=== PATIENT | female | born 1960 | race Caucasian/White ===

== ENCOUNTER → 2017-01-02 | Outpatient (CLI) | payer SELFPAY ==
[2016-09-23 15:00] VITALS: BP 145/63
[~2017-01-02] MED LIST: ACET500T68 PO; ALBU25PO2 MC; ASPI-482 PO; ASPI325T8 PO; ATOR20TA58 PO; AZIT500T4 PO; BUDE10.2 IH; BUDE180A IH; BUSP15TA PO; CARV6.252 PO; CLON0.5T3 PO; CLON1TAB PO; CLON1TAB23 PO; CYAN10002 IJ; CYAN10002 IM; FLUT1DIS3 IH; GABA-586 PO; HYDR-2679 PO; HYDR-2680 PO; ISOS30TA4 PO; LOSA50TA2 PO; METO50TA6 PO; NAPR-683 PO; NICO1PAT21 TP; OXYC-323 PO; OXYC-328 PO; PRAZ1CAP2 PO; PRED-220 PO; PROAIR HFA8.5 GM IH; SIMV20TA3 PO; SIMV5TAB5 PO; TAMO20TA PO; TRAM50TA PO; VENL225T PO; VENL37.5 PO; VENTOLIN HFA18 GM INH
--- NOTE | 2017-01-02 15:06 | CARD ---
APPROVED REPORT EXAM: Two-dimensional and M-mode echocardiogram with Doppler and color Doppler. Other Information Quality : Good INDICATION Non-Ischemic Cardiomyopathy 2D DIMENSIONS RVDd2.7 (2.9-3.5cm)Left Atrium(2D)2.8 (1.6-4.0cm) IVSd0.8 (0.7-1.1cm)Aortic Root(2D)2.7 (2.0-3.7cm) LVDd4.7 (3.9-5.9cm)LVOT Diameter2.0 (1.8-2.4cm) PWd0.8 (0.7-1.1cm)LVDs3.5 (2.5-4.0cm) FS (%) 25.4 %SV50.7 ml LVEF(%)55.0 (>50%) Aortic Valve AoV Peak Denis.110.6cm/sAoV VTI24.2cm AO Peak GR.4.9mmHgLVOT Peak Denis.89.4cm/s LVOT VTI 21.93cmAO Mean GR.3mmHg ZEINAB (VMAX)2.38qf4KDY (VTI)2.78cm2 Mitral Valve MV E Aumamxdq40.4cm/sMV DECEL [id number] MV A Fchxvavb31.8cm/sMV CMT44fz E/A Ratio0.9MVA (PHT)3.87cm2 TDI E/Lateral E'7.7 Pulmonary Vein S1 Llxrgpve93.4cm/sD2 Robjexoi80.0cm/s LEFT VENTRICLE The left ventricle is normal size. There is normal left ventricular wall thickness. The left ventricu lar systolic function is low normal. The Ejection Fraction is 50-55%. There is normal LV segmental wa ll motion. The left ventricular diastolic function and filling is normal for age. RIGHT VENTRICLE The right ventricle is normal size. The right ventricular systolic function is normal. ATRIA The left atrium size is normal. The right atrium size is normal. The interatrial septum is intact wit h no evidence for an atrial septal defect or patent foramen ovale as noted on 2-D or Doppler imaging. AORTIC VALVE The aortic valve is normal in structure and function. Doppler and Color Flow revealed trace aortic re gurgitation. There is no significant aortic valvular stenosis. MITRAL VALVE The mitral valve is normal in structure and function. There is no evidence of mitral valve prolapse. There is no mitral valve stenosis. Doppler and Color-flow revealed trace to mild mitral regurgitation . TRICUSPID VALVE The tricuspid valve is normal in structure and function. Doppler and Color Flow revealed trace tricus pid regurgitation. There is no tricuspid valve stenosis. PULMONIC VALVE Doppler and Color Flow revealed no pulmonic valvular regurgitation. There is no pulmonic valvular mainor nosis. GREAT VESSELS The aortic root is normal in size. The ascending aorta is not well seen. The IVC is normal in size an d collapses >50% with inspiration. PERICARDIAL EFFUSION There is no evidence of significant pericardial effusion. Critical Notification Critical Value: No <Conclusion> The left ventricular systolic function is low normal. The Ejection Fraction is 50-55%. There is normal LV segmental wall motion.
== END | disposition home or self-care (01) ==
LOC: ECHO 13:47
PROVIDERS: ATTEND Internal Medicine Cardiovascular Disease
DX: I31.3 Pericardial effusion (noninflammatory) (principal)
CPT/HCPCS: 93306

== ENCOUNTER 2017-01-10 10:29 | Inpatient (IN) | payer SELFPAY ==
[~2017-01-10] VITALS: Ht 162.6 cm; Wt 58.5 kg
[~2017-01-10 10:29] MED LIST changes: -ACET500T68 PO; -AZIT500T4 PO; -BUDE180A IH; -CLON0.5T3 PO; -CYAN10002 IM; -NICO1PAT21 TP; -PRED-220 PO; -VENTOLIN HFA18 GM INH
--- NOTE | 2017-01-10 10:44 | PHYS DOC ---
Past Medical History Past Medical History: Asthma, Cancer, COPD, CVA, Hypertension, Other Additional Past Medical Histor: LT EYE BLINDNESS, BREAST CA Additional Past Surgical Histo: LT BREAST LUMPECTOMY, PORT W/REMOVAL, LT EYE Alcohol Use: Occasionally Drug Use: None Adult General Chief Complaint Chief Complaint: SHORTNESS OF BREATH HPI HPI Patient is a 56 year old female who presents with shortness of breath and productive cough. She states her symptoms started several days ago and she's noticed green colored sputum which is different than her baseline. She does have COPD and she has been smoking again. She was seen by her computer education professor this morning and was instructed she can take off her ICD life pack and was told that her heart function is return back to normal. She denies any fevers chills chest pain nausea vomiting. Review of Systems Review of Systems Constitutional: Denies fever or chills [] Eyes: Denies change in visual acuity, redness, or eye pain [] HENT: Denies nasal congestion or sore throat [] Respiratory: Positive for cough and shortness of breath Cardiovascular: No additional information not addressed in HPI [] GI: Denies abdominal pain, nausea, vomiting, bloody stools or diarrhea [] : Denies dysuria or hematuria [] Musculoskeletal: Denies back pain or joint pain [] Integument: Denies rash or skin lesions [] Neurologic: Denies headache, focal weakness or sensory changes [] Endocrine: Denies polyuria or polydipsia [] All other systems were reviewed and found to be within normal limits, except as documented in this note. Current Medications Current Medications Current Medications Medications (Trade) Dose Ordered Sig/Lanette Start Time Stop Time Status Last Admin Dose Admin Albuterol/ Ipratropium (Duoneb) 3 ml 1X ONCE 01/10/17 10:45 01/10/17 10:46 DC 01/10/17 10:50 3 ML Methylprednisolone Sodium Succinate (SOLU-Medrol 125MG VIAL) 125 mg 1X ONCE 01/10/17 11:00 01/10/17 11:01 DC 01/10/17 11:35 125 MG Allergies Allergies Allergies Coded Allergies Type Severity Reaction Last Updated Verified No Known Drug Allergies 03/16/14 No Physical Exam Physical Exam Constitutional: Well developed, well nourished, no acute distress, non-toxic appearance. [] HENT: Normocephalic, atraumatic, bilateral external ears normal, oropharynx moist, no oral exudates, nose normal. [] Eyes: PERRLA, EOMI, conjunctiva normal, no discharge. [] Neck: Normal range of motion, no tenderness, supple, no stridor. [] Cardiovascular:Heart rate regular rhythm, no murmur [] Lungs & Thorax: Tachypnea with moderate expiratory wheezing bilaterally Abdomen: Bowel sounds normal, soft, no tenderness, no masses, no pulsatile masses. [] Skin: Warm, dry, no erythema, no rash. [] Back: No tenderness, no CVA tenderness. [] Extremities: No tenderness, no cyanosis, no clubbing, ROM intact, no edema. [] Neurologic: Alert and oriented X 3, normal motor function, normal sensory function, no focal deficits noted. [] Psychologic: Affect normal, judgement normal, mood normal. [] Current Patient Data Vital Signs Vital Signs Date Time Temp Pulse Resp B/P (MAP) Pulse Ox O2 Delivery O2 Flow Rate FiO2 01/10/17 10:51 99 Room Air 01/10/17 10:40 98.8 90 30 160/89 (112) 98.8 Lab Values Laboratory Tests Test 01/10/17 10:50 White Blood Count 8.5 x10^3/uL (4.0-11.0) Red Blood Count 4.53 x10^6/uL (3.50-5.40) Hemoglobin 14.6 g/dL (12.0-15.5) Hematocrit 43.8 % (36.0-47.0) Mean Corpuscular Volume 97 fL (79-100) Mean Corpuscular Hemoglobin 32 pg (25-35) Mean Corpuscular Hemoglobin Concent 33 g/dL (31-37) Red Cell Distribution Width 14.1 % (11.5-14.5) Platelet Count 179 x10^3/uL (140-400) Neutrophils (%) (Auto) 59 % (31-73) Lymphocytes (%) (Auto) 27 % (24-48) Monocytes (%) (Auto) 7 % (0-9) Eosinophils (%) (Auto) 7 % (0-3) H Basophils (%) (Auto) 1 % (0-3) Neutrophils # (Auto) 5.0 x10^3uL (1.8-7.7) Lymphocytes # (Auto) 2.3 x10^3/uL (1.0-4.8) Monocytes # (Auto) 0.6 x10^3/uL (0.0-1.1) Eosinophils # (Auto) 0.6 x10^3/uL (0.0-0.7) Basophils # (Auto) 0.0 x10^3/uL (0.0-0.2) Prothrombin Time 12.7 SEC (11.7-14.0) Prothrombin Time INR 1.0 (0.8-1.1) Sodium Level 141 mmol/L (136-145) Potassium Level 3.9 mmol/L (3.5-5.1) Chloride Level 105 mmol/L (98-107) Carbon Dioxide Level 21 mmol/L (21-32) Anion Gap 15 (6-14) H Blood Urea Nitrogen 13 mg/dL (7-20) Creatinine 1.1 mg/dL (0.6-1.0) H Estimated GFR (Cockcroft-Gault) 51.8 Glucose Level 129 mg/dL (70-99) H Calcium Level 9.6 mg/dL (8.5-10.1) Magnesium Level 2.1 mg/dL (1.8-2.4) Total Bilirubin 0.4 mg/dL (0.2-1.0) Direct Bilirubin 0.1 mg/dL (0.0-0.2) Aspartate Amino Transferase (AST) 17 U/L (15-37) Alanine Aminotransferase (ALT) 17 U/L (14-59) Alkaline Phosphatase 87 U/L (46-116) Creatine Kinase 57 U/L (26-192) Creatine Kinase MB (Mass) 0.6 ng/mL (0.0-3.6) Creatine Kinase MB Relative Index % (0-4) Troponin I Quantitative < 0.017 ng/mL (0.000-0.055) DK-Xcr-X-Type Natriuretic Peptide 2235 pg/mL (0-124) H Total Protein 7.7 g/dL (6.4-8.2) Albumin 3.6 g/dL (3.4-5.0) Lipase 169 U/L (73-393) Laboratory Tests 01/10/17 10:50 Laboratory Tests 01/10/17 10:50 EKG EKG EKG shows normal sinus with a rate of [address] elevations or T- wave inversions, normal axis, QTC 472 ms, as interpreted by me. Radiology/Procedures Radiology/Procedures [] Impressions: COPD exacerbation Shortness of breath Cardiomyopathy Breast cancer Tobacco abuse Course & Med Decision Making Course & Med Decision Making Pertinent Labs and Imaging studies reviewed. (See chart for details) Patient presents with change in her sputum color from clear to brown and increasing shortness of breath. She received DuoNeb, Solu-Medrol, and azithromycin IV. Her EKG is nonacute. Her chest x-ray doesn't show any focal consolidations or signs of volume overload. We'll admit to the hospitalist and placed consultations with cardiology and pulmonary. Patient's in stable condition this time being admitted to telemetry. Dragon Disclaimer Dragon Disclaimer This electronic medical record was generated, in whole or in part, using a voice recognition dictation system. Departure Departure Impression: Primary Impression: Shortness of breath Disposition: ADMITTED INPATIENT Admitting Physician: Yu Feng Condition: IMPROVED Referrals: UNKNOWN PCP NAME (PCP) ANANYA DOS SANTOS MD Jan 10, 2017 10:44
[2017-01-10] MEDS ORDERED: IPRATRPIUM/ALBUTEROL 0.5/2.5MG 3 ML NEBU. NEB ONE (10:45)
[2017-01-10] MEDS ORDERED: methylPREDNISolone SOD SUCC PF 125 MG/2 ML VIAL. IV ONE (11:00)
--- NOTE | 2017-01-10 11:02 | EKG ---
[facility] [address] [place] [address] Test Date: 2017-01-10 Test Time: 10:44:56 Pat Name: NADIR ZAMARRIPA Department: Room: Gender: F Pre Wave Assembler: : 1960 Requested By: ANANYA DOS SANTOS Order Number: [id number] Reading MD: Gume Faustin Measurements Intervals [place] Rate: 59 P: 71 AL: 156 QRS: 74 QRSD: 76 T: 62 QT: 472 QTc: 472 Interpretive Statements SINUS RHYTHM Electronically Signed On 01-22-2017 14:01:57 ENGINE LATHE SET UP OPERATOR by Gume Faustin
[2017-01-10 11:09] LABS: BASO % 1 % (0-3); EOS % 7 % (0-3); HEMATOCRIT 43.8 % (36.0-47.0); HEMOGLOBIN 14.6 g/dL (12.0-15.5); LYMPH # 2.3 x10^3/uL (1.0-4.8); LYMPH % 27 % (24-48); MEAN CORPUSCULAR HEMOGLOBIN 32 pg (25-35); MEAN CORPUSCULAR HGB CONC 33 g/dL (31-37); MEAN CORPUSCULAR VOLUME 97 fL (79-100); MONO % 7 % (0-9); NEUT % 59 % (31-73); PLATELET COUNT 179 x10^3/uL (140-400); RED BLOOD COUNT 4.53 x10^6/uL (3.50-5.40); RED CELL DISTRIBUTION WIDTH 14.1 % (11.5-14.5); WHITE BLOOD COUNT 8.5 x10^3/uL (4.0-11.0)
[2017-01-10 11:19] LABS: CALCIUM 9.6 mg/dL (8.5-10.1); CREATININE 1.1 mg/dL (0.6-1.0); GFR 51.8; POTASSIUM 3.9 mmol/L (3.5-5.1)
[2017-01-10 11:26] LABS: ALBUMIN 3.6 g/dL (3.4-5.0); DIRECT BILIRUBIN 0.1 mg/dL (0.0-0.2); MAGNESIUM 2.1 mg/dL (1.8-2.4); TOTAL BILIRUBIN 0.4 mg/dL (0.2-1.0); TOTAL PROTEIN 7.7 g/dL (6.4-8.2)
[2017-01-10 11:29] LABS: PROTHROMBIN TIME PATIENT 12.7 SEC (11.7-14.0)
[2017-01-10] MEDS ORDERED: AZITHRMYCN 500MG IVPB FOR OMNI 250 ML IV ONE (11:30)
[2017-01-10 11:32] LABS: CKMB MASS 0.6 ng/mL (0.0-3.6); CREATINE KINASE 57 U/L (26-192)
[2017-01-10] MEDS ORDERED: ONDANSETRON PF 4 MG/2 ML VIAL. IV PRN (11:45)
--- NOTE | 2017-01-10 12:10 | RAD ---
Single view of the Chest 01/10/2017 12:42 PM Indication: Shortness of breath Comparison: None Findings: There is no focal consolidation or infiltrate identified. There is no effusion or pneumothorax. The cardiomediastinal silhouette and pulmonary vasculature are within normal limits. No osseous abnormality is identified. Impression: No evidence of acute cardiopulmonary process.
--- NOTE | 2017-01-10 12:58 | PDOC2 ---
ASIF AMOR FIELD CANE SCALER 01/10/17 1258: CARDIAC CONSULT DATE OF CONSULT Date of Consult DATE: 01/10/17 TIME: 12:47 REASON FOR CONSULT Reason for Consult: dyspnea HISTORY OF PRESENT ILLNESS HISTORY OF PRESENT ILLNESS Ms Wood is a 56 year old female with history of This is a 56 yo female with a history of cardiopulmonary arrest, NICM with most recent echo revealing recovered EF. She complains of dyspena and cough over the last several days with wheezing. She was seen this am in the cardiology office and doing well from CV perspective. She presented to the ED for evaluation of COPD and cough. She denies chest pain, PND or orthopnea, edema or palpitations. 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; catract) Renal/: No pertinent hx Endocrine: No pertinent hx Dermatology: No pertinent hx PAST SURGICAL HISTORY Past Surgical History Other (portacath placement and removal; left lumpectomy; bilateral eye surgery) FAMILY HISTORY Family History Heart Disease, hypertension, breast cancer SOCIAL HISTORY Social History Smoke: 1 pack per day ALCOHOL: none Drugs: None Lives: with Family CURRENT MEDICATIONS CURRENT MEDICATIONS Current Medications Medications (Trade) Dose Ordered Sig/Lanette Route PRN Reason Start Time Stop Time Status Last Admin Dose Admin Albuterol/ Ipratropium (Duoneb) 3 ml 1X ONCE NEB 01/10/17 10:45 01/10/17 10:46 DC 01/10/17 10:50 Methylprednisolone Sodium Succinate (SOLU-Medrol 125MG VIAL) 125 mg 1X ONCE IV 01/10/17 11:00 01/10/17 11:01 DC 01/10/17 11:35 Azithromycin 250 ml @ 250 mls/hr 1X ONCE IV 01/10/17 11:30 01/10/17 12:29 DC 01/10/17 11:39 ALLERGIES ALLERGIES: Coded Allergies: No Known Drug Allergies (Unverified , 03/16/14) ROS Review of System as per HPI PHYSICAL EXAM General: Alert, Oriented X3, Cooperative, No acute distress HEENT: Atraumatic, EOMI, Mucous membr. moist/pink Lungs: Other (expiratory wheezing, decreased bases) Heart: Regular rate, Normal S1, Normal S2, Other (no gallops, clicks or rubs) Abdomen: Normal bowel sounds, Soft, No tenderness Extremities: No cyanosis, No edema, Normal pulses Neuro: Normal speech, Strength at 5/5 X4 ext Psych/Mental Status: Mental status NL, Mood NL VITALS VITALS Vital Signs Date Time Temp Pulse Resp B/P (MAP) Pulse Ox O2 Delivery O2 Flow Rate FiO2 01/10/17 12:04 69 22 135/78 (97) 100 Room Air 01/10/17 10:40 98.8 98.8 LABS Lab: Laboratory Tests Test 01/10/17 10:50 White Blood Count 8.5 x10^3/uL (4.0-11.0) Red Blood Count 4.53 x10^6/uL (3.50-5.40) Hemoglobin 14.6 g/dL (12.0-15.5) Hematocrit 43.8 % (36.0-47.0) Mean Corpuscular Volume 97 fL (79-100) Mean Corpuscular Hemoglobin 32 pg (25-35) Mean Corpuscular Hemoglobin Concent 33 g/dL (31-37) Red Cell Distribution Width 14.1 % (11.5-14.5) Platelet Count 179 x10^3/uL (140-400) Neutrophils (%) (Auto) 59 % (31-73) Lymphocytes (%) (Auto) 27 % (24-48) Monocytes (%) (Auto) 7 % (0-9) Eosinophils (%) (Auto) 7 % (0-3) Basophils (%) (Auto) 1 % (0-3) Neutrophils # (Auto) 5.0 x10^3uL (1.8-7.7) Lymphocytes # (Auto) 2.3 x10^3/uL (1.0-4.8) Monocytes # (Auto) 0.6 x10^3/uL (0.0-1.1) Eosinophils # (Auto) 0.6 x10^3/uL (0.0-0.7) Basophils # (Auto) 0.0 x10^3/uL (0.0-0.2) Prothrombin Time 12.7 SEC (11.7-14.0) Prothromb Time International Ratio 1.0 (0.8-1.1) Sodium Level 141 mmol/L (136-145) Potassium Level 3.9 mmol/L (3.5-5.1) Chloride Level 105 mmol/L (98-107) Carbon Dioxide Level 21 mmol/L (21-32) Anion Gap 15 (6-14) Blood Urea Nitrogen 13 mg/dL (7-20) Creatinine 1.1 mg/dL (0.6-1.0) Estimated GFR (Cockcroft-Gault) 51.8 Glucose Level 129 mg/dL (70-99) Calcium Level 9.6 mg/dL (8.5-10.1) Magnesium Level 2.1 mg/dL (1.8-2.4) Total Bilirubin 0.4 mg/dL (0.2-1.0) Direct Bilirubin 0.1 mg/dL (0.0-0.2) Aspartate Amino Transf (AST/SGOT) 17 U/L (15-37) Alanine Aminotransferase (ALT/SGPT) 17 U/L (14-59) Alkaline Phosphatase 87 U/L (46-116) Creatine Kinase 57 U/L (26-192) Creatine Kinase MB (Mass) 0.6 ng/mL (0.0-3.6) Creatine Kinase MB Relative Index % (0-4) Troponin I Quantitative < 0.017 ng/mL (0.000-0.055) YF-Qmo-Y-Type Natriuretic Peptide 2235 pg/mL (0-124) Total Protein 7.7 g/dL (6.4-8.2) Albumin 3.6 g/dL (3.4-5.0) Lipase 169 U/L (73-393) IMAGES IMAGES Impression: No evidence of acute cardiopulmonary process. ECHOCARDIOGRAM ECHOCARDIOGRAM 01/02/17 The left ventricular systolic function is low normal. The Ejection Fraction is 50-55%. There is normal LV segmental wall motion. ASSESSMENT/PLAN ASSESSMENT/PLAN 1. Dyspnea c/w COPD exacerbation,no overt heart failure 2. NICM with EF recovered to 50% - life vest discontinued today. Entresto dosing increased to 49-51mg today. continue other home cardiac meds. 3. hypertension - controlled on current medications. 4. hyperlipidemia - continue statin therapy. Problems: ERNST VALDES MD 01/10/17 1532: CARDIAC CONSULT ALLERGIES ALLERGIES: Coded Allergies: No Known Drug Allergies (Unverified , 03/16/14) ASSESSMENT/PLAN ASSESSMENT/PLAN Patient seen and examined. Agree with DIETARY SERVICES MANAGER's assessment and plan. Symptoms consistent with acute COPD exacerbation. Patient has history of nonischemic cardio myopathy but recent 2-D echo showed normalized left ventricle systolic function. She is clinically well compensated from cardiac standpoint. Lifevest discontinued today. She does not meet the criteria for AICD implantation. Continue current medications including Entresto. Thank you for your consultation. Problems: ASIF AMOR APRN Jan 10, 2017 12:58 ERNST VALDES MD Jan 10, 2017 15:32
[2017-01-10 13:19] VITALS: BP 134/80
[2017-01-10] MEDS ORDERED: CLON0.5T3 PO (14:48)
[2017-01-10] MEDS ORDERED: ACET500T68 PO (14:48)
[2017-01-10] MEDS ORDERED: VENL225T PO (14:48)
[2017-01-10] MEDS ORDERED: CYAN10002 IM (14:48)
[2017-01-10] MEDS ORDERED: VENTOLIN HFA18 GM INH (14:48)
[2017-01-10] MEDS ORDERED: NICO1PAT21 TP (14:48)
[2017-01-10 15:00] VITALS: BP 126/66
--- NOTE | 2017-01-10 15:36 | HP ---
ADMIT DATE: 01/10/2017 CHIEF COMPLAINT: Shortness of breath and cough. HISTORY OF PRESENT ILLNESS: The patient is a pleasant 56-year-old female who went to her ____ for a followup. She has apparently been wearing an event monitor. While there, she was quite short of breath and coughing. She was sent to the ER. While in the ER, they noted her to have a COPD exacerbation. She now is being admitted to the medical floor where I will examine her in room 565. PAST MEDICAL HISTORY: COPD, tobacco abuse, cardiac arrhythmia. She actually had a code blue back in August, she was in the hospital, was on life support for a couple of weeks. ALLERGIES: None. FAMILY HISTORY: Diabetes. SOCIAL HISTORY: She is . No drinking, no drugs. She does smoke still. MEDICATIONS: Reviewed. REVIEW OF SYSTEMS: GENERAL: No history of weight change, weakness or fevers. SKIN: No bruising, hair changes or rashes. EYES: No blurred, double or loss of vision. NOSE AND THROAT: No history of nosebleeds, hoarseness or sore throat. HEART: No history of palpitations, chest pain or shortness of breath on exertion. LUNGS: She complaints of shortness of breath and cough. GASTROINTESTINAL: Denies changes in appetite, nausea, vomiting, diarrhea or constipation. GENITOURINARY: No history of frequency, urgency, hesitancy or nocturia. NEUROLOGIC: Denies history of numbness, tingling, tremor or weakness. PSYCHIATRIC: No history of panic, anxiety or depression. ENDOCRINE: No history of heat or cold intolerance, polyuria or polydipsia. EXTREMITIES: Denies muscle weakness, joint pain, pain on walking or stiffness. PHYSICAL EXAMINATION: VITAL SIGNS: Temperature afebrile, pulse 98, respirations 18, blood pressure 144/62. GENERAL: She is alert, cooperative. HEART: Normal S1, S2. LUNGS: Coarse with a cough. ABDOMEN: Soft. EXTREMITIES: No edema. SKIN: No rashes. ENDOCRINE: No thyromegaly. LYMPHATICS: No cervical nodes. HEMATOPOIETIC: No bruising. ASSESSMENT AND PLAN: Chronic obstructive pulmonary disease exacerbation. The patient will be admitted. We will start IV steroids, breathing treatments, oxygen. Consult Dr. Mcfarlane, consult Dr. Faustin. Continue home medicines. MELA FITZGERALD DO DR: Miguel JOB#: [id number] / [id number]
[2017-01-10] MEDS ORDERED: ACETAMINOPHEN 500 MG TABLET PO PRN (19:15)
[2017-01-10 19:26] VITALS: BP 134/64
[2017-01-10] MEDS ORDERED: NICOTINE 21MG PATCH. TD SCH (19:30)
[2017-01-10] MEDS: BUDESONIDE 0.5 MG/2 ML NEBU. NEB SCH (20:00)
[2017-01-10] MEDS: GABAPENTIN 300 MG CAPSULE. PO SCH (20:33)
[2017-01-10] MEDS: ATORVASTATIN CALCIUM 20 MG TABLET PO SCH (20:34)
[2017-01-10] MEDS: busPIRone 10 MG TABLET. PO SCH (20:34)
[2017-01-10] MEDS: METOPROLOL TART IMMED RELEASE 50 MG TABLET. PO SCH (20:34)
[2017-01-10] MEDS: NICOTINE 21MG PATCH. TD SCH (20:35)
[2017-01-10] MEDS: TAMOXIFEN 10 MG TABLET PO SCH (20:44)
[2017-01-10] MEDS ORDERED: NON FORMULARY ITEM (Albuterol Sulfate (Ventolin Hfa Inhaler) 2 PUFF) INH SCH (21:00)
[2017-01-10 23:20] VITALS: BP 121/68
[2017-01-11 03:55] VITALS: BP 119/71
[2017-01-11 04:39] LABS: BASO % 0 % (0-3); EOS % 0 % (0-3); HEMATOCRIT 39.2 % (36.0-47.0); LYMPH # 1.1 x10^3/uL (1.0-4.8); LYMPH % 10 % (24-48); MEAN CORPUSCULAR HEMOGLOBIN 32 pg (25-35); MEAN CORPUSCULAR HGB CONC 33 g/dL (31-37); MEAN CORPUSCULAR VOLUME 97 fL (79-100); MONO % 5 % (0-9); NEUT % 85 % (31-73); PLATELET COUNT 147 x10^3/uL (140-400); RED BLOOD COUNT 4.02 x10^6/uL (3.50-5.40); RED CELL DISTRIBUTION WIDTH 14.2 % (11.5-14.5); WHITE BLOOD COUNT 10.7 x10^3/uL (4.0-11.0)
[2017-01-11 05:08] LABS: CALCIUM 8.8 mg/dL (8.5-10.1); CREATININE 0.8 mg/dL (0.6-1.0); GFR 74.7; POTASSIUM 4.1 mmol/L (3.5-5.1)
[2017-01-11 05:22] LABS: PLT ESTIMATE ADEQUATE (ADEQUATE); TOXIC GRANULATION SLIGHT
[2017-01-11 07:00] VITALS: BP 135/67
[2017-01-11] MEDS: BUDESONIDE 0.5 MG/2 ML NEBU. NEB SCH (08:23)
[2017-01-11] MEDS: busPIRone 10 MG TABLET. PO SCH ×2 (08:37→21:00)
[2017-01-11] MEDS: VENLAFAXINE 75 MG TABLET. PO SCH ×3 (08:37→21:00)
[2017-01-11] MEDS: ASPIRIN 325 MG TABLET PO SCH (08:37)
[2017-01-11] MEDS: ISOSORBIDE MONONITRATE ER 30 MG TAB.ER.24H PO SCH (08:37)
[2017-01-11] MEDS: GABAPENTIN 300 MG CAPSULE. PO SCH ×2 (08:38→21:00)
[2017-01-11] MEDS: METOPROLOL TART IMMED RELEASE 50 MG TABLET. PO SCH ×2 (08:38→21:00)
[2017-01-11] MEDS: TAMOXIFEN 10 MG TABLET PO SCH (08:44)
--- NOTE | 2017-01-11 09:09 | PDOC ---
PROGRESS NOTES Chief Complaint Chief Complaint Acute hypoxic respir failure ASSESSMENT AND PLAN: 1. COPD exacerbation/ acute bronchitis: cont steroids, nebs, suppl O2, azithro, mucinex 2. Arrhythmia: wearing O/P Holter monitor. cardiology consulted 3. CAD: s/p cardiac arrest in August 2016. cont 2ary prevention meds 4. Tobacco abuse: on nicotine. 5. Depression: continue home meds History of Present Illness History of Present Illness much improved. cough, unable to raise sputum. no fevers Vitals Vitals Vital Signs Date Time Temp Pulse Resp B/P (MAP) Pulse Ox O2 Delivery O2 Flow Rate FiO2 01/11/17 08:38 69 135/67 01/11/17 08:24 98 Room Air 01/11/17 07:00 97.7 17 97.7 Physical Exam General: Alert, Oriented X3, Cooperative, No acute distress Heart: Regular rate Lungs: Clear Abdomen: Normal bowel sounds, Soft, No tenderness Extremities: No clubbing, No edema Labs LABS Laboratory Tests Test 01/10/17 10:50 01/10/17 17:40 01/10/17 23:25 01/11/17 03:50 White Blood Count 8.5 x10^3/uL (4.0-11.0) 10.7 x10^3/uL (4.0-11.0) Red Blood Count 4.53 x10^6/uL (3.50-5.40) 4.02 x10^6/uL (3.50-5.40) Hemoglobin 14.6 g/dL (12.0-15.5) 13.0 g/dL (12.0-15.5) Hematocrit 43.8 % (36.0-47.0) 39.2 % (36.0-47.0) Mean Corpuscular Volume 97 fL (79-100) 97 fL (79-100) Mean Corpuscular Hemoglobin 32 pg (25-35) 32 pg (25-35) Mean Corpuscular Hemoglobin Concent 33 g/dL (31-37) 33 g/dL (31-37) Red Cell Distribution Width 14.1 % (11.5-14.5) 14.2 % (11.5-14.5) Platelet Count 179 x10^3/uL (140-400) 147 x10^3/uL (140-400) Neutrophils (%) (Auto) 59 % (31-73) 85 % (31-73) Lymphocytes (%) (Auto) 27 % (24-48) 10 % (24-48) Monocytes (%) (Auto) 7 % (0-9) 5 % (0-9) Eosinophils (%) (Auto) 7 % (0-3) 0 % (0-3) Basophils (%) (Auto) 1 % (0-3) 0 % (0-3) Neutrophils # (Auto) 5.0 x10^3uL (1.8-7.7) 9.1 x10^3uL (1.8-7.7) Lymphocytes # (Auto) 2.3 x10^3/uL (1.0-4.8) 1.1 x10^3/uL (1.0-4.8) Monocytes # (Auto) 0.6 x10^3/uL (0.0-1.1) 0.5 x10^3/uL (0.0-1.1) Eosinophils # (Auto) 0.6 x10^3/uL (0.0-0.7) 0.0 x10^3/uL (0.0-0.7) Basophils # (Auto) 0.0 x10^3/uL (0.0-0.2) 0.0 x10^3/uL (0.0-0.2) Prothrombin Time 12.7 SEC (11.7-14.0) Prothromb Time International Ratio 1.0 (0.8-1.1) Sodium Level 141 mmol/L (136-145) 141 mmol/L (136-145) Potassium Level 3.9 mmol/L (3.5-5.1) 4.1 mmol/L (3.5-5.1) Chloride Level 105 mmol/L (98-107) 107 mmol/L (98-107) Carbon Dioxide Level 21 mmol/L (21-32) 24 mmol/L (21-32) Anion Gap 15 (6-14) 10 (6-14) Blood Urea Nitrogen 13 mg/dL (7-20) 15 mg/dL (7-20) Creatinine 1.1 mg/dL (0.6-1.0) 0.8 mg/dL (0.6-1.0) Estimated GFR (Cockcroft-Gault) 51.8 74.7 Glucose Level 129 mg/dL (70-99) 141 mg/dL (70-99) Calcium Level 9.6 mg/dL (8.5-10.1) 8.8 mg/dL (8.5-10.1) Magnesium Level 2.1 mg/dL (1.8-2.4) Total Bilirubin 0.4 mg/dL (0.2-1.0) Direct Bilirubin 0.1 mg/dL (0.0-0.2) Aspartate Amino Transf (AST/SGOT) 17 U/L (15-37) Alanine Aminotransferase (ALT/SGPT) 17 U/L (14-59) Alkaline Phosphatase 87 U/L (46-116) Creatine Kinase 57 U/L (26-192) Creatine Kinase MB (Mass) 0.6 ng/mL (0.0-3.6) Creatine Kinase MB Relative Index % (0-4) Troponin I Quantitative < 0.017 ng/mL (0.000-0.055) < 0.017 ng/mL (0.000-0.055) < 0.017 ng/mL (0.000-0.055) HH-Umv-G-Type Natriuretic Peptide 2235 pg/mL (0-124) Total Protein 7.7 g/dL (6.4-8.2) Albumin 3.6 g/dL (3.4-5.0) Lipase 169 U/L (73-393) Segmented Neutrophils % 86 % (35-66) Band Neutrophils % 1 % (0-9) Lymphocytes % 6 % (24-48) Monocytes % 7 % (0-10) Toxic Granulation Slight Platelet Estimate Adequate (ADEQUATE) SHAHEEN LEE MD Jan 11, 2017 09:09
[2017-01-11 10:35] VITALS: BP 133/77
[2017-01-11] MEDS: guaiFENesin DM 600/30MG 1 TAB TAB.ER.12H PO SCH ×2 (11:17→21:00)
[2017-01-11] MEDS: clonazePAM 0.5 MG TABLET PO PRN (11:17)
[2017-01-11] MEDS: methylPREDNISolone SOD SUCC PF 40 MG/ML VIAL. IV SCH ×3 (11:18→21:02)
[2017-01-11] MEDS ORDERED: AZITHROMYCIN 500 MG in IV NORMAL SALINE 250ML 250 ML IV SCH (12:00)
[2017-01-11 14:57] VITALS: BP 125/73
--- NOTE | 2017-01-11 16:38 | PDOC ---
PULMONARY PROGRESS NOTES Vitals Vital Signs Date Time Temp Pulse Resp B/P (MAP) Pulse Ox O2 Delivery O2 Flow Rate FiO2 01/11/17 14:57 97.7 81 18 125/73 (90) 95 Nasal Cannula 2.0 97.7 Lungs: Clear Cardiovascular: S1, S2 Abdomen: Soft, Non-tender Extremities: No Edema Labs Laboratory Tests Test 01/10/17 10:50 01/10/17 17:40 01/10/17 23:25 01/11/17 03:50 White Blood Count 8.5 x10^3/uL (4.0-11.0) 10.7 x10^3/uL (4.0-11.0) Red Blood Count 4.53 x10^6/uL (3.50-5.40) 4.02 x10^6/uL (3.50-5.40) Hemoglobin 14.6 g/dL (12.0-15.5) 13.0 g/dL (12.0-15.5) Hematocrit 43.8 % (36.0-47.0) 39.2 % (36.0-47.0) Mean Corpuscular Volume 97 fL (79-100) 97 fL (79-100) Mean Corpuscular Hemoglobin 32 pg (25-35) 32 pg (25-35) Mean Corpuscular Hemoglobin Concent 33 g/dL (31-37) 33 g/dL (31-37) Red Cell Distribution Width 14.1 % (11.5-14.5) 14.2 % (11.5-14.5) Platelet Count 179 x10^3/uL (140-400) 147 x10^3/uL (140-400) Neutrophils (%) (Auto) 59 % (31-73) 85 % (31-73) Lymphocytes (%) (Auto) 27 % (24-48) 10 % (24-48) Monocytes (%) (Auto) 7 % (0-9) 5 % (0-9) Eosinophils (%) (Auto) 7 % (0-3) 0 % (0-3) Basophils (%) (Auto) 1 % (0-3) 0 % (0-3) Neutrophils # (Auto) 5.0 x10^3uL (1.8-7.7) 9.1 x10^3uL (1.8-7.7) Lymphocytes # (Auto) 2.3 x10^3/uL (1.0-4.8) 1.1 x10^3/uL (1.0-4.8) Monocytes # (Auto) 0.6 x10^3/uL (0.0-1.1) 0.5 x10^3/uL (0.0-1.1) Eosinophils # (Auto) 0.6 x10^3/uL (0.0-0.7) 0.0 x10^3/uL (0.0-0.7) Basophils # (Auto) 0.0 x10^3/uL (0.0-0.2) 0.0 x10^3/uL (0.0-0.2) Prothrombin Time 12.7 SEC (11.7-14.0) Prothromb Time International Ratio 1.0 (0.8-1.1) Sodium Level 141 mmol/L (136-145) 141 mmol/L (136-145) Potassium Level 3.9 mmol/L (3.5-5.1) 4.1 mmol/L (3.5-5.1) Chloride Level 105 mmol/L (98-107) 107 mmol/L (98-107) Carbon Dioxide Level 21 mmol/L (21-32) 24 mmol/L (21-32) Anion Gap 15 (6-14) 10 (6-14) Blood Urea Nitrogen 13 mg/dL (7-20) 15 mg/dL (7-20) Creatinine 1.1 mg/dL (0.6-1.0) 0.8 mg/dL (0.6-1.0) Estimated GFR (Cockcroft-Gault) 51.8 74.7 Glucose Level 129 mg/dL (70-99) 141 mg/dL (70-99) Calcium Level 9.6 mg/dL (8.5-10.1) 8.8 mg/dL (8.5-10.1) Magnesium Level 2.1 mg/dL (1.8-2.4) Total Bilirubin 0.4 mg/dL (0.2-1.0) Direct Bilirubin 0.1 mg/dL (0.0-0.2) Aspartate Amino Transf (AST/SGOT) 17 U/L (15-37) Alanine Aminotransferase (ALT/SGPT) 17 U/L (14-59) Alkaline Phosphatase 87 U/L (46-116) Creatine Kinase 57 U/L (26-192) Creatine Kinase MB (Mass) 0.6 ng/mL (0.0-3.6) Creatine Kinase MB Relative Index % (0-4) Troponin I Quantitative < 0.017 ng/mL (0.000-0.055) < 0.017 ng/mL (0.000-0.055) < 0.017 ng/mL (0.000-0.055) OZ-Ssg-N-Type Natriuretic Peptide 2235 pg/mL (0-124) Total Protein 7.7 g/dL (6.4-8.2) Albumin 3.6 g/dL (3.4-5.0) Lipase 169 U/L (73-393) Segmented Neutrophils % 86 % (35-66) Band Neutrophils % 1 % (0-9) Lymphocytes % 6 % (24-48) Monocytes % 7 % (0-10) Toxic Granulation Slight Platelet Estimate Adequate (ADEQUATE) Laboratory Tests Test 01/10/17 17:40 01/10/17 23:25 01/11/17 03:50 Troponin I Quantitative < 0.017 ng/mL (0.000-0.055) < 0.017 ng/mL (0.000-0.055) White Blood Count 10.7 x10^3/uL (4.0-11.0) Red Blood Count 4.02 x10^6/uL (3.50-5.40) Hemoglobin 13.0 g/dL (12.0-15.5) Hematocrit 39.2 % (36.0-47.0) Mean Corpuscular Volume 97 fL (79-100) Mean Corpuscular Hemoglobin 32 pg (25-35) Mean Corpuscular Hemoglobin Concent 33 g/dL (31-37) Red Cell Distribution Width 14.2 % (11.5-14.5) Platelet Count 147 x10^3/uL (140-400) Neutrophils (%) (Auto) 85 % (31-73) Lymphocytes (%) (Auto) 10 % (24-48) Monocytes (%) (Auto) 5 % (0-9) Eosinophils (%) (Auto) 0 % (0-3) Basophils (%) (Auto) 0 % (0-3) Neutrophils # (Auto) 9.1 x10^3uL (1.8-7.7) Lymphocytes # (Auto) 1.1 x10^3/uL (1.0-4.8) Monocytes # (Auto) 0.5 x10^3/uL (0.0-1.1) Eosinophils # (Auto) 0.0 x10^3/uL (0.0-0.7) Basophils # (Auto) 0.0 x10^3/uL (0.0-0.2) Segmented Neutrophils % 86 % (35-66) Band Neutrophils % 1 % (0-9) Lymphocytes % 6 % (24-48) Monocytes % 7 % (0-10) Toxic Granulation Slight Platelet Estimate Adequate (ADEQUATE) Sodium Level 141 mmol/L (136-145) Potassium Level 4.1 mmol/L (3.5-5.1) Chloride Level 107 mmol/L (98-107) Carbon Dioxide Level 24 mmol/L (21-32) Anion Gap 10 (6-14) Blood Urea Nitrogen 15 mg/dL (7-20) Creatinine 0.8 mg/dL (0.6-1.0) Estimated GFR (Cockcroft-Gault) 74.7 Glucose Level 141 mg/dL (70-99) Calcium Level 8.8 mg/dL (8.5-10.1) Medications Active Scripts Medications Dose Route/Sig Max Daily Dose Days Date Category Venlafaxine Hcl Er (Venlafaxine Hcl) 225 Mg Tab.er.24 225 Mg PO DAILY 01/10/17 Reported NICODERM CQ 21mg (Nicotine) 1 Each Patch.td24 1 Patch TP DAILY 01/10/17 Reported Cyanocobalamin Injection (Cyanocobalamin (Vitamin B-12)) 1,000 Mcg/1 Ml Vial 1 Ml IM QMONTH 01/10/17 Reported Clonazepam 0.5 Mg Tablet 0.5 Tab PO DAILY PRN 01/10/17 Reported Ventolin Hfa Inhaler (Albuterol Sulfate) 18 Gm Hfa.aer.ad 2 Puff INH BID 01/10/17 Reported Acetaminophen 500 Mg Tablet 1 Tab PO PRN Q6HRS PRN 01/10/17 Reported Metoprolol Tartrate 50 Mg Tablet 50 Mg PO BID 30 09/23/16 Rx Isosorbide Mononitrate Er (Isosorbide Mononitrate) 30 Mg Tab.er.24h 60 Mg PO DAILY 09/23/16 Rx Atorvastatin Calcium 20 Mg Tablet 20 Mg PO QHS 09/23/16 Rx Advair 250-50 Diskus (Fluticasone/Salmeterol) 1 Each Disk.w.dev 1 Inh IH BID 09/23/16 Rx Gabapentin 300 Mg Capsule 300 Mg PO BID 09/12/16 Reported Buspirone Hcl 15 Mg Tablet 15 Mg PO BID 09/12/16 Reported Aspirin 325 Mg Tablet 1 Tab PO DAILY 03/16/14 Reported Tamoxifen Citrate 20 Mg Tablet 20 Mg PO DAILY 06/24/13 Reported Impression . dictated ok to d/c in am AECOPD MAURY LOMELI MD Jan 11, 2017 16:38
--- NOTE | 2017-01-11 16:48 | CONS ---
DATE OF CONSULTATION: 01/11/2017 ATTENDING PHYSICIAN: Dr. Yu Feng. CONSULTING PHYSICIAN: Maury Lomeli MD REASON FOR CONSULTATION: The patient seen in pulmonary consultation at the request of Dr. Feng for increasing shortness of breath and cough. HISTORY OF PRESENT ILLNESS: The patient is a 56-year-old who is well known to me from previous hospitalization. She continues to smoke. She has underlying chronic obstructive pulmonary disease. She has had increasing shortness of breath and cough productive of discolored sputum over the last 2-3 days. She also had a cardiomyopathy. She wore a LifeVest for some time. Apparently, her echocardiogram revealed improvement in her cardiac function. The life pack was discontinued just a couple of days ago. PAST MEDICAL HISTORY: Remarkable for previous respiratory failure related to cardiomyopathy, improved since then. She also has a prior history of breast cancer status post chemo. Tobacco dependence, hypertension, hyperlipidemia, cerebrovascular accident with no residual hemiparesis, protein C resistance and blindness in the left eye. PAST SURGICAL HISTORY: Previous Port-A-Cath placement, lumpectomy, eye surgery. FAMILY HISTORY: Remarkable for heart disease. SOCIAL HISTORY: She continues to smoke. CURRENT MEDICATIONS: List was reviewed. PHYSICAL EXAMINATION: GENERAL: The patient was in no respiratory distress. VITAL SIGNS: Off of oxygen supplementation, saturation greater than 92%. HEENT: Eyes, the sclerae were nonicteric. NECK: Jugular venous distention was not elevated. No lymphadenopathy. CHEST: Full expansion. LUNGS: Adequate airway flow, no wheezes. CARDIOVASCULAR: Regular rate and rhythm with S1, S2, no S3. ABDOMEN: Soft, nontender, nondistended. EXTREMITIES: No clubbing, cyanosis or edema. LABORATORY DATA: Reviewed. Chest x-ray was normal. IMPRESSION: 1. Progressive dyspnea secondary to acute exacerbation of chronic obstructive pulmonary disease. 2. Acute exacerbation of chronic obstructive pulmonary disease secondary to nonspecific bronchitis. 3. Cardiomyopathy, improved status post life pack. 4. Tobacco dependence. PLAN: 1. The patient is doing well, could be discharged home on prednisone taper and nebulized treatments. 2. Discontinue tobacco, the patient instructed on the importance of doing so. 3. Chest x-ray was reviewed, no acute infiltrates. I do appreciate the privilege in sharing in the patient's care. MAURY LOMELI MD DR: Eli JOB#: [id number] / [id number]
[2017-01-11 19:00] VITALS: BP 139/89
[2017-01-11] MEDS: LACTOBACILLUS RHAMNOSUS GG 1 CAPSULE. PO SCH (21:00)
[2017-01-11] MEDS: ATORVASTATIN CALCIUM 20 MG TABLET PO SCH (21:00)
[2017-01-11] MEDS: NICOTINE 21MG PATCH. TD SCH (21:01)
[2017-01-11] MEDS ORDERED: clonazePAM 0.5 MG TABLET PO ONE (22:00)
[2017-01-11 23:00] VITALS: BP 147/83
[2017-01-12 03:03] VITALS: BP 138/78
[2017-01-12] MEDS: ASPIRIN 325 MG TABLET PO SCH (05:46)
[2017-01-12] MEDS: methylPREDNISolone SOD SUCC PF 40 MG/ML VIAL. IV SCH (05:47)
[2017-01-12 07:00] VITALS: BP 175/92
[2017-01-12] MEDS: guaiFENesin DM 600/30MG 1 TAB TAB.ER.12H PO SCH ×2 (08:21→20:39)
[2017-01-12] MEDS: GABAPENTIN 300 MG CAPSULE. PO SCH ×2 (08:21→20:39)
[2017-01-12] MEDS: VENLAFAXINE 75 MG TABLET. PO SCH ×3 (08:21→20:39)
[2017-01-12] MEDS: LACTOBACILLUS RHAMNOSUS GG 1 CAPSULE. PO SCH ×2 (08:22→20:39)
[2017-01-12] MEDS: busPIRone 10 MG TABLET. PO SCH ×2 (08:22→20:39)
[2017-01-12] MEDS: METOPROLOL TART IMMED RELEASE 50 MG TABLET. PO SCH ×2 (08:22→20:39)
[2017-01-12] MEDS: ISOSORBIDE MONONITRATE ER 30 MG TAB.ER.24H PO SCH (08:24)
[2017-01-12] MEDS: NICOTINE 21MG PATCH. TD SCH (08:24)
[2017-01-12] MEDS: BUDESONIDE 0.5 MG/2 ML NEBU. NEB SCH ×2 (08:25→19:24)
[2017-01-12] MEDS: TAMOXIFEN 10 MG TABLET PO SCH (08:36)
[2017-01-12] MEDS: AZITHROMYCIN 250 MG TABLET. PO SCH (08:44)
[2017-01-12 10:42] VITALS: BP 161/89
[2017-01-12] MEDS: clonazePAM 0.5 MG TABLET PO PRN (10:44)
--- NOTE | 2017-01-12 12:07 | PDOC ---
PROGRESS NOTES Chief Complaint Chief Complaint Acute hypoxic respir failure ASSESSMENT AND PLAN: 1. COPD exacerbation/ acute bronchitis: some improvement. cont steroids, nebs, suppl O2, azithro, mucinex 2. Arrhythmia: wearing O/P Holter monitor. cardiology d/c.ed life vest, F/U on O/P basis 3. CAD: s/p cardiac arrest in August 2016. cont 2ary prevention meds 4. Tobacco abuse: on nicotine patch 5. Depression: continue home meds History of Present Illness History of Present Illness non-productive cough, wheezing Vitals Vitals Vital Signs Date Time Temp Pulse Resp B/P (MAP) Pulse Ox O2 Delivery O2 Flow Rate FiO2 01/12/17 10:42 97.8 72 18 161/89 (113) 96 Room Air 97.8 01/11/17 14:57 2.0 Physical Exam General: Alert, Oriented X3, Cooperative, No acute distress Heart: Regular rate Lungs: Wheezing, Other Abdomen: Normal bowel sounds, Soft, No tenderness Extremities: No clubbing, No edema SHAHEEN LEE MD Jan 12, 2017 12:07
[2017-01-12 14:43] VITALS: BP 143/71
--- NOTE | 2017-01-12 16:08 | PDOC ---
PULMONARY PROGRESS NOTES Vitals Vital Signs Date Time Temp Pulse Resp B/P (MAP) Pulse Ox O2 Delivery O2 Flow Rate FiO2 01/12/17 14:43 97.8 69 18 143/71 (95) 93 Room Air 97.8 01/11/17 14:57 2.0 Lungs: Wheezing, Other Cardiovascular: S1, S2 Abdomen: Soft, Non-tender Extremities: No Edema Labs Laboratory Tests Test 01/10/17 17:40 01/10/17 23:25 01/11/17 03:50 Troponin I Quantitative < 0.017 ng/mL (0.000-0.055) < 0.017 ng/mL (0.000-0.055) White Blood Count 10.7 x10^3/uL (4.0-11.0) Red Blood Count 4.02 x10^6/uL (3.50-5.40) Hemoglobin 13.0 g/dL (12.0-15.5) Hematocrit 39.2 % (36.0-47.0) Mean Corpuscular Volume 97 fL (79-100) Mean Corpuscular Hemoglobin 32 pg (25-35) Mean Corpuscular Hemoglobin Concent 33 g/dL (31-37) Red Cell Distribution Width 14.2 % (11.5-14.5) Platelet Count 147 x10^3/uL (140-400) Neutrophils (%) (Auto) 85 % (31-73) Lymphocytes (%) (Auto) 10 % (24-48) Monocytes (%) (Auto) 5 % (0-9) Eosinophils (%) (Auto) 0 % (0-3) Basophils (%) (Auto) 0 % (0-3) Neutrophils # (Auto) 9.1 x10^3uL (1.8-7.7) Lymphocytes # (Auto) 1.1 x10^3/uL (1.0-4.8) Monocytes # (Auto) 0.5 x10^3/uL (0.0-1.1) Eosinophils # (Auto) 0.0 x10^3/uL (0.0-0.7) Basophils # (Auto) 0.0 x10^3/uL (0.0-0.2) Segmented Neutrophils % 86 % (35-66) Band Neutrophils % 1 % (0-9) Lymphocytes % 6 % (24-48) Monocytes % 7 % (0-10) Toxic Granulation Slight Platelet Estimate Adequate (ADEQUATE) Sodium Level 141 mmol/L (136-145) Potassium Level 4.1 mmol/L (3.5-5.1) Chloride Level 107 mmol/L (98-107) Carbon Dioxide Level 24 mmol/L (21-32) Anion Gap 10 (6-14) Blood Urea Nitrogen 15 mg/dL (7-20) Creatinine 0.8 mg/dL (0.6-1.0) Estimated GFR (Cockcroft-Gault) 74.7 Glucose Level 141 mg/dL (70-99) Calcium Level 8.8 mg/dL (8.5-10.1) Medications Active Scripts Medications Dose Route/Sig Max Daily Dose Days Date Category Venlafaxine Hcl Er (Venlafaxine Hcl) 225 Mg Tab.er.24 225 Mg PO DAILY 01/10/17 Reported NICODERM CQ 21mg (Nicotine) 1 Each Patch.td24 1 Patch TP DAILY 01/10/17 Reported Cyanocobalamin Injection (Cyanocobalamin (Vitamin B-12)) 1,000 Mcg/1 Ml Vial 1 Ml IM QMONTH 01/10/17 Reported Clonazepam 0.5 Mg Tablet 0.5 Tab PO DAILY PRN 01/10/17 Reported Ventolin Hfa Inhaler (Albuterol Sulfate) 18 Gm Hfa.aer.ad 2 Puff INH BID 01/10/17 Reported Acetaminophen 500 Mg Tablet 1 Tab PO PRN Q6HRS PRN 01/10/17 Reported Metoprolol Tartrate 50 Mg Tablet 50 Mg PO BID 30 09/23/16 Rx Isosorbide Mononitrate Er (Isosorbide Mononitrate) 30 Mg Tab.er.24h 60 Mg PO DAILY 30 09/23/16 Rx Atorvastatin Calcium 20 Mg Tablet 20 Mg PO QHS 30 09/23/16 Rx Advair 250-50 Diskus (Fluticasone/Salmeterol) 1 Each Disk.w.dev 1 Inh IH BID 30 09/23/16 Rx Gabapentin 300 Mg Capsule 300 Mg PO BID 09/12/16 Reported Buspirone Hcl 15 Mg Tablet 15 Mg PO BID 09/12/16 Reported Aspirin 325 Mg Tablet 1 Tab PO DAILY 03/16/14 Reported Tamoxifen Citrate 20 Mg Tablet 20 Mg PO DAILY 5/6/14 Reported Impression . IMPRESSION: 1. Progressive dyspnea secondary to acute exacerbation of chronic obstructive pulmonary disease. 2. Acute exacerbation of chronic obstructive pulmonary disease secondary to nonspecific bronchitis. 3. Cardiomyopathy, improved status post life pack. 4. Tobacco dependence. Plan . 1. The patient is doing well, could be discharged home on prednisone taper and nebulized treatments. 2. Discontinue tobacco, the patient instructed on the importance of doing so. 3. Chest x-ray was reviewed, no acute infiltrates. MAURY LOMELI MD Jan 12, 2017 16:08
[2017-01-12] MEDS: IPRATRPIUM/ALBUTEROL 0.5/2.5MG 3 ML NEBU. NEB PRN (19:24)
[2017-01-12 19:30] VITALS: BP 140/67
[2017-01-12] MEDS: ATORVASTATIN CALCIUM 20 MG TABLET PO SCH (20:39)
[2017-01-12 23:11] VITALS: BP 121/67
[2017-01-13 03:21] VITALS: BP 136/72
[2017-01-13 05:02] LABS: BASO % 0 % (0-3); EOS % 0 % (0-3); HEMATOCRIT 37.1 % (36.0-47.0); HEMOGLOBIN 12.7 g/dL (12.0-15.5); LYMPH # 2.8 x10^3/uL (1.0-4.8); LYMPH % 31 % (24-48); MEAN CORPUSCULAR HEMOGLOBIN 33 pg (25-35); MEAN CORPUSCULAR HGB CONC 34 g/dL (31-37); MEAN CORPUSCULAR VOLUME 97 fL (79-100); MONO % 7 % (0-9); NEUT % 62 % (31-73); PLATELET COUNT 135 x10^3/uL (140-400); RED BLOOD COUNT 3.84 x10^6/uL (3.50-5.40); RED CELL DISTRIBUTION WIDTH 14.2 % (11.5-14.5); WHITE BLOOD COUNT 9.1 x10^3/uL (4.0-11.0)
[2017-01-13 05:35] LABS: CALCIUM 8.6 mg/dL (8.5-10.1); CREATININE 0.9 mg/dL (0.6-1.0); GFR 65.2; POTASSIUM 3.9 mmol/L (3.5-5.1)
[2017-01-13 07:00] VITALS: BP 159/84
[2017-01-13] MEDS: BUDESONIDE 0.5 MG/2 ML NEBU. NEB SCH (07:40)
[2017-01-13] MEDS: NICOTINE 21MG PATCH. TD SCH (08:45)
[2017-01-13] MEDS: guaiFENesin DM 600/30MG 1 TAB TAB.ER.12H PO SCH (08:45)
[2017-01-13] MEDS: VENLAFAXINE 75 MG TABLET. PO SCH ×2 (08:45→15:34)
[2017-01-13] MEDS: LACTOBACILLUS RHAMNOSUS GG 1 CAPSULE. PO SCH (08:45)
[2017-01-13] MEDS: ASPIRIN 325 MG TABLET PO SCH (08:45)
[2017-01-13] MEDS: METOPROLOL TART IMMED RELEASE 50 MG TABLET. PO SCH (08:46)
[2017-01-13] MEDS: ISOSORBIDE MONONITRATE ER 30 MG TAB.ER.24H PO SCH (08:46)
[2017-01-13] MEDS: busPIRone 10 MG TABLET. PO SCH (08:46)
[2017-01-13] MEDS: TAMOXIFEN 10 MG TABLET PO SCH (08:52)
[2017-01-13] MEDS ORDERED: BUDE180A IH (08:57)
[2017-01-13] MEDS ORDERED: AZIT500T4 PO (08:58)
[2017-01-13] MEDS: GABAPENTIN 300 MG CAPSULE. PO SCH (08:59)
[2017-01-13] MEDS ORDERED: predniSONE 20 MG TABLET PO SCH (09:00)
[2017-01-13] MEDS: AZITHROMYCIN 250 MG TABLET. PO SCH (09:45)
[2017-01-13] MEDS: clonazePAM 0.5 MG TABLET PO PRN (09:45)
[2017-01-13 11:03] VITALS: BP 141/86
[2017-01-13] MEDS: IPRATRPIUM/ALBUTEROL 0.5/2.5MG 3 ML NEBU. NEB PRN (11:17)
--- NOTE | 2017-01-13 11:47 | PDOC3 ---
Discharge Summary Visit Information Date of Admission: Jan 10, 2017 Date of Discharge: Jan 13, 2017 Admitting Diagnosis Comment: 1. Progressive dyspnea secondary to acute exacerbation of chronic obstructive pulmonary disease. 2. Acute exacerbation of chronic obstructive pulmonary disease secondary to nonspecific bronchitis. 3. Cardiomyopathy, improved status post life pack. 4. Tobacco dependence. Brief Hospital Course Allergies Allergies Coded Allergies Type Severity Reaction Last Updated Verified No Known Drug Allergies 03/16/14 No Vital Signs Vital Signs Date Time Temp Pulse Resp B/P (MAP) Pulse Ox O2 Delivery O2 Flow Rate FiO2 01/13/17 11:17 95 Room Air 01/13/17 11:03 97.9 57 18 141/86 (104) 97.9 Lab Results Laboratory Tests Test 01/13/17 04:05 White Blood Count 9.1 x10^3/uL (4.0-11.0) Red Blood Count 3.84 x10^6/uL (3.50-5.40) Hemoglobin 12.7 g/dL (12.0-15.5) Hematocrit 37.1 % (36.0-47.0) Mean Corpuscular Volume 97 fL (79-100) Mean Corpuscular Hemoglobin 33 pg (25-35) Mean Corpuscular Hemoglobin Concent 34 g/dL (31-37) Red Cell Distribution Width 14.2 % (11.5-14.5) Platelet Count 135 x10^3/uL (140-400) Neutrophils (%) (Auto) 62 % (31-73) Lymphocytes (%) (Auto) 31 % (24-48) Monocytes (%) (Auto) 7 % (0-9) Eosinophils (%) (Auto) 0 % (0-3) Basophils (%) (Auto) 0 % (0-3) Neutrophils # (Auto) 5.6 x10^3uL (1.8-7.7) Lymphocytes # (Auto) 2.8 x10^3/uL (1.0-4.8) Monocytes # (Auto) 0.6 x10^3/uL (0.0-1.1) Eosinophils # (Auto) 0.0 x10^3/uL (0.0-0.7) Basophils # (Auto) 0.0 x10^3/uL (0.0-0.2) Sodium Level 143 mmol/L (136-145) Potassium Level 3.9 mmol/L (3.5-5.1) Chloride Level 107 mmol/L (98-107) Carbon Dioxide Level 30 mmol/L (21-32) Anion Gap 6 (6-14) Blood Urea Nitrogen 15 mg/dL (7-20) Creatinine 0.9 mg/dL (0.6-1.0) Estimated GFR (Cockcroft-Gault) 65.2 Glucose Level 92 mg/dL (70-99) Calcium Level 8.6 mg/dL (8.5-10.1) Laboratory Tests Test 01/13/17 04:05 White Blood Count 9.1 x10^3/uL (4.0-11.0) Red Blood Count 3.84 x10^6/uL (3.50-5.40) Hemoglobin 12.7 g/dL (12.0-15.5) Hematocrit 37.1 % (36.0-47.0) Mean Corpuscular Volume 97 fL (79-100) Mean Corpuscular Hemoglobin 33 pg (25-35) Mean Corpuscular Hemoglobin Concent 34 g/dL (31-37) Red Cell Distribution Width 14.2 % (11.5-14.5) Platelet Count 135 x10^3/uL (140-400) Neutrophils (%) (Auto) 62 % (31-73) Lymphocytes (%) (Auto) 31 % (24-48) Monocytes (%) (Auto) 7 % (0-9) Eosinophils (%) (Auto) 0 % (0-3) Basophils (%) (Auto) 0 % (0-3) Neutrophils # (Auto) 5.6 x10^3uL (1.8-7.7) Lymphocytes # (Auto) 2.8 x10^3/uL (1.0-4.8) Monocytes # (Auto) 0.6 x10^3/uL (0.0-1.1) Eosinophils # (Auto) 0.0 x10^3/uL (0.0-0.7) Basophils # (Auto) 0.0 x10^3/uL (0.0-0.2) Sodium Level 143 mmol/L (136-145) Potassium Level 3.9 mmol/L (3.5-5.1) Chloride Level 107 mmol/L (98-107) Carbon Dioxide Level 30 mmol/L (21-32) Anion Gap 6 (6-14) Blood Urea Nitrogen 15 mg/dL (7-20) Creatinine 0.9 mg/dL (0.6-1.0) Estimated GFR (Cockcroft-Gault) 65.2 Glucose Level 92 mg/dL (70-99) Calcium Level 8.6 mg/dL (8.5-10.1) Brief Hospital Course Ms. Wood is a 56 old female, heavy smoker admitted for wheezing, COPD excarb, Wants to quit, has nicotine patches at home, CXR neg here for acutev infiltrate, spent 3 mN with us, CElared form pulmo to dc, no O2 or pT needs, I did fax scripts for pulmocort, nebules, pred taper, z pack and tessalone perles and OTC robitussin Dw Seen and exmained COnsults: pulmo Proc; none Discharge Information Condition at Discharge: Improved, Stable Disposition/Orders: D/C to Home Scheduled Albuterol Sulfate (Ventolin Hfa Inhaler), 2 PUFF INH BID, (Reported) Aspirin (Aspirin), 1 TAB PO DAILY, (Reported) Atorvastatin Calcium (Atorvastatin Calcium), 20 MG PO QHS Buspirone Hcl (Buspirone Hcl), 15 MG PO BID, (Reported) Cyanocobalamin (Vitamin B-12) (Cyanocobalamin Injection), 1 ML IM QMONTH, ( Reported) Fluticasone/Salmeterol (Advair 250-50 Diskus), 1 INH IH BID Gabapentin (Gabapentin), 300 MG PO BID, (Reported) Isosorbide Mononitrate (Isosorbide Mononitrate Er), 60 MG PO DAILY Metoprolol Tartrate (Metoprolol Tartrate), 50 MG PO BID Nicotine (NICODERM CQ 21mg), 1 PATCH TP DAILY, (Reported) Tamoxifen Citrate (Tamoxifen Citrate), 20 MG PO DAILY, (Reported) Venlafaxine Hcl (Venlafaxine Hcl Er), 225 MG PO DAILY, (Reported) Scheduled PRN Acetaminophen (Acetaminophen), 1 TAB PO PRN Q6HRS PRN for PAIN, (Reported) Clonazepam (Clonazepam), 0.5 TAB PO DAILY PRN for ANXIETY / AGITATION, (Reported ) THU FRANCO MD Jan 13, 2017 11:47
[2017-01-13 14:48] VITALS: BP 145/84
[2017-01-13] MEDS ORDERED: PRED-220 PO (15:02)
[2017-01-19] MEDS ORDERED: CYANOCOBALAMIN (VITAMIN B-12) 1,000 MCG/ML VIAL IM SCH (09:00)
== END 2017-01-13 13:40 | disposition home or self-care (01) | DRG 191 ==
LOC: ER 10:29 → 5 SOUTH 11:15
PROVIDERS: ADMIT Internal Medicine; ATTEND Internal Medicine
DX: J44.0 Chronic obstructive pulmonary disease with (acute) lower respiratory infection (principal); I50.22 Chronic systolic (congestive) heart failure; I42.9 Cardiomyopathy, unspecified; I11.0 Hypertensive heart disease with heart failure; J44.1 Chronic obstructive pulmonary disease with (acute) exacerbation; J20.9 Acute bronchitis, unspecified; E78.5 Hyperlipidemia, unspecified; F17.210 Nicotine dependence, cigarettes, uncomplicated; F32.9 Major depressive disorder, single episode, unspecified; M19.90 Unspecified osteoarthritis, unspecified site; F41.9 Anxiety disorder, unspecified; H54.8 Legal blindness, as defined in USA; Z80.3 Family history of malignant neoplasm of breast; Z82.49 Family history of ischemic heart disease and other diseases of the circulatory system; Z85.3 Personal history of malignant neoplasm of breast; Z83.3 Family history of diabetes mellitus; Z86.73 Personal history of transient ischemic attack (TIA), and cerebral infarction without residual deficits; Z92.21 Personal history of antineoplastic chemotherapy; Z86.74 Personal history of sudden cardiac arrest
CPT/HCPCS: 36415; 71010; 80048; 80076; 82553; 83690; 83735; 83880; 84484; 85007; 85025; 85610; 93005; 94250; 94640; 96365; 96375; J0456; J2920; J2930; J7050; J7512; J7620; J7626; Q0144; 99285-25; J7030

== ENCOUNTER → 2018-01-28 | Outpatient (CLI) | payer SELFPAY ==
[~2018-01-28] MED LIST changes: +ACET500T68 PO; +AZIT500T4 PO; +BUDE180A IH; +CARV6.2511 PO; -CARV6.252 PO; +CLON0.5T11 PO; +CYAN10002 IM; -GABA-586 PO; +GABA300C18 PO; +LOSA-73 PO; -LOSA50TA2 PO; +NICO1PAT21 TP; -OXYC-323 PO; -OXYC-328 PO; +OXYC1TAB15 PO; +OXYC1TAB22 PO; +PRED-220 PO; +VENTOLIN HFA18 GM INH
--- NOTE | 2018-01-28 11:25 | CARD ---
MR#: [id number] Date of Study: 01/28/2018 Ordering Physician: ERNST FAUSTIN, Referring Physician: ERNST FAUSTIN Tech: Marguerite Antunez NEAL APPROVED REPORT EXAM: Two-dimensional and M-mode echocardiogram with Doppler and color Doppler. Other Information Quality : GoodHR: 65bpm Rhythm : NSR INDICATION Cardiomyopathy 2D DIMENSIONS RVDd2.5 (2.9-3.5cm)Left Atrium(2D)3.0 (1.6-4.0cm) IVSd0.8 (0.7-1.1cm)Aortic Root(2D)2.9 (2.0-3.7cm) LVDd4.9 (3.9-5.9cm)LVOT Diameter1.8 (1.8-2.4cm) PWd0.7 (0.7-1.1cm)LVDs3.7 (2.5-4.0cm) FS (%) 24.9 %SV54.4 ml LVEF(%)49.1 (>50%) M-Mode DIMENSIONS Left Atrium(MM)3.09 (2.5-4.0cm)Aortic Root2.83 (2.2-3.7cm) Aortic Valve AoV Peak Denis.106.0cm/sAoV VTI21.5cm AO Peak GR.4.5mmHgLVOT Peak Denis.98.1cm/s AO Mean GR.2mmHgAVA (VMAX)2.29cm2 ZEINAB (VTI)2.40cm2 Mitral Valve MV E Wweowxts82.8cm/sMV E Peak Gr.3mmHg MV DECEL [id number] A Flcjmfxn29.1cm/s MV E Mean Gr.2mmHgE/A Ratio1.2 MV A [id number] Pulmonary Valve PV Peak Wfjdmkkk83.6cm/s LEFT VENTRICLE The left ventricle is normal size. There is normal left ventricular wall thickness. Left ventricle sy stolic function is normal. The Ejection Fraction is 50-55%. There is normal LV segmental wall motion. Transmitral Doppler flow pattern is Grade II-pseudonormal filling dynamics. RIGHT VENTRICLE The right ventricle is normal size. There is normal right ventricular wall thickness. The right ventr icular systolic function is normal. ATRIA The left atrium size is normal. The right atrium size is normal. The interatrial septum is intact wit h no evidence for an atrial septal defect or patent foramen ovale as noted on 2-D or Doppler imaging. AORTIC VALVE The aortic valve is trileaflet. The aortic valve is normal in structure and function. Doppler and Col or Flow revealed no significant aortic regurgitation. There is no significant aortic valvular stenosi s. MITRAL VALVE The mitral valve is thickened but opens well. There is no evidence of mitral valve prolapse. There is no mitral valve stenosis. Doppler and Color-flow revealed trace to mild mitral regurgitation. TRICUSPID VALVE The tricuspid valve is normal in structure and function. Doppler and Color Flow revealed no tricuspid valve regurgitation noted. There is no tricuspid valve prolapse or vegetation. There is no tricuspid valve stenosis. PULMONIC VALVE The pulmonary valve is normal in structure and function. Doppler and Color Flow revealed trace pulmon ic valvular regurgitation. There is no pulmonic valvular stenosis. GREAT VESSELS The aortic root is normal in size. The ascending aorta is normal in size. The IVC is normal in size a nd collapses >50% with inspiration. PERICARDIAL EFFUSION There is no evidence of significant pericardial effusion. Critical Notification Critical Value: No <Conclusion> Left ventricle systolic function is normal. The Ejection Fraction is 50-55%. There is normal LV segmental wall motion. Doppler and Color-flow revealed trace to mild mitral regurgitation. There is no evidence of significant pericardial effusion. Signed by : Ernst Faustin, Electronically Approved : 01/28/2018 11:23:34
== END | disposition home or self-care (01) ==
LOC: ECHO 09:34
PROVIDERS: ATTEND Internal Medicine Cardiovascular Disease
DX: I42.8 Other cardiomyopathies (principal)
CPT/HCPCS: 93306

== ENCOUNTER 2018-04-23 17:06 | Inpatient (IN) | payer SELFPAY ==
[~2018-04-23] VITALS: Ht 162.6 cm; Wt 69.6 kg
[~2018-04-23 17:06] MED LIST changes: +ALBU2.5V8 IH; -PROAIR HFA8.5 GM IH; +SIMV5TAB14 PO; -SIMV5TAB5 PO
[2018-04-23] MEDS ORDERED: methylPREDNISolone SOD SUCC PF 125 MG/2 ML VIAL. IV ONE (17:15)
[2018-04-23] MEDS ORDERED: IPRATRPIUM/ALBUTEROL 0.5/2.5MG 3 ML NEBU. NEB ONE (17:15)
[2018-04-23] MEDS ORDERED: IV NORMAL SALINE 1000ML BAG 1,000 ML IV ONE (17:30)
[2018-04-23 17:36] LABS: BASO # 0.1 x10^3/uL (0.0-0.2); BASO % 1 % (0-3); EOS # 0.2 x10^3/uL (0.0-0.7); EOS % 2 % (0-3); HEMATOCRIT 36.6 % (36.0-47.0); HEMOGLOBIN 12.2 g/dL (12.0-15.5); LYMPH # 1.5 x10^3/uL (1.0-4.8); LYMPH % 11 % (24-48); MEAN CORPUSCULAR HEMOGLOBIN 33 pg (25-35); MEAN CORPUSCULAR HGB CONC 34 g/dL (31-37); MEAN CORPUSCULAR VOLUME 98 fL (79-100); MONO # 0.7 x10^3/uL (0.0-1.1); MONO % 5 % (0-9); NEUT # 10.8 x10^3uL (1.8-7.7); NEUT % 81 % (31-73); PLATELET COUNT 183 x10^3/uL (140-400); RED BLOOD COUNT 3.73 x10^6/uL (3.50-5.40); RED CELL DISTRIBUTION WIDTH 14.8 % (11.5-14.5); WHITE BLOOD COUNT 13.3 x10^3/uL (4.0-11.0)
[2018-04-23 17:46] LABS: CALCIUM 8.7 mg/dL (8.5-10.1); CREATININE 1.3 mg/dL (0.6-1.0); GFR 42.5
[2018-04-23 17:52] LABS: ALBUMIN 3.5 g/dL (3.4-5.0); ALBUMIN/GLOBULIN RATIO 0.9 (1.0-1.7); TOTAL BILIRUBIN 0.5 mg/dL (0.2-1.0); TOTAL PROTEIN 7.4 g/dL (6.4-8.2)
--- NOTE | 2018-04-23 17:52 | PHYS DOC ---
Past Medical History Past Medical History: Asthma, Cancer, COPD, CVA, Hypertension, Pneumonia, Other Additional Past Medical Histor: LT EYE BLINDNESS,BREAST CA,cardiac arrest (KAI MONTENEGRO MD) Additional Past Surgical Histo: LT BREAST LUMPECTOMY, PORT W/REMOVAL, LT EYE (KAI MONTENEGRO MD) Smoking: Cigarettes, Less than 1pk/day Additional Information: 0.5 PPD Alcohol Use: Occasionally Drug Use: Marijuana (KAI MONTENEGRO MD) Adult General Chief Complaint Chief Complaint: SHORTNESS OF BREATH HPI HPI Patient is a 57 year old female who presents with complaining of shortness of breath. Patient has history of COPD and currently smoking half pack a cigarettes a day and had history of previous respiratory failure and cardiac arrest related to respiratory failure. Patient states since yesterday she has had increasing shortness of breath as a constant shortness of breath with severe nonproductive cough. Patient complaining of pain behind of left breast, generalized weakness and dizziness. Patient denies diarrhea, vomiting, sick contact. Patient is not sure about fever. Patient drove herself to ER and had O2 sat of 84% at room air and was very anxious and constantly repeating that she was going to . (KAI MONTENEGRO MD) Review of Systems Review of Systems Constitutional: Denies fever or chills [] Eyes: Denies change in visual acuity, redness, or eye pain [] HENT: Reports nasal congestion and sore throat Respiratory: Reports cough and shortness of breath Cardiovascular: No additional information not addressed in HPI [] GI: Denies abdominal pain, nausea, vomiting, bloody stools or diarrhea [] : Denies dysuria or hematuria [] Musculoskeletal: Denies back pain or joint pain [] Integument: Denies rash or skin lesions [] Neurologic: Denies headache, focal weakness or sensory changes [] Endocrine: Denies polyuria or polydipsia [] All other systems were reviewed and found to be within normal limits, except as documented in this note. (KAI MONTENEGRO MD) Current Medications Current Medications Current Medications Medications (Trade) Dose Ordered Sig/Lanette Start Time Stop Time Status Last Admin Dose Admin Albuterol/ Ipratropium (Duoneb) 3 ml 1X ONCE 04/23/18 17:15 04/23/18 17:20 DC 04/23/18 17:33 3 ML Methylprednisolone Sodium Succinate (SOLU-Medrol 125MG VIAL) 125 mg 1X ONCE 04/23/18 17:15 04/23/18 17:20 DC 04/23/18 17:38 125 MG Sodium Chloride 1,000 ml @ 1,000 mls/hr 1X ONCE 04/23/18 17:30 04/23/18 18:29 DC 04/23/18 17:37 1,000 MLS/HR (SAE REYES DO) Allergies Allergies Allergies Coded Allergies Type Severity Reaction Last Updated Verified No Known Drug Allergies 03/16/14 No (SAE REYES DO) Physical Exam Physical Exam Constitutional: Well nourished, moderate distress, non-toxic appearance. [] HENT: Normocephalic, atraumatic, oropharynx dry, no oral exudates.[] Eyes: PERRLA, EOMI, conjunctiva normal, no discharge. [] Neck: Normal range of motion, no tenderness, supple, no stridor. [] Cardiovascular: Tachycardia, no murmur [] Lungs & Thorax: Moderate respiratory distress with diffuse wheezing and rhonchi , tachypnea and intercostal retraction Abdomen: Bowel sounds normal, soft, no tenderness, no masses, no pulsatile masses. [] Skin: Warm, dry, no erythema, no rash. [] Back: No tenderness, no CVA tenderness. [] Extremities: No tenderness, no cyanosis, no clubbing, ROM intact, bilateral lower extremity 1+ edema. [] Neurologic: Alert and oriented X 3, normal motor function, normal sensory function, no focal deficits noted. [] Psychologic: Affect anxious, judgement normal, mood normal. [] (KAI MONTENEGRO MD) Current Patient Data Vital Signs Vital Signs Date Time Temp Pulse Resp B/P (MAP) Pulse Ox O2 Delivery O2 Flow Rate FiO2 04/23/18 17:54 106 34 153/74 (100) 90 Venturi Mask 04/23/18 17:34 3.0 04/23/18 17:09 99.1 99.1 (SAE REYES DO) Lab Values Laboratory Tests Test 04/23/18 17:20 White Blood Count 13.3 x10^3/uL (4.0-11.0) H Red Blood Count 3.73 x10^6/uL (3.50-5.40) Hemoglobin 12.2 g/dL (12.0-15.5) Hematocrit 36.6 % (36.0-47.0) Mean Corpuscular Volume 98 fL (79-100) Mean Corpuscular Hemoglobin 33 pg (25-35) Mean Corpuscular Hemoglobin Concent 34 g/dL (31-37) Red Cell Distribution Width 14.8 % (11.5-14.5) H Platelet Count 183 x10^3/uL (140-400) Neutrophils (%) (Auto) 81 % (31-73) H Lymphocytes (%) (Auto) 11 % (24-48) L Monocytes (%) (Auto) 5 % (0-9) Eosinophils (%) (Auto) 2 % (0-3) Basophils (%) (Auto) 1 % (0-3) Neutrophils # (Auto) 10.8 x10^3uL (1.8-7.7) H Lymphocytes # (Auto) 1.5 x10^3/uL (1.0-4.8) Monocytes # (Auto) 0.7 x10^3/uL (0.0-1.1) Eosinophils # (Auto) 0.2 x10^3/uL (0.0-0.7) Basophils # (Auto) 0.1 x10^3/uL (0.0-0.2) Sodium Level 141 mmol/L (136-145) Potassium Level 4.0 mmol/L (3.5-5.1) Chloride Level 101 mmol/L (98-107) Carbon Dioxide Level 21 mmol/L (21-32) Anion Gap 19 (6-14) H Blood Urea Nitrogen 14 mg/dL (7-20) Creatinine 1.3 mg/dL (0.6-1.0) H Estimated GFR (Cockcroft-Gault) 42.5 BUN/Creatinine Ratio 11 (6-20) Glucose Level 175 mg/dL (70-99) H Lactic Acid Level 5.4 mmol/L (0.4-2.0) *H Calcium Level 8.7 mg/dL (8.5-10.1) Total Bilirubin 0.5 mg/dL (0.2-1.0) Aspartate Amino Transferase (AST) 33 U/L (15-37) Alanine Aminotransferase (ALT) 55 U/L (14-59) Alkaline Phosphatase 113 U/L (46-116) Creatine Kinase 73 U/L (26-192) Creatine Kinase MB (Mass) 0.8 ng/mL (0.0-3.6) Creatine Kinase MB Relative Index % (0-4) HB-Xil-F-Type Natriuretic Peptide 3350 pg/mL (0-124) H Total Protein 7.4 g/dL (6.4-8.2) Albumin 3.5 g/dL (3.4-5.0) Albumin/Globulin Ratio 0.9 (1.0-1.7) L Laboratory Tests 04/23/18 17:20 Laboratory Tests 04/23/18 17:20 (SAE REYES DO) Lab Values Laboratory Tests Test 04/23/18 17:20 White Blood Count 13.3 x10^3/uL (4.0-11.0) H Red Blood Count 3.73 x10^6/uL (3.50-5.40) Hemoglobin 12.2 g/dL (12.0-15.5) Hematocrit 36.6 % (36.0-47.0) Mean Corpuscular Volume 98 fL (79-100) Mean Corpuscular Hemoglobin 33 pg (25-35) Mean Corpuscular Hemoglobin Concent 34 g/dL (31-37) Red Cell Distribution Width 14.8 % (11.5-14.5) H Platelet Count 183 x10^3/uL (140-400) Neutrophils (%) (Auto) 81 % (31-73) H Lymphocytes (%) (Auto) 11 % (24-48) L Monocytes (%) (Auto) 5 % (0-9) Eosinophils (%) (Auto) 2 % (0-3) Basophils (%) (Auto) 1 % (0-3) Neutrophils # (Auto) 10.8 x10^3uL (1.8-7.7) H Lymphocytes # (Auto) 1.5 x10^3/uL (1.0-4.8) Monocytes # (Auto) 0.7 x10^3/uL (0.0-1.1) Eosinophils # (Auto) 0.2 x10^3/uL (0.0-0.7) Basophils # (Auto) 0.1 x10^3/uL (0.0-0.2) Sodium Level 141 mmol/L (136-145) Potassium Level 4.0 mmol/L (3.5-5.1) Chloride Level 101 mmol/L (98-107) Carbon Dioxide Level 21 mmol/L (21-32) Anion Gap 19 (6-14) H Blood Urea Nitrogen 14 mg/dL (7-20) Creatinine 1.3 mg/dL (0.6-1.0) H Estimated GFR (Cockcroft-Gault) 42.5 BUN/Creatinine Ratio 11 (6-20) Glucose Level 175 mg/dL (70-99) H Calcium Level 8.7 mg/dL (8.5-10.1) Total Bilirubin 0.5 mg/dL (0.2-1.0) Aspartate Amino Transferase (AST) 33 U/L (15-37) Alanine Aminotransferase (ALT) 55 U/L (14-59) Alkaline Phosphatase 113 U/L (46-116) Creatine Kinase 73 U/L (26-192) Creatine Kinase MB (Mass) 0.8 ng/mL (0.0-3.6) Creatine Kinase MB Relative Index % (0-4) RG-Tqw-W-Type Natriuretic Peptide 3350 pg/mL (0-124) H Total Protein 7.4 g/dL (6.4-8.2) Albumin 3.5 g/dL (3.4-5.0) Albumin/Globulin Ratio 0.9 (1.0-1.7) L Laboratory Tests 04/23/18 17:20 Laboratory Tests 04/23/18 17:20 (KAI MONTENEGRO MD) EKG EKG EKG interpreted by me. EKG at 1713 showed sinus tachycardia at rate of 117, PVCs , poor R-wave progress in anteroseptal leads, no acute ST and T-wave abnormalities. (KAI MONTENEGRO MD) Radiology/Procedures Radiology/Procedures [] (KAI MONTENEGRO MD) Radiology/Procedures PROCEDURE: PORTABLE CHEST 1V PORTABLE CHEST 1V History: SHORT OF BREATH Comparison: January 10, 2017 Findings: AP view of the chest is submitted. There is increased interstitial and somewhat reticular opacity bilaterally greatest of the mid to inferior hemithoraces, to lesser degree in the upper lobes. There is no lobar consolidation, pleural fluid, pneumothorax. Pericardial cardiac silhouette is considered within normal limits given technique. There is some atherosclerotic calcification near the aortic arch. Impression: 1. There is increased interstitial opacity bilaterally greater near the lung bases may be due to interstitial edema or infiltrate. Electronically signed by: Chu Dawkins MD (04/23/2018 8:39 PM) [facility] (SAE REYES DO) Course & Med Decision Making Course & Med Decision Making Pertinent Labs and Imaging studies reviewed. (See chart for details) Evaluation of patient in ER showed 57-year-old female patient with history of COPD and currently smoking presented by private car because of shortness of breath and cough since yesterday. Patient had acute respiratory distress with hypoxia and treated with nasal cannula oxygen with improvement of her condition. ABG showed by Po2 of 42% and patient started on Ventimask with 50% oxygen with improvement of her condition. Plan to admit patient with diagnosis of exacerbation and respiratory distress. patient's care transferred to Dr. Reyes at 1800. (KAI MONTENEGRO MD) Course & Med Decision Making 1800-Sign out received from Dr. Montenegro for patient with respiratory distress and hypoxia. Hx of COPD. Partial labs pending. CXR with concern for infiltrations/pneumonia. Patient seen and evaluated by myself. Labs obtained and posted to chart. Lactic acid elevated. SIRS criteria noted. Emipric antibiotics and IVF hydration given. Patient requiring admission for further evaluation and treatment. Discussed with Dr. Okeefe (hospitalist) who is in agreement with admission. Discussed findings and plan with patient, who acknowledges understanding and agreement. (SAE REYSE DO) Dragon Disclaimer Dragon Disclaimer This electronic medical record was generated, in whole or in part, using a voice recognition dictation system. (KAI MONTENEGRO MD) Departure Departure Impression: Primary Impression: Severe sepsis Additional Impressions: Acute respiratory distress COPD exacerbation Anxiety History of left breast cancer Hypoxia Tachycardia Tobacco abuse Tobacco abuse counseling Disposition: ADMITTED INPATIENT Admitting Physician: Other (Sary) (SAE REYES DO) Condition: GUARDED Referrals: LARRY [place] DO (PCP) Critical Care Time Critical care time was 30 minutes which includes time at bedside, spent in discussion of patient's care with specialists and/or family members, with interpretation of laboratory and/or radiological studies and is exclusive of procedures. (SAE REYES DO) Problem Qualifiers KAI MONTENEGRO MD Apr 23, 2018 17:52 SAE REYES DO Apr 23, 2018 18:21
[2018-04-23 18:02] LABS: CREATINE KINASE 73 U/L (26-192)
[2018-04-23] MEDS ORDERED: cefTRIAXone IV Push 1 GM VIAL. IVP ONE (18:15)
[2018-04-23] MEDS ORDERED: PIPERACILLIN/TAZOBACTAM 4.5 GM in IV NORMAL SALINE 100ML 100 ML IV ONE (18:30)
[2018-04-23] MEDS ORDERED: 0.9 % SODIUM CHLORIDE 10 ML DISP.SYRIN. IV PRN (19:00)
[2018-04-23] MEDS ORDERED: ONDANSETRON PF 4 MG/2 ML VIAL. IV PRN (19:00)
[2018-04-23] MEDS ORDERED: BISACODYL 10 MG SUPP.RECT. PR PRN (19:00)
[2018-04-23] MEDS ORDERED: LACTULOSE 20 GM/30 ML SOLUTION. PO PRN (19:00)
[2018-04-23] MEDS ORDERED: VANCOMYCIN 1.5 GM in IV NORMAL SALINE 500ML BAG 500 ML IV ONE (19:00)
[2018-04-23] MEDS ORDERED: clonazePAM 0.5 MG TABLET PO PRN (19:00)
[2018-04-23] MEDS ORDERED: ELECTROLYTE (NON-ICU) PROTOCOL MC PRN (19:15)
[2018-04-23 19:25] LABS: BILIRUBIN,URINE NEGATIVE (NEG); CLARITY,URINE CLEAR; COLOR,URINE YELLOW; NITRITE,URINE NEGATIVE (NEG); PROTEIN,URINE NEGATIVE (NEG-TRACE); UROBILINOGEN,URINE 0.2 mg/dL (0.2 mg/dL)
[2018-04-23 19:29] LABS: BARBITURATES NEG (NEG); BENZODIAZEPINES NEG (NEG); CANNABINOIDS POS (NEG); COCAINE NEG (NEG); METHADONE NEG (NEG); OPIATES NEG (NEG); PHENCYCLIDINE NEG (NEG)
[2018-04-23 19:30] LABS: AMPHETAMINE/METHAMPHETAMINE NEG (NEG)
[2018-04-23 19:34] LABS: BACTERIA,URINE 0 /HPF (0-FEW); SQUAMOUS EPITHELIAL CELL,UR FEW /LPF
[2018-04-23] MEDS ORDERED: ALBUTEROL SULFATE 2.5 MG/3 ML NEBU. NEB SCH (20:00)
[2018-04-23] MEDS: IPRATRPIUM/ALBUTEROL 0.5/2.5MG 3 ML NEBU. NEB SCH ×2 (20:00)
[2018-04-23 20:10] VITALS: BP 144/80
--- NOTE | 2018-04-23 20:42 | RAD ---
PORTABLE CHEST 1V History: SHORT OF BREATH Comparison: January 10, 2017 Findings: AP view of the chest is submitted. There is increased interstitial and somewhat reticular opacity bilaterally greatest of the mid to inferior hemithoraces, to lesser degree in the upper lobes. There is no lobar consolidation, pleural fluid, pneumothorax. Pericardial cardiac silhouette is considered within normal limits given technique. There is some atherosclerotic calcification near the aortic arch. Impression: 1. There is increased interstitial opacity bilaterally greater near the lung bases may be due to interstitial edema or infiltrate. Electronically signed by: Chu Dawkins MD (04/23/2018 8:39 PM) [facility]
[2018-04-23] MEDS ORDERED: NON FORMULARY ITEM (Albuterol Sulfate (Ventolin Hfa Inhaler) 2 PUFF) INH SCH (21:00)
[2018-04-23] MEDS ORDERED: NON FORMULARY ITEM (Budesonide (Pulmicort Flexhaler) 2 PUFF) IH SCH (21:00)
[2018-04-23] MEDS ORDERED: NON FORMULARY ITEM (Fluticasone/Salmeterol (Advair 250-50 Diskus) 1 INH) IH SCH (21:00)
[2018-04-23] MEDS: BUDESONIDE 0.5 MG/2 ML NEBU. NEB SCH (21:04)
[2018-04-23] MEDS: methylPREDNISolone SOD SUCC PF 125 MG/2 ML VIAL. IV SCH (22:07)
[2018-04-23] MEDS: busPIRone 5 MG TABLET. PO SCH (22:07)
[2018-04-23] MEDS: ATORVASTATIN CALCIUM 20 MG TABLET PO SCH (22:08)
[2018-04-23] MEDS: METOPROLOL TART IMMED RELEASE 50 MG TABLET. PO SCH (22:08)
[2018-04-23] MEDS: ENOXAPARIN 40 MG/0.4 ML SYRINGE. SQ SCH (22:08)
[2018-04-23] MEDS: GABAPENTIN 300 MG CAPSULE. PO SCH (22:08)
--- NOTE | 2018-04-23 22:26 | PDOC1 ---
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 She has a history of respiratory failure in the past for which she needed to be intubated adn this afternoon she felt as she was going to have another event similar as the one that lead her to be on mechanical ventilation. She complains of cough, congestion but no sputum production. Patient denies fever, no pleurisy reported she does report tachypnea , no chest pain or palpitations. She has not self medicated at home. She also has some generalized malaise, headache. No abdominal pain, no nausea vomiting or diarrhea. She is having difficulty finishing her sentences due to the dyspnea during my encounter. We have been asked to admit the patient for further treatment. Report from xray describes what could represent a bilateral basilar infiltrates. plan of care discussed in detail with the patient. Laboratory data reviewed and noted. Lactic acid elevation but patient does not present with toxicity at the presente time. Reassurance provided. ER history: Patient is a 57 year old female who presents with complaining of shortness of breath. Patient has history of COPD and currently smoking half pack a cigarettes a day and had history of previous respiratory failure and cardiac arrest related to respiratory failure. Patient states since yesterday she has had increasing shortness of breath as a constant shortness of breath with severe nonproductive cough. Patient complaining of pain behind of left breast, generalized weakness and dizziness. Patient denies diarrhea, vomiting, sick contact. Patient is not sure about fever. Patient drove herself to ER and had O2 sat of 84% at room air and was very anxious and constantly repeating that she was going to . Past Medical History Cardiovascular: HTN, Hyperlipidemia Pulmonary: COPD CENTRAL NERVOUS SYSTEM: CVA Heme/Onc: Cancer, Other Hepatobiliary: No pertinent hx Psych: Anxiety Infectious disease: No pertinent hx Renal/: No pertinent hx Endocrine: No pertinent hx Past Surgical History Past Surgical History: Other Family History Family History: Heart Disease Social History ALCOHOL: none Drugs: None Current Problem List Problem List Problems Medical Problems: (1) Acute respiratory distress Status: Acute (2) Anxiety Status: Acute (3) History of left breast cancer Status: Acute (4) Hypoxia Status: Acute (5) Severe sepsis Status: Acute (6) Tachycardia Status: Acute (7) Tobacco abuse Status: Acute (8) Tobacco abuse counseling Status: Acute Current Medications Current Medications Current Medications Medications (Trade) Dose Ordered Sig/Lanette Start Time Stop Time Status Last Admin Dose Admin Acetaminophen (Tylenol) 650 mg PRN Q6HRS PRN 04/23/18 19:00 Albuterol Sulfate (Ventolin Neb Soln) 2.5 mg RTQID 04/23/18 20:00 04/23/18 21:04 2.5 MG Albuterol/ Ipratropium (Duoneb) 3 ml Q4HRS 04/23/18 20:00 Atorvastatin Calcium (Lipitor) 20 mg QHS 04/23/18 21:00 Bisacodyl (Dulcolax Supp) 10 mg PRN DAILY PRN 04/23/18 19:00 Budesonide (Pulmicort) 0.5 mg RTBID 04/23/18 20:00 04/23/18 21:04 0.5 MG Buspirone HCl (Buspar) 15 mg BID 04/23/18 21:00 Ceftriaxone Sodium (Rocephin) 1 gm 1X ONCE 04/23/18 18:15 04/23/18 18:16 DC 04/23/18 18:26 1 GM Clonazepam (KlonoPIN) 0.25 mg PRN DAILY PRN 04/23/18 19:00 Enoxaparin Sodium (Lovenox 40mg Syringe) 40 mg Q24H 04/23/18 21:00 Gabapentin (Neurontin) 300 mg BID 04/23/18 21:00 Info (Non-Icu Electrolyte Protocol) 1 ea CONT PRN PRN 04/23/18 19:15 Isosorbide Mononitrate (Imdur) 60 mg DAILY 04/24/18 09:00 Lactulose (Lactulose) 20 gm PRN Q12HR PRN 04/23/18 19:00 Levofloxacin/ Dextrose 100 ml @ 100 mls/hr 1X ONCE 04/23/18 18:15 04/23/18 19:14 DC 04/23/18 18:26 100 MLS/HR Lorazepam (Ativan) 0.5 mg 1X ONCE 04/23/18 19:15 04/23/18 19:16 DC 04/23/18 19:15 0.5 MG Methylprednisolone Sodium Succinate (SOLU-Medrol 125MG VIAL) 125 mg Q8HRS 04/23/18 22:00 Metoprolol Tartrate (Lopressor) 50 mg BID 04/23/18 21:00 Morphine Sulfate (Morphine Sulfate) 1 mg PRN Q1HR PRN 04/23/18 19:00 Non-Formulary Medication (Albuterol Sulfate (Ventolin Hfa Inhaler)) 2 puff BID 04/23/18 21:00 UNV Non-Formulary Medication (Budesonide (Pulmicort Flexhaler)) 2 puff BID 04/23/18 21:00 UNV Non-Formulary Medication (Fluticasone/ Salmeterol (Advair 250-50 Diskus)) 1 inh BID 04/23/18 21:00 UNV Ondansetron HCl (Zofran) 4 mg PRN Q6HRS PRN 04/23/18 19:00 Piperacillin Sod/ Tazobactam Sod 4.5 gm/Sodium Chloride 100 ml @ 200 mls/hr Q6HRS 04/24/18 00:00 Sodium Chloride (Normal Saline Flush) 3 ml QSHIFT PRN 04/23/18 19:00 Tamoxifen Citrate (Nolvadex) 20 mg DAILY 04/24/18 09:00 Vancomycin HCl 1.5 gm/Sodium Chloride 500 ml @ 250 mls/hr 1X ONCE 04/23/18 19:00 04/23/18 20:59 DC 04/23/18 19:35 250 MLS/HR Venlafaxine HCl (Effexor) 75 mg TID 04/24/18 09:00 Allergies Allergies Allergies Coded Allergies Type Severity Reaction Last Updated Verified No Known Drug Allergies 03/16/14 No ROS Review of System CONSTITUTIONAL: No fever or chills EYES: No recent changes SKIN: No rash or itching CARDIOVASCULAR: No chest pain, syncope, palpitations, or edema RESPIRATORY: + SOB and cough GASTROINTESTINAL: No nausea, vomiting or abdominal pain NEUROLOGICAL: No headaches or weakness ENDOCRINE: No cold or heat intolerance GENITOURINARY: No urgency or frequency of urination MUSCULOSKELETAL: No back pain or joint pain LYMPHATICS: No enlarged lymph nodes PSYCHIATRIC: No anxiety or depression Physical Exam Physical Exam GEN.: moderate respiratory distress. Alert and oriented. HEENT: Head is normocephalic, atraumatic NECK: Supple. LUNGS: Rales bilateral lung bases, accessory muscle use noted. HEART: RRR, S1, S2 present. Peripheral pulses intact ABDOMEN: Soft, nontender. Positive bowel sounds. EXTREMITIES: Without any cyanosis. NEUROLOGIC: Normal speech, normal tone PSYCHIATRIC: Normal affect, normal mood. SKIN: No ulcerations Vitals Vitals Vital Signs Date Time Temp Pulse Resp B/P (MAP) Pulse Ox O2 Delivery O2 Flow Rate FiO2 04/23/18 21:07 92 Venturi Mask 15.0 04/23/18 20:10 98.4 104 22 144/80 (101) 98.4 Labs Labs Laboratory Tests Test 04/23/18 17:20 04/23/18 19:05 04/23/18 21:10 White Blood Count 13.3 x10^3/uL (4.0-11.0) Red Blood Count 3.73 x10^6/uL (3.50-5.40) Hemoglobin 12.2 g/dL (12.0-15.5) Hematocrit 36.6 % (36.0-47.0) Mean Corpuscular Volume 98 fL (79-100) Mean Corpuscular Hemoglobin 33 pg (25-35) Mean Corpuscular Hemoglobin Concent 34 g/dL (31-37) Red Cell Distribution Width 14.8 % (11.5-14.5) Platelet Count 183 x10^3/uL (140-400) Neutrophils (%) (Auto) 81 % (31-73) Lymphocytes (%) (Auto) 11 % (24-48) Monocytes (%) (Auto) 5 % (0-9) Eosinophils (%) (Auto) 2 % (0-3) Basophils (%) (Auto) 1 % (0-3) Neutrophils # (Auto) 10.8 x10^3uL (1.8-7.7) Lymphocytes # (Auto) 1.5 x10^3/uL (1.0-4.8) Monocytes # (Auto) 0.7 x10^3/uL (0.0-1.1) Eosinophils # (Auto) 0.2 x10^3/uL (0.0-0.7) Basophils # (Auto) 0.1 x10^3/uL (0.0-0.2) Sodium Level 141 mmol/L (136-145) Potassium Level 4.0 mmol/L (3.5-5.1) Chloride Level 101 mmol/L (98-107) Carbon Dioxide Level 21 mmol/L (21-32) Anion Gap 19 (6-14) Blood Urea Nitrogen 14 mg/dL (7-20) Creatinine 1.3 mg/dL (0.6-1.0) Estimated GFR (Cockcroft-Gault) 42.5 BUN/Creatinine Ratio 11 (6-20) Glucose Level 175 mg/dL (70-99) Lactic Acid Level 5.4 mmol/L (0.4-2.0) Calcium Level 8.7 mg/dL (8.5-10.1) Total Bilirubin 0.5 mg/dL (0.2-1.0) Aspartate Amino Transf (AST/SGOT) 33 U/L (15-37) Alanine Aminotransferase (ALT/SGPT) 55 U/L (14-59) Alkaline Phosphatase 113 U/L (46-116) Creatine Kinase 73 U/L (26-192) Creatine Kinase MB (Mass) 0.8 ng/mL (0.0-3.6) Creatine Kinase MB Relative Index % (0-4) QW-Hkp-H-Type Natriuretic Peptide 3350 pg/mL (0-124) Total Protein 7.4 g/dL (6.4-8.2) Albumin 3.5 g/dL (3.4-5.0) Albumin/Globulin Ratio 0.9 (1.0-1.7) Urine Collection Type Void Urine Color Yellow Urine Clarity Clear Urine pH 7.0 Urine Specific [place] 1.010 Urine Protein Negative mg/dL (NEG-TRACE) Urine Glucose (UA) Negative mg/dL (NEG) Urine Ketones (Stick) Negative mg/dL (NEG) Urine Blood Negative (NEG) Urine Nitrite Negative (NEG) Urine Bilirubin Negative (NEG) Urine Urobilinogen Dipstick 0.2 mg/dL (0.2 mg/dL) Urine Leukocyte Esterase Negative (NEG) Urine RBC 1-2 /HPF (0-2) Urine WBC 1-4 /HPF (0-4) Urine Squamous Epithelial Cells Few /LPF Urine Bacteria 0 /HPF (0-FEW) Urine Opiates Screen Neg (NEG) Urine Methadone Screen Neg (NEG) Urine Barbiturates Neg (NEG) Urine Phencyclidine Screen Neg (NEG) Urine Amphetamine/Methamphetamine Neg (NEG) Urine Benzodiazepines Screen Neg (NEG) Urine Cocaine Screen Neg (NEG) Urine Cannabinoids Screen Pos (NEG) Urine Ethyl Alcohol Neg (NEG) Troponin I Quantitative 0.027 ng/mL (0.000-0.055) Laboratory Tests Test 04/23/18 17:20 04/23/18 19:05 04/23/18 21:10 White Blood Count 13.3 x10^3/uL (4.0-11.0) Red Blood Count 3.73 x10^6/uL (3.50-5.40) Hemoglobin 12.2 g/dL (12.0-15.5) Hematocrit 36.6 % (36.0-47.0) Mean Corpuscular Volume 98 fL (79-100) Mean Corpuscular Hemoglobin 33 pg (25-35) Mean Corpuscular Hemoglobin Concent 34 g/dL (31-37) Red Cell Distribution Width 14.8 % (11.5-14.5) Platelet Count 183 x10^3/uL (140-400) Neutrophils (%) (Auto) 81 % (31-73) Lymphocytes (%) (Auto) 11 % (24-48) Monocytes (%) (Auto) 5 % (0-9) Eosinophils (%) (Auto) 2 % (0-3) Basophils (%) (Auto) 1 % (0-3) Neutrophils # (Auto) 10.8 x10^3uL (1.8-7.7) Lymphocytes # (Auto) 1.5 x10^3/uL (1.0-4.8) Monocytes # (Auto) 0.7 x10^3/uL (0.0-1.1) Eosinophils # (Auto) 0.2 x10^3/uL (0.0-0.7) Basophils # (Auto) 0.1 x10^3/uL (0.0-0.2) Sodium Level 141 mmol/L (136-145) Potassium Level 4.0 mmol/L (3.5-5.1) Chloride Level 101 mmol/L (98-107) Carbon Dioxide Level 21 mmol/L (21-32) Anion Gap 19 (6-14) Blood Urea Nitrogen 14 mg/dL (7-20) Creatinine 1.3 mg/dL (0.6-1.0) Estimated GFR (Cockcroft-Gault) 42.5 BUN/Creatinine Ratio 11 (6-20) Glucose Level 175 mg/dL (70-99) Lactic Acid Level 5.4 mmol/L (0.4-2.0) Calcium Level 8.7 mg/dL (8.5-10.1) Total Bilirubin 0.5 mg/dL (0.2-1.0) Aspartate Amino Transf (AST/SGOT) 33 U/L (15-37) Alanine Aminotransferase (ALT/SGPT) 55 U/L (14-59) Alkaline Phosphatase 113 U/L (46-116) Creatine Kinase 73 U/L (26-192) Creatine Kinase MB (Mass) 0.8 ng/mL (0.0-3.6) Creatine Kinase MB Relative Index % (0-4) UG-Jia-B-Type Natriuretic Peptide 3350 pg/mL (0-124) Total Protein 7.4 g/dL (6.4-8.2) Albumin 3.5 g/dL (3.4-5.0) Albumin/Globulin Ratio 0.9 (1.0-1.7) Urine Collection Type Void Urine Color Yellow Urine Clarity Clear Urine pH 7.0 Urine Specific [place] 1.010 Urine Protein Negative mg/dL (NEG-TRACE) Urine Glucose (UA) Negative mg/dL (NEG) Urine Ketones (Stick) Negative mg/dL (NEG) Urine Blood Negative (NEG) Urine Nitrite Negative (NEG) Urine Bilirubin Negative (NEG) Urine Urobilinogen Dipstick 0.2 mg/dL (0.2 mg/dL) Urine Leukocyte Esterase Negative (NEG) Urine RBC 1-2 /HPF (0-2) Urine WBC 1-4 /HPF (0-4) Urine Squamous Epithelial Cells Few /LPF Urine Bacteria 0 /HPF (0-FEW) Urine Opiates Screen Neg (NEG) Urine Methadone Screen Neg (NEG) Urine Barbiturates Neg (NEG) Urine Phencyclidine Screen Neg (NEG) Urine Amphetamine/Methamphetamine Neg (NEG) Urine Benzodiazepines Screen Neg (NEG) Urine Cocaine Screen Neg (NEG) Urine Cannabinoids Screen Pos (NEG) Urine Ethyl Alcohol Neg (NEG) Troponin I Quantitative 0.027 ng/mL (0.000-0.055) VTE Prophylaxis Ordered VTE Prophylaxis Devices: Yes VTE Pharmacological Prophylaxi: Yes Assessment/Plan Assessment/Plan Bilateral basilar bacterial community acquired pneumonia vs HCAP (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 reassess in the am continue with oxygen therapy may need bipap will admit to step down unit for closer monitoring Furhter recommendations based on the clinical course. DVT prophylaxis: DARIEN Rosas MD Apr 23, 2018 22:26
[2018-04-23 22:45] VITALS: BP 125/62
[2018-04-23] MEDS ORDERED: KETOROLAC 15 MG/ML VIAL. IV PRN (22:45)
[2018-04-23] MEDS ORDERED: KETOROLAC 30 MG/ML VIAL. IV ONE (23:00)
[2018-04-24] MEDS: PIPERACILLIN/TAZOBACTAM 4.5 GM in IV NORMAL SALINE 100ML 100 ML IV SCH ×5 (00:18→23:47)
[2018-04-24 01:43] LABS: BASO % 0 % (0-3); EOS % 0 % (0-3); HEMOGLOBIN 11.4 g/dL (12.0-15.5); LYMPH # 0.4 x10^3/uL (1.0-4.8); LYMPH % 3 % (24-48); MEAN CORPUSCULAR HEMOGLOBIN 33 pg (25-35); MEAN CORPUSCULAR HGB CONC 33 g/dL (31-37); MEAN CORPUSCULAR VOLUME 98 fL (79-100); MONO # 0.1 x10^3/uL (0.0-1.1); MONO % 1 % (0-9); NEUT # 10.8 x10^3uL (1.8-7.7); NEUT % 95 % (31-73); PLATELET COUNT 145 x10^3/uL (140-400); RED BLOOD COUNT 3.46 x10^6/uL (3.50-5.40); RED CELL DISTRIBUTION WIDTH 14.6 % (11.5-14.5); WHITE BLOOD COUNT 11.3 x10^3/uL (4.0-11.0)
[2018-04-24 03:50] VITALS: BP_SYST 116; BP_SYST 155; BP_DIAS 66; BP_DIAS 67
[2018-04-24] MEDS: methylPREDNISolone SOD SUCC PF 125 MG/2 ML VIAL. IV SCH ×3 (05:52→20:28)
[2018-04-24] MEDS ORDERED: ALBUTEROL SULFATE 2.5 MG/3 ML NEBU. NEB PRN (06:00)
[2018-04-24] MEDS: IPRATRPIUM/ALBUTEROL 0.5/2.5MG 3 ML NEBU. NEB SCH ×6 (06:11→19:14)
[2018-04-24] MEDS: BUDESONIDE 0.5 MG/2 ML NEBU. NEB SCH ×2 (06:16→19:14)
--- NOTE | 2018-04-24 06:49 | EKG ---
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
[2018-04-24 07:00] VITALS: BP 124/62
[2018-04-24 08:10] LABS: % BANDS 6 % (0-9); % LYMPHS 4 % (24-48); % SEGS 90 % (35-66)
[2018-04-24 08:11] LABS: PLT ESTIMATE ADEQUATE (ADEQUATE)
[2018-04-24 08:37] LABS: CALCIUM 8.1 mg/dL (8.5-10.1); CREATININE 1.1 mg/dL (0.6-1.0); GFR 51.6; POTASSIUM 3.8 mmol/L (3.5-5.1)
[2018-04-24] MEDS: ACETAMINOPHEN 325 MG TABLET. PO PRN (10:02)
[2018-04-24] MEDS: ISOSORBIDE MONONITRATE ER 30 MG TAB.ER.24H PO SCH (10:03)
[2018-04-24] MEDS: METOPROLOL TART IMMED RELEASE 50 MG TABLET. PO SCH ×2 (10:04→20:27)
[2018-04-24] MEDS: VENLAFAXINE 75 MG TABLET. PO SCH ×3 (10:05→20:26)
[2018-04-24] MEDS: busPIRone 5 MG TABLET. PO SCH ×2 (10:05→20:26)
[2018-04-24] MEDS: GABAPENTIN 300 MG CAPSULE. PO SCH ×2 (10:07→20:26)
[2018-04-24] MEDS: TAMOXIFEN 10 MG TABLET PO SCH (10:16)
[2018-04-24 10:35] VITALS: BP 160/88
--- NOTE | 2018-04-24 12:08 | NUR ---
SS following for discharge planning. SS reviewed pt chart. Pt is from home and currently requiring high flow oxygen. Pt is self pay pt. SS will continue to follow for pending discharge needs.
--- NOTE | 2018-04-24 12:37 | PDOC ---
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 Wood presented to the ED with worsening shortness of breath and nonproductive cough. She has a history of COPD. CXR showed increasing bilateral opacity. Patient continues to complain of shortness of breath and cough. She has venturi mask in place. Receiving steroids and duoNebs. Discussed case with RN. Pulmonology following. Vitals Vitals Vital Signs Date Time Temp Pulse Resp B/P (MAP) Pulse Ox O2 Delivery O2 Flow Rate FiO2 04/24/18 11:23 96 Venturi Mask 15.0 04/24/18 10:35 97.7 99 20 160/88 (112) 97.7 Physical Exam General: Alert, Oriented X3, mild distress Heart: Regular rate, No murmurs Lungs: Wheezing, Other (short of breath + nonproductive cough) Abdomen: Normal bowel sounds, No tenderness, No masses Extremities: No clubbing, No cyanosis, No edema Skin: No rashes, No significant lesion Labs LABS Laboratory Tests Test 04/23/18 17:20 04/23/18 19:05 04/23/18 21:10 04/24/18 01:20 White Blood Count 13.3 x10^3/uL (4.0-11.0) Red Blood Count 3.73 x10^6/uL (3.50-5.40) Hemoglobin 12.2 g/dL (12.0-15.5) Hematocrit 36.6 % (36.0-47.0) Mean Corpuscular Volume 98 fL (79-100) Mean Corpuscular Hemoglobin 33 pg (25-35) Mean Corpuscular Hemoglobin Concent 34 g/dL (31-37) Red Cell Distribution Width 14.8 % (11.5-14.5) Platelet Count 183 x10^3/uL (140-400) Neutrophils (%) (Auto) 81 % (31-73) Lymphocytes (%) (Auto) 11 % (24-48) Monocytes (%) (Auto) 5 % (0-9) Eosinophils (%) (Auto) 2 % (0-3) Basophils (%) (Auto) 1 % (0-3) Neutrophils # (Auto) 10.8 x10^3uL (1.8-7.7) Lymphocytes # (Auto) 1.5 x10^3/uL (1.0-4.8) Monocytes # (Auto) 0.7 x10^3/uL (0.0-1.1) Eosinophils # (Auto) 0.2 x10^3/uL (0.0-0.7) Basophils # (Auto) 0.1 x10^3/uL (0.0-0.2) Sodium Level 141 mmol/L (136-145) Potassium Level 4.0 mmol/L (3.5-5.1) Chloride Level 101 mmol/L (98-107) Carbon Dioxide Level 21 mmol/L (21-32) Anion Gap 19 (6-14) Blood Urea Nitrogen 14 mg/dL (7-20) Creatinine 1.3 mg/dL (0.6-1.0) Estimated GFR (Cockcroft-Gault) 42.5 BUN/Creatinine Ratio 11 (6-20) Glucose Level 175 mg/dL (70-99) Lactic Acid Level 5.4 mmol/L (0.4-2.0) 3.1 mmol/L (0.4-2.0) Calcium Level 8.7 mg/dL (8.5-10.1) Total Bilirubin 0.5 mg/dL (0.2-1.0) Aspartate Amino Transf (AST/SGOT) 33 U/L (15-37) Alanine Aminotransferase (ALT/SGPT) 55 U/L (14-59) Alkaline Phosphatase 113 U/L (46-116) Creatine Kinase 73 U/L (26-192) Creatine Kinase MB (Mass) 0.8 ng/mL (0.0-3.6) Creatine Kinase MB Relative Index % (0-4) LD-Vbz-J-Type Natriuretic Peptide 3350 pg/mL (0-124) Total Protein 7.4 g/dL (6.4-8.2) Albumin 3.5 g/dL (3.4-5.0) Albumin/Globulin Ratio 0.9 (1.0-1.7) Urine Collection Type Void Urine Color Yellow Urine Clarity Clear Urine pH 7.0 Urine Specific [place] 1.010 Urine Protein Negative mg/dL (NEG-TRACE) Urine Glucose (UA) Negative mg/dL (NEG) Urine Ketones (Stick) Negative mg/dL (NEG) Urine Blood Negative (NEG) Urine Nitrite Negative (NEG) Urine Bilirubin Negative (NEG) Urine Urobilinogen Dipstick 0.2 mg/dL (0.2 mg/dL) Urine Leukocyte Esterase Negative (NEG) Urine RBC 1-2 /HPF (0-2) Urine WBC 1-4 /HPF (0-4) Urine Squamous Epithelial Cells Few /LPF Urine Bacteria 0 /HPF (0-FEW) Urine Opiates Screen Neg (NEG) Urine Methadone Screen Neg (NEG) Urine Barbiturates Neg (NEG) Urine Phencyclidine Screen Neg (NEG) Urine Amphetamine/Methamphetamine Neg (NEG) Urine Benzodiazepines Screen Neg (NEG) Urine Cocaine Screen Neg (NEG) Urine Cannabinoids Screen Pos (NEG) Urine Ethyl Alcohol Neg (NEG) Troponin I Quantitative 0.027 ng/mL (0.000-0.055) 0.027 ng/mL (0.000-0.055) Test 04/24/18 03:00 White Blood Count 11.3 x10^3/uL (4.0-11.0) Red Blood Count 3.46 x10^6/uL (3.50-5.40) Hemoglobin 11.4 g/dL (12.0-15.5) Hematocrit 34.0 % (36.0-47.0) Mean Corpuscular Volume 98 fL (79-100) Mean Corpuscular Hemoglobin 33 pg (25-35) Mean Corpuscular Hemoglobin Concent 33 g/dL (31-37) Red Cell Distribution Width 14.6 % (11.5-14.5) Platelet Count 145 x10^3/uL (140-400) Neutrophils (%) (Auto) 95 % (31-73) Lymphocytes (%) (Auto) 3 % (24-48) Monocytes (%) (Auto) 1 % (0-9) Eosinophils (%) (Auto) 0 % (0-3) Basophils (%) (Auto) 0 % (0-3) Neutrophils # (Auto) 10.8 x10^3uL (1.8-7.7) Lymphocytes # (Auto) 0.4 x10^3/uL (1.0-4.8) Monocytes # (Auto) 0.1 x10^3/uL (0.0-1.1) Eosinophils # (Auto) 0.0 x10^3/uL (0.0-0.7) Basophils # (Auto) 0.0 x10^3/uL (0.0-0.2) Segmented Neutrophils % 90 % (35-66) Band Neutrophils % 6 % (0-9) Lymphocytes % 4 % (24-48) Platelet Estimate Adequate (ADEQUATE) Sodium Level 141 mmol/L (136-145) Potassium Level 3.8 mmol/L (3.5-5.1) Chloride Level 105 mmol/L (98-107) Carbon Dioxide Level 21 mmol/L (21-32) Anion Gap 15 (6-14) Blood Urea Nitrogen 13 mg/dL (7-20) Creatinine 1.1 mg/dL (0.6-1.0) Estimated GFR (Cockcroft-Gault) 51.6 Glucose Level 251 mg/dL (70-99) Calcium Level 8.1 mg/dL (8.5-10.1) Review of Systems Review of Systems Reports shortness of breath Reports nonproductive cough Denies chest pain Assessment and Plan Assessmemt and Plan Problems Medical Problems: (1) Acute respiratory distress Status: Acute (2) Anxiety Status: Acute (3) History of left breast cancer Status: Acute (4) Hypoxia Status: Acute (5) Severe sepsis Status: Acute (6) Tachycardia Status: Acute (7) Tobacco abuse Status: Acute (8) Tobacco abuse counseling Status: Acute Assessment: Bilateral basilar opacity likely secondary to pneumonia (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 Labs Laboratory Tests Test 04/23/18 17:20 04/23/18 19:05 04/23/18 21:10 04/24/18 01:20 White Blood Count 13.3 x10^3/uL (4.0-11.0) Red Blood Count 3.73 x10^6/uL (3.50-5.40) Hemoglobin 12.2 g/dL (12.0-15.5) Hematocrit 36.6 % (36.0-47.0) Mean Corpuscular Volume 98 fL (79-100) Mean Corpuscular Hemoglobin 33 pg (25-35) Mean Corpuscular Hemoglobin Concent 34 g/dL (31-37) Red Cell Distribution Width 14.8 % (11.5-14.5) Platelet Count 183 x10^3/uL (140-400) Neutrophils (%) (Auto) 81 % (31-73) Lymphocytes (%) (Auto) 11 % (24-48) Monocytes (%) (Auto) 5 % (0-9) Eosinophils (%) (Auto) 2 % (0-3) Basophils (%) (Auto) 1 % (0-3) Neutrophils # (Auto) 10.8 x10^3uL (1.8-7.7) Lymphocytes # (Auto) 1.5 x10^3/uL (1.0-4.8) Monocytes # (Auto) 0.7 x10^3/uL (0.0-1.1) Eosinophils # (Auto) 0.2 x10^3/uL (0.0-0.7) Basophils # (Auto) 0.1 x10^3/uL (0.0-0.2) Sodium Level 141 mmol/L (136-145) Potassium Level 4.0 mmol/L (3.5-5.1) Chloride Level 101 mmol/L (98-107) Carbon Dioxide Level 21 mmol/L (21-32) Anion Gap 19 (6-14) Blood Urea Nitrogen 14 mg/dL (7-20) Creatinine 1.3 mg/dL (0.6-1.0) Estimated GFR (Cockcroft-Gault) 42.5 BUN/Creatinine Ratio 11 (6-20) Glucose Level 175 mg/dL (70-99) Lactic Acid Level 5.4 mmol/L (0.4-2.0) 3.1 mmol/L (0.4-2.0) Calcium Level 8.7 mg/dL (8.5-10.1) Total Bilirubin 0.5 mg/dL (0.2-1.0) Aspartate Amino Transf (AST/SGOT) 33 U/L (15-37) Alanine Aminotransferase (ALT/SGPT) 55 U/L (14-59) Alkaline Phosphatase 113 U/L (46-116) Creatine Kinase 73 U/L (26-192) Creatine Kinase MB (Mass) 0.8 ng/mL (0.0-3.6) Creatine Kinase MB Relative Index % (0-4) TC-Vxp-I-Type Natriuretic Peptide 3350 pg/mL (0-124) Total Protein 7.4 g/dL (6.4-8.2) Albumin 3.5 g/dL (3.4-5.0) Albumin/Globulin Ratio 0.9 (1.0-1.7) Urine Collection Type Void Urine Color Yellow Urine Clarity Clear Urine pH 7.0 Urine Specific [place] 1.010 Urine Protein Negative mg/dL (NEG-TRACE) Urine Glucose (UA) Negative mg/dL (NEG) Urine Ketones (Stick) Negative mg/dL (NEG) Urine Blood Negative (NEG) Urine Nitrite Negative (NEG) Urine Bilirubin Negative (NEG) Urine Urobilinogen Dipstick 0.2 mg/dL (0.2 mg/dL) Urine Leukocyte Esterase Negative (NEG) Urine RBC 1-2 /HPF (0-2) Urine WBC 1-4 /HPF (0-4) Urine Squamous Epithelial Cells Few /LPF Urine Bacteria 0 /HPF (0-FEW) Urine Opiates Screen Neg (NEG) Urine Methadone Screen Neg (NEG) Urine Barbiturates Neg (NEG) Urine Phencyclidine Screen Neg (NEG) Urine Amphetamine/Methamphetamine Neg (NEG) Urine Benzodiazepines Screen Neg (NEG) Urine Cocaine Screen Neg (NEG) Urine Cannabinoids Screen Pos (NEG) Urine Ethyl Alcohol Neg (NEG) Troponin I Quantitative 0.027 ng/mL (0.000-0.055) 0.027 ng/mL (0.000-0.055) Test 04/24/18 03:00 White Blood Count 11.3 x10^3/uL (4.0-11.0) Red Blood Count 3.46 x10^6/uL (3.50-5.40) Hemoglobin 11.4 g/dL (12.0-15.5) Hematocrit 34.0 % (36.0-47.0) Mean Corpuscular Volume 98 fL (79-100) Mean Corpuscular Hemoglobin 33 pg (25-35) Mean Corpuscular Hemoglobin Concent 33 g/dL (31-37) Red Cell Distribution Width 14.6 % (11.5-14.5) Platelet Count 145 x10^3/uL (140-400) Neutrophils (%) (Auto) 95 % (31-73) Lymphocytes (%) (Auto) 3 % (24-48) Monocytes (%) (Auto) 1 % (0-9) Eosinophils (%) (Auto) 0 % (0-3) Basophils (%) (Auto) 0 % (0-3) Neutrophils # (Auto) 10.8 x10^3uL (1.8-7.7) Lymphocytes # (Auto) 0.4 x10^3/uL (1.0-4.8) Monocytes # (Auto) 0.1 x10^3/uL (0.0-1.1) Eosinophils # (Auto) 0.0 x10^3/uL (0.0-0.7) Basophils # (Auto) 0.0 x10^3/uL (0.0-0.2) Segmented Neutrophils % 90 % (35-66) Band Neutrophils % 6 % (0-9) Lymphocytes % 4 % (24-48) Platelet Estimate Adequate (ADEQUATE) Sodium Level 141 mmol/L (136-145) Potassium Level 3.8 mmol/L (3.5-5.1) Chloride Level 105 mmol/L (98-107) Carbon Dioxide Level 21 mmol/L (21-32) Anion Gap 15 (6-14) Blood Urea Nitrogen 13 mg/dL (7-20) Creatinine 1.1 mg/dL (0.6-1.0) Estimated GFR (Cockcroft-Gault) 51.6 Glucose Level 251 mg/dL (70-99) Calcium Level 8.1 mg/dL (8.5-10.1) Laboratory Tests Test 04/23/18 17:20 04/23/18 19:05 04/23/18 21:10 04/24/18 01:20 White Blood Count 13.3 x10^3/uL (4.0-11.0) Red Blood Count 3.73 x10^6/uL (3.50-5.40) Hemoglobin 12.2 g/dL (12.0-15.5) Hematocrit 36.6 % (36.0-47.0) Mean Corpuscular Volume 98 fL (79-100) Mean Corpuscular Hemoglobin 33 pg (25-35) Mean Corpuscular Hemoglobin Concent 34 g/dL (31-37) Red Cell Distribution Width 14.8 % (11.5-14.5) Platelet Count 183 x10^3/uL (140-400) Neutrophils (%) (Auto) 81 % (31-73) Lymphocytes (%) (Auto) 11 % (24-48) Monocytes (%) (Auto) 5 % (0-9) Eosinophils (%) (Auto) 2 % (0-3) Basophils (%) (Auto) 1 % (0-3) Neutrophils # (Auto) 10.8 x10^3uL (1.8-7.7) Lymphocytes # (Auto) 1.5 x10^3/uL (1.0-4.8) Monocytes # (Auto) 0.7 x10^3/uL (0.0-1.1) Eosinophils # (Auto) 0.2 x10^3/uL (0.0-0.7) Basophils # (Auto) 0.1 x10^3/uL (0.0-0.2) Sodium Level 141 mmol/L (136-145) Potassium Level 4.0 mmol/L (3.5-5.1) Chloride Level 101 mmol/L (98-107) Carbon Dioxide Level 21 mmol/L (21-32) Anion Gap 19 (6-14) Blood Urea Nitrogen 14 mg/dL (7-20) Creatinine 1.3 mg/dL (0.6-1.0) Estimated GFR (Cockcroft-Gault) 42.5 BUN/Creatinine Ratio 11 (6-20) Glucose Level 175 mg/dL (70-99) Lactic Acid Level 5.4 mmol/L (0.4-2.0) 3.1 mmol/L (0.4-2.0) Calcium Level 8.7 mg/dL (8.5-10.1) Total Bilirubin 0.5 mg/dL (0.2-1.0) Aspartate Amino Transf (AST/SGOT) 33 U/L (15-37) Alanine Aminotransferase (ALT/SGPT) 55 U/L (14-59) Alkaline Phosphatase 113 U/L (46-116) Creatine Kinase 73 U/L (26-192) Creatine Kinase MB (Mass) 0.8 ng/mL (0.0-3.6) Creatine Kinase MB Relative Index % (0-4) GR-Keq-U-Type Natriuretic Peptide 3350 pg/mL (0-124) Total Protein 7.4 g/dL (6.4-8.2) Albumin 3.5 g/dL (3.4-5.0) Albumin/Globulin Ratio 0.9 (1.0-1.7) Urine Collection Type Void Urine Color Yellow Urine Clarity Clear Urine pH 7.0 Urine Specific [place] 1.010 Urine Protein Negative mg/dL (NEG-TRACE) Urine Glucose (UA) Negative mg/dL (NEG) Urine Ketones (Stick) Negative mg/dL (NEG) Urine Blood Negative (NEG) Urine Nitrite Negative (NEG) Urine Bilirubin Negative (NEG) Urine Urobilinogen Dipstick 0.2 mg/dL (0.2 mg/dL) Urine Leukocyte Esterase Negative (NEG) Urine RBC 1-2 /HPF (0-2) Urine WBC 1-4 /HPF (0-4) Urine Squamous Epithelial Cells Few /LPF Urine Bacteria 0 /HPF (0-FEW) Urine Opiates Screen Neg (NEG) Urine Methadone Screen Neg (NEG) Urine Barbiturates Neg (NEG) Urine Phencyclidine Screen Neg (NEG) Urine Amphetamine/Methamphetamine Neg (NEG) Urine Benzodiazepines Screen Neg (NEG) Urine Cocaine Screen Neg (NEG) Urine Cannabinoids Screen Pos (NEG) Urine Ethyl Alcohol Neg (NEG) Troponin I Quantitative 0.027 ng/mL (0.000-0.055) 0.027 ng/mL (0.000-0.055) Test 04/24/18 03:00 White Blood Count 11.3 x10^3/uL (4.0-11.0) Red Blood Count 3.46 x10^6/uL (3.50-5.40) Hemoglobin 11.4 g/dL (12.0-15.5) Hematocrit 34.0 % (36.0-47.0) Mean Corpuscular Volume 98 fL (79-100) Mean Corpuscular Hemoglobin 33 pg (25-35) Mean Corpuscular Hemoglobin Concent 33 g/dL (31-37) Red Cell Distribution Width 14.6 % (11.5-14.5) Platelet Count 145 x10^3/uL (140-400) Neutrophils (%) (Auto) 95 % (31-73) Lymphocytes (%) (Auto) 3 % (24-48) Monocytes (%) (Auto) 1 % (0-9) Eosinophils (%) (Auto) 0 % (0-3) Basophils (%) (Auto) 0 % (0-3) Neutrophils # (Auto) 10.8 x10^3uL (1.8-7.7) Lymphocytes # (Auto) 0.4 x10^3/uL (1.0-4.8) Monocytes # (Auto) 0.1 x10^3/uL (0.0-1.1) Eosinophils # (Auto) 0.0 x10^3/uL (0.0-0.7) Basophils # (Auto) 0.0 x10^3/uL (0.0-0.2) Segmented Neutrophils % 90 % (35-66) Band Neutrophils % 6 % (0-9) Lymphocytes % 4 % (24-48) Platelet Estimate Adequate (ADEQUATE) Sodium Level 141 mmol/L (136-145) Potassium Level 3.8 mmol/L (3.5-5.1) Chloride Level 105 mmol/L (98-107) Carbon Dioxide Level 21 mmol/L (21-32) Anion Gap 15 (6-14) Blood Urea Nitrogen 13 mg/dL (7-20) Creatinine 1.1 mg/dL (0.6-1.0) Estimated GFR (Cockcroft-Gault) 51.6 Glucose Level 251 mg/dL (70-99) Calcium Level 8.1 mg/dL (8.5-10.1) Medications Current Medications Albuterol/ Ipratropium (Duoneb) 3 ml 1X ONCE NEB Last administered on 17:33; Start 04/23/18 at 17:15; Stop 04/23/18 at 17:20; Status DC Methylprednisolone Sodium Succinate (SOLU-Medrol 125MG VIAL) 125 mg 1X ONCE IV Last administered on 04/23/18at 17:38; Start 04/23/18 at 17:15; Stop 04/23/18 at 17:20; Status DC Sodium Chloride 1,000 ml @ 1,000 mls/hr 1X ONCE IV Last administered on at 17:37; Start 04/23/18 at 17:30; Stop 04/23/18 at 18:29; Status DC Ceftriaxone Sodium (Rocephin) 1 gm 1X ONCE IVP Last administered on 04/23/18at 18:26; Start 04/23/18 at 18:15; Stop 04/23/18 at 18:16; Status DC Albuterol/ Ipratropium (Duoneb) 3 ml RTQID NEB Last administered on 04/24/18at 06 :11; Start 04/23/18 at 20:00; Stop 04/24/18 at 09:27; Status DC Piperacillin Sod/ Tazobactam Sod 4.5 gm/Sodium Chloride 100 ml @ 200 mls/hr 1X ONCE IV Last administered on 04/23/18at 19:11; Start 04/23/18 at 18:30; Stop 04/23/18 at 18:59; Status DC Vancomycin HCl 1.5 gm/Sodium Chloride 500 ml @ 250 mls/hr 1X ONCE IV Last administered on 04/23/18 19:35; Start 04/23/18 at 19:00; Stop 04/23/18 at 20:59; Status DC Levofloxacin/ Dextrose 100 ml @ 100 mls/hr 1X ONCE IV Last administered on 04/23/18at 18:26; Start 04/23/18 at 18:15; Stop 04/23/18 at 19:14; Status DC Acetaminophen (Tylenol) 650 mg PRN Q6HRS PRN PO Headaches, Temp > 101.5' Last administered on 04/24/18at 10:02; Start 04/23/18 at 19:00 Lorazepam (Ativan) 0.5 mg PRN Q6HRS PRN IV ANXIETY / AGITATION Last administered on 04/24/18at 10:03; Start 04/23/18 at 19:00 Ondansetron HCl (Zofran) 4 mg PRN Q6HRS PRN IV NAUSEA/VOMITING; Start 04/23/18 at 19:00 Info (Non-Icu Electrolyte Protocol) 1 ea CONT PRN PRN MC SEE COMMENTS; Start at 19:15 Enoxaparin Sodium (Lovenox 40mg Syringe) 40 mg Q24H SQ Last administered on 04/23at 22:08; Start 04/23/18 at 21:00 Sodium Chloride (Normal Saline Flush) 3 ml QSHIFT PRN IV AFTER MEDS AND BLOOD DRAWS; Start 04/23/18 at 19:00 Morphine Sulfate (Morphine Sulfate) 1 mg PRN Q1HR PRN IV PAIN; Start 04/23/18 at 19:00 Lactulose (Lactulose) 20 gm PRN Q12HR PRN PO CONSTIPATION; Start 04/23/18 at 19: 00 Bisacodyl (Dulcolax Supp) 10 mg PRN DAILY PRN RI CONSTIPATION; Start 04/23/18 at 19:00 Atorvastatin Calcium (Lipitor) 20 mg QHS PO Last administered on 04/23/18at 22:08 ; Start 04/23/18 at 21:00 Clonazepam (KlonoPIN) 0.25 mg PRN DAILY PRN PO ANXIETY / AGITATION; Start at 19:00 Gabapentin (Neurontin) 300 mg BID PO Last administered on 04/24/18at 10:07; Start 04/23/18 at 21:00 Isosorbide Mononitrate (Imdur) 60 mg DAILY PO Last administered on 04/24/18at 10: 03; Start 04/24/18 at 09:00 Metoprolol Tartrate (Lopressor) 50 mg BID PO Last administered on 04/24/18 10: 04; Start 04/23/18 at 21:00 Non-Formulary Medication (Albuterol Sulfate (Ventolin Hfa Inhaler)) 2 puff BID INH ; Start 04/23/18 at 21:00; Status UNV Non-Formulary Medication (Budesonide (Pulmicort Flexhaler)) 2 puff BID IH ; Start 04/23/18 at 21:00; Status UNV Buspirone HCl (Buspar) 15 mg BID PO Last administered on 04/24/18at 10:05; Start 04/23/18 at 21:00 Non-Formulary Medication (Fluticasone/ Salmeterol (Advair 250-50 Diskus)) 1 inh BID IH ; Start 04/23/18 at 21:00; Status UNV Tamoxifen Citrate (Nolvadex) 20 mg DAILY PO Last administered on 04/24/18at 10:16 ; Start 04/24/18 at 09:00 Venlafaxine HCl (Effexor) 75 mg TID PO Last administered on 04/24/18at 10:05; Start 04/24/18 at 09:00 Piperacillin Sod/ Tazobactam Sod 4.5 gm/Sodium Chloride 100 ml @ 200 mls/hr Q6HRS IV Last administered on 04/24/18at 05:52; Start 04/24/18 at 00:00 Budesonide (Pulmicort) 0.5 mg RTBID NEB Last administered on 04/24/18at 06:16; Start 04/23/18 at 20:00 Albuterol Sulfate (Ventolin Neb Soln) 2.5 mg RTQID NEB Last administered on 04/23at 21:04; Start 04/23/18 at 20:00; Stop 04/24/18 at 05:58; Status DC Lorazepam (Ativan) 0.5 mg 1X ONCE IV Last administered on 04/23/18at 19:15; Start 04/23/18 at 19:15; Stop 04/23/18 at 19:16; Status DC Methylprednisolone Sodium Succinate (SOLU-Medrol 125MG VIAL) 125 mg Q8HRS IV Last administered on 04/24/18at 05:52; Start 04/23/18 at 22:00 Albuterol/ Ipratropium (Duoneb) 3 ml Q4HRS NEB ; Start 04/23/18 at 20:00; Stop at 05:58; Status DC Nicotine (Nicoderm Cq 14mg) 1 patch PRN DAILY PRN TD SMOKING CESSATION; Start 04/23/18 at 22:30 Tizanidine HCl (Zanaflex) 4 mg PRN Q8HRS PRN PO MUSCLE SPASMS; Start 04/23/18 at 22:30 Ketorolac Tromethamine (Toradol 30mg Vial) 30 mg 1X ONCE IV Last administered on 04/24/18at 00:20; Start 04/23/18 at 23:00; Stop 04/23/18 at 23:01; Status DC Ketorolac Tromethamine (Toradol 15mg Vial) 15 mg PRN Q8HRS PRN IV MODERATE PAIN ; Start 04/23/18 at 22:45; Stop 04/28/18 at 22:44 Albuterol Sulfate (Ventolin Neb Soln) 2.5 mg PRN Q4HRS PRN NEB WHEEZING; Start 04/24/18 at 06:00 Albuterol/ Ipratropium (Duoneb) 3 ml RTQID NEB Last administered on 04/24/18at 11 :21; Start 04/24/18 at 08:00 Guaifenesin/ Codeine Phosphate (Robitussin Ac) 5 ml PRN Q6HRS PRN PO COUGH; Start 04/24/18 at 12:15 Active Scripts Active Azithromycin Tablet (Azithromycin) 500 Mg Tablet 500 Mg PO DAILY 5 Days Pulmicort Flexhaler (Budesonide) 180 Mcg Aer.pow.ba 2 Puff IH BID Metoprolol Tartrate 50 Mg Tablet 50 Mg PO BID 30 Days Isosorbide Mononitrate Er (Isosorbide Mononitrate) 30 Mg Tab.er.24h 60 Mg PO DAILY 30 Days Atorvastatin Calcium 20 Mg Tablet 20 Mg PO QHS 30 Days Advair 250-50 Diskus (Fluticasone/Salmeterol) 1 Each Disk.w.dev 1 Inh IH BID 30 Days Reported Prednisone (Prednisone) 10 Mg Tablet 10 Mg PO UD Take 4 tablets (40 mg) by mouth for 2 days, then take 2 tablets (20 mg) by mouth for 2 days, then take 1 tablet (10 mg) by mouth for 2 days, then take 1/2 tablet( 5 mg) by mouth x 1 day, then stop. Venlafaxine Hcl Er (Venlafaxine Hcl) 225 Mg Tab.er.24 225 Mg PO DAILY NICODERM CQ 21mg (Nicotine) 1 Each Patch.td24 1 Patch TP DAILY Do not smoke while wearing the patch Cyanocobalamin Injection (Cyanocobalamin (Vitamin B-12)) 1,000 Mcg/1 Ml Vial 1 Ml IM QMONTH Clonazepam 0.5 Mg Tablet 0.5 Tab PO DAILY PRN Ventolin Hfa Inhaler (Albuterol Sulfate) 18 Gm Hfa.aer.ad 2 Puff INH BID Acetaminophen 500 Mg Tablet 1 Tab PO PRN Q6HRS PRN Gabapentin (Gabapentin) 300 Mg Capsule 300 Mg PO BID Buspirone Hcl 15 Mg Tablet 15 Mg PO BID Aspirin 325 Mg Tablet 1 Tab PO DAILY Tamoxifen Citrate 20 Mg Tablet 20 Mg PO DAILY Vitals/I & O Vital Sign - Last 24 Hours 04/23/18 04/23/18 04/23/18 04/23/18 17:09 17:26 17:34 17:54 Temp 99.1 99.1 Pulse 125 106 106 Resp 28 26 34 B/P (MAP) 193/83 (119) 145/87 (106) 153/74 (100) Pulse Ox 84 85 85 90 O2 Delivery Room Air Nasal Cannula Nasal Cannula Venturi Mask O2 Flow Rate 4.0 3.0 04/23/18 04/23/18 04/23/18 04/23/18 18:24 18:54 19:24 19:48 Pulse 106 102 122 102 Resp 27 21 46 24 B/P (MAP) 144/76 (98) 130/68 (88) 185/74 (111) 158/75 (102) Pulse Ox 90 90 89 O2 Delivery Venturi Mask Venturi Mask Venturi Mask Venturi Mask 04/23/18 04/23/18 04/23/18 04/23/18 19:54 20:00 20:10 21:04 Temp 98.4 98.4 Pulse 106 104 Resp 22 22 B/P (MAP) 168/77 (107) 144/80 (101) Pulse Ox 87 89 92 O2 Delivery Venturi Mask Venturi Mask Venturi Mask Venturi Mask O2 Flow Rate 50.0 15.0 15.0 04/23/18 04/23/18 04/23/18 04/24/18 21:07 22:08 22:45 03:50 Temp 97.9 98.1 97.9 98.1 Pulse 104 87 81 Resp B/P (MAP) 144/80 125/62 (83) 116/66 (83) Pulse Ox 92 94 95 O2 Delivery Venturi Mask Venturi Mask Venturi Mask O2 Flow Rate 15.0 15.0 15.0 04/24/18 04/24/18 04/24/18 04/24/18 06:12 07:00 08:00 10:03 Temp 98.1 98.1 Pulse 85 85 Resp 20 B/P (MAP) 124/62 (82) 124/62 Pulse Ox 93 95 O2 Delivery Venturi Mask Venturi Mask Venturi Mask O2 Flow Rate 15.0 15.0 50.0 04/24/18 04/24/18 04/24/18 10:04 10:35 11:23 Temp 97.7 97.7 Pulse 85 99 Resp 20 B/P (MAP) 124/62 160/88 (112) Pulse Ox 91 96 O2 Delivery Venturi Mask Venturi Mask O2 Flow Rate 15.0 15.0 Intake and Output 04/23/18 04/23/18 04/24/18 14:59 22:59 06:59 Intake Total 1480 ml 400 ml Output Total 1400 ml 1150 ml Balance 80 ml -750 ml MELA FITZGERALD III DO Apr 24, 2018 12:37
--- NOTE | 2018-04-24 14:15 | NUR ---
Pt very anxious and continues to state "I don't want to ". Pt verbalized being scared because she went into cardiac arrest a few years ago. Physician increased her dose of anxiety medications and medications given at this time. Pt re-directed and verbalized feelings to staff. Pt stated she now feels better and would try to take a nap. Will continue to monitor.
[2018-04-24 14:43] VITALS: BP 114/61
--- NOTE | 2018-04-24 16:09 | PDOC ---
PULMONARY PROGRESS NOTES Vitals Vital Signs Date Time Temp Pulse Resp B/P (MAP) Pulse Ox O2 Delivery O2 Flow Rate FiO2 04/24/18 15:08 94 Nasal Cannula 5.0 04/24/18 14:43 98.8 90 18 114/61 (78) 98.8 Lungs: Wheezing, Other (short of breath + nonproductive cough) Cardiovascular: S1, S2 Abdomen: Soft, Non-tender Extremities: No Edema Labs Laboratory Tests Test 04/23/18 17:20 04/23/18 19:05 04/23/18 21:10 04/24/18 01:20 White Blood Count 13.3 x10^3/uL (4.0-11.0) Red Blood Count 3.73 x10^6/uL (3.50-5.40) Hemoglobin 12.2 g/dL (12.0-15.5) Hematocrit 36.6 % (36.0-47.0) Mean Corpuscular Volume 98 fL (79-100) Mean Corpuscular Hemoglobin 33 pg (25-35) Mean Corpuscular Hemoglobin Concent 34 g/dL (31-37) Red Cell Distribution Width 14.8 % (11.5-14.5) Platelet Count 183 x10^3/uL (140-400) Neutrophils (%) (Auto) 81 % (31-73) Lymphocytes (%) (Auto) 11 % (24-48) Monocytes (%) (Auto) 5 % (0-9) Eosinophils (%) (Auto) 2 % (0-3) Basophils (%) (Auto) 1 % (0-3) Neutrophils # (Auto) 10.8 x10^3uL (1.8-7.7) Lymphocytes # (Auto) 1.5 x10^3/uL (1.0-4.8) Monocytes # (Auto) 0.7 x10^3/uL (0.0-1.1) Eosinophils # (Auto) 0.2 x10^3/uL (0.0-0.7) Basophils # (Auto) 0.1 x10^3/uL (0.0-0.2) Sodium Level 141 mmol/L (136-145) Potassium Level 4.0 mmol/L (3.5-5.1) Chloride Level 101 mmol/L (98-107) Carbon Dioxide Level 21 mmol/L (21-32) Anion Gap 19 (6-14) Blood Urea Nitrogen 14 mg/dL (7-20) Creatinine 1.3 mg/dL (0.6-1.0) Estimated GFR (Cockcroft-Gault) 42.5 BUN/Creatinine Ratio 11 (6-20) Glucose Level 175 mg/dL (70-99) Lactic Acid Level 5.4 mmol/L (0.4-2.0) 3.1 mmol/L (0.4-2.0) Calcium Level 8.7 mg/dL (8.5-10.1) Total Bilirubin 0.5 mg/dL (0.2-1.0) Aspartate Amino Transf (AST/SGOT) 33 U/L (15-37) Alanine Aminotransferase (ALT/SGPT) 55 U/L (14-59) Alkaline Phosphatase 113 U/L (46-116) Creatine Kinase 73 U/L (26-192) Creatine Kinase MB (Mass) 0.8 ng/mL (0.0-3.6) Creatine Kinase MB Relative Index % (0-4) UX-Kbu-[id number]-Type Natriuretic Peptide 3350 pg/mL (0-124) Total Protein 7.4 g/dL (6.4-8.2) Albumin 3.5 g/dL (3.4-5.0) Albumin/Globulin Ratio 0.9 (1.0-1.7) Urine Collection Type Void Urine Color Yellow Urine Clarity Clear Urine pH 7.0 Urine Specific [place] 1.010 Urine Protein Negative mg/dL (NEG-TRACE) Urine Glucose (UA) Negative mg/dL (NEG) Urine Ketones (Stick) Negative mg/dL (NEG) Urine Blood Negative (NEG) Urine Nitrite Negative (NEG) Urine Bilirubin Negative (NEG) Urine Urobilinogen Dipstick 0.2 mg/dL (0.2 mg/dL) Urine Leukocyte Esterase Negative (NEG) Urine RBC 1-2 /HPF (0-2) Urine WBC 1-4 /HPF (0-4) Urine Squamous Epithelial Cells Few /LPF Urine Bacteria 0 /HPF (0-FEW) Urine Opiates Screen Neg (NEG) Urine Methadone Screen Neg (NEG) Urine Barbiturates Neg (NEG) Urine Phencyclidine Screen Neg (NEG) Urine Amphetamine/Methamphetamine Neg (NEG) Urine Benzodiazepines Screen Neg (NEG) Urine Cocaine Screen Neg (NEG) Urine Cannabinoids Screen Pos (NEG) Urine Ethyl Alcohol Neg (NEG) Troponin I Quantitative 0.027 ng/mL (0.000-0.055) 0.027 ng/mL (0.000-0.055) Test 04/24/18 03:00 White Blood Count 11.3 x10^3/uL (4.0-11.0) Red Blood Count 3.46 x10^6/uL (3.50-5.40) Hemoglobin 11.4 g/dL (12.0-15.5) Hematocrit 34.0 % (36.0-47.0) Mean Corpuscular Volume 98 fL (79-100) Mean Corpuscular Hemoglobin 33 pg (25-35) Mean Corpuscular Hemoglobin Concent 33 g/dL (31-37) Red Cell Distribution Width 14.6 % (11.5-14.5) Platelet Count 145 x10^3/uL (140-400) Neutrophils (%) (Auto) 95 % (31-73) Lymphocytes (%) (Auto) 3 % (24-48) Monocytes (%) (Auto) 1 % (0-9) Eosinophils (%) (Auto) 0 % (0-3) Basophils (%) (Auto) 0 % (0-3) Neutrophils # (Auto) 10.8 x10^3uL (1.8-7.7) Lymphocytes # (Auto) 0.4 x10^3/uL (1.0-4.8) Monocytes # (Auto) 0.1 x10^3/uL (0.0-1.1) Eosinophils # (Auto) 0.0 x10^3/uL (0.0-0.7) Basophils # (Auto) 0.0 x10^3/uL (0.0-0.2) Segmented Neutrophils % 90 % (35-66) Band Neutrophils % 6 % (0-9) Lymphocytes % 4 % (24-48) Platelet Estimate Adequate (ADEQUATE) Sodium Level 141 mmol/L (136-145) Potassium Level 3.8 mmol/L (3.5-5.1) Chloride Level 105 mmol/L (98-107) Carbon Dioxide Level 21 mmol/L (21-32) Anion Gap 15 (6-14) Blood Urea Nitrogen 13 mg/dL (7-20) Creatinine 1.1 mg/dL (0.6-1.0) Estimated GFR (Cockcroft-Gault) 51.6 Glucose Level 251 mg/dL (70-99) Calcium Level 8.1 mg/dL (8.5-10.1) Laboratory Tests Test 04/23/18 17:20 04/23/18 19:05 04/23/18 21:10 04/24/18 01:20 White Blood Count 13.3 x10^3/uL (4.0-11.0) Red Blood Count 3.73 x10^6/uL (3.50-5.40) Hemoglobin 12.2 g/dL (12.0-15.5) Hematocrit 36.6 % (36.0-47.0) Mean Corpuscular Volume 98 fL (79-100) Mean Corpuscular Hemoglobin 33 pg (25-35) Mean Corpuscular Hemoglobin Concent 34 g/dL (31-37) Red Cell Distribution Width 14.8 % (11.5-14.5) Platelet Count 183 x10^3/uL (140-400) Neutrophils (%) (Auto) 81 % (31-73) Lymphocytes (%) (Auto) 11 % (24-48) Monocytes (%) (Auto) 5 % (0-9) Eosinophils (%) (Auto) 2 % (0-3) Basophils (%) (Auto) 1 % (0-3) Neutrophils # (Auto) 10.8 x10^3uL (1.8-7.7) Lymphocytes # (Auto) 1.5 x10^3/uL (1.0-4.8) Monocytes # (Auto) 0.7 x10^3/uL (0.0-1.1) Eosinophils # (Auto) 0.2 x10^3/uL (0.0-0.7) Basophils # (Auto) 0.1 x10^3/uL (0.0-0.2) Sodium Level 141 mmol/L (136-145) Potassium Level 4.0 mmol/L (3.5-5.1) Chloride Level 101 mmol/L (98-107) Carbon Dioxide Level 21 mmol/L (21-32) Anion Gap 19 (6-14) Blood Urea Nitrogen 14 mg/dL (7-20) Creatinine 1.3 mg/dL (0.6-1.0) Estimated GFR (Cockcroft-Gault) 42.5 BUN/Creatinine Ratio 11 (6-20) Glucose Level 175 mg/dL (70-99) Lactic Acid Level 5.4 mmol/L (0.4-2.0) 3.1 mmol/L (0.4-2.0) Calcium Level 8.7 mg/dL (8.5-10.1) Total Bilirubin 0.5 mg/dL (0.2-1.0) Aspartate Amino Transf (AST/SGOT) 33 U/L (15-37) Alanine Aminotransferase (ALT/SGPT) 55 U/L (14-59) Alkaline Phosphatase 113 U/L (46-116) Creatine Kinase 73 U/L (26-192) Creatine Kinase MB (Mass) 0.8 ng/mL (0.0-3.6) Creatine Kinase MB Relative Index % (0-4) WK-Gdn-L-Type Natriuretic Peptide 3350 pg/mL (0-124) Total Protein 7.4 g/dL (6.4-8.2) Albumin 3.5 g/dL (3.4-5.0) Albumin/Globulin Ratio 0.9 (1.0-1.7) Urine Collection Type Void Urine Color Yellow Urine Clarity Clear Urine pH 7.0 Urine Specific [place] 1.010 Urine Protein Negative mg/dL (NEG-TRACE) Urine Glucose (UA) Negative mg/dL (NEG) Urine Ketones (Stick) Negative mg/dL (NEG) Urine Blood Negative (NEG) Urine Nitrite Negative (NEG) Urine Bilirubin Negative (NEG) Urine Urobilinogen Dipstick 0.2 mg/dL (0.2 mg/dL) Urine Leukocyte Esterase Negative (NEG) Urine RBC 1-2 /HPF (0-2) Urine WBC 1-4 /HPF (0-4) Urine Squamous Epithelial Cells Few /LPF Urine Bacteria 0 /HPF (0-FEW) Urine Opiates Screen Neg (NEG) Urine Methadone Screen Neg (NEG) Urine Barbiturates Neg (NEG) Urine Phencyclidine Screen Neg (NEG) Urine Amphetamine/Methamphetamine Neg (NEG) Urine Benzodiazepines Screen Neg (NEG) Urine Cocaine Screen Neg (NEG) Urine Cannabinoids Screen Pos (NEG) Urine Ethyl Alcohol Neg (NEG) Troponin I Quantitative 0.027 ng/mL (0.000-0.055) 0.027 ng/mL (0.000-0.055) Test 04/24/18 03:00 White Blood Count 11.3 x10^3/uL (4.0-11.0) Red Blood Count 3.46 x10^6/uL (3.50-5.40) Hemoglobin 11.4 g/dL (12.0-15.5) Hematocrit 34.0 % (36.0-47.0) Mean Corpuscular Volume 98 fL (79-100) Mean Corpuscular Hemoglobin 33 pg (25-35) Mean Corpuscular Hemoglobin Concent 33 g/dL (31-37) Red Cell Distribution Width 14.6 % (11.5-14.5) Platelet Count 145 x10^3/uL (140-400) Neutrophils (%) (Auto) 95 % (31-73) Lymphocytes (%) (Auto) 3 % (24-48) Monocytes (%) (Auto) 1 % (0-9) Eosinophils (%) (Auto) 0 % (0-3) Basophils (%) (Auto) 0 % (0-3) Neutrophils # (Auto) 10.8 x10^3uL (1.8-7.7) Lymphocytes # (Auto) 0.4 x10^3/uL (1.0-4.8) Monocytes # (Auto) 0.1 x10^3/uL (0.0-1.1) Eosinophils # (Auto) 0.0 x10^3/uL (0.0-0.7) Basophils # (Auto) 0.0 x10^3/uL (0.0-0.2) Segmented Neutrophils % 90 % (35-66) Band Neutrophils % 6 % (0-9) Lymphocytes % 4 % (24-48) Platelet Estimate Adequate (ADEQUATE) Sodium Level 141 mmol/L (136-145) Potassium Level 3.8 mmol/L (3.5-5.1) Chloride Level 105 mmol/L (98-107) Carbon Dioxide Level 21 mmol/L (21-32) Anion Gap 15 (6-14) Blood Urea Nitrogen 13 mg/dL (7-20) Creatinine 1.1 mg/dL (0.6-1.0) Estimated GFR (Cockcroft-Gault) 51.6 Glucose Level 251 mg/dL (70-99) Calcium Level 8.1 mg/dL (8.5-10.1) Medications Active Scripts Medications Dose Route/Sig Max Daily Dose Days Date Category Dose Instructions Prednisone (Prednisone) 10 Mg Tablet 10 Mg PO UD 01/13/17 Reported Take 4 tablets (40 mg) by mouth for 2 days, then take 2 tablets (20 mg) by mouth for 2 days, then take 1 tablet (10 mg) by mouth for 2 days, then take 1/2 tablet( 5 mg) by mouth x 1 day, then stop. Azithromycin Tablet (Azithromycin) 500 Mg Tablet 500 Mg PO DAILY 5 01/13/17 Rx Pulmicort Flexhaler (Budesonide) 180 Mcg Aer.pow.ba 2 Puff IH BID 01/13/17 Rx Venlafaxine Hcl Er (Venlafaxine Hcl) 225 Mg Tab.er.24 225 Mg PO DAILY 01/10/17 Reported NICODERM CQ 21mg (Nicotine) 1 Each Patch.td24 1 Patch TP DAILY 01/10/17 Reported Do not smoke while wearing the patch Cyanocobalamin Injection (Cyanocobalamin (Vitamin B-12)) 1,000 Mcg/1 Ml Vial 1 Ml IM QMONTH 01/10/17 Reported Clonazepam 0.5 Mg Tablet 0.5 Tab PO DAILY PRN 01/10/17 Reported Ventolin Hfa Inhaler (Albuterol Sulfate) 18 Gm Hfa.aer.ad 2 Puff INH BID 01/10/17 Reported Acetaminophen 500 Mg Tablet 1 Tab PO PRN Q6HRS PRN 01/10/17 Reported Metoprolol Tartrate 50 Mg Tablet 50 Mg PO BID 30 09/23/16 Rx Isosorbide Mononitrate Er (Isosorbide Mononitrate) 30 Mg Tab.er.24h 60 Mg PO DAILY 30 09/23/16 Rx Atorvastatin Calcium 20 Mg Tablet 20 Mg PO QHS 30 09/23/16 Rx Advair 250-50 Diskus (Fluticasone/Salmeterol) 1 Each Disk.w.dev 1 Inh IH BID 30 09/23/16 Rx Gabapentin (Gabapentin) 300 Mg Capsule 300 Mg PO BID 09/12/16 Reported Buspirone Hcl 15 Mg Tablet 15 Mg PO BID 09/12/16 Reported Aspirin 325 Mg Tablet 1 Tab PO DAILY 03/16/14 Reported Tamoxifen Citrate 20 Mg Tablet 20 Mg PO DAILY 06/24/13 Reported Impression . FULL CONSULT DICTATED AECOPD VIRAL PNEUMONIA WILL CHECK ECHO MAURY LOMELI MD Apr 24, 2018 16:09
[2018-04-24 19:00] VITALS: BP 125/59
[2018-04-24] MEDS: guaiFENesin/CODEINE 100mg/10mg 5 ML LIQUID PO PRN (20:25)
[2018-04-24] MEDS: ATORVASTATIN CALCIUM 20 MG TABLET PO SCH (20:26)
[2018-04-24] MEDS: ENOXAPARIN 40 MG/0.4 ML SYRINGE. SQ SCH (20:26)
[2018-04-24] MEDS: NICOTINE 14MG PATCH. TD PRN (22:12)
[2018-04-24 22:46] VITALS: BP 126/61
[2018-04-25] MEDS: tiZANidine 4 MG TABLET. PO PRN (01:29)
[2018-04-25 03:00] VITALS: BP 119/72
[2018-04-25] MEDS: PIPERACILLIN/TAZOBACTAM 4.5 GM in IV NORMAL SALINE 100ML 100 ML IV SCH ×4 (05:45→23:32)
[2018-04-25] MEDS: methylPREDNISolone SOD SUCC PF 125 MG/2 ML VIAL. IV SCH ×3 (05:45→21:33)
[2018-04-25] MEDS: BUDESONIDE 0.5 MG/2 ML NEBU. NEB SCH ×2 (06:06→19:48)
[2018-04-25] MEDS: IPRATRPIUM/ALBUTEROL 0.5/2.5MG 3 ML NEBU. NEB SCH ×3 (06:06→19:48)
[2018-04-25 07:00] VITALS: BP 119/65
[2018-04-25] MEDS: GABAPENTIN 300 MG CAPSULE. PO SCH ×2 (08:59→20:54)
[2018-04-25] MEDS: busPIRone 5 MG TABLET. PO SCH ×2 (08:59→20:54)
[2018-04-25] MEDS: ISOSORBIDE MONONITRATE ER 30 MG TAB.ER.24H PO SCH (09:00)
[2018-04-25] MEDS: VENLAFAXINE 75 MG TABLET. PO SCH ×3 (09:00→20:54)
[2018-04-25] MEDS: METOPROLOL TART IMMED RELEASE 50 MG TABLET. PO SCH ×2 (09:00→20:54)
[2018-04-25] MEDS: guaiFENesin/CODEINE 100mg/10mg 5 ML LIQUID PO PRN (09:01)
[2018-04-25] MEDS: TAMOXIFEN 10 MG TABLET PO SCH (09:01)
--- NOTE | 2018-04-25 09:11 | PDOC ---
PULMONARY PROGRESS NOTES Vitals Vital Signs Date Time Temp Pulse Resp B/P (MAP) Pulse Ox O2 Delivery O2 Flow Rate FiO2 04/25/18 09:00 89 119/65 04/25/18 07:00 98.6 20 97 Nasal Cannula 98.6 04/25/18 06:07 5.0 Lungs: Wheezing, Other (short of breath + nonproductive cough) Cardiovascular: S1, S2 Abdomen: Soft, Non-tender Extremities: No Edema Labs Laboratory Tests Test 04/23/18 17:20 04/23/18 19:05 04/23/18 21:10 04/24/18 01:20 White Blood Count 13.3 x10^3/uL (4.0-11.0) Red Blood Count 3.73 x10^6/uL (3.50-5.40) Hemoglobin 12.2 g/dL (12.0-15.5) Hematocrit 36.6 % (36.0-47.0) Mean Corpuscular Volume 98 fL (79-100) Mean Corpuscular Hemoglobin 33 pg (25-35) Mean Corpuscular Hemoglobin Concent 34 g/dL (31-37) Red Cell Distribution Width 14.8 % (11.5-14.5) Platelet Count 183 x10^3/uL (140-400) Neutrophils (%) (Auto) 81 % (31-73) Lymphocytes (%) (Auto) 11 % (24-48) Monocytes (%) (Auto) 5 % (0-9) Eosinophils (%) (Auto) 2 % (0-3) Basophils (%) (Auto) 1 % (0-3) Neutrophils # (Auto) 10.8 x10^3uL (1.8-7.7) Lymphocytes # (Auto) 1.5 x10^3/uL (1.0-4.8) Monocytes # (Auto) 0.7 x10^3/uL (0.0-1.1) Eosinophils # (Auto) 0.2 x10^3/uL (0.0-0.7) Basophils # (Auto) 0.1 x10^3/uL (0.0-0.2) Sodium Level 141 mmol/L (136-145) Potassium Level 4.0 mmol/L (3.5-5.1) Chloride Level 101 mmol/L (98-107) Carbon Dioxide Level 21 mmol/L (21-32) Anion Gap 19 (6-14) Blood Urea Nitrogen 14 mg/dL (7-20) Creatinine 1.3 mg/dL (0.6-1.0) Estimated GFR (Cockcroft-Gault) 42.5 BUN/Creatinine Ratio 11 (6-20) Glucose Level 175 mg/dL (70-99) Lactic Acid Level 5.4 mmol/L (0.4-2.0) 3.1 mmol/L (0.4-2.0) Calcium Level 8.7 mg/dL (8.5-10.1) Total Bilirubin 0.5 mg/dL (0.2-1.0) Aspartate Amino Transf (AST/SGOT) 33 U/L (15-37) Alanine Aminotransferase (ALT/SGPT) 55 U/L (14-59) Alkaline Phosphatase 113 U/L (46-116) Creatine Kinase 73 U/L (26-192) Creatine Kinase MB (Mass) 0.8 ng/mL (0.0-3.6) Creatine Kinase MB Relative Index % (0-4) ZW-Alg-E-Type Natriuretic Peptide 3350 pg/mL (0-124) Total Protein 7.4 g/dL (6.4-8.2) Albumin 3.5 g/dL (3.4-5.0) Albumin/Globulin Ratio 0.9 (1.0-1.7) Urine Collection Type Void Urine Color Yellow Urine Clarity Clear Urine pH 7.0 Urine Specific [place] 1.010 Urine Protein Negative mg/dL (NEG-TRACE) Urine Glucose (UA) Negative mg/dL (NEG) Urine Ketones (Stick) Negative mg/dL (NEG) Urine Blood Negative (NEG) Urine Nitrite Negative (NEG) Urine Bilirubin Negative (NEG) Urine Urobilinogen Dipstick 0.2 mg/dL (0.2 mg/dL) Urine Leukocyte Esterase Negative (NEG) Urine RBC 1-2 /HPF (0-2) Urine WBC 1-4 /HPF (0-4) Urine Squamous Epithelial Cells Few /LPF Urine Bacteria 0 /HPF (0-FEW) Urine Opiates Screen Neg (NEG) Urine Methadone Screen Neg (NEG) Urine Barbiturates Neg (NEG) Urine Phencyclidine Screen Neg (NEG) Urine Amphetamine/Methamphetamine Neg (NEG) Urine Benzodiazepines Screen Neg (NEG) Urine Cocaine Screen Neg (NEG) Urine Cannabinoids Screen Pos (NEG) Urine Ethyl Alcohol Neg (NEG) Troponin I Quantitative 0.027 ng/mL (0.000-0.055) 0.027 ng/mL (0.000-0.055) Test 04/24/18 03:00 White Blood Count 11.3 x10^3/uL (4.0-11.0) Red Blood Count 3.46 x10^6/uL (3.50-5.40) Hemoglobin 11.4 g/dL (12.0-15.5) Hematocrit 34.0 % (36.0-47.0) Mean Corpuscular Volume 98 fL (79-100) Mean Corpuscular Hemoglobin 33 pg (25-35) Mean Corpuscular Hemoglobin Concent 33 g/dL (31-37) Red Cell Distribution Width 14.6 % (11.5-14.5) Platelet Count 145 x10^3/uL (140-400) Neutrophils (%) (Auto) 95 % (31-73) Lymphocytes (%) (Auto) 3 % (24-48) Monocytes (%) (Auto) 1 % (0-9) Eosinophils (%) (Auto) 0 % (0-3) Basophils (%) (Auto) 0 % (0-3) Neutrophils # (Auto) 10.8 x10^3uL (1.8-7.7) Lymphocytes # (Auto) 0.4 x10^3/uL (1.0-4.8) Monocytes # (Auto) 0.1 x10^3/uL (0.0-1.1) Eosinophils # (Auto) 0.0 x10^3/uL (0.0-0.7) Basophils # (Auto) 0.0 x10^3/uL (0.0-0.2) Segmented Neutrophils % 90 % (35-66) Band Neutrophils % 6 % (0-9) Lymphocytes % 4 % (24-48) Platelet Estimate Adequate (ADEQUATE) Sodium Level 141 mmol/L (136-145) Potassium Level 3.8 mmol/L (3.5-5.1) Chloride Level 105 mmol/L (98-107) Carbon Dioxide Level 21 mmol/L (21-32) Anion Gap 15 (6-14) Blood Urea Nitrogen 13 mg/dL (7-20) Creatinine 1.1 mg/dL (0.6-1.0) Estimated GFR (Cockcroft-Gault) 51.6 Glucose Level 251 mg/dL (70-99) Calcium Level 8.1 mg/dL (8.5-10.1) Medications Active Scripts Medications Dose Route/Sig Max Daily Dose Days Date Category Dose Instructions Prednisone (Prednisone) 10 Mg Tablet 10 Mg PO UD 01/13/17 Reported Take 4 tablets (40 mg) by mouth for 2 days, then take 2 tablets (20 mg) by mouth for 2 days, then take 1 tablet (10 mg) by mouth for 2 days, then take 1/2 tablet( 5 mg) by mouth x 1 day, then stop. Azithromycin Tablet (Azithromycin) 500 Mg Tablet 500 Mg PO DAILY 5 01/13/17 Rx Pulmicort Flexhaler (Budesonide) 180 Mcg Aer.pow.ba 2 Puff IH BID 01/13/17 Rx Venlafaxine Hcl Er (Venlafaxine Hcl) 225 Mg Tab.er.24 225 Mg PO DAILY 01/10/17 Reported NICODERM CQ 21mg (Nicotine) 1 Each Patch.td24 1 Patch TP DAILY 01/10/17 Reported Do not smoke while wearing the patch Cyanocobalamin Injection (Cyanocobalamin (Vitamin B-12)) 1,000 Mcg/1 Ml Vial 1 Ml IM QMONTH 01/10/17 Reported Clonazepam 0.5 Mg Tablet 0.5 Tab PO DAILY PRN 01/10/17 Reported Ventolin Hfa Inhaler (Albuterol Sulfate) 18 Gm Hfa.aer.ad 2 Puff INH BID 01/10/17 Reported Acetaminophen 500 Mg Tablet 1 Tab PO PRN Q6HRS PRN 01/10/17 Reported Metoprolol Tartrate 50 Mg Tablet 50 Mg PO BID 30 09/23/16 Rx Isosorbide Mononitrate Er (Isosorbide Mononitrate) 30 Mg Tab.er.24h 60 Mg PO DAILY 30 09/23/16 Rx Atorvastatin Calcium 20 Mg Tablet 20 Mg PO QHS 30 09/23/16 Rx Advair 250-50 Diskus (Fluticasone/Salmeterol) 1 Each Disk.w.dev 1 Inh IH BID 30 09/23/16 Rx Gabapentin (Gabapentin) 300 Mg Capsule 300 Mg PO BID 09/12/16 Reported Buspirone Hcl 15 Mg Tablet 15 Mg PO BID 09/12/16 Reported Aspirin 325 Mg Tablet 1 Tab PO DAILY 03/16/14 Reported Tamoxifen Citrate 20 Mg Tablet 20 Mg PO DAILY 06/24/13 Reported Impression . FULL CONSULT DICTATED AECOPD VIRAL PNEUMONIA WILL CHECK ECHO MAURY LOMELI MD Apr 25, 2018 09:11
--- NOTE | 2018-04-25 10:22 | PDOC ---
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 Wood presented to the ED with worsening shortness of breath and nonproductive cough. She has a history of COPD. CXR (04/23) showed increasing bilateral opacity, likely pneumonia. Patient seen and examined at bedside. Patient continues to complain of shortness of breath and cough. . Patient sounds coarse today on auscultation. Patient O2Sat at 97% on 5L per N/C, she is off of the venturi mask. Receiving steroids and duoNebs. Discussed case with RN. Pulmonology following. Vitals Vitals Vital Signs Date Time Temp Pulse Resp B/P (MAP) Pulse Ox O2 Delivery O2 Flow Rate FiO2 04/25/18 09:00 89 119/65 04/25/18 07:00 98.6 20 97 Nasal Cannula 98.6 04/25/18 06:07 5.0 Physical Exam General: Alert, Oriented X3, mild distress (mild shortness of breath) Heart: Regular rate, No murmurs Lungs: Wheezing, Other (short of breath + nonproductive cough, coarse on auscultation) Abdomen: Normal bowel sounds, No tenderness, No masses Extremities: No clubbing, No cyanosis, No edema Skin: No rashes, No significant lesion Review of Systems Review of Systems Reports shortness of breath Reports nonproductive cough Denies fever, chills Assessment and Plan Assessmemt and Plan Problems Medical Problems: (1) Acute respiratory distress Status: Acute (2) Anxiety Status: Acute (3) History of left breast cancer Status: Acute (4) Hypoxia Status: Acute (5) Severe sepsis Status: Acute (6) Tachycardia Status: Acute (7) Tobacco abuse Status: Acute (8) Tobacco abuse counseling Status: Acute Assessment: Bilateral basilar opacity likely secondary to pneumonia (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 Labs Laboratory Tests Test 04/23/18 17:20 04/23/18 19:05 04/23/18 21:10 04/24/18 01:20 White Blood Count 13.3 x10^3/uL (4.0-11.0) Red Blood Count 3.73 x10^6/uL (3.50-5.40) Hemoglobin 12.2 g/dL (12.0-15.5) Hematocrit 36.6 % (36.0-47.0) Mean Corpuscular Volume 98 fL (79-100) Mean Corpuscular Hemoglobin 33 pg (25-35) Mean Corpuscular Hemoglobin Concent 34 g/dL (31-37) Red Cell Distribution Width 14.8 % (11.5-14.5) Platelet Count 183 x10^3/uL (140-400) Neutrophils (%) (Auto) 81 % (31-73) Lymphocytes (%) (Auto) 11 % (24-48) Monocytes (%) (Auto) 5 % (0-9) Eosinophils (%) (Auto) 2 % (0-3) Basophils (%) (Auto) 1 % (0-3) Neutrophils # (Auto) 10.8 x10^3uL (1.8-7.7) Lymphocytes # (Auto) 1.5 x10^3/uL (1.0-4.8) Monocytes # (Auto) 0.7 x10^3/uL (0.0-1.1) Eosinophils # (Auto) 0.2 x10^3/uL (0.0-0.7) Basophils # (Auto) 0.1 x10^3/uL (0.0-0.2) Sodium Level 141 mmol/L (136-145) Potassium Level 4.0 mmol/L (3.5-5.1) Chloride Level 101 mmol/L (98-107) Carbon Dioxide Level 21 mmol/L (21-32) Anion Gap 19 (6-14) Blood Urea Nitrogen 14 mg/dL (7-20) Creatinine 1.3 mg/dL (0.6-1.0) Estimated GFR (Cockcroft-Gault) 42.5 BUN/Creatinine Ratio 11 (6-20) Glucose Level 175 mg/dL (70-99) Lactic Acid Level 5.4 mmol/L (0.4-2.0) 3.1 mmol/L (0.4-2.0) Calcium Level 8.7 mg/dL (8.5-10.1) Total Bilirubin 0.5 mg/dL (0.2-1.0) Aspartate Amino Transf (AST/SGOT) 33 U/L (15-37) Alanine Aminotransferase (ALT/SGPT) 55 U/L (14-59) Alkaline Phosphatase 113 U/L (46-116) Creatine Kinase 73 U/L (26-192) Creatine Kinase MB (Mass) 0.8 ng/mL (0.0-3.6) Creatine Kinase MB Relative Index % (0-4) WZ-[id number]-Type Natriuretic Peptide 3350 pg/mL (0-124) Total Protein 7.4 g/dL (6.4-8.2) Albumin 3.5 g/dL (3.4-5.0) Albumin/Globulin Ratio 0.9 (1.0-1.7) Urine Collection Type Void Urine Color Yellow Urine Clarity Clear Urine pH 7.0 Urine Specific [place] 1.010 Urine Protein Negative mg/dL (NEG-TRACE) Urine Glucose (UA) Negative mg/dL (NEG) Urine Ketones (Stick) Negative mg/dL (NEG) Urine Blood Negative (NEG) Urine Nitrite Negative (NEG) Urine Bilirubin Negative (NEG) Urine Urobilinogen Dipstick 0.2 mg/dL (0.2 mg/dL) Urine Leukocyte Esterase Negative (NEG) Urine RBC 1-2 /HPF (0-2) Urine WBC 1-4 /HPF (0-4) Urine Squamous Epithelial Cells Few /LPF Urine Bacteria 0 /HPF (0-FEW) Urine Opiates Screen Neg (NEG) Urine Methadone Screen Neg (NEG) Urine Barbiturates Neg (NEG) Urine Phencyclidine Screen Neg (NEG) Urine Amphetamine/Methamphetamine Neg (NEG) Urine Benzodiazepines Screen Neg (NEG) Urine Cocaine Screen Neg (NEG) Urine Cannabinoids Screen Pos (NEG) Urine Ethyl Alcohol Neg (NEG) Troponin I Quantitative 0.027 ng/mL (0.000-0.055) 0.027 ng/mL (0.000-0.055) Test 04/24/18 03:00 White Blood Count 11.3 x10^3/uL (4.0-11.0) Red Blood Count 3.46 x10^6/uL (3.50-5.40) Hemoglobin 11.4 g/dL (12.0-15.5) Hematocrit 34.0 % (36.0-47.0) Mean Corpuscular Volume 98 fL (79-100) Mean Corpuscular Hemoglobin 33 pg (25-35) Mean Corpuscular Hemoglobin Concent 33 g/dL (31-37) Red Cell Distribution Width 14.6 % (11.5-14.5) Platelet Count 145 x10^3/uL (140-400) Neutrophils (%) (Auto) 95 % (31-73) Lymphocytes (%) (Auto) 3 % (24-48) Monocytes (%) (Auto) 1 % (0-9) Eosinophils (%) (Auto) 0 % (0-3) Basophils (%) (Auto) 0 % (0-3) Neutrophils # (Auto) 10.8 x10^3uL (1.8-7.7) Lymphocytes # (Auto) 0.4 x10^3/uL (1.0-4.8) Monocytes # (Auto) 0.1 x10^3/uL (0.0-1.1) Eosinophils # (Auto) 0.0 x10^3/uL (0.0-0.7) Basophils # (Auto) 0.0 x10^3/uL (0.0-0.2) Segmented Neutrophils % 90 % (35-66) Band Neutrophils % 6 % (0-9) Lymphocytes % 4 % (24-48) Platelet Estimate Adequate (ADEQUATE) Sodium Level 141 mmol/L (136-145) Potassium Level 3.8 mmol/L (3.5-5.1) Chloride Level 105 mmol/L (98-107) Carbon Dioxide Level 21 mmol/L (21-32) Anion Gap 15 (6-14) Blood Urea Nitrogen 13 mg/dL (7-20) Creatinine 1.1 mg/dL (0.6-1.0) Estimated GFR (Cockcroft-Gault) 51.6 Glucose Level 251 mg/dL (70-99) Calcium Level 8.1 mg/dL (8.5-10.1) Microbiology 04/23/18 Blood Culture - Preliminary, Resulted NO GROWTH AFTER 1 DAY Medications Current Medications Albuterol/ Ipratropium (Duoneb) 3 ml 1X ONCE NEB Last administered on 17:33; Start 04/23/18 at 17:15; Stop 04/23/18 at 17:20; Status DC Methylprednisolone Sodium Succinate (SOLU-Medrol 125MG VIAL) 125 mg 1X ONCE IV Last administered on 04/23/18 17:38; Start 04/23/18 at 17:15; Stop 04/23/18 at 17:20; Status DC Sodium Chloride 1,000 ml @ 1,000 mls/hr 1X ONCE IV Last administered on 17:37; Start 04/23/18 at 17:30; Stop 04/23/18 at 18:29; Status DC Ceftriaxone Sodium (Rocephin) 1 gm 1X ONCE IVP Last administered on 04/23/18 18:26; Start 04/23/18 at 18:15; Stop 04/23/18 at 18:16; Status DC Albuterol/ Ipratropium (Duoneb) 3 ml RTQID NEB Last administered on 04/24/18 06 :11; Start 04/23/18 at 20:00; Stop 04/24/18 at 09:27; Status DC Piperacillin Sod/ Tazobactam Sod 4.5 gm/Sodium Chloride 100 ml @ 200 mls/hr 1X ONCE IV Last administered on 04/23/18 19:11; Start 04/23/18 at 18:30; Stop 04/23/18 at 18:59; Status DC Vancomycin HCl 1.5 gm/Sodium Chloride 500 ml @ 250 mls/hr 1X ONCE IV Last administered on 04/23/18 19:35; Start 04/23/18 at 19:00; Stop 04/23/18 at 20:59; Status DC Levofloxacin/ Dextrose 100 ml @ 100 mls/hr 1X ONCE IV Last administered on 18:26; Start 04/23/18 at 18:15; Stop 04/23/18 at 19:14; Status DC Acetaminophen (Tylenol) 650 mg PRN Q6HRS PRN PO Headaches, Temp > 101.5' Last administered on 04/24/18at 10:02; Start 04/23/18 at 19:00 Lorazepam (Ativan) 0.5 mg PRN Q6HRS PRN IV ANXIETY / AGITATION Last administered on 04/24/18 10:03; Start 04/23/18 at 19:00; Stop 04/24/18 at 13:16; Status DC Ondansetron HCl (Zofran) 4 mg PRN Q6HRS PRN IV NAUSEA/VOMITING Last administered on 04/25/18 01:29; Start 04/23/18 at 19:00 Info (Non-Icu Electrolyte Protocol) 1 ea CONT PRN PRN MC SEE COMMENTS; Start at 19:15 Enoxaparin Sodium (Lovenox 40mg Syringe) 40 mg Q24H SQ Last administered on 04/24 20:26; Start 04/23/18 at 21:00 Sodium Chloride (Normal Saline Flush) 3 ml QSHIFT PRN IV AFTER MEDS AND BLOOD DRAWS; Start 04/23/18 at 19:00 Morphine Sulfate (Morphine Sulfate) 1 mg PRN Q1HR PRN IV SEVERE PAIN; Start 04/23/18 at 19:00 Lactulose (Lactulose) 20 gm PRN Q12HR PRN PO CONSTIPATION; Start 04/23/18 at 19: 00 Bisacodyl (Dulcolax Supp) [address] CONSTIPATION; Start 04/23/18 at 19:00 Atorvastatin Calcium (Lipitor) 20 mg QHS PO Last administered on 04/24/18 20:26 ; Start 04/23/18 at 21:00 Clonazepam (KlonoPIN) 0.25 mg PRN DAILY PRN PO ANXIETY / AGITATION Last administered on 04/25/18 05:45; Start 04/23/18 at 19:00 Gabapentin (Neurontin) 300 mg BID PO Last administered on 04/25/18 08:59; Start 04/23/18 at 21:00 Isosorbide Mononitrate (Imdur) 60 mg DAILY PO Last administered on 04/25/18 09: 00; Start 04/24/18 at 09:00 Metoprolol Tartrate (Lopressor) 50 mg BID PO Last administered on 04/25/18 09: 00; Start 04/23/18 at 21:00 Non-Formulary Medication (Albuterol Sulfate (Ventolin Hfa Inhaler)) 2 puff BID INH ; Start 04/23/18 at 21:00; Status UNV Non-Formulary Medication (Budesonide (Pulmicort Flexhaler)) 2 puff BID IH ; Start 04/23/18 at 21:00; Status UNV Buspirone HCl (Buspar) 15 mg BID PO Last administered on 04/25/18at 08:59; Start 04/23/18 at 21:00 Non-Formulary Medication (Fluticasone/ Salmeterol (Advair 250-50 Diskus)) 1 inh BID IH ; Start 04/23/18 at 21:00; Status UNV Tamoxifen Citrate (Nolvadex) 20 mg DAILY PO Last administered on 04/25/18at 09:01 ; Start 04/24/18 at 09:00 Venlafaxine HCl (Effexor) 75 mg TID PO Last administered on 04/25/18at 09:00; Start 04/24/18 at 09:00 Piperacillin Sod/ Tazobactam Sod 4.5 gm/Sodium Chloride 100 ml @ 200 mls/hr Q6HRS IV Last administered on 04/25/18at 05:45; Start 04/24/18 at 00:00 Budesonide (Pulmicort) 0.5 mg RTBID NEB Last administered on 04/25/18at 06:06; Start 04/23/18 at 20:00 Albuterol Sulfate (Ventolin Neb Soln) 2.5 mg RTQID NEB Last administered on 04/23at 21:04; Start 04/23/18 at 20:00; Stop 04/24/18 at 05:58; Status DC Lorazepam (Ativan) 0.5 mg 1X ONCE IV Last administered on 04/23/18at 19:15; Start 04/23/18 at 19:15; Stop 04/23/18 at 19:16; Status DC Methylprednisolone Sodium Succinate (SOLU-Medrol 125MG VIAL) 125 mg Q8HRS IV Last administered on 04/25/18at 05:45; Start 04/23/18 at 22:00 Albuterol/ Ipratropium (Duoneb) 3 ml Q4HRS NEB ; Start 04/23/18 at 20:00; Stop at 05:58; Status DC Nicotine (Nicoderm Cq 14mg) 1 patch PRN DAILY PRN TD SMOKING CESSATION Last administered on 04/24/18at 22:12; Start 04/23/18 at 22:30 Tizanidine HCl (Zanaflex) 4 mg PRN Q8HRS PRN PO MUSCLE SPASMS; Start 04/23/18 at 22:30 Ketorolac Tromethamine (Toradol 30mg Vial) 30 mg 1X ONCE IV Last administered on 04/24/18at 00:20; Start 04/23/18 at 23:00; Stop 04/23/18 at 23:01; Status DC Ketorolac Tromethamine (Toradol 15mg Vial) 15 mg PRN Q8HRS PRN IV MODERATE PAIN ; Start 04/23/18 at 22:45; Stop 04/28/18 at 22:44 Albuterol Sulfate (Ventolin Neb Soln) 2.5 mg PRN Q4HRS PRN NEB WHEEZING; Start 04/24/18 at 06:00 Albuterol/ Ipratropium (Duoneb) 3 ml RTQID NEB Last administered on 04/25/18at 06 :06; Start 04/24/18 at 08:00 Guaifenesin/ Codeine Phosphate (Robitussin Ac) 5 ml PRN Q6HRS PRN PO COUGH Last administered on 04/25/18at 09:01; Start 04/24/18 at 12:15 Lorazepam (Ativan) 1 mg PRN Q6HRS PRN IV ANXIETY / AGITATION Last administered on 04/25/18at 08:58; Start 04/24/18 at 13:30 Active Scripts Active Azithromycin Tablet (Azithromycin) 500 Mg Tablet 500 Mg PO DAILY 5 Days Pulmicort Flexhaler (Budesonide) 180 Mcg Aer.pow.ba 2 Puff IH BID Metoprolol Tartrate 50 Mg Tablet 50 Mg PO BID 30 Days Isosorbide Mononitrate Er (Isosorbide Mononitrate) 30 Mg Tab.er.24h 60 Mg PO DAILY 30 Days Atorvastatin Calcium 20 Mg Tablet 20 Mg PO QHS 30 Days Advair 250-50 Diskus (Fluticasone/Salmeterol) 1 Each Disk.w.dev 1 Inh IH BID 30 Days Reported Prednisone (Prednisone) 10 Mg Tablet 10 Mg PO UD Take 4 tablets (40 mg) by mouth for 2 days, then take 2 tablets (20 mg) by mouth for 2 days, then take 1 tablet (10 mg) by mouth for 2 days, then take 1/2 tablet( 5 mg) by mouth x 1 day, then stop. Venlafaxine Hcl Er (Venlafaxine Hcl) 225 Mg Tab.er.24 225 Mg PO DAILY NICODERM CQ 21mg (Nicotine) 1 Each Patch.td24 1 Patch TP DAILY Do not smoke while wearing the patch Cyanocobalamin Injection (Cyanocobalamin (Vitamin B-12)) 1,000 Mcg/1 Ml Vial 1 Ml IM QMONTH Clonazepam 0.5 Mg Tablet 0.5 Tab PO DAILY PRN Ventolin Hfa Inhaler (Albuterol Sulfate) 18 Gm Hfa.aer.ad 2 Puff INH BID Acetaminophen 500 Mg Tablet 1 Tab PO PRN Q6HRS PRN Gabapentin (Gabapentin) 300 Mg Capsule 300 Mg PO BID Buspirone Hcl 15 Mg Tablet 15 Mg PO BID Aspirin 325 Mg Tablet 1 Tab PO DAILY Tamoxifen Citrate 20 Mg Tablet 20 Mg PO DAILY Vitals/I & O Vital Sign - Last 24 Hours 04/24/18 04/24/18 04/24/18 04/24/18 10:35 11:23 14:43 15:08 Temp 97.7 98.8 97.7 98.8 Pulse 99 90 Resp 20 18 B/P (MAP) 160/88 (112) 114/61 (78) Pulse Ox 91 96 94 94 O2 Delivery Venturi Mask Venturi Mask Venturi Mask Nasal Cannula O2 Flow Rate 15.0 15.0 15.0 5.0 04/24/18 04/24/18 04/24/18 04/24/18 19:00 19:15 19:18 20:00 Temp 98.5 98.5 Pulse 96 Resp 18 B/P (MAP) 125/59 (81) Pulse Ox 94 96 96 O2 Delivery Venturi Mask Nasal Cannula Nasal Cannula Nasal Cannula O2 Flow Rate 15.0 5.0 5.0 5.0 04/24/18 04/24/18 04/25/18 04/25/18 20:27 22:46 03:00 06:07 Temp 98.1 97.5 98.1 97.5 Pulse 100 92 85 Resp 18 18 B/P (MAP) 125/59 126/61 (82) 119/72 (88) Pulse Ox 95 95 96 O2 Delivery Nasal Cannula Nasal Cannula Nasal Cannula O2 Flow Rate 5.0 5.0 5.0 04/25/18 04/25/18 04/25/18 04/25/18 06:07 07:00 09:00 09:00 Temp 98.6 98.6 Pulse 89 89 89 Resp 20 B/P (MAP) 119/65 (83) 119/65 119/65 Pulse Ox 96 97 O2 Delivery Nasal Cannula Nasal Cannula O2 Flow Rate 5.0 Intake and Output 04/24/18 04/24/18 04/25/18 15:00 23:00 07:00 Intake Total 30 ml 100 ml 220 ml Output Total 950 ml 250 ml Balance 30 ml -850 ml -30 ml MELA FITZGERALD III DO Apr 25, 2018 10:22
[2018-04-25 11:00] VITALS: BP 131/68
--- NOTE | 2018-04-25 12:44 | CARD ---
MR#: [id number] Date of Study: 04/25/2018 Ordering Physician: MAURY LOMELI, Referring Physician: DARIEN HILLMAN Tech: Ileana Finley RDCS APPROVED REPORT EXAM: LIMITED Two-dimensional echocardiogram. Other Information Quality : Good INDICATION LV Function:Systolic Congestive Heart Failure LEFT VENTRICLE Left ventricle systolic function is mildly impaired. The Ejection Fraction is 45-50%. There is mild g lobal hypokinesis. RIGHT VENTRICLE The right ventricle is normal size. There is normal right ventricular wall thickness. The right ventr icular systolic function is normal. GREAT VESSELS The aortic root is normal in size. PERICARDIAL EFFUSION There is no evidence of significant pericardial effusion. Critical Notification Critical Value: No <Conclusion> Left ventricle systolic function is mildly impaired. The Ejection Fraction is 45-50%. There is mild global hypokinesis. Signed by : Brijesh Weeks, Electronically Approved : 04/25/2018 12:44:10
--- NOTE | 2018-04-25 13:40 | NUR ---
SS following up with discharge planning. Pt self pay pt and is currently on 5 liters nasal cannula. Pt is from home and discharge disposition is to return home when medically stable. SS will continue to follow for discharge planning.
[2018-04-25 15:00] VITALS: BP 151/71
[2018-04-25] MEDS ORDERED: TEMAZEPAM 15 MG CAPSULE PO PRN (20:00)
[2018-04-25] MEDS: ENOXAPARIN 40 MG/0.4 ML SYRINGE. SQ SCH (20:52)
[2018-04-25] MEDS: LACTOBACILLUS RHAMNOSUS GG 1 CAPSULE. PO SCH (20:54)
[2018-04-25] MEDS: ATORVASTATIN CALCIUM 20 MG TABLET PO SCH (20:54)
[2018-04-25 22:36] VITALS: BP 142/76
--- NOTE | 2018-04-26 02:00 | NUR ---
pt removed her iv access and is hallucinating that people are in her room. pt reoriented and bed alarm is on.
[2018-04-26 02:41] VITALS: BP 154/77
[2018-04-26 03:39] LABS: BASO % 0 % (0-3); EOS % 0 % (0-3); HEMATOCRIT 31.6 % (36.0-47.0); HEMOGLOBIN 10.4 g/dL (12.0-15.5); LYMPH # 0.7 x10^3/uL (1.0-4.8); LYMPH % 6 % (24-48); MEAN CORPUSCULAR HEMOGLOBIN 32 pg (25-35); MEAN CORPUSCULAR HGB CONC 33 g/dL (31-37); MEAN CORPUSCULAR VOLUME 99 fL (79-100); MONO # 0.4 x10^3/uL (0.0-1.1); MONO % 3 % (0-9); NEUT % 90 % (31-73); PLATELET COUNT 154 x10^3/uL (140-400); RED BLOOD COUNT 3.21 x10^6/uL (3.50-5.40); RED CELL DISTRIBUTION WIDTH 14.6 % (11.5-14.5); WHITE BLOOD COUNT 12.1 x10^3/uL (4.0-11.0)
[2018-04-26 04:13] LABS: ALBUMIN 2.9 g/dL (3.4-5.0); ALBUMIN/GLOBULIN RATIO 0.9 (1.0-1.7); CREATININE 1.1 mg/dL (0.6-1.0); GFR 51.6; TOTAL BILIRUBIN 0.3 mg/dL (0.2-1.0); TOTAL PROTEIN 6.3 g/dL (6.4-8.2)
[2018-04-26] MEDS: PIPERACILLIN/TAZOBACTAM 4.5 GM in IV NORMAL SALINE 100ML 100 ML IV SCH ×4 (05:29→23:28)
[2018-04-26] MEDS: NICOTINE 14MG PATCH. TD PRN (05:30)
[2018-04-26] MEDS: methylPREDNISolone SOD SUCC PF 125 MG/2 ML VIAL. IV SCH ×3 (05:30→21:03)
--- NOTE | 2018-04-26 06:08 | CONS ---
DATE OF CONSULTATION: 04/25/2018 ATTENDING PHYSICIAN: Dr. Okeefe. REASON FOR CONSULTATION: The patient is seen in pulmonary consultation at the request of Dr. Okeefe for increasing shortness of air. HISTORY OF PRESENT ILLNESS: The patient is a 57-year-old with a history of COPD, smokes, does not wear oxygen at home. Presented with increasing shortness of breath. She has underlying COPD, smokes half a pack of cigarettes a day. Does have previous history of respiratory failure and cardiac arrest secondary to respiratory failure. She presented with increasing shortness of air. She had O2 saturation on room air of 84%. PAST MEDICAL HISTORY: Remarkable for COPD, tobacco dependence, breast cancer, status post chemo. She was apparently in remission since 2013. 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 She had respiratory failure back in 09/2016. At that time, she was intubated and self-extubated. She has a history of severe systolic heart failure, cardiomyopathy, ejection fraction 25%. PAST SURGICAL HISTORY: She is status post previous Port-A-Cath placement and removal. She has had a lumpectomy, bilateral eye surgery. FAMILY HISTORY: Heart disease. SOCIAL HISTORY: She continues to smoke. REVIEW OF SYSTEMS: As indicated above. Otherwise, a 10-point system was reviewed and negative. PHYSICAL EXAMINATION: GENERAL: The patient was able to complete full sentences. She has been afebrile. O2 saturation currently on 5 liters was 91%. HEENT: Eyes: The sclerae were nonicteric. NECK: Jugular venous distention was not elevated. No lymphadenopathy. CHEST: Full expansion. LUNGS: Poor airway flow, no wheezes. CARDIOVASCULAR: Regular rate and rhythm with S1, S2, no S3. ABDOMEN: Soft, nontender, nondistended. EXTREMITIES: No clubbing, cyanosis or edema. LABORATORY DATA: Reviewed. White count was noted to be elevated. Hemoglobin and hematocrit were noted. Arterial blood gas was not performed. Electrolytes were noted. Creatinine was elevated. BNP was elevated. Chest x-ray showed some possible vascular congestion or interstitial lung markings related to a viral pneumonia. IMPRESSION: 1. Acute respiratory failure. 2. Abnormal x-ray compatible with viral pneumonia, possibly acute on chronic heart failure. 3. Cardiomyopathy, ejection fraction 15%. 4. Tobacco dependence. 5. History of breast cancer. 6. Prior admission for respiratory failure. 7. Abnormal x-ray compatible with viral pneumonia versus congestive heart failure. PLAN: 1. Recommend treatment with antibiotics and prednisone. 2. Repeat chest x-ray. 3. Lasix. 4. Consult Cardiology. 5. A 6-minute walk prior to discharge. I do appreciate the privilege in sharing in the patient's care. MAURY LOMELI MD DR: SALO/gnetry JOB#: [id number] / [id number]
[2018-04-26 07:00] VITALS: BP 153/78
[2018-04-26] MEDS: IPRATRPIUM/ALBUTEROL 0.5/2.5MG 3 ML NEBU. NEB SCH ×4 (07:14→20:16)
[2018-04-26] MEDS: BUDESONIDE 0.5 MG/2 ML NEBU. NEB SCH ×2 (07:14→20:16)
[2018-04-26] MEDS: VENLAFAXINE XR 37.5 MG CAP.ER.24H. PO SCH (09:26)
[2018-04-26] MEDS: ISOSORBIDE MONONITRATE ER 30 MG TAB.ER.24H PO SCH (09:27)
[2018-04-26] MEDS: METOPROLOL TART IMMED RELEASE 50 MG TABLET. PO SCH ×2 (09:27→21:02)
[2018-04-26] MEDS: GABAPENTIN 300 MG CAPSULE. PO SCH ×2 (09:27→21:02)
[2018-04-26] MEDS: LACTOBACILLUS RHAMNOSUS GG 1 CAPSULE. PO SCH ×2 (09:27→21:02)
[2018-04-26] MEDS: TAMOXIFEN 10 MG TABLET PO SCH (09:28)
[2018-04-26] MEDS: guaiFENesin/CODEINE 100mg/10mg 5 ML LIQUID PO PRN (09:46)
--- NOTE | 2018-04-26 10:04 | PDOC ---
PULMONARY PROGRESS NOTES Subjective Pt not more soa Vitals Vital Signs Date Time Temp Pulse Resp B/P (MAP) Pulse Ox O2 Delivery O2 Flow Rate FiO2 04/26/18 09:27 82 153/78 04/26/18 07:23 95 Nasal Cannula 5.0 04/26/18 07:00 98.3 18 98.3 ROS: No Nausea, No Chest Pain, No Abdominal Pain, No Increase Cough Lungs: Wheezing Cardiovascular: S1, S2 Abdomen: Soft, Non-tender Extremities: No Edema Labs Laboratory Tests Test 04/26/18 02:30 White Blood Count 12.1 x10^3/uL (4.0-11.0) Red Blood Count 3.21 x10^6/uL (3.50-5.40) Hemoglobin 10.4 g/dL (12.0-15.5) Hematocrit 31.6 % (36.0-47.0) Mean Corpuscular Volume 99 fL (79-100) Mean Corpuscular Hemoglobin 32 pg (25-35) Mean Corpuscular Hemoglobin Concent 33 g/dL (31-37) Red Cell Distribution Width 14.6 % (11.5-14.5) Platelet Count 154 x10^3/uL (140-400) Neutrophils (%) (Auto) 90 % (31-73) Lymphocytes (%) (Auto) 6 % (24-48) Monocytes (%) (Auto) 3 % (0-9) Eosinophils (%) (Auto) 0 % (0-3) Basophils (%) (Auto) 0 % (0-3) Neutrophils # (Auto) 11.0 x10^3uL (1.8-7.7) Lymphocytes # (Auto) 0.7 x10^3/uL (1.0-4.8) Monocytes # (Auto) 0.4 x10^3/uL (0.0-1.1) Eosinophils # (Auto) 0.0 x10^3/uL (0.0-0.7) Basophils # (Auto) 0.0 x10^3/uL (0.0-0.2) Sodium Level 144 mmol/L (136-145) Potassium Level 4.0 mmol/L (3.5-5.1) Chloride Level 108 mmol/L (98-107) Carbon Dioxide Level 25 mmol/L (21-32) Anion Gap 11 (6-14) Blood Urea Nitrogen 23 mg/dL (7-20) Creatinine 1.1 mg/dL (0.6-1.0) Estimated GFR (Cockcroft-Gault) 51.6 BUN/Creatinine Ratio 21 (6-20) Glucose Level 152 mg/dL (70-99) Calcium Level 8.0 mg/dL (8.5-10.1) Total Bilirubin 0.3 mg/dL (0.2-1.0) Aspartate Amino Transf (AST/SGOT) 55 U/L (15-37) Alanine Aminotransferase (ALT/SGPT) 65 U/L (14-59) Alkaline Phosphatase 74 U/L (46-116) Total Protein 6.3 g/dL (6.4-8.2) Albumin 2.9 g/dL (3.4-5.0) Albumin/Globulin Ratio 0.9 (1.0-1.7) Laboratory Tests Test 04/26/18 02:30 White Blood Count 12.1 x10^3/uL (4.0-11.0) Red Blood Count 3.21 x10^6/uL (3.50-5.40) Hemoglobin 10.4 g/dL (12.0-15.5) Hematocrit 31.6 % (36.0-47.0) Mean Corpuscular Volume 99 fL (79-100) Mean Corpuscular Hemoglobin 32 pg (25-35) Mean Corpuscular Hemoglobin Concent 33 g/dL (31-37) Red Cell Distribution Width 14.6 % (11.5-14.5) Platelet Count 154 x10^3/uL (140-400) Neutrophils (%) (Auto) 90 % (31-73) Lymphocytes (%) (Auto) 6 % (24-48) Monocytes (%) (Auto) 3 % (0-9) Eosinophils (%) (Auto) 0 % (0-3) Basophils (%) (Auto) 0 % (0-3) Neutrophils # (Auto) 11.0 x10^3uL (1.8-7.7) Lymphocytes # (Auto) 0.7 x10^3/uL (1.0-4.8) Monocytes # (Auto) 0.4 x10^3/uL (0.0-1.1) Eosinophils # (Auto) 0.0 x10^3/uL (0.0-0.7) Basophils # (Auto) 0.0 x10^3/uL (0.0-0.2) Sodium Level 144 mmol/L (136-145) Potassium Level 4.0 mmol/L (3.5-5.1) Chloride Level 108 mmol/L (98-107) Carbon Dioxide Level 25 mmol/L (21-32) Anion Gap 11 (6-14) Blood Urea Nitrogen 23 mg/dL (7-20) Creatinine 1.1 mg/dL (0.6-1.0) Estimated GFR (Cockcroft-Gault) 51.6 BUN/Creatinine Ratio 21 (6-20) Glucose Level 152 mg/dL (70-99) Calcium Level 8.0 mg/dL (8.5-10.1) Total Bilirubin 0.3 mg/dL (0.2-1.0) Aspartate Amino Transf (AST/SGOT) 55 U/L (15-37) Alanine Aminotransferase (ALT/SGPT) 65 U/L (14-59) Alkaline Phosphatase 74 U/L (46-116) Total Protein 6.3 g/dL (6.4-8.2) Albumin 2.9 g/dL (3.4-5.0) Albumin/Globulin Ratio 0.9 (1.0-1.7) Medications Active Scripts Medications Dose Route/Sig Max Daily Dose Days Date Category Dose Instructions Prednisone (Prednisone) 10 Mg Tablet 10 Mg PO UD 01/13/17 Reported Take 4 tablets (40 mg) by mouth for 2 days, then take 2 tablets (20 mg) by mouth for 2 days, then take 1 tablet (10 mg) by mouth for 2 days, then take 1/2 tablet( 5 mg) by mouth x 1 day, then stop. Azithromycin Tablet (Azithromycin) 500 Mg Tablet 500 Mg PO DAILY 5 01/13/17 Rx Pulmicort Flexhaler (Budesonide) 180 Mcg Aer.pow.ba 2 Puff IH BID 01/13/17 Rx Venlafaxine Hcl Er (Venlafaxine Hcl) 225 Mg Tab.er.24 225 Mg PO DAILY 01/10/17 Reported NICODERM CQ 21mg (Nicotine) 1 Each Patch.td24 1 Patch TP DAILY 01/10/17 Reported Do not smoke while wearing the patch Cyanocobalamin Injection (Cyanocobalamin (Vitamin B-12)) 1,000 Mcg/1 Ml Vial 1 Ml IM QMONTH 01/10/17 Reported Clonazepam 0.5 Mg Tablet 0.5 Tab PO DAILY PRN 01/10/17 Reported Ventolin Hfa Inhaler (Albuterol Sulfate) 18 Gm Hfa.aer.ad 2 Puff INH BID 01/10/17 Reported Acetaminophen 500 Mg Tablet 1 Tab PO PRN Q6HRS PRN 01/10/17 Reported Metoprolol Tartrate 50 Mg Tablet 50 Mg PO BID 30 09/23/16 Rx Isosorbide Mononitrate Er (Isosorbide Mononitrate) 30 Mg Tab.er.24h 60 Mg PO DAILY 30 09/23/16 Rx Atorvastatin Calcium 20 Mg Tablet 20 Mg PO QHS 30 09/23/16 Rx Advair 250-50 Diskus (Fluticasone/Salmeterol) 1 Each Disk.w.dev 1 Inh IH BID 30 09/23/16 Rx Gabapentin (Gabapentin) 300 Mg Capsule 300 Mg PO BID 09/12/16 Reported Buspirone Hcl 15 Mg Tablet 15 Mg PO BID 09/12/16 Reported Aspirin 325 Mg Tablet 1 Tab PO DAILY 03/16/14 Reported Tamoxifen Citrate 20 Mg Tablet 20 Mg PO DAILY 06/24/13 Reported Impression . IMPRESSION: 1. Acute respiratory failure. 2. Abnormal x-ray compatible with viral pneumonia, possibly acute on chronic heart failure. 3. Cardiomyopathy, ejection fraction 15%.OLD EF 4. Tobacco dependence. 5. History of breast cancer. 6. Prior admission for respiratory failure. 7. Abnormal x-ray compatible with viral pneumonia versus congestive heart failure. ECHO <Conclusion> Left ventricle systolic function is mildly impaired. The Ejection Fraction is 45 -50%. There is mild global hypokinesis. Plan . I think pt will qualify for disability continue the same CXR IN AM 1. Recommend treatment with antibiotics and prednisone. 2. Repeat chest x-ray. 3. Lasix. 4. Consult Cardiology. 5. A 6-minute walk prior to discharge. MAURY LOMELI MD Apr 26, 2018 10:04
[2018-04-26 11:00] VITALS: BP 157/87
--- NOTE | 2018-04-26 11:08 | PDOC ---
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 Wood presented to the ED with worsening shortness of breath and nonproductive cough. She has a history of COPD. CXR (04/23) showed increasing bilateral opacity, likely pneumonia. Patient seen and examined at bedside. Patient continues to complain of shortness of breath and nonproductive cough. Patient O2Sat at 95% on 5L per N/C. Dinero removed. Receiving steroids and duoNebs and antibiotics. Pulmonology following. Vitals Vitals Vital Signs Date Time Temp Pulse Resp B/P (MAP) Pulse Ox O2 Delivery O2 Flow Rate FiO2 04/26/18 09:27 82 153/78 04/26/18 08:00 Nasal Cannula 5.0 04/26/18 07:23 95 04/26/18 07:00 98.3 18 98.3 Physical Exam General: Alert, Oriented X3, mild distress (mild shortness of breath) Heart: Regular rate, No murmurs Lungs: Clear (decreased breath sounds), Wheezing, Other (short of breath + nonproductive cough) Abdomen: Normal bowel sounds, No tenderness, No masses Extremities: No clubbing, No cyanosis, No edema Skin: No rashes, No significant lesion Labs LABS Laboratory Tests Test 04/26/18 02:30 White Blood Count 12.1 x10^3/uL (4.0-11.0) Red Blood Count 3.21 x10^6/uL (3.50-5.40) Hemoglobin 10.4 g/dL (12.0-15.5) Hematocrit 31.6 % (36.0-47.0) Mean Corpuscular Volume 99 fL (79-100) Mean Corpuscular Hemoglobin 32 pg (25-35) Mean Corpuscular Hemoglobin Concent 33 g/dL (31-37) Red Cell Distribution Width 14.6 % (11.5-14.5) Platelet Count 154 x10^3/uL (140-400) Neutrophils (%) (Auto) 90 % (31-73) Lymphocytes (%) (Auto) 6 % (24-48) Monocytes (%) (Auto) 3 % (0-9) Eosinophils (%) (Auto) 0 % (0-3) Basophils (%) (Auto) 0 % (0-3) Neutrophils # (Auto) 11.0 x10^3uL (1.8-7.7) Lymphocytes # (Auto) 0.7 x10^3/uL (1.0-4.8) Monocytes # (Auto) 0.4 x10^3/uL (0.0-1.1) Eosinophils # (Auto) 0.0 x10^3/uL (0.0-0.7) Basophils # (Auto) 0.0 x10^3/uL (0.0-0.2) Sodium Level 144 mmol/L (136-145) Potassium Level 4.0 mmol/L (3.5-5.1) Chloride Level 108 mmol/L (98-107) Carbon Dioxide Level 25 mmol/L (21-32) Anion Gap 11 (6-14) Blood Urea Nitrogen 23 mg/dL (7-20) Creatinine 1.1 mg/dL (0.6-1.0) Estimated GFR (Cockcroft-Gault) 51.6 BUN/Creatinine Ratio 21 (6-20) Glucose Level 152 mg/dL (70-99) Calcium Level 8.0 mg/dL (8.5-10.1) Total Bilirubin 0.3 mg/dL (0.2-1.0) Aspartate Amino Transf (AST/SGOT) 55 U/L (15-37) Alanine Aminotransferase (ALT/SGPT) 65 U/L (14-59) Alkaline Phosphatase 74 U/L (46-116) Total Protein 6.3 g/dL (6.4-8.2) Albumin 2.9 g/dL (3.4-5.0) Albumin/Globulin Ratio 0.9 (1.0-1.7) Review of Systems Review of Systems Reports shortness of breath Reports nonproductive cough Denies chest pain Denies fever or chills Assessment and Plan Assessmemt and Plan Problems Medical Problems: (1) Acute respiratory distress Status: Acute (2) Anxiety Status: Acute (3) History of left breast cancer Status: Acute (4) Hypoxia Status: Acute (5) Severe sepsis Status: Acute (6) Tachycardia Status: Acute (7) Tobacco abuse Status: Acute (8) Tobacco abuse counseling Status: Acute Assessment: Bilateral basilar opacity likely secondary to pneumonia (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 Labs Laboratory Tests Test 04/26/18 02:30 White Blood Count 12.1 x10^3/uL (4.0-11.0) Red Blood Count 3.21 x10^6/uL (3.50-5.40) Hemoglobin 10.4 g/dL (12.0-15.5) Hematocrit 31.6 % (36.0-47.0) Mean Corpuscular Volume 99 fL (79-100) Mean Corpuscular Hemoglobin 32 pg (25-35) Mean Corpuscular Hemoglobin Concent 33 g/dL (31-37) Red Cell Distribution Width 14.6 % (11.5-14.5) Platelet Count 154 x10^3/uL (140-400) Neutrophils (%) (Auto) 90 % (31-73) Lymphocytes (%) (Auto) 6 % (24-48) Monocytes (%) (Auto) 3 % (0-9) Eosinophils (%) (Auto) 0 % (0-3) Basophils (%) (Auto) 0 % (0-3) Neutrophils # (Auto) 11.0 x10^3uL (1.8-7.7) Lymphocytes # (Auto) 0.7 x10^3/uL (1.0-4.8) Monocytes # (Auto) 0.4 x10^3/uL (0.0-1.1) Eosinophils # (Auto) 0.0 x10^3/uL (0.0-0.7) Basophils # (Auto) 0.0 x10^3/uL (0.0-0.2) Sodium Level 144 mmol/L (136-145) Potassium Level 4.0 mmol/L (3.5-5.1) Chloride Level 108 mmol/L (98-107) Carbon Dioxide Level 25 mmol/L (21-32) Anion Gap 11 (6-14) Blood Urea Nitrogen 23 mg/dL (7-20) Creatinine 1.1 mg/dL (0.6-1.0) Estimated GFR (Cockcroft-Gault) 51.6 BUN/Creatinine Ratio 21 (6-20) Glucose Level 152 mg/dL (70-99) Calcium Level 8.0 mg/dL (8.5-10.1) Total Bilirubin 0.3 mg/dL (0.2-1.0) Aspartate Amino Transf (AST/SGOT) 55 U/L (15-37) Alanine Aminotransferase (ALT/SGPT) 65 U/L (14-59) Alkaline Phosphatase 74 U/L (46-116) Total Protein 6.3 g/dL (6.4-8.2) Albumin 2.9 g/dL (3.4-5.0) Albumin/Globulin Ratio 0.9 (1.0-1.7) Laboratory Tests Test 04/26/18 02:30 White Blood Count 12.1 x10^3/uL (4.0-11.0) Red Blood Count 3.21 x10^6/uL (3.50-5.40) Hemoglobin 10.4 g/dL (12.0-15.5) Hematocrit 31.6 % (36.0-47.0) Mean Corpuscular Volume 99 fL (79-100) Mean Corpuscular Hemoglobin 32 pg (25-35) Mean Corpuscular Hemoglobin Concent 33 g/dL (31-37) Red Cell Distribution Width 14.6 % (11.5-14.5) Platelet Count 154 x10^3/uL (140-400) Neutrophils (%) (Auto) 90 % (31-73) Lymphocytes (%) (Auto) 6 % (24-48) Monocytes (%) (Auto) 3 % (0-9) Eosinophils (%) (Auto) 0 % (0-3) Basophils (%) (Auto) 0 % (0-3) Neutrophils # (Auto) 11.0 x10^3uL (1.8-7.7) Lymphocytes # (Auto) 0.7 x10^3/uL (1.0-4.8) Monocytes # (Auto) 0.4 x10^3/uL (0.0-1.1) Eosinophils # (Auto) 0.0 x10^3/uL (0.0-0.7) Basophils # (Auto) 0.0 x10^3/uL (0.0-0.2) Sodium Level 144 mmol/L (136-145) Potassium Level 4.0 mmol/L (3.5-5.1) Chloride Level 108 mmol/L (98-107) Carbon Dioxide Level 25 mmol/L (21-32) Anion Gap 11 (6-14) Blood Urea Nitrogen 23 mg/dL (7-20) Creatinine 1.1 mg/dL (0.6-1.0) Estimated GFR (Cockcroft-Gault) 51.6 BUN/Creatinine Ratio 21 (6-20) Glucose Level 152 mg/dL (70-99) Calcium Level 8.0 mg/dL (8.5-10.1) Total Bilirubin 0.3 mg/dL (0.2-1.0) Aspartate Amino Transf (AST/SGOT) 55 U/L (15-37) Alanine Aminotransferase (ALT/SGPT) 65 U/L (14-59) Alkaline Phosphatase 74 U/L (46-116) Total Protein 6.3 g/dL (6.4-8.2) Albumin 2.9 g/dL (3.4-5.0) Albumin/Globulin Ratio 0.9 (1.0-1.7) Microbiology 04/23/18 Blood Culture - Preliminary, Resulted NO GROWTH AFTER 2 DAYS 04/24/18 - Final, Resulted 04/24/18 - Final, Resulted 04/24/18 - Final, Resulted 04/24/18 Gram Stain Evaluation - Final, Resulted 04/24/18 Sputum Culture, Resulted Pending Medications Current Medications Albuterol/ Ipratropium (Duoneb) 3 ml 1X ONCE NEB Last administered on at 17:33; Start 04/23/18 at 17:15; Stop 04/23/18 at 17:20; Status DC Methylprednisolone Sodium Succinate (SOLU-Medrol 125MG VIAL) 125 mg 1X ONCE IV Last administered on 04/23/18at 17:38; Start 04/23/18 at 17:15; Stop 04/23/18 at 17:20; Status DC Sodium Chloride 1,000 ml @ 1,000 mls/hr 1X ONCE IV Last administered on 17:37; Start 04/23/18 at 17:30; Stop 04/23/18 at 18:29; Status DC Ceftriaxone Sodium (Rocephin) 1 gm 1X ONCE IVP Last administered on 04/23/18 18:26; Start 04/23/18 at 18:15; Stop 04/23/18 at 18:16; Status DC Albuterol/ Ipratropium (Duoneb) 3 ml RTQID NEB Last administered on 04/24/18 06 :11; Start 04/23/18 at 20:00; Stop 04/24/18 at 09:27; Status DC Piperacillin Sod/ Tazobactam Sod 4.5 gm/Sodium Chloride 100 ml @ 200 mls/hr 1X ONCE IV Last administered on 04/23/18 19:11; Start 04/23/18 at 18:30; Stop 04/23/18 at 18:59; Status DC Vancomycin HCl 1.5 gm/Sodium Chloride 500 ml @ 250 mls/hr 1X ONCE IV Last administered on 04/23/18 19:35; Start 04/23/18 at 19:00; Stop 04/23/18 at 20:59; Status DC Levofloxacin/ Dextrose 100 ml @ 100 mls/hr 1X ONCE IV Last administered on 18:26; Start 04/23/18 at 18:15; Stop 04/23/18 at 19:14; Status DC Acetaminophen (Tylenol) 650 mg PRN Q6HRS PRN PO Headaches, Temp > 101.5' Last administered on 04/24/18 10:02; Start 04/23/18 at 19:00 Lorazepam (Ativan) 0.5 mg PRN Q6HRS PRN IV ANXIETY / AGITATION Last administered on 04/24/18 10:03; Start 04/23/18 at 19:00; Stop 04/24/18 at 13:16; Status DC Ondansetron HCl (Zofran) 4 mg PRN Q6HRS PRN IV NAUSEA/VOMITING Last administered on 04/25/18 01:29; Start 04/23/18 at 19:00 Info (Non-Icu Electrolyte Protocol) 1 ea CONT PRN PRN MC SEE COMMENTS; Start at 19:15 Enoxaparin Sodium (Lovenox 40mg Syringe) 40 mg Q24H SQ Last administered on 04/25 20:52; Start 04/23/18 at 21:00 Sodium Chloride (Normal Saline Flush) 3 ml QSHIFT PRN IV AFTER MEDS AND BLOOD DRAWS; Start 04/23/18 at 19:00 Morphine Sulfate (Morphine Sulfate) 1 mg PRN Q1HR PRN IV SEVERE PAIN; Start 04/23/18 at 19:00 Lactulose (Lactulose) 20 gm PRN Q12HR PRN PO CONSTIPATION; Start 04/23/18 at 19: 00 Bisacodyl (Dulcolax Supp) 10 mg PRN DAILY PRN IN CONSTIPATION; Start 04/23/18 at 19:00 Atorvastatin Calcium (Lipitor) 20 mg QHS PO Last administered on 04/25/18 20:54 ; Start 04/23/18 at 21:00 Clonazepam (KlonoPIN) 0.25 mg PRN DAILY PRN PO ANXIETY / AGITATION Last administered on 04/25/18 05:45; Start 04/23/18 at 19:00 Gabapentin (Neurontin) 300 mg BID PO Last administered on 04/26/18 09:27; Start 04/23/18 at 21:00 Isosorbide Mononitrate (Imdur) 60 mg DAILY PO Last administered on 04/26/18 09: 27; Start 04/24/18 at 09:00 Metoprolol Tartrate (Lopressor) 50 mg BID PO Last administered on 04/26/18 09: 27; Start 04/23/18 at 21:00 Non-Formulary Medication (Albuterol Sulfate (Ventolin Hfa Inhaler)) 2 puff BID INH ; Start 04/23/18 at 21:00; Status UNV Non-Formulary Medication (Budesonide (Pulmicort Flexhaler)) 2 puff BID IH ; Start 04/23/18 at 21:00; Status UNV Buspirone HCl (Buspar) 15 mg BID PO Last administered on 04/25/18 08:59; Start 04/23/18 at 21:00; Stop 04/26/18 at 02:20; Status DC Non-Formulary Medication (Fluticasone/ Salmeterol (Advair 250-50 Diskus)) 1 inh BID IH ; Start 04/23/18 at 21:00; Status UNV Tamoxifen Citrate (Nolvadex) 20 mg DAILY PO Last administered on 04/26/18at 09:28 ; Start 04/24/18 at 09:00 Venlafaxine HCl (Effexor) 75 mg TID PO Last administered on 04/25/18at 20:54; Start 04/24/18 at 09:00; Stop 04/26/18 at 02:05; Status DC Piperacillin Sod/ Tazobactam Sod 4.5 gm/Sodium Chloride 100 ml @ 200 mls/hr Q6HRS IV Last administered on 04/26/18 05:29; Start 04/24/18 at 00:00 Budesonide (Pulmicort) 0.5 mg RTBID NEB Last administered on 04/26/18at 07:14; Start 04/23/18 at 20:00 Albuterol Sulfate (Ventolin Neb Soln) 2.5 mg RTQID NEB Last administered on 04/23at 21:04; Start 04/23/18 at 20:00; Stop 04/24/18 at 05:58; Status DC Lorazepam (Ativan) 0.5 mg 1X ONCE IV Last administered on 04/23/18 19:15; Start 04/23/18 at 19:15; Stop 04/23/18 at 19:16; Status DC Methylprednisolone Sodium Succinate (SOLU-Medrol 125MG VIAL) 125 mg Q8HRS IV Last administered on 04/26/18 05:30; Start 04/23/18 at 22:00 Albuterol/ Ipratropium (Duoneb) 3 ml Q4HRS NEB ; Start 04/23/18 at 20:00; Stop at 05:58; Status DC Nicotine (Nicoderm Cq 14mg) 1 patch PRN DAILY PRN TD SMOKING CESSATION Last administered on 04/26/18at 05:30; Start 04/23/18 at 22:30 Tizanidine HCl (Zanaflex) 4 mg PRN Q8HRS PRN PO MUSCLE SPASMS; Start 04/23/18 at 22:30 Ketorolac Tromethamine (Toradol 30mg Vial) 30 mg 1X ONCE IV Last administered on 04/24/18 00:20; Start 04/23/18 at 23:00; Stop 04/23/18 at 23:01; Status DC Ketorolac Tromethamine (Toradol 15mg Vial) 15 mg PRN Q8HRS PRN IV MODERATE PAIN ; Start 04/23/18 at 22:45; Stop 04/28/18 at 22:44 Albuterol Sulfate (Ventolin Neb Soln) 2.5 mg PRN Q4HRS PRN NEB WHEEZING; Start 04/24/18 at 06:00 Albuterol/ Ipratropium (Duoneb) 3 ml RTQID NEB Last administered on 04/26/18 07 :14; Start 04/24/18 at 08:00 Guaifenesin/ Codeine Phosphate (Robitussin Ac) 5 ml PRN Q6HRS PRN PO COUGH Last administered on 04/26/18 09:46; Start 04/24/18 at 12:15 Lorazepam (Ativan) 1 mg PRN Q6HRS PRN IV ANXIETY / AGITATION Last administered on 04/26/18 09:46; Start 04/24/18 at 13:30 Lactobacillus Rhamnosus (Culturelle) 1 cap BID PO Last administered on 09:27; Start 04/25/18 at 21:00 Temazepam (Restoril) 15 mg PRN QHS PRN PO INSOMNIA Last administered on 20:53; Start 04/25/18 at 20:00 Venlafaxine HCl (Effexor Xr) 225 mg DAILY PO Last administered on 04/26/18 09: 26; Start 04/26/18 at 09:00 Active Scripts Active Azithromycin Tablet (Azithromycin) 500 Mg Tablet 500 Mg PO DAILY 5 Days Pulmicort Flexhaler (Budesonide) 180 Mcg Aer.pow.ba 2 Puff IH BID Metoprolol Tartrate 50 Mg Tablet 50 Mg PO BID 30 Days Isosorbide Mononitrate Er (Isosorbide Mononitrate) 30 Mg Tab.er.24h 60 Mg PO DAILY 30 Days Atorvastatin Calcium 20 Mg Tablet 20 Mg PO QHS 30 Days Advair 250-50 Diskus (Fluticasone/Salmeterol) 1 Each Disk.w.dev 1 Inh IH BID 30 Days Reported Prednisone (Prednisone) 10 Mg Tablet 10 Mg PO UD Take 4 tablets (40 mg) by mouth for 2 days, then take 2 tablets (20 mg) by mouth for 2 days, then take 1 tablet (10 mg) by mouth for 2 days, then take 1/2 tablet( 5 mg) by mouth x 1 day, then stop. Venlafaxine Hcl Er (Venlafaxine Hcl) 225 Mg Tab.er.24 225 Mg PO DAILY NICODERM CQ 21mg (Nicotine) 1 Each Patch.td24 1 Patch TP DAILY Do not smoke while wearing the patch Cyanocobalamin Injection (Cyanocobalamin (Vitamin B-12)) 1,000 Mcg/1 Ml Vial 1 Ml IM QMONTH Clonazepam 0.5 Mg Tablet 0.5 Tab PO DAILY PRN Ventolin Hfa Inhaler (Albuterol Sulfate) 18 Gm Hfa.aer.ad 2 Puff INH BID Acetaminophen 500 Mg Tablet 1 Tab PO PRN Q6HRS PRN Gabapentin (Gabapentin) 300 Mg Capsule 300 Mg PO BID Buspirone Hcl 15 Mg Tablet 15 Mg PO BID Aspirin 325 Mg Tablet 1 Tab PO DAILY Tamoxifen Citrate 20 Mg Tablet 20 Mg PO DAILY Vitals/I & O Vital Sign - Last 24 Hours 04/25/18 04/25/18 04/25/18 04/25/18 11:00 11:02 15:00 15:19 Temp 97.7 98.5 97.7 98.5 Pulse 81 86 Resp 18 18 B/P (MAP) 131/68 (89) 151/71 (97) Pulse Ox 93 96 94 96 O2 Delivery Room Air Nasal Cannula Room Air Nasal Cannula O2 Flow Rate 5.0 5.0 04/25/18 04/25/18 04/25/18 04/25/18 19:10 19:50 20:00 20:54 Temp 98.9 98.9 Pulse 86 88 B/P (MAP) 151/71 Pulse Ox 98 96 O2 Delivery Nasal Cannula Nasal Cannula Nasal Cannula O2 Flow Rate 5.0 5.0 5.0 04/25/18 04/26/18 04/26/18 04/26/18 22:36 02:41 07:00 07:23 Temp 98.6 98.2 98.3 98.6 98.2 98.3 Pulse 83 80 82 Resp 18 20 18 B/P (MAP) 142/76 (98) 154/77 (102) 153/78 (103) Pulse Ox 96 94 96 95 O2 Delivery Nasal Cannula Nasal Cannula Nasal Cannula Nasal Cannula O2 Flow Rate 5.0 5.0 5.0 5.0 04/26/18 04/26/18 04/26/18 08:00 09:27 09:27 Pulse 82 82 B/P (MAP) 153/78 153/78 O2 Delivery Nasal Cannula O2 Flow Rate 5.0 Intake and Output 04/25/18 04/25/18 04/26/18 15:00 23:00 07:00 Intake Total 220 ml 950 ml 900 ml Output Total 450 ml 350 ml Balance 220 ml 500 ml 550 ml MELA FITZGERALD III DO Apr 26, 2018 11:08
--- NOTE | 2018-04-26 12:11 | PDOC2 ---
MARISELA PLASCENCIA REFRACTORY TECHNICIAN 04/26/18 1211: CARDIAC CONSULT DATE OF CONSULT Date of Consult DATE: 04/26/18 TIME: 12:08 REASON FOR CONSULT Reason for Consult: CHF REFERRING PHYSICIAN Referring Physician: Denys SOURCE Source: Chart review, Patient HISTORY OF PRESENT ILLNESS HISTORY OF PRESENT ILLNESS This is a 57 yo female who presented secondary to shortness of breath over the last couple of weeks. Has been progressively worsening. Associated with no- productive cough and congestion. Feels generally achy and c/o CHUNG. No CP, palpitations, dizziness, diaphoresis, nausea/vomiting, or fevers. 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; catract) Renal/: No pertinent hx Endocrine: No pertinent hx Dermatology: No pertinent hx PAST SURGICAL HISTORY Past Surgical History Other (portacath placement and removal; left lumpectomy; bilateral eye surgery) FAMILY HISTORY Family History: Cancer (breast), Coronary Artery Disease, Hypertension SOCIAL HISTORY Smoke: 1 pack per day ALCOHOL: occassional Drugs: None Lives: with Family CURRENT MEDICATIONS CURRENT MEDICATIONS Current Medications Medications (Trade) Dose Ordered Sig/Lanette Route PRN Reason Start Time Stop Time Status Last Admin Dose Admin Lactobacillus Rhamnosus (Culturelle) 1 cap BID PO 04/25/18 21:00 04/26/18 09:27 Temazepam (Restoril) 15 mg PRN QHS PRN PO INSOMNIA 04/25/18 20:00 04/25/18 20:53 Venlafaxine HCl (Effexor Xr) 225 mg DAILY PO 04/26/18 09:00 04/26/18 09:26 ALLERGIES ALLERGIES: Coded Allergies: No Known Drug Allergies (Unverified , 03/16/14) ROS Review of System 14 point ROS conducted with pertinent positives noted above in HPI. PHYSICAL EXAM General: Alert, Oriented X3, Cooperative, No acute distress HEENT: Atraumatic Lungs: Other (bibasilar crackles. fine expiratroy wheezes throughout) Heart: Regular rate, Normal S1, Normal S2 Abdomen: Soft, No tenderness Extremities: No edema, Normal pulses Skin: No breakdown, No significant lesion Neuro: Normal speech, Sensation intact Psych/Mental Status: Mental status NL MUSCULOSKELETAL: Osteoarthritic changes both hands VITALS VITALS Vital Signs Date Time Temp Pulse Resp B/P (MAP) Pulse Ox O2 Delivery O2 Flow Rate FiO2 04/26/18 11:00 98.1 83 18 157/87 (110) 96 Nasal Cannula 5.0 98.1 LABS Lab: Laboratory Tests Test 04/26/18 02:30 White Blood Count 12.1 x10^3/uL (4.0-11.0) Red Blood Count 3.21 x10^6/uL (3.50-5.40) Hemoglobin 10.4 g/dL (12.0-15.5) Hematocrit 31.6 % (36.0-47.0) Mean Corpuscular Volume 99 fL (79-100) Mean Corpuscular Hemoglobin 32 pg (25-35) Mean Corpuscular Hemoglobin Concent 33 g/dL (31-37) Red Cell Distribution Width 14.6 % (11.5-14.5) Platelet Count 154 x10^3/uL (140-400) Neutrophils (%) (Auto) 90 % (31-73) Lymphocytes (%) (Auto) 6 % (24-48) Monocytes (%) (Auto) 3 % (0-9) Eosinophils (%) (Auto) 0 % (0-3) Basophils (%) (Auto) 0 % (0-3) Neutrophils # (Auto) 11.0 x10^3uL (1.8-7.7) Lymphocytes # (Auto) 0.7 x10^3/uL (1.0-4.8) Monocytes # (Auto) 0.4 x10^3/uL (0.0-1.1) Eosinophils # (Auto) 0.0 x10^3/uL (0.0-0.7) Basophils # (Auto) 0.0 x10^3/uL (0.0-0.2) Sodium Level 144 mmol/L (136-145) Potassium Level 4.0 mmol/L (3.5-5.1) Chloride Level 108 mmol/L (98-107) Carbon Dioxide Level 25 mmol/L (21-32) Anion Gap 11 (6-14) Blood Urea Nitrogen 23 mg/dL (7-20) Creatinine 1.1 mg/dL (0.6-1.0) Estimated GFR (Cockcroft-Gault) 51.6 BUN/Creatinine Ratio 21 (6-20) Glucose Level 152 mg/dL (70-99) Calcium Level 8.0 mg/dL (8.5-10.1) Total Bilirubin 0.3 mg/dL (0.2-1.0) Aspartate Amino Transf (AST/SGOT) 55 U/L (15-37) Alanine Aminotransferase (ALT/SGPT) 65 U/L (14-59) Alkaline Phosphatase 74 U/L (46-116) Total Protein 6.3 g/dL (6.4-8.2) Albumin 2.9 g/dL (3.4-5.0) Albumin/Globulin Ratio 0.9 (1.0-1.7) ECHOCARDIOGRAM ECHOCARDIOGRAM <Conclusion> Left ventricle systolic function is normal. The Ejection Fraction is 50-55%. There is normal LV segmental wall motion. Doppler and Color-flow revealed trace to mild mitral regurgitation. There is no evidence of significant pericardial effusion. DATE: 01/28/18 1123 <Conclusion> Left ventricle systolic function is mildly impaired. The Ejection Fraction is 45 -50%. There is mild global hypokinesis. DATE: 04/25/18 1244 ASSESSMENT/PLAN ASSESSMENT/PLAN 1. Acute respiratory failure; multifactorial in the setting of AE COPD, PNA, and a/c HF 2. Acute on chronic systolic HF 3. H/o NICM; LVEF previously 25%. LV recovery to 50-55%. Repeat echo shows LVEF 45-50% 4. Leukocytosis, lactic acidosis, probable PNA 6. Hypertension; mildly elevated 7. Hyperlipidemia; statin 8. H/o CVA 9. Tobaccoism; discussed/encouraged cessation Recommendations Mild diuresis Ongoing treatment of PNA, lung optimization Consider outpatient stress test Supportive care BABAK CALLAHAN MD 04/26/18 0301: CARDIAC CONSULT ASSESSMENT/PLAN ASSESSMENT/PLAN Patient seen and examined. Agree with above nurse practitioner note. 57-year-old woman with multiple cardiovascular risk factors and known history of nonischemic cardio myopathy presenting with respiratory failure. Patient with progressive dyspnea, chest x-ray consistent with congestion and improvement with diuresis. Overall consistent with acute on chronic systolic and diastolic heart failure. Continue diuresis. Treatment of possible pneumonia per pulmonary and primary care team. Reinitiate her home medications tomorrow. Office records reveal she is on metoprolol 50 mg twice a day and Entresto 49/51 bid. Supportive care for now. MARISELA PLASCENCIA APRN Apr 26, 2018 12:11 BABAK CALLAHAN MD Apr 26, 2018 19:11
--- NOTE | 2018-04-26 13:15 | RAD ---
Portable chest, 04/26/2018: HISTORY: Congestive heart failure Comparison is made to a study from 04/23/2018. The heart size is within normal limits. Predominantly interstitial pulmonary opacities have regressed with better vascular margination. The findings suggest improving parahilar-perivascular pulmonary edema. No consolidating infiltrate is seen. There is no evidence of pleural fluid. No new abnormality is detected. IMPRESSION: Improving interstitial pulmonary opacities. Electronically signed by: Mitch Brenner MD (04/26/2018 1:12 PM) [facility]
[2018-04-26 15:00] VITALS: BP 145/83
[2018-04-26] MEDS: MORPHINE SULFATE 2 MG/ML VIAL. IV PRN ×2 (16:18→16:45)
[2018-04-26] MEDS ORDERED: FUROSEMIDE 40 MG TABLET. PO ONE (17:30)
[2018-04-26] MEDS: ASPIRIN ENTERIC COATED 81 MG TABLET.DR. PO SCH (17:56)
[2018-04-26 19:10] VITALS: BP 150/77
[2018-04-26] MEDS: ENOXAPARIN 40 MG/0.4 ML SYRINGE. SQ SCH (21:01)
[2018-04-26] MEDS: ATORVASTATIN CALCIUM 20 MG TABLET PO SCH (21:02)
[2018-04-26 23:21] VITALS: BP 154/76
[2018-04-27 03:12] VITALS: BP 150/83
[2018-04-27 04:38] LABS: BASO % 0 % (0-3); EOS % 0 % (0-3); HEMATOCRIT 34.1 % (36.0-47.0); HEMOGLOBIN 11.1 g/dL (12.0-15.5); LYMPH # 0.9 x10^3/uL (1.0-4.8); LYMPH % 10 % (24-48); MEAN CORPUSCULAR HEMOGLOBIN 32 pg (25-35); MEAN CORPUSCULAR HGB CONC 33 g/dL (31-37); MEAN CORPUSCULAR VOLUME 99 fL (79-100); MONO # 0.4 x10^3/uL (0.0-1.1); MONO % 4 % (0-9); NEUT # 8.6 x10^3uL (1.8-7.7); NEUT % 87 % (31-73); PLATELET COUNT 152 x10^3/uL (140-400); RED BLOOD COUNT 3.43 x10^6/uL (3.50-5.40); RED CELL DISTRIBUTION WIDTH 14.7 % (11.5-14.5); WHITE BLOOD COUNT 9.9 x10^3/uL (4.0-11.0)
[2018-04-27 05:20] LABS: ALBUMIN/GLOBULIN RATIO 0.8 (1.0-1.7); CALCIUM 8.3 mg/dL (8.5-10.1); CREATININE 1.1 mg/dL (0.6-1.0); GFR 51.6; POTASSIUM 3.1 mmol/L (3.5-5.1); TOTAL BILIRUBIN 0.4 mg/dL (0.2-1.0); TOTAL PROTEIN 6.6 g/dL (6.4-8.2)
[2018-04-27] MEDS: methylPREDNISolone SOD SUCC PF 125 MG/2 ML VIAL. IV SCH ×3 (06:11→21:03)
[2018-04-27] MEDS: PIPERACILLIN/TAZOBACTAM 4.5 GM in IV NORMAL SALINE 100ML 100 ML IV SCH ×4 (06:11→23:55)
[2018-04-27 07:00] VITALS: BP 168/81
--- NOTE | 2018-04-27 07:32 | PDOC ---
PULMONARY PROGRESS NOTES Subjective has sob, cough, better, has wheezing, no pain Vitals Vital Signs Date Time Temp Pulse Resp B/P (MAP) Pulse Ox O2 Delivery O2 Flow Rate FiO2 04/27/18 03:12 98.0 66 18 150/83 (105) 93 Nasal Cannula 4.0 98.0 ROS: No Nausea, No Chest Pain, No Abdominal Pain General: Alert HEENT: Other (nc at perrl nose throat clear) Lungs: Wheezing, Crackles Cardiovascular: S1, S2 Abdomen: Soft, Non-tender Extremities: No Edema Skin: Warm Labs Laboratory Tests Test 04/26/18 02:30 04/27/18 04:00 White Blood Count 12.1 x10^3/uL (4.0-11.0) 9.9 x10^3/uL (4.0-11.0) Red Blood Count 3.21 x10^6/uL (3.50-5.40) 3.43 x10^6/uL (3.50-5.40) Hemoglobin 10.4 g/dL (12.0-15.5) 11.1 g/dL (12.0-15.5) Hematocrit 31.6 % (36.0-47.0) 34.1 % (36.0-47.0) Mean Corpuscular Volume 99 fL (79-100) 99 fL (79-100) Mean Corpuscular Hemoglobin 32 pg (25-35) 32 pg (25-35) Mean Corpuscular Hemoglobin Concent 33 g/dL (31-37) 33 g/dL (31-37) Red Cell Distribution Width 14.6 % (11.5-14.5) 14.7 % (11.5-14.5) Platelet Count 154 x10^3/uL (140-400) 152 x10^3/uL (140-400) Neutrophils (%) (Auto) 90 % (31-73) 87 % (31-73) Lymphocytes (%) (Auto) 6 % (24-48) 10 % (24-48) Monocytes (%) (Auto) 3 % (0-9) 4 % (0-9) Eosinophils (%) (Auto) 0 % (0-3) 0 % (0-3) Basophils (%) (Auto) 0 % (0-3) 0 % (0-3) Neutrophils # (Auto) 11.0 x10^3uL (1.8-7.7) 8.6 x10^3uL (1.8-7.7) Lymphocytes # (Auto) 0.7 x10^3/uL (1.0-4.8) 0.9 x10^3/uL (1.0-4.8) Monocytes # (Auto) 0.4 x10^3/uL (0.0-1.1) 0.4 x10^3/uL (0.0-1.1) Eosinophils # (Auto) 0.0 x10^3/uL (0.0-0.7) 0.0 x10^3/uL (0.0-0.7) Basophils # (Auto) 0.0 x10^3/uL (0.0-0.2) 0.0 x10^3/uL (0.0-0.2) Sodium Level 144 mmol/L (136-145) 146 mmol/L (136-145) Potassium Level 4.0 mmol/L (3.5-5.1) 3.1 mmol/L (3.5-5.1) Chloride Level 108 mmol/L (98-107) 101 mmol/L (98-107) Carbon Dioxide Level 25 mmol/L (21-32) 31 mmol/L (21-32) Anion Gap 11 (6-14) 14 (6-14) Blood Urea Nitrogen 23 mg/dL (7-20) 21 mg/dL (7-20) Creatinine 1.1 mg/dL (0.6-1.0) 1.1 mg/dL (0.6-1.0) Estimated GFR (Cockcroft-Gault) 51.6 51.6 BUN/Creatinine Ratio 21 (6-20) 19 (6-20) Glucose Level 152 mg/dL (70-99) 165 mg/dL (70-99) Calcium Level 8.0 mg/dL (8.5-10.1) 8.3 mg/dL (8.5-10.1) Total Bilirubin 0.3 mg/dL (0.2-1.0) 0.4 mg/dL (0.2-1.0) Aspartate Amino Transf (AST/SGOT) 55 U/L (15-37) 43 U/L (15-37) Alanine Aminotransferase (ALT/SGPT) 65 U/L (14-59) 70 U/L (14-59) Alkaline Phosphatase 74 U/L (46-116) 74 U/L (46-116) Total Protein 6.3 g/dL (6.4-8.2) 6.6 g/dL (6.4-8.2) Albumin 2.9 g/dL (3.4-5.0) 3.0 g/dL (3.4-5.0) Albumin/Globulin Ratio 0.9 (1.0-1.7) 0.8 (1.0-1.7) Laboratory Tests Test 04/27/18 04:00 White Blood Count 9.9 x10^3/uL (4.0-11.0) Red Blood Count 3.43 x10^6/uL (3.50-5.40) Hemoglobin 11.1 g/dL (12.0-15.5) Hematocrit 34.1 % (36.0-47.0) Mean Corpuscular Volume 99 fL (79-100) Mean Corpuscular Hemoglobin 32 pg (25-35) Mean Corpuscular Hemoglobin Concent 33 g/dL (31-37) Red Cell Distribution Width 14.7 % (11.5-14.5) Platelet Count 152 x10^3/uL (140-400) Neutrophils (%) (Auto) 87 % (31-73) Lymphocytes (%) (Auto) 10 % (24-48) Monocytes (%) (Auto) 4 % (0-9) Eosinophils (%) (Auto) 0 % (0-3) Basophils (%) (Auto) 0 % (0-3) Neutrophils # (Auto) 8.6 x10^3uL (1.8-7.7) Lymphocytes # (Auto) 0.9 x10^3/uL (1.0-4.8) Monocytes # (Auto) 0.4 x10^3/uL (0.0-1.1) Eosinophils # (Auto) 0.0 x10^3/uL (0.0-0.7) Basophils # (Auto) 0.0 x10^3/uL (0.0-0.2) Sodium Level 146 mmol/L (136-145) Potassium Level 3.1 mmol/L (3.5-5.1) Chloride Level 101 mmol/L (98-107) Carbon Dioxide Level 31 mmol/L (21-32) Anion Gap 14 (6-14) Blood Urea Nitrogen 21 mg/dL (7-20) Creatinine 1.1 mg/dL (0.6-1.0) Estimated GFR (Cockcroft-Gault) 51.6 BUN/Creatinine Ratio 19 (6-20) Glucose Level 165 mg/dL (70-99) Calcium Level 8.3 mg/dL (8.5-10.1) Total Bilirubin 0.4 mg/dL (0.2-1.0) Aspartate Amino Transf (AST/SGOT) 43 U/L (15-37) Alanine Aminotransferase (ALT/SGPT) 70 U/L (14-59) Alkaline Phosphatase 74 U/L (46-116) Total Protein 6.6 g/dL (6.4-8.2) Albumin 3.0 g/dL (3.4-5.0) Albumin/Globulin Ratio 0.8 (1.0-1.7) Medications Active Scripts Medications Dose Route/Sig Max Daily Dose Days Date Category Dose Instructions Prednisone (Prednisone) 10 Mg Tablet 10 Mg PO UD 01/13/17 Reported Take 4 tablets (40 mg) by mouth for 2 days, then take 2 tablets (20 mg) by mouth for 2 days, then take 1 tablet (10 mg) by mouth for 2 days, then take 1/2 tablet( 5 mg) by mouth x 1 day, then stop. Azithromycin Tablet (Azithromycin) 500 Mg Tablet 500 Mg PO DAILY 5 01/13/17 Rx Pulmicort Flexhaler (Budesonide) 180 Mcg Aer.pow.ba 2 Puff IH BID 01/13/17 Rx Venlafaxine Hcl Er (Venlafaxine Hcl) 225 Mg Tab.er.24 225 Mg PO DAILY 01/10/17 Reported NICODERM CQ 21mg (Nicotine) 1 Each Patch.td24 1 Patch TP DAILY 01/10/17 Reported Do not smoke while wearing the patch Cyanocobalamin Injection (Cyanocobalamin (Vitamin B-12)) 1,000 Mcg/1 Ml Vial 1 Ml IM QMONTH 01/10/17 Reported Clonazepam 0.5 Mg Tablet 0.5 Tab PO DAILY PRN 01/10/17 Reported Ventolin Hfa Inhaler (Albuterol Sulfate) 18 Gm Hfa.aer.ad 2 Puff INH BID 01/10/17 Reported Acetaminophen 500 Mg Tablet 1 Tab PO PRN Q6HRS PRN 01/10/17 Reported Metoprolol Tartrate 50 Mg Tablet 50 Mg PO BID 30 09/23/16 Rx Isosorbide Mononitrate Er (Isosorbide Mononitrate) 30 Mg Tab.er.24h 60 Mg PO DAILY 30 09/23/16 Rx Atorvastatin Calcium 20 Mg Tablet 20 Mg PO QHS 30 09/23/16 Rx Advair 250-50 Diskus (Fluticasone/Salmeterol) 1 Each Disk.w.dev 1 Inh IH BID 30 09/23/16 Rx Gabapentin (Gabapentin) 300 Mg Capsule 300 Mg PO BID 09/12/16 Reported Buspirone Hcl 15 Mg Tablet 15 Mg PO BID 09/12/16 Reported Aspirin 325 Mg Tablet 1 Tab PO DAILY 03/16/14 Reported Tamoxifen Citrate 20 Mg Tablet 20 Mg PO DAILY 06/24/13 Reported Comments cxr reviewed, Improving interstitial pulmonary opacities. Impression . IMPRESSION: 1. Acute respiratory failure. 2. Abnormal x-ray compatible with viral pneumonia, possibly acute on chronic heart failure. 3. Cardiomyopathy, ejection fraction 40% 4. Tobacco dependence. 5. History of breast cancer. 6. Prior admission for respiratory failure. 7. Abnormal x-ray compatible with viral pneumonia versus congestive heart failure. ECHO <Conclusion> Left ventricle systolic function is mildly impaired. The Ejection Fraction is 45 -50%. There is mild global hypokinesis. Plan . 1. cont antibiotics, steroid, change solumedrol to 80 q 8hrs, increase BD to q 4hrs, cont ICS, add singulair 2. CXR , reviewed, Improving interstitial pulmonary opacities. 3. lovenox for dvt prophylaxis 4. Cardiology consulted. 5. A 6-minute walk prior to discharge. discussed w pt ABBIE GAYTAN MD Apr 27, 2018 07:32
[2018-04-27] MEDS: BUDESONIDE 0.5 MG/2 ML NEBU. NEB SCH ×2 (08:24→20:04)
[2018-04-27] MEDS: IPRATRPIUM/ALBUTEROL 0.5/2.5MG 3 ML NEBU. NEB SCH ×5 (08:24→23:31)
[2018-04-27] MEDS: GABAPENTIN 300 MG CAPSULE. PO SCH ×2 (09:00→21:01)
[2018-04-27] MEDS: ACETAMINOPHEN 325 MG TABLET. PO PRN (10:39)
[2018-04-27] MEDS: TAMOXIFEN 10 MG TABLET PO SCH (10:40)
[2018-04-27] MEDS: ASPIRIN ENTERIC COATED 81 MG TABLET.DR. PO SCH (10:41)
[2018-04-27] MEDS: METOPROLOL TART IMMED RELEASE 50 MG TABLET. PO SCH ×2 (10:42→20:59)
[2018-04-27] MEDS: ISOSORBIDE MONONITRATE ER 30 MG TAB.ER.24H PO SCH (10:42)
[2018-04-27] MEDS: guaiFENesin/CODEINE 100mg/10mg 5 ML LIQUID PO PRN (10:42)
[2018-04-27] MEDS: LACTOBACILLUS RHAMNOSUS GG 1 CAPSULE. PO SCH ×2 (10:43→20:58)
[2018-04-27] MEDS: VENLAFAXINE XR 37.5 MG CAP.ER.24H. PO SCH (10:43)
[2018-04-27] MEDS: NICOTINE 14MG PATCH. TD PRN (10:45)
[2018-04-27] MEDS ORDERED: POTASSIUM CHLORIDE 20 MEQ TABLET.ER. PO ONE (10:45)
[2018-04-27 10:48] VITALS: BP 181/87
[2018-04-27] MEDS: HYDROcodone/APAP 5/325MG 1 TAB TABLET PO PRN ×2 (10:54→20:59)
--- NOTE | 2018-04-27 11:11 | PDOC ---
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 Wood presented to the ED with worsening shortness of breath and nonproductive cough. She has a history of COPD. CXR (04/23) showed increasing bilateral opacity, likely pneumonia. Patient seen and examined at bedside. Patient seems to be improving, mild shortness of breath, cough improved. Patient O2Sat at 95% on 5L per N/C, but desatting without N/C per nurse. Discussed case with RN. Receiving steroids and duoNebs and antibiotics. Was given 1 dose of lasix. Pulmonology and Cards following. Vitals Vitals Vital Signs Date Time Temp Pulse Resp B/P (MAP) Pulse Ox O2 Delivery O2 Flow Rate FiO2 04/27/18 10:54 18 Nasal Cannula 5.0 04/27/18 10:48 98.5 81 181/87 (118) 97 98.5 Physical Exam General: Alert, Oriented X3, Cooperative, No acute distress Heart: Regular rate, Normal S1, Normal S2 Lungs: Wheezing (expiratory wheezes), Crackles, Other (coarse to auscultation all lung trinh) Abdomen: Soft, No tenderness Extremities: No clubbing, No cyanosis, No edema, Normal pulses Skin: No rashes, No significant lesion Labs LABS Laboratory Tests Test 04/27/18 04:00 White Blood Count 9.9 x10^3/uL (4.0-11.0) Red Blood Count 3.43 x10^6/uL (3.50-5.40) Hemoglobin 11.1 g/dL (12.0-15.5) Hematocrit 34.1 % (36.0-47.0) Mean Corpuscular Volume 99 fL (79-100) Mean Corpuscular Hemoglobin 32 pg (25-35) Mean Corpuscular Hemoglobin Concent 33 g/dL (31-37) Red Cell Distribution Width 14.7 % (11.5-14.5) Platelet Count 152 x10^3/uL (140-400) Neutrophils (%) (Auto) 87 % (31-73) Lymphocytes (%) (Auto) 10 % (24-48) Monocytes (%) (Auto) 4 % (0-9) Eosinophils (%) (Auto) 0 % (0-3) Basophils (%) (Auto) 0 % (0-3) Neutrophils # (Auto) 8.6 x10^3uL (1.8-7.7) Lymphocytes # (Auto) 0.9 x10^3/uL (1.0-4.8) Monocytes # (Auto) 0.4 x10^3/uL (0.0-1.1) Eosinophils # (Auto) 0.0 x10^3/uL (0.0-0.7) Basophils # (Auto) 0.0 x10^3/uL (0.0-0.2) Sodium Level 146 mmol/L (136-145) Potassium Level 3.1 mmol/L (3.5-5.1) Chloride Level 101 mmol/L (98-107) Carbon Dioxide Level 31 mmol/L (21-32) Anion Gap 14 (6-14) Blood Urea Nitrogen 21 mg/dL (7-20) Creatinine 1.1 mg/dL (0.6-1.0) Estimated GFR (Cockcroft-Gault) 51.6 BUN/Creatinine Ratio 19 (6-20) Glucose Level 165 mg/dL (70-99) Calcium Level 8.3 mg/dL (8.5-10.1) Total Bilirubin 0.4 mg/dL (0.2-1.0) Aspartate Amino Transf (AST/SGOT) 43 U/L (15-37) Alanine Aminotransferase (ALT/SGPT) 70 U/L (14-59) Alkaline Phosphatase 74 U/L (46-116) Total Protein 6.6 g/dL (6.4-8.2) Albumin 3.0 g/dL (3.4-5.0) Albumin/Globulin Ratio 0.8 (1.0-1.7) Review of Systems Review of Systems Reports nonproductive cough Reports shortness of breath Assessment and Plan Assessmemt and Plan Problems Medical Problems: (1) Acute respiratory distress Status: Acute (2) Anxiety Status: Acute (3) History of left breast cancer Status: Acute (4) Hypoxia Status: Acute (5) Severe sepsis Status: Acute (6) Tachycardia Status: Acute (7) Tobacco abuse Status: Acute (8) Tobacco abuse counseling Status: Acute Assessment: Bilateral basilar opacity likely secondary to pneumonia (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 Labs Laboratory Tests Test 04/26/18 02:30 04/27/18 04:00 White Blood Count 12.1 x10^3/uL (4.0-11.0) 9.9 x10^3/uL (4.0-11.0) Red Blood Count 3.21 x10^6/uL (3.50-5.40) 3.43 x10^6/uL (3.50-5.40) Hemoglobin 10.4 g/dL (12.0-15.5) 11.1 g/dL (12.0-15.5) Hematocrit 31.6 % (36.0-47.0) 34.1 % (36.0-47.0) Mean Corpuscular Volume 99 fL (79-100) 99 fL (79-100) Mean Corpuscular Hemoglobin 32 pg (25-35) 32 pg (25-35) Mean Corpuscular Hemoglobin Concent 33 g/dL (31-37) 33 g/dL (31-37) Red Cell Distribution Width 14.6 % (11.5-14.5) 14.7 % (11.5-14.5) Platelet Count 154 x10^3/uL (140-400) 152 x10^3/uL (140-400) Neutrophils (%) (Auto) 90 % (31-73) 87 % (31-73) Lymphocytes (%) (Auto) 6 % (24-48) 10 % (24-48) Monocytes (%) (Auto) 3 % (0-9) 4 % (0-9) Eosinophils (%) (Auto) 0 % (0-3) 0 % (0-3) Basophils (%) (Auto) 0 % (0-3) 0 % (0-3) Neutrophils # (Auto) 11.0 x10^3uL (1.8-7.7) 8.6 x10^3uL (1.8-7.7) Lymphocytes # (Auto) 0.7 x10^3/uL (1.0-4.8) 0.9 x10^3/uL (1.0-4.8) Monocytes # (Auto) 0.4 x10^3/uL (0.0-1.1) 0.4 x10^3/uL (0.0-1.1) Eosinophils # (Auto) 0.0 x10^3/uL (0.0-0.7) 0.0 x10^3/uL (0.0-0.7) Basophils # (Auto) 0.0 x10^3/uL (0.0-0.2) 0.0 x10^3/uL (0.0-0.2) Sodium Level 144 mmol/L (136-145) 146 mmol/L (136-145) Potassium Level 4.0 mmol/L (3.5-5.1) 3.1 mmol/L (3.5-5.1) Chloride Level 108 mmol/L (98-107) 101 mmol/L (98-107) Carbon Dioxide Level 25 mmol/L (21-32) 31 mmol/L (21-32) Anion Gap 11 (6-14) 14 (6-14) Blood Urea Nitrogen 23 mg/dL (7-20) 21 mg/dL (7-20) Creatinine 1.1 mg/dL (0.6-1.0) 1.1 mg/dL (0.6-1.0) Estimated GFR (Cockcroft-Gault) 51.6 51.6 BUN/Creatinine Ratio 21 (6-20) 19 (6-20) Glucose Level 152 mg/dL (70-99) 165 mg/dL (70-99) Calcium Level 8.0 mg/dL (8.5-10.1) 8.3 mg/dL (8.5-10.1) Total Bilirubin 0.3 mg/dL (0.2-1.0) 0.4 mg/dL (0.2-1.0) Aspartate Amino Transf (AST/SGOT) 55 U/L (15-37) 43 U/L (15-37) Alanine Aminotransferase (ALT/SGPT) 65 U/L (14-59) 70 U/L (14-59) Alkaline Phosphatase 74 U/L (46-116) 74 U/L (46-116) Total Protein 6.3 g/dL (6.4-8.2) 6.6 g/dL (6.4-8.2) Albumin 2.9 g/dL (3.4-5.0) 3.0 g/dL (3.4-5.0) Albumin/Globulin Ratio 0.9 (1.0-1.7) 0.8 (1.0-1.7) Laboratory Tests Test 04/27/18 04:00 White Blood Count 9.9 x10^3/uL (4.0-11.0) Red Blood Count 3.43 x10^6/uL (3.50-5.40) Hemoglobin 11.1 g/dL (12.0-15.5) Hematocrit 34.1 % (36.0-47.0) Mean Corpuscular Volume 99 fL (79-100) Mean Corpuscular Hemoglobin 32 pg (25-35) Mean Corpuscular Hemoglobin Concent 33 g/dL (31-37) Red Cell Distribution Width 14.7 % (11.5-14.5) Platelet Count 152 x10^3/uL (140-400) Neutrophils (%) (Auto) 87 % (31-73) Lymphocytes (%) (Auto) 10 % (24-48) Monocytes (%) (Auto) 4 % (0-9) Eosinophils (%) (Auto) 0 % (0-3) Basophils (%) (Auto) 0 % (0-3) Neutrophils # (Auto) 8.6 x10^3uL (1.8-7.7) Lymphocytes # (Auto) 0.9 x10^3/uL (1.0-4.8) Monocytes # (Auto) 0.4 x10^3/uL (0.0-1.1) Eosinophils # (Auto) 0.0 x10^3/uL (0.0-0.7) Basophils # (Auto) 0.0 x10^3/uL (0.0-0.2) Sodium Level 146 mmol/L (136-145) Potassium Level 3.1 mmol/L (3.5-5.1) Chloride Level 101 mmol/L (98-107) Carbon Dioxide Level 31 mmol/L (21-32) Anion Gap 14 (6-14) Blood Urea Nitrogen 21 mg/dL (7-20) Creatinine 1.1 mg/dL (0.6-1.0) Estimated GFR (Cockcroft-Gault) 51.6 BUN/Creatinine Ratio 19 (6-20) Glucose Level 165 mg/dL (70-99) Calcium Level 8.3 mg/dL (8.5-10.1) Total Bilirubin 0.4 mg/dL (0.2-1.0) Aspartate Amino Transf (AST/SGOT) 43 U/L (15-37) Alanine Aminotransferase (ALT/SGPT) 70 U/L (14-59) Alkaline Phosphatase 74 U/L (46-116) Total Protein 6.6 g/dL (6.4-8.2) Albumin 3.0 g/dL (3.4-5.0) Albumin/Globulin Ratio 0.8 (1.0-1.7) Microbiology 04/23/18 Blood Culture - Preliminary, Resulted NO GROWTH AFTER 3 DAYS 04/24/18 - Final, Resulted 04/24/18 - Final, Resulted 04/24/18 - Final, Resulted 04/24/18 Gram Stain Evaluation - Final, Resulted 04/24/18 Sputum Culture - Preliminary, Resulted 04/24/18 Sputum Result 1 - Final, Resulted Medications Current Medications Albuterol/ Ipratropium (Duoneb) 3 ml 1X ONCE NEB Last administered on at 17:33; Start 04/23/18 at 17:15; Stop 04/23/18 at 17:20; Status DC Methylprednisolone Sodium Succinate (SOLU-Medrol 125MG VIAL) 125 mg 1X ONCE IV Last administered on 04/23/18at 17:38; Start 04/23/18 at 17:15; Stop 04/23/18 at 17:20; Status DC Sodium Chloride 1,000 ml @ 1,000 mls/hr 1X ONCE IV Last administered on at 17:37; Start 04/23/18 at 17:30; Stop 04/23/18 at 18:29; Status DC Ceftriaxone Sodium (Rocephin) 1 gm 1X ONCE IVP Last administered on 04/23/18 18:26; Start 04/23/18 at 18:15; Stop 04/23/18 at 18:16; Status DC Albuterol/ Ipratropium (Duoneb) 3 ml RTQID NEB Last administered on 04/24/18 06 :11; Start 04/23/18 at 20:00; Stop 04/24/18 at 09:27; Status DC Piperacillin Sod/ Tazobactam Sod 4.5 gm/Sodium Chloride 100 ml @ 200 mls/hr 1X ONCE IV Last administered on 04/23/18 19:11; Start 04/23/18 at 18:30; Stop 04/23/18 at 18:59; Status DC Vancomycin HCl 1.5 gm/Sodium Chloride 500 ml @ 250 mls/hr 1X ONCE IV Last administered on 04/23/18 19:35; Start 04/23/18 at 19:00; Stop 04/23/18 at 20:59; Status DC Levofloxacin/ Dextrose 100 ml @ 100 mls/hr 1X ONCE IV Last administered on 18:26; Start 04/23/18 at 18:15; Stop 04/23/18 at 19:14; Status DC Acetaminophen (Tylenol) 650 mg PRN Q6HRS PRN PO Headaches, Temp > 101.5' Last administered on 04/27/18at 10:39; Start 04/23/18 at 19:00 Lorazepam (Ativan) 0.5 mg PRN Q6HRS PRN IV ANXIETY / AGITATION Last administered on 04/24/18at 10:03; Start 04/23/18 at 19:00; Stop 04/24/18 at 13:16; Status DC Ondansetron HCl (Zofran) 4 mg PRN Q6HRS PRN IV NAUSEA/VOMITING Last administered on 04/25/18 01:29; Start 04/23/18 at 19:00 Info (Non-Icu Electrolyte Protocol) 1 ea CONT PRN PRN MC SEE COMMENTS; Start at 19:15 Enoxaparin Sodium (Lovenox 40mg Syringe) 40 mg Q24H SQ Last administered on 04/26at 21:01; Start 04/23/18 at 21:00 Sodium Chloride (Normal Saline Flush) 3 ml QSHIFT PRN IV AFTER MEDS AND BLOOD DRAWS; Start 04/23/18 at 19:00 Morphine Sulfate (Morphine Sulfate) 1 mg PRN Q1HR PRN IV SEVERE PAIN Last administered on 04/26/18 16:18; Start 04/23/18 at 19:00 Lactulose (Lactulose) 20 gm PRN Q12HR PRN PO CONSTIPATION; Start 04/23/18 at 19: 00 Bisacodyl (Dulcolax Supp) 10 mg PRN DAILY PRN [place] CONSTIPATION; Start 04/23/18 at 19:00 Atorvastatin Calcium (Lipitor) 20 mg QHS PO Last administered on 04/26/18 21:02 ; Start 04/23/18 at 21:00 Clonazepam (KlonoPIN) 0.25 mg PRN DAILY PRN PO ANXIETY / AGITATION Last administered on 04/25/18 05:45; Start 04/23/18 at 19:00 Gabapentin (Neurontin) 300 mg BID PO Last administered on 04/27/18 09:00; Start 04/23/18 at 21:00 Isosorbide Mononitrate (Imdur) 60 mg DAILY PO Last administered on 04/27/18 10: 42; Start 04/24/18 at 09:00 Metoprolol Tartrate (Lopressor) 50 mg BID PO Last administered on 04/27/18 10: 42; Start 04/23/18 at 21:00 Non-Formulary Medication (Albuterol Sulfate (Ventolin Hfa Inhaler)) 2 puff BID INH ; Start 04/23/18 at 21:00; Status UNV Non-Formulary Medication (Budesonide (Pulmicort Flexhaler)) 2 puff BID IH ; Start 04/23/18 at 21:00; Status UNV Buspirone HCl (Buspar) 15 mg BID PO Last administered on 04/25/18 08:59; Start 04/23/18 at 21:00; Stop 04/26/18 at 02:20; Status DC Non-Formulary Medication (Fluticasone/ Salmeterol (Advair 250-50 Diskus)) 1 inh BID IH ; Start 04/23/18 at 21:00; Status UNV Tamoxifen Citrate (Nolvadex) 20 mg DAILY PO Last administered on 04/27/18 10:40 ; Start 04/24/18 at 09:00 Venlafaxine HCl (Effexor) 75 mg TID PO Last administered on 04/25/18 20:54; Start 04/24/18 at 09:00; Stop 04/26/18 at 02:05; Status DC Piperacillin Sod/ Tazobactam Sod 4.5 gm/Sodium Chloride 100 ml @ 200 mls/hr Q6HRS IV Last administered on 04/27/18 06:11; Start 04/24/18 at 00:00 Budesonide (Pulmicort) 0.5 mg RTBID NEB Last administered on 04/27/18 08:24; Start 04/23/18 at 20:00 Albuterol Sulfate (Ventolin Neb Soln) 2.5 mg RTQID NEB Last administered on 04/23 21:04; Start 04/23/18 at 20:00; Stop 04/24/18 at 05:58; Status DC Lorazepam (Ativan) 0.5 mg 1X ONCE IV Last administered on 04/23/18 19:15; Start 04/23/18 at 19:15; Stop 04/23/18 at 19:16; Status DC Methylprednisolone Sodium Succinate (SOLU-Medrol 125MG VIAL) 125 mg Q8HRS IV Last administered on 04/27/18 06:11; Start 04/23/18 at 22:00; Stop 04/27/18 at 07: 32; Status DC Albuterol/ Ipratropium (Duoneb) 3 ml Q4HRS NEB ; Start 04/23/18 at 20:00; Stop at 05:58; Status DC Nicotine (Nicoderm Cq 14mg) 1 patch PRN DAILY PRN TD SMOKING CESSATION Last administered on 04/27/18at 10:45; Start 04/23/18 at 22:30 Tizanidine HCl (Zanaflex) 4 mg PRN Q8HRS PRN PO MUSCLE SPASMS; Start 04/23/18 at 22:30 Ketorolac Tromethamine (Toradol 30mg Vial) 30 mg 1X ONCE IV Last administered on 04/24/18at 00:20; Start 04/23/18 at 23:00; Stop 04/23/18 at 23:01; Status DC Ketorolac Tromethamine (Toradol 15mg Vial) 15 mg PRN Q8HRS PRN IV MODERATE PAIN ; Start 04/23/18 at 22:45; Stop 04/28/18 at 22:44 Albuterol Sulfate (Ventolin Neb Soln) 2.5 mg PRN Q4HRS PRN NEB WHEEZING; Start 04/24/18 at 06:00 Albuterol/ Ipratropium (Duoneb) 3 ml RTQID NEB Last administered on 04/26/18 20 :16; Start 04/24/18 at 08:00; Stop 04/27/18 at 07:32; Status DC Guaifenesin/ Codeine Phosphate (Robitussin Ac) 5 ml PRN Q6HRS PRN PO COUGH Last administered on 04/27/18 10:42; Start 04/24/18 at 12:15 Lorazepam (Ativan) 1 mg PRN Q6HRS PRN IV ANXIETY / AGITATION Last administered on 04/26/18 09:46; Start 04/24/18 at 13:30 Lactobacillus Rhamnosus (Culturelle) 1 cap BID PO Last administered on 10:43; Start 04/25/18 at 21:00 Temazepam (Restoril) 15 mg PRN QHS PRN PO INSOMNIA Last administered on 20:53; Start 04/25/18 at 20:00 Venlafaxine HCl (Effexor Xr) 225 mg DAILY PO Last administered on 04/27/18 10: 43; Start 04/26/18 at 09:00 Furosemide (Lasix) 40 mg 1X ONCE PO Last administered on 04/26/18 17:56; Start 04/26/18 at 17:30; Stop 04/26/18 at 17:31; Status DC Aspirin (Ecotrin) 81 mg DAILYWBKFT PO Last administered on 04/27/18 10:41; Start 04/26/18 at 17:30 Albuterol/ Ipratropium (Duoneb) 3 ml Q4HRS NEB Last administered on 04/27/18 08 :24; Start 04/27/18 at 08:00 Methylprednisolone Sodium Succinate (SOLU-Medrol 125MG VIAL) 80 mg Q8HRS IV ; Start 04/27/18 at 14:00 Montelukast Sodium (Singulair) 10 mg QHS PO ; Start 04/27/18 at 21:00 Potassium Chloride (Klor-Con) 40 meq 1X ONCE PO Last administered on 04/27/18at 10:53; Start 04/27/18 at 10:45; Stop 04/27/18 at 10:48; Status DC Acetaminophen/ Hydrocodone Bitart (Lortab 5/325) 1 tab PRN Q4HRS PRN PO MODERATE PAIN Last administered on 04/27/18at 10:54; Start 04/27/18 at 10:45 Active Scripts Active Azithromycin Tablet (Azithromycin) 500 Mg Tablet 500 Mg PO DAILY 5 Days Pulmicort Flexhaler (Budesonide) 180 Mcg Aer.pow.ba 2 Puff IH BID Metoprolol Tartrate 50 Mg Tablet 50 Mg PO BID 30 Days Isosorbide Mononitrate Er (Isosorbide Mononitrate) 30 Mg Tab.er.24h 60 Mg PO DAILY 30 Days Atorvastatin Calcium 20 Mg Tablet 20 Mg PO QHS 30 Days Advair 250-50 Diskus (Fluticasone/Salmeterol) 1 Each Disk.w.dev 1 Inh IH BID 30 Days Reported Prednisone (Prednisone) 10 Mg Tablet 10 Mg PO UD Take 4 tablets (40 mg) by mouth for 2 days, then take 2 tablets (20 mg) by mouth for 2 days, then take 1 tablet (10 mg) by mouth for 2 days, then take 1/2 tablet( 5 mg) by mouth x 1 day, then stop. Venlafaxine Hcl Er (Venlafaxine Hcl) 225 Mg Tab.er.24 225 Mg PO DAILY NICODERM CQ 21mg (Nicotine) 1 Each Patch.td24 1 Patch TP DAILY Do not smoke while wearing the patch Cyanocobalamin Injection (Cyanocobalamin (Vitamin B-12)) 1,000 Mcg/1 Ml Vial 1 Ml IM QMONTH Clonazepam 0.5 Mg Tablet 0.5 Tab PO DAILY PRN Ventolin Hfa Inhaler (Albuterol Sulfate) 18 Gm Hfa.aer.ad 2 Puff INH BID Acetaminophen 500 Mg Tablet 1 Tab PO PRN Q6HRS PRN Gabapentin (Gabapentin) 300 Mg Capsule 300 Mg PO BID Buspirone Hcl 15 Mg Tablet 15 Mg PO BID Aspirin 325 Mg Tablet 1 Tab PO DAILY Tamoxifen Citrate 20 Mg Tablet 20 Mg PO DAILY Vitals/I & O Vital Sign - Last 24 Hours 04/26/18 04/26/18 04/26/18 04/26/18 11:07 15:00 16:05 16:18 Temp 97.9 97.9 Pulse 75 Resp B/P (MAP) 145/83 (103) Pulse Ox 99 94 96 O2 Delivery Nasal Cannula Nasal Cannula Nasal Cannula Room Air O2 Flow Rate 5.0 5.0 5.0 04/26/18 04/26/18 04/26/18 04/26/18 16:48 19:10 19:35 21:02 Temp 98.8 98.8 Pulse 79 79 Resp 24 B/P (MAP) 150/77 (101) 150/77 Pulse Ox 95 O2 Delivery Nasal Cannula Nasal Cannula Nasal Cannula O2 Flow Rate 4.0 4.0 04/26/18 04/27/18 04/27/18 04/27/18 23:21 03:12 07:00 08:26 Temp 98.3 98.0 98.5 98.3 98.0 98.5 Pulse 76 66 69 Resp 18 18 B/P (MAP) 154/76 (102) 150/83 (105) 168/81 (110) Pulse Ox 100 93 99 99 O2 Delivery Nasal Cannula Nasal Cannula Nasal Cannula Nasal Cannula O2 Flow Rate 4.0 4.0 5.0 5.0 04/27/18 04/27/18 04/27/18 04/27/18 10:42 10:42 10:48 10:54 Temp 98.5 98.5 Pulse 69 69 81 Resp 18 B/P (MAP) 168/81 168/81 181/87 (118) Pulse Ox 97 O2 Delivery Nasal Cannula Nasal Cannula O2 Flow Rate 5.0 5.0 Intake and Output 04/26/18 04/26/18 04/27/18 14:59 22:59 06:59 Intake Total 300 ml 360 ml Output Total 1500 ml Balance 300 ml -1140 ml MELA FITZGERALD III DO Apr 27, 2018 11:11
--- NOTE | 2018-04-27 11:14 | PDOC ---
CARDIOLOGY PROGRESS NOTE SUBJECTIVE: No new events. Continues to have difficulty breathing. BP suboptimally controlled. OBJECTIVE: Vital SIgns: Vital Signs Date Time Temp Pulse Resp B/P (MAP) Pulse Ox O2 Delivery O2 Flow Rate FiO2 04/27/18 10:54 18 Nasal Cannula 5.0 04/27/18 10:48 98.5 81 181/87 (118) 97 98.5 I & O -840 ml Objective: Bilateral wheezing. No significant edema. heart tones normal no neurologic deficits. CURRENT MEDICATIONS: Meds reviewed: ASA, imdur, metoprolol and Atorvastatin DIAGNOSTIC TESTING: No new testing ASSESSMENT: 1. Acute on chronic resp failure - multifactorial. 2. HTN 3. NICM PLAN: 1. Will add lisinopril for better BP control. 2. Hold diuresis today. Will follow along. Thanks. BABAK CALLAHAN MD Apr 27, 2018 11:14
[2018-04-27] MEDS ORDERED: LISINOPRIL 10 MG TABLET PO ONE (11:15)
[2018-04-27 16:10] VITALS: BP 174/85
[2018-04-27] MEDS ORDERED: CALCIUM CARBONATE 500 MG TAB.CHEW PO PRN (19:45)
[2018-04-27] MEDS: ATORVASTATIN CALCIUM 20 MG TABLET PO SCH (20:58)
[2018-04-27] MEDS: MONTELUKAST SODIUM 10 MG TABLET. PO SCH (20:58)
[2018-04-27] MEDS: tiZANidine 4 MG TABLET. PO PRN (20:59)
[2018-04-27] MEDS: ENOXAPARIN 40 MG/0.4 ML SYRINGE. SQ SCH (21:00)
[2018-04-27 22:51] VITALS: BP 151/83
[2018-04-28] VITALS (7 sets, daily range): BP systolic 143–182; BP diastolic 78–96
[2018-04-28] MEDS: IPRATRPIUM/ALBUTEROL 0.5/2.5MG 3 ML NEBU. NEB SCH ×6 (04:08→23:38)
[2018-04-28 05:43] LABS: BASO % 0 % (0-3); EOS % 0 % (0-3); HEMATOCRIT 34.1 % (36.0-47.0); HEMOGLOBIN 11.4 g/dL (12.0-15.5); LYMPH # 0.8 x10^3/uL (1.0-4.8); LYMPH % 12 % (24-48); MEAN CORPUSCULAR HEMOGLOBIN 33 pg (25-35); MEAN CORPUSCULAR HGB CONC 33 g/dL (31-37); MEAN CORPUSCULAR VOLUME 99 fL (79-100); MONO # 0.4 x10^3/uL (0.0-1.1); MONO % 7 % (0-9); NEUT # 5.5 x10^3uL (1.8-7.7); NEUT % 81 % (31-73); PLATELET COUNT 144 x10^3/uL (140-400); RED BLOOD COUNT 3.45 x10^6/uL (3.50-5.40); RED CELL DISTRIBUTION WIDTH 13.9 % (11.5-14.5); WHITE BLOOD COUNT 6.8 x10^3/uL (4.0-11.0)
[2018-04-28] MEDS: PIPERACILLIN/TAZOBACTAM 4.5 GM in IV NORMAL SALINE 100ML 100 ML IV SCH ×3 (05:49→17:01)
[2018-04-28] MEDS: methylPREDNISolone SOD SUCC PF 125 MG/2 ML VIAL. IV SCH (05:49)
[2018-04-28 06:16] LABS: ALBUMIN 2.9 g/dL (3.4-5.0); ALBUMIN/GLOBULIN RATIO 0.9 (1.0-1.7); CALCIUM 8.5 mg/dL (8.5-10.1); CREATININE 0.9 mg/dL (0.6-1.0); POTASSIUM 3.6 mmol/L (3.5-5.1); TOTAL BILIRUBIN 0.4 mg/dL (0.2-1.0); TOTAL PROTEIN 6.3 g/dL (6.4-8.2)
[2018-04-28] MEDS: LACTOBACILLUS RHAMNOSUS GG 1 CAPSULE. PO SCH (08:22)
[2018-04-28] MEDS: ASPIRIN ENTERIC COATED 81 MG TABLET.DR. PO SCH (08:22)
[2018-04-28] MEDS: VENLAFAXINE XR 37.5 MG CAP.ER.24H. PO SCH (08:22)
--- NOTE | 2018-04-28 08:22 | PDOC ---
PULMONARY PROGRESS NOTES Subjective sob, cough, better, no pain Vitals Vital Signs Date Time Temp Pulse Resp B/P (MAP) Pulse Ox O2 Delivery O2 Flow Rate FiO2 04/28/18 07:00 98.5 73 24 153/88 (109) 97 Nasal Cannula 4.0 98.5 ROS: No Nausea, No Chest Pain, No Abdominal Pain General: Alert HEENT: Other (nc at perrl nose throat clear) Lungs: Other (better air movement, a few end exp wheezing) Cardiovascular: S1, S2 Abdomen: Soft, Non-tender Extremities: No Edema Skin: Warm Labs Laboratory Tests Test 04/27/18 04:00 04/28/18 05:00 White Blood Count 9.9 x10^3/uL (4.0-11.0) 6.8 x10^3/uL (4.0-11.0) Red Blood Count 3.43 x10^6/uL (3.50-5.40) 3.45 x10^6/uL (3.50-5.40) Hemoglobin 11.1 g/dL (12.0-15.5) 11.4 g/dL (12.0-15.5) Hematocrit 34.1 % (36.0-47.0) 34.1 % (36.0-47.0) Mean Corpuscular Volume 99 fL (79-100) 99 fL (79-100) Mean Corpuscular Hemoglobin 32 pg (25-35) 33 pg (25-35) Mean Corpuscular Hemoglobin Concent 33 g/dL (31-37) 33 g/dL (31-37) Red Cell Distribution Width 14.7 % (11.5-14.5) 13.9 % (11.5-14.5) Platelet Count 152 x10^3/uL (140-400) 144 x10^3/uL (140-400) Neutrophils (%) (Auto) 87 % (31-73) 81 % (31-73) Lymphocytes (%) (Auto) 10 % (24-48) 12 % (24-48) Monocytes (%) (Auto) 4 % (0-9) 7 % (0-9) Eosinophils (%) (Auto) 0 % (0-3) 0 % (0-3) Basophils (%) (Auto) 0 % (0-3) 0 % (0-3) Neutrophils # (Auto) 8.6 x10^3uL (1.8-7.7) 5.5 x10^3uL (1.8-7.7) Lymphocytes # (Auto) 0.9 x10^3/uL (1.0-4.8) 0.8 x10^3/uL (1.0-4.8) Monocytes # (Auto) 0.4 x10^3/uL (0.0-1.1) 0.4 x10^3/uL (0.0-1.1) Eosinophils # (Auto) 0.0 x10^3/uL (0.0-0.7) 0.0 x10^3/uL (0.0-0.7) Basophils # (Auto) 0.0 x10^3/uL (0.0-0.2) 0.0 x10^3/uL (0.0-0.2) Sodium Level 146 mmol/L (136-145) 146 mmol/L (136-145) Potassium Level 3.1 mmol/L (3.5-5.1) 3.6 mmol/L (3.5-5.1) Chloride Level 101 mmol/L (98-107) 105 mmol/L (98-107) Carbon Dioxide Level 31 mmol/L (21-32) 32 mmol/L (21-32) Anion Gap 14 (6-14) 9 (6-14) Blood Urea Nitrogen 21 mg/dL (7-20) 22 mg/dL (7-20) Creatinine 1.1 mg/dL (0.6-1.0) 0.9 mg/dL (0.6-1.0) Estimated GFR (Cockcroft-Gault) 51.6 65.0 BUN/Creatinine Ratio 19 (6-20) 24 (6-20) Glucose Level 165 mg/dL (70-99) 137 mg/dL (70-99) Calcium Level 8.3 mg/dL (8.5-10.1) 8.5 mg/dL (8.5-10.1) Total Bilirubin 0.4 mg/dL (0.2-1.0) 0.4 mg/dL (0.2-1.0) Aspartate Amino Transf (AST/SGOT) 43 U/L (15-37) 30 U/L (15-37) Alanine Aminotransferase (ALT/SGPT) 70 U/L (14-59) 65 U/L (14-59) Alkaline Phosphatase 74 U/L (46-116) 67 U/L (46-116) Total Protein 6.6 g/dL (6.4-8.2) 6.3 g/dL (6.4-8.2) Albumin 3.0 g/dL (3.4-5.0) 2.9 g/dL (3.4-5.0) Albumin/Globulin Ratio 0.8 (1.0-1.7) 0.9 (1.0-1.7) Laboratory Tests Test 04/28/18 05:00 White Blood Count 6.8 x10^3/uL (4.0-11.0) Red Blood Count 3.45 x10^6/uL (3.50-5.40) Hemoglobin 11.4 g/dL (12.0-15.5) Hematocrit 34.1 % (36.0-47.0) Mean Corpuscular Volume 99 fL (79-100) Mean Corpuscular Hemoglobin 33 pg (25-35) Mean Corpuscular Hemoglobin Concent 33 g/dL (31-37) Red Cell Distribution Width 13.9 % (11.5-14.5) Platelet Count 144 x10^3/uL (140-400) Neutrophils (%) (Auto) 81 % (31-73) Lymphocytes (%) (Auto) 12 % (24-48) Monocytes (%) (Auto) 7 % (0-9) Eosinophils (%) (Auto) 0 % (0-3) Basophils (%) (Auto) 0 % (0-3) Neutrophils # (Auto) 5.5 x10^3uL (1.8-7.7) Lymphocytes # (Auto) 0.8 x10^3/uL (1.0-4.8) Monocytes # (Auto) 0.4 x10^3/uL (0.0-1.1) Eosinophils # (Auto) 0.0 x10^3/uL (0.0-0.7) Basophils # (Auto) 0.0 x10^3/uL (0.0-0.2) Sodium Level 146 mmol/L (136-145) Potassium Level 3.6 mmol/L (3.5-5.1) Chloride Level 105 mmol/L (98-107) Carbon Dioxide Level 32 mmol/L (21-32) Anion Gap 9 (6-14) Blood Urea Nitrogen 22 mg/dL (7-20) Creatinine 0.9 mg/dL (0.6-1.0) Estimated GFR (Cockcroft-Gault) 65.0 BUN/Creatinine Ratio 24 (6-20) Glucose Level 137 mg/dL (70-99) Calcium Level 8.5 mg/dL (8.5-10.1) Total Bilirubin 0.4 mg/dL (0.2-1.0) Aspartate Amino Transf (AST/SGOT) 30 U/L (15-37) Alanine Aminotransferase (ALT/SGPT) 65 U/L (14-59) Alkaline Phosphatase 67 U/L (46-116) Total Protein 6.3 g/dL (6.4-8.2) Albumin 2.9 g/dL (3.4-5.0) Albumin/Globulin Ratio 0.9 (1.0-1.7) Medications Active Scripts Medications Dose Route/Sig Max Daily Dose Days Date Category Dose Instructions Prednisone (Prednisone) 10 Mg Tablet 10 Mg PO UD 01/13/17 Reported Take 4 tablets (40 mg) by mouth for 2 days, then take 2 tablets (20 mg) by mouth for 2 days, then take 1 tablet (10 mg) by mouth for 2 days, then take 1/2 tablet( 5 mg) by mouth x 1 day, then stop. Azithromycin Tablet (Azithromycin) 500 Mg Tablet 500 Mg PO DAILY 5 01/13/17 Rx Pulmicort Flexhaler (Budesonide) 180 Mcg Aer.pow.ba 2 Puff IH BID 01/13/17 Rx Venlafaxine Hcl Er (Venlafaxine Hcl) 225 Mg Tab.er.24 225 Mg PO DAILY 01/10/17 Reported NICODERM CQ 21mg (Nicotine) 1 Each Patch.td24 1 Patch TP DAILY 01/10/17 Reported Do not smoke while wearing the patch Cyanocobalamin Injection (Cyanocobalamin (Vitamin B-12)) 1,000 Mcg/1 Ml Vial 1 Ml IM QMONTH 01/10/17 Reported Clonazepam 0.5 Mg Tablet 0.5 Tab PO DAILY PRN 01/10/17 Reported Ventolin Hfa Inhaler (Albuterol Sulfate) 18 Gm Hfa.aer.ad 2 Puff INH BID 01/10/17 Reported Acetaminophen 500 Mg Tablet 1 Tab PO PRN Q6HRS PRN 01/10/17 Reported Metoprolol Tartrate 50 Mg Tablet 50 Mg PO BID 30 09/23/16 Rx Isosorbide Mononitrate Er (Isosorbide Mononitrate) 30 Mg Tab.er.24h 60 Mg PO DAILY 30 09/23/16 Rx Atorvastatin Calcium 20 Mg Tablet 20 Mg PO QHS 30 09/23/16 Rx Advair 250-50 Diskus (Fluticasone/Salmeterol) 1 Each Disk.w.dev 1 Inh IH BID 09/23/16 Rx Gabapentin (Gabapentin) 300 Mg Capsule 300 Mg PO BID 09/12/16 Reported Buspirone Hcl 15 Mg Tablet 15 Mg PO BID 09/12/16 Reported Aspirin 325 Mg Tablet 1 Tab PO DAILY 03/16/14 Reported Tamoxifen Citrate 20 Mg Tablet 20 Mg PO DAILY 06/24/13 Reported Comments cxr reviewed, Improving interstitial pulmonary opacities. Impression . IMPRESSION: 1. Acute respiratory failure. 2. Abnormal x-ray compatible with viral pneumonia, possibly acute on chronic heart failure. 3. Cardiomyopathy, ejection fraction 45% 4. Tobacco dependence. 5. History of breast cancer. 6. Prior admission for respiratory failure. 7. Abnormal x-ray compatible with viral pneumonia versus congestive heart failure. ECHO <Conclusion> Left ventricle systolic function is mildly impaired. The Ejection Fraction is 45 -50%. There is mild global hypokinesis. Plan . 1. cont antibiotics, steroid, change solumedrol to 40 q 8hrs, cont BD to q 4hrs, cont ICS, cont singulair 2. CXR , reviewed, Improving interstitial pulmonary opacities. 3. lovenox for dvt prophylaxis 4. follow Cardiology recommendations 5. A 6-minute walk prior to discharge. 6. yeast in sputum, suspect brigida, suspect contaminant, no need for tx discussed w pt, dr robert GAYTAN,ABBIE THORNTON Apr 28, 2018 08:21
[2018-04-28] MEDS: METOPROLOL TART IMMED RELEASE 50 MG TABLET. PO SCH (08:23)
[2018-04-28] MEDS: ISOSORBIDE MONONITRATE ER 30 MG TAB.ER.24H PO SCH (08:23)
[2018-04-28] MEDS: GABAPENTIN 300 MG CAPSULE. PO SCH ×2 (08:24→21:29)
[2018-04-28] MEDS: TAMOXIFEN 10 MG TABLET PO SCH (08:25)
[2018-04-28] MEDS: LISINOPRIL 20 MG TABLET PO SCH (08:25)
[2018-04-28] MEDS: BUDESONIDE 0.5 MG/2 ML NEBU. NEB SCH ×2 (08:46→20:33)
--- NOTE | 2018-04-28 10:53 | PDOC ---
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 Wood presented to the ED with worsening shortness of breath and nonproductive cough. She has a history of COPD. CXR (04/23) showed increasing bilateral opacity, likely HCAP. Patient seen and examined at bedside. Patient is improving, denies shortness of breath, mild nonproductive cough. Patient O2Sat at 97% on 4L per N/C. Receiving steroids and duoNebs and antibiotics. Pulmonology and Cards following. Vitals Vitals Vital Signs Date Time Temp Pulse Resp B/P (MAP) Pulse Ox O2 Delivery O2 Flow Rate FiO2 04/28/18 08:47 91 Room Air 04/28/18 08:25 70 153/88 04/28/18 07:30 4.0 04/28/18 07:00 98.5 24 98.5 Physical Exam General: Alert, Oriented X3, Cooperative, No acute distress Heart: Regular rate, Normal S1, Normal S2 Lungs: Other (better air movement, a few end exp wheezing) Abdomen: Soft, No tenderness Extremities: No clubbing, No cyanosis, No edema, Normal pulses Skin: No rashes, No significant lesion, Other (mild thrush on tongue) Labs LABS Laboratory Tests Test 04/28/18 05:00 White Blood Count 6.8 x10^3/uL (4.0-11.0) Red Blood Count 3.45 x10^6/uL (3.50-5.40) Hemoglobin 11.4 g/dL (12.0-15.5) Hematocrit 34.1 % (36.0-47.0) Mean Corpuscular Volume 99 fL (79-100) Mean Corpuscular Hemoglobin 33 pg (25-35) Mean Corpuscular Hemoglobin Concent 33 g/dL (31-37) Red Cell Distribution Width 13.9 % (11.5-14.5) Platelet Count 144 x10^3/uL (140-400) Neutrophils (%) (Auto) 81 % (31-73) Lymphocytes (%) (Auto) 12 % (24-48) Monocytes (%) (Auto) 7 % (0-9) Eosinophils (%) (Auto) 0 % (0-3) Basophils (%) (Auto) 0 % (0-3) Neutrophils # (Auto) 5.5 x10^3uL (1.8-7.7) Lymphocytes # (Auto) 0.8 x10^3/uL (1.0-4.8) Monocytes # (Auto) 0.4 x10^3/uL (0.0-1.1) Eosinophils # (Auto) 0.0 x10^3/uL (0.0-0.7) Basophils # (Auto) 0.0 x10^3/uL (0.0-0.2) Sodium Level 146 mmol/L (136-145) Potassium Level 3.6 mmol/L (3.5-5.1) Chloride Level 105 mmol/L (98-107) Carbon Dioxide Level 32 mmol/L (21-32) Anion Gap 9 (6-14) Blood Urea Nitrogen 22 mg/dL (7-20) Creatinine 0.9 mg/dL (0.6-1.0) Estimated GFR (Cockcroft-Gault) 65.0 BUN/Creatinine Ratio 24 (6-20) Glucose Level 137 mg/dL (70-99) Calcium Level 8.5 mg/dL (8.5-10.1) Total Bilirubin 0.4 mg/dL (0.2-1.0) Aspartate Amino Transf (AST/SGOT) 30 U/L (15-37) Alanine Aminotransferase (ALT/SGPT) 65 U/L (14-59) Alkaline Phosphatase 67 U/L (46-116) Total Protein 6.3 g/dL (6.4-8.2) Albumin 2.9 g/dL (3.4-5.0) Albumin/Globulin Ratio 0.9 (1.0-1.7) Review of Systems Review of Systems Denies shortness of breath Denies chest pain Denies fever Denies chills Assessment and Plan Assessmemt and Plan Problems Medical Problems: (1) Acute respiratory distress Status: Acute (2) Anxiety Status: Acute (3) History of left breast cancer Status: Acute (4) Hypoxia Status: Acute (5) Severe sepsis Status: Acute (6) Tachycardia Status: Acute (7) Tobacco abuse Status: Acute (8) Tobacco abuse counseling Status: Acute Assessment: Bilateral basilar opacity likely secondary to pneumonia (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) Leukocytosis - likely 2/2 infection vs steroids, trending down Mild thrush - treated with clotrimazole, sputum + for yeast likely contaminant History of COPD, smoker History of respiratory failure History of cardiac arrest History of breast cancer status post resection History of hypertension and dyslipidemia Plan: Appreciate pulmonology input Mild thrush seen on exam, started on clotrimazole bid Monitor respiratory status Continue zosyn Continue duoNeb and steroids Review labs tomorrow am, white count trending down Discharge disposition pending, possible discharge tomorrow Comment Review of Relevant I have reviewed the following items jerrod (where applicable) has been applied. Labs Laboratory Tests Test 04/27/18 04:00 04/28/18 05:00 White Blood Count 9.9 x10^3/uL (4.0-11.0) 6.8 x10^3/uL (4.0-11.0) Red Blood Count 3.43 x10^6/uL (3.50-5.40) 3.45 x10^6/uL (3.50-5.40) Hemoglobin 11.1 g/dL (12.0-15.5) 11.4 g/dL (12.0-15.5) Hematocrit 34.1 % (36.0-47.0) 34.1 % (36.0-47.0) Mean Corpuscular Volume 99 fL (79-100) 99 fL (79-100) Mean Corpuscular Hemoglobin 32 pg (25-35) 33 pg (25-35) Mean Corpuscular Hemoglobin Concent 33 g/dL (31-37) 33 g/dL (31-37) Red Cell Distribution Width 14.7 % (11.5-14.5) 13.9 % (11.5-14.5) Platelet Count 152 x10^3/uL (140-400) 144 x10^3/uL (140-400) Neutrophils (%) (Auto) 87 % (31-73) 81 % (31-73) Lymphocytes (%) (Auto) 10 % (24-48) 12 % (24-48) Monocytes (%) (Auto) 4 % (0-9) 7 % (0-9) Eosinophils (%) (Auto) 0 % (0-3) 0 % (0-3) Basophils (%) (Auto) 0 % (0-3) 0 % (0-3) Neutrophils # (Auto) 8.6 x10^3uL (1.8-7.7) 5.5 x10^3uL (1.8-7.7) Lymphocytes # (Auto) 0.9 x10^3/uL (1.0-4.8) 0.8 x10^3/uL (1.0-4.8) Monocytes # (Auto) 0.4 x10^3/uL (0.0-1.1) 0.4 x10^3/uL (0.0-1.1) Eosinophils # (Auto) 0.0 x10^3/uL (0.0-0.7) 0.0 x10^3/uL (0.0-0.7) Basophils # (Auto) 0.0 x10^3/uL (0.0-0.2) 0.0 x10^3/uL (0.0-0.2) Sodium Level 146 mmol/L (136-145) 146 mmol/L (136-145) Potassium Level 3.1 mmol/L (3.5-5.1) 3.6 mmol/L (3.5-5.1) Chloride Level 101 mmol/L (98-107) 105 mmol/L (98-107) Carbon Dioxide Level 31 mmol/L (21-32) 32 mmol/L (21-32) Anion Gap 14 (6-14) 9 (6-14) Blood Urea Nitrogen 21 mg/dL (7-20) 22 mg/dL (7-20) Creatinine 1.1 mg/dL (0.6-1.0) 0.9 mg/dL (0.6-1.0) Estimated GFR (Cockcroft-Gault) 51.6 65.0 BUN/Creatinine Ratio 19 (6-20) 24 (6-20) Glucose Level 165 mg/dL (70-99) 137 mg/dL (70-99) Calcium Level 8.3 mg/dL (8.5-10.1) 8.5 mg/dL (8.5-10.1) Total Bilirubin 0.4 mg/dL (0.2-1.0) 0.4 mg/dL (0.2-1.0) Aspartate Amino Transf (AST/SGOT) 43 U/L (15-37) 30 U/L (15-37) Alanine Aminotransferase (ALT/SGPT) 70 U/L (14-59) 65 U/L (14-59) Alkaline Phosphatase 74 U/L (46-116) 67 U/L (46-116) Total Protein 6.6 g/dL (6.4-8.2) 6.3 g/dL (6.4-8.2) Albumin 3.0 g/dL (3.4-5.0) 2.9 g/dL (3.4-5.0) Albumin/Globulin Ratio 0.8 (1.0-1.7) 0.9 (1.0-1.7) Laboratory Tests Test 04/28/18 05:00 White Blood Count 6.8 x10^3/uL (4.0-11.0) Red Blood Count 3.45 x10^6/uL (3.50-5.40) Hemoglobin 11.4 g/dL (12.0-15.5) Hematocrit 34.1 % (36.0-47.0) Mean Corpuscular Volume 99 fL (79-100) Mean Corpuscular Hemoglobin 33 pg (25-35) Mean Corpuscular Hemoglobin Concent 33 g/dL (31-37) Red Cell Distribution Width 13.9 % (11.5-14.5) Platelet Count 144 x10^3/uL (140-400) Neutrophils (%) (Auto) 81 % (31-73) Lymphocytes (%) (Auto) 12 % (24-48) Monocytes (%) (Auto) 7 % (0-9) Eosinophils (%) (Auto) 0 % (0-3) Basophils (%) (Auto) 0 % (0-3) Neutrophils # (Auto) 5.5 x10^3uL (1.8-7.7) Lymphocytes # (Auto) 0.8 x10^3/uL (1.0-4.8) Monocytes # (Auto) 0.4 x10^3/uL (0.0-1.1) Eosinophils # (Auto) 0.0 x10^3/uL (0.0-0.7) Basophils # (Auto) 0.0 x10^3/uL (0.0-0.2) Sodium Level 146 mmol/L (136-145) Potassium Level 3.6 mmol/L (3.5-5.1) Chloride Level 105 mmol/L (98-107) Carbon Dioxide Level 32 mmol/L (21-32) Anion Gap 9 (6-14) Blood Urea Nitrogen 22 mg/dL (7-20) Creatinine 0.9 mg/dL (0.6-1.0) Estimated GFR (Cockcroft-Gault) 65.0 BUN/Creatinine Ratio 24 (6-20) Glucose Level 137 mg/dL (70-99) Calcium Level 8.5 mg/dL (8.5-10.1) Total Bilirubin 0.4 mg/dL (0.2-1.0) Aspartate Amino Transf (AST/SGOT) 30 U/L (15-37) Alanine Aminotransferase (ALT/SGPT) 65 U/L (14-59) Alkaline Phosphatase 67 U/L (46-116) Total Protein 6.3 g/dL (6.4-8.2) Albumin 2.9 g/dL (3.4-5.0) Albumin/Globulin Ratio 0.9 (1.0-1.7) Microbiology 04/23/18 Blood Culture - Preliminary, Resulted NO GROWTH AFTER 4 DAYS 04/24/18 - Final, Complete 04/24/18 - Final, Complete 04/24/18 - Final, Complete 04/24/18 Gram Stain Evaluation - Final, Complete 04/24/18 Sputum Culture - Final, Complete 04/24/18 Sputum Result 1 - Final, Complete 04/24/18 Sputum Result 2 - Final, Complete Medications Current Medications Albuterol/ Ipratropium (Duoneb) 3 ml 1X ONCE NEB Last administered on at 17:33; Start 04/23/18 at 17:15; Stop 04/23/18 at 17:20; Status DC Methylprednisolone Sodium Succinate (SOLU-Medrol 125MG VIAL) 125 mg 1X ONCE IV Last administered on 04/23/18at 17:38; Start 04/23/18 at 17:15; Stop 04/23/18 at 17:20; Status DC Sodium Chloride 1,000 ml @ 1,000 mls/hr 1X ONCE IV Last administered on 17:37; Start 04/23/18 at 17:30; Stop 04/23/18 at 18:29; Status DC Ceftriaxone Sodium (Rocephin) 1 gm 1X ONCE IVP Last administered on 04/23/18 18:26; Start 04/23/18 at 18:15; Stop 04/23/18 at 18:16; Status DC Albuterol/ Ipratropium (Duoneb) 3 ml RTQID NEB Last administered on 04/24/18 06 :11; Start 04/23/18 at 20:00; Stop 04/24/18 at 09:27; Status DC Piperacillin Sod/ Tazobactam Sod 4.5 gm/Sodium Chloride 100 ml @ 200 mls/hr 1X ONCE IV Last administered on 04/23/18 19:11; Start 04/23/18 at 18:30; Stop 04/23/18 at 18:59; Status DC Vancomycin HCl 1.5 gm/Sodium Chloride 500 ml @ 250 mls/hr 1X ONCE IV Last administered on 04/23/18 19:35; Start 04/23/18 at 19:00; Stop 04/23/18 at 20:59; Status DC Levofloxacin/ Dextrose 100 ml @ 100 mls/hr 1X ONCE IV Last administered on 18:26; Start 04/23/18 at 18:15; Stop 04/23/18 at 19:14; Status DC Acetaminophen (Tylenol) 650 mg PRN Q6HRS PRN PO Headaches, Temp > 101.5' Last administered on 04/27/18at 10:39; Start 04/23/18 at 19:00 Lorazepam (Ativan) 0.5 mg PRN Q6HRS PRN IV ANXIETY / AGITATION Last administered on 04/24/18 10:03; Start 04/23/18 at 19:00; Stop 04/24/18 at 13:16; Status DC Ondansetron HCl (Zofran) 4 mg PRN Q6HRS PRN IV NAUSEA/VOMITING Last administered on 04/25/18 01:29; Start 04/23/18 at 19:00 Info (Non-Icu Electrolyte Protocol) 1 ea CONT PRN PRN MC SEE COMMENTS; Start at 19:15 Enoxaparin Sodium (Lovenox 40mg Syringe) 40 mg Q24H SQ Last administered on 04/27 21:00; Start 04/23/18 at 21:00 Sodium Chloride (Normal Saline Flush) 3 ml QSHIFT PRN IV AFTER MEDS AND BLOOD DRAWS; Start 04/23/18 at 19:00 Morphine Sulfate (Morphine Sulfate) 1 mg PRN Q1HR PRN IV SEVERE PAIN Last administered on 04/26/18 16:18; Start 04/23/18 at 19:00 Lactulose (Lactulose) 20 gm PRN Q12HR PRN PO CONSTIPATION; Start 04/23/18 at 19: 00 Bisacodyl (Dulcolax Supp) 10 mg PRN DAILY PRN [place] CONSTIPATION; Start 04/23/18 at 19:00 Atorvastatin Calcium (Lipitor) 20 mg QHS PO Last administered on 04/27/18 20:58 ; Start 04/23/18 at 21:00 Clonazepam (KlonoPIN) 0.25 mg PRN DAILY PRN PO ANXIETY / AGITATION Last administered on 04/25/18 05:45; Start 04/23/18 at 19:00 Gabapentin (Neurontin) 300 mg BID PO Last administered on 04/28/18 08:24; Start 04/23/18 at 21:00 Isosorbide Mononitrate (Imdur) 60 mg DAILY PO Last administered on 04/28/18 08 :23; Start 04/24/18 at 09:00 Metoprolol Tartrate (Lopressor) 50 mg BID PO Last administered on 04/28/18 08: 23; Start 04/23/18 at 21:00 Non-Formulary Medication (Albuterol Sulfate (Ventolin Hfa Inhaler)) 2 puff BID INH ; Start 04/23/18 at 21:00; Status UNV Non-Formulary Medication (Budesonide (Pulmicort Flexhaler)) 2 puff BID IH ; Start 04/23/18 at 21:00; Status UNV Buspirone HCl (Buspar) 15 mg BID PO Last administered on 04/25/18 08:59; Start 04/23/18 at 21:00; Stop 04/26/18 at 02:20; Status DC Non-Formulary Medication (Fluticasone/ Salmeterol (Advair 250-50 Diskus)) 1 inh BID IH ; Start 04/23/18 at 21:00; Status UNV Tamoxifen Citrate (Nolvadex) 20 mg DAILY PO Last administered on 04/28/18at 08: 25; Start 04/24/18 at 09:00 Venlafaxine HCl (Effexor) 75 mg TID PO Last administered on 04/25/18at 20:54; Start 04/24/18 at 09:00; Stop 04/26/18 at 02:05; Status DC Piperacillin Sod/ Tazobactam Sod 4.5 gm/Sodium Chloride 100 ml @ 200 mls/hr Q6HRS IV Last administered on 04/28/18at 05:49; Start 04/24/18 at 00:00 Budesonide (Pulmicort) 0.5 mg RTBID NEB Last administered on 04/28/18at 08:46; Start 04/23/18 at 20:00 Albuterol Sulfate (Ventolin Neb Soln) 2.5 mg RTQID NEB Last administered on 04/23at 21:04; Start 04/23/18 at 20:00; Stop 04/24/18 at 05:58; Status DC Lorazepam (Ativan) 0.5 mg 1X ONCE IV Last administered on 04/23/18at 19:15; Start 04/23/18 at 19:15; Stop 04/23/18 at 19:16; Status DC Methylprednisolone Sodium Succinate (SOLU-Medrol 125MG VIAL) 125 mg Q8HRS IV Last administered on 04/27/18at 06:11; Start 04/23/18 at 22:00; Stop 04/27/18 at 07: 32; Status DC Albuterol/ Ipratropium (Duoneb) 3 ml Q4HRS NEB ; Start 04/23/18 at 20:00; Stop at 05:58; Status DC Nicotine (Nicoderm Cq 14mg) 1 patch PRN DAILY PRN TD SMOKING CESSATION Last administered on 04/27/18at 10:45; Start 04/23/18 at 22:30 Tizanidine HCl (Zanaflex) 4 mg PRN Q8HRS PRN PO MUSCLE SPASMS Last administered on 04/27/18 20:59; Start 04/23/18 at 22:30 Ketorolac Tromethamine (Toradol 30mg Vial) 30 mg 1X ONCE IV Last administered on 04/24/18 00:20; Start 04/23/18 at 23:00; Stop 04/23/18 at 23:01; Status DC Ketorolac Tromethamine (Toradol 15mg Vial) 15 mg PRN Q8HRS PRN IV MODERATE PAIN ; Start 04/23/18 at 22:45; Stop 04/28/18 at 22:44 Albuterol Sulfate (Ventolin Neb Soln) 2.5 mg PRN Q4HRS PRN NEB WHEEZING; Start 04/24/18 at 06:00 Albuterol/ Ipratropium (Duoneb) 3 ml RTQID NEB Last administered on 04/26/18 20 :16; Start 04/24/18 at 08:00; Stop 04/27/18 at 07:32; Status DC Guaifenesin/ Codeine Phosphate (Robitussin Ac) 5 ml PRN Q6HRS PRN PO COUGH Last administered on 04/27/18 10:42; Start 04/24/18 at 12:15 Lorazepam (Ativan) 1 mg PRN Q6HRS PRN IV ANXIETY / AGITATION Last administered on 04/26/18 09:46; Start 04/24/18 at 13:30 Lactobacillus Rhamnosus (Culturelle) 1 cap BID PO Last administered on 08:22; Start 04/25/18 at 21:00 Temazepam (Restoril) 15 mg PRN QHS PRN PO INSOMNIA Last administered on 20:53; Start 04/25/18 at 20:00 Venlafaxine HCl (Effexor Xr) 225 mg DAILY PO Last administered on 04/28/18 08: 22; Start 04/26/18 at 09:00 Furosemide (Lasix) 40 mg 1X ONCE PO Last administered on 04/26/18 17:56; Start 04/26/18 at 17:30; Stop 04/26/18 at 17:31; Status DC Aspirin (Ecotrin) 81 mg DAILYWBKFT PO Last administered on 04/28/18 08:22; Start 04/26/18 at 17:30 Albuterol/ Ipratropium (Duoneb) 3 ml Q4HRS NEB Last administered on 04/28/18 08:45; Start 04/27/18 at 08:00 Methylprednisolone Sodium Succinate (SOLU-Medrol 125MG VIAL) 80 mg Q8HRS IV Last administered on 04/28/18 05:49; Start 04/27/18 at 14:00; Stop 04/28/18 at 08:22; Status DC Montelukast Sodium (Singulair) 10 mg QHS PO Last administered on 04/27/18 20:58 ; Start 04/27/18 at 21:00 Potassium Chloride (Klor-Con) 40 meq 1X ONCE PO Last administered on 04/27/18 10:53; Start 04/27/18 at 10:45; Stop 04/27/18 at 10:48; Status DC Acetaminophen/ Hydrocodone Bitart (Lortab 5/325) 1 tab PRN Q4HRS PRN PO MODERATE PAIN Last administered on 04/27/18at 20:59; Start 04/27/18 at 10:45 Lisinopril (Prinivil) 10 mg 1X ONCE PO Last administered on 04/27/18 12:04; Start 04/27/18 at 11:15; Stop 04/27/18 at 11:16; Status DC Lisinopril (Prinivil) 20 mg DAILY PO Last administered on 04/28/18 08:25; Start 04/28/18 at 09:00 Calcium Carbonate/ Glycine (Tums) 500 mg PRN Q4HRS PRN PO INDIGESTION Last administered on 04/27/18 20:58; Start 04/27/18 at 19:45 Methylprednisolone Sodium Succinate (SOLU-Medrol 40MG VIAL) 40 mg Q8HRS IV ; Start 04/28/18 at 14:00 Clotrimazole (Mycelex) 10 mg BID MM ; Start 04/28/18 at 21:00 Active Scripts Active Azithromycin Tablet (Azithromycin) 500 Mg Tablet 500 Mg PO DAILY 5 Days Pulmicort Flexhaler (Budesonide) 180 Mcg Aer.pow.ba 2 Puff IH BID Metoprolol Tartrate 50 Mg Tablet 50 Mg PO BID 30 Days Isosorbide Mononitrate Er (Isosorbide Mononitrate) 30 Mg Tab.er.24h 60 Mg PO DAILY 30 Days Atorvastatin Calcium 20 Mg Tablet 20 Mg PO QHS 30 Days Advair 250-50 Diskus (Fluticasone/Salmeterol) 1 Each Disk.w.dev 1 Inh IH BID 30 Days Reported Prednisone (Prednisone) 10 Mg Tablet 10 Mg PO UD Take 4 tablets (40 mg) by mouth for 2 days, then take 2 tablets (20 mg) by mouth for 2 days, then take 1 tablet (10 mg) by mouth for 2 days, then take 1/2 tablet( 5 mg) by mouth x 1 day, then stop. Venlafaxine Hcl Er (Venlafaxine Hcl) 225 Mg Tab.er.24 225 Mg PO DAILY NICODERM CQ 21mg (Nicotine) 1 Each Patch.td24 1 Patch TP DAILY Do not smoke while wearing the patch Cyanocobalamin Injection (Cyanocobalamin (Vitamin B-12)) 1,000 Mcg/1 Ml Vial 1 Ml IM QMONTH Clonazepam 0.5 Mg Tablet 0.5 Tab PO DAILY PRN Ventolin Hfa Inhaler (Albuterol Sulfate) 18 Gm Hfa.aer.ad 2 Puff INH BID Acetaminophen 500 Mg Tablet 1 Tab PO PRN Q6HRS PRN Gabapentin (Gabapentin) 300 Mg Capsule 300 Mg PO BID Buspirone Hcl 15 Mg Tablet 15 Mg PO BID Aspirin 325 Mg Tablet 1 Tab PO DAILY Tamoxifen Citrate 20 Mg Tablet 20 Mg PO DAILY Vitals/I & O Vital Sign - Last 24 Hours 04/27/18 04/27/18 04/27/18 04/27/18 10:54 11:29 12:04 15:00 Pulse 81 Resp 18 B/P (MAP) 181/87 Pulse Ox 99 O2 Delivery Nasal Cannula Nasal Cannula Nasal Cannula O2 Flow Rate 5.0 5.0 5.0 04/27/18 04/27/18 04/27/18 04/27/18 16:02 16:10 19:20 19:20 Temp 98.3 98.3 98.3 98.3 Pulse 73 63 Resp 18 B/P (MAP) 174/85 (114) Pulse Ox 99 97 98 O2 Delivery Nasal Cannula Nasal Cannula Nasal Cannula Nasal Cannula O2 Flow Rate 4.0 4.0 4.0 4.0 04/27/18 04/27/18 04/27/18 04/27/18 20:06 20:08 20:59 20:59 Pulse 71 Resp 18 B/P (MAP) 175/99 Pulse Ox 98 98 100 O2 Delivery Nasal Cannula Nasal Cannula Nasal Cannula O2 Flow Rate 4.0 4.0 04/27/18 04/27/18 04/27/18 04/28/18 21:59 22:51 23:32 03:00 Temp 98.1 98.0 98.1 98.0 Pulse 70 71 Resp 16 18 18 B/P (MAP) 151/83 (105) 148/85 (106) Pulse Ox 97 97 98 98 O2 Delivery Nasal Cannula Nasal Cannula Nasal Cannula Nasal Cannula O2 Flow Rate 4.0 4.0 4.0 4.0 04/28/18 04/28/18 04/28/18 04/28/18 04:09 07:00 07:30 08:23 Temp 98.5 98.5 Pulse 73 70 Resp 24 B/P (MAP) 153/88 (109) 153/88 Pulse Ox 98 97 O2 Delivery Nasal Cannula Nasal Cannula Nasal Cannula O2 Flow Rate 4.0 4.0 4.0 04/28/18 04/28/18 04/28/18 08:23 08:25 08:47 Pulse 70 70 B/P (MAP) 153/88 153/88 Pulse Ox 91 O2 Delivery Room Air Intake and Output 04/27/18 04/27/18 04/28/18 15:00 23:00 07:00 Intake Total 100 ml 200 ml Output Total 500 ml Balance 100 ml -300 ml MELA FITZGERALD III DO Apr 28, 2018 10:53
--- NOTE | 2018-04-28 12:59 | PDOC ---
CARDIOLOGY PROGRESS NOTE SUBJECTIVE: Mildly improved. Denies any chest pain. Continued dyspnea. OBJECTIVE: Vital SIgns: Vital Signs Date Time Temp Pulse Resp B/P (MAP) Pulse Ox O2 Delivery O2 Flow Rate FiO2 04/28/18 12:19 95 Nasal Cannula 2.0 04/28/18 12:15 182/96 (124) 04/28/18 11:10 98.3 74 20 98.3 I & O Intake and Output 04/28/18 07:00 Intake Total 300 ml Output Total 500 ml Balance -200 ml Intake Oral 300 ml Output Urine Total 500 ml # Voids 1 # Bowel Movements 3 Objective: Bilateral wheezing persists. No significant change by my exam No edema. Normal heart tones. CURRENT MEDICATIONS: Current Medications Medications (Trade) Dose Ordered Sig/Lanette Start Time Stop Time Status Last Admin Dose Admin Acetaminophen (Tylenol) 650 mg PRN Q6HRS PRN 04/23/18 19:00 04/27/18 10:39 650 MG Acetaminophen/ Hydrocodone Bitart (Lortab 5/325) 1 tab PRN Q4HRS PRN 04/27/18 10:45 04/27/18 20:59 1 TAB Albuterol Sulfate (Ventolin Neb Soln) 2.5 mg PRN Q4HRS PRN 04/24/18 06:00 Albuterol/ Ipratropium (Duoneb) 3 ml Q4HRS 04/27/18 08:00 04/28/18 12:18 3 ML Aspirin (Ecotrin) 81 mg DAILYWBKFT 04/26/18 17:30 04/28/18 08:22 81 MG Atorvastatin Calcium (Lipitor) 20 mg QHS 04/23/18 21:00 04/27/18 20:58 20 MG Bisacodyl (Dulcolax Supp) 10 mg PRN DAILY PRN 04/23/18 19:00 Budesonide (Pulmicort) 0.5 mg RTBID 04/23/18 20:00 04/28/18 08:46 0.5 MG Buspirone HCl (Buspar) 15 mg BID 04/23/18 21:00 04/26/18 02:20 DC 04/25/18 08:59 15 MG Calcium Carbonate/ Glycine (Tums) 500 mg PRN Q4HRS PRN 04/27/18 19:45 04/27/18 20:58 500 MG Ceftriaxone Sodium (Rocephin) 1 gm 1X ONCE 04/23/18 18:15 04/23/18 18:16 DC 04/23/18 18:26 1 GM Clonazepam (KlonoPIN) 0.25 mg PRN DAILY PRN 04/23/18 19:00 04/25/18 05:45 0.25 MG Clotrimazole (Mycelex) 10 mg BID 04/28/18 21:00 Enoxaparin Sodium (Lovenox 40mg Syringe) 40 mg Q24H 04/23/18 21:00 04/27/18 21:00 40 MG Furosemide (Lasix) 40 mg 1X ONCE 04/26/18 17:30 04/26/18 17:31 DC 04/26/18 17:56 40 MG Gabapentin (Neurontin) 300 mg BID 04/23/18 21:00 04/28/18 08:24 300 MG Guaifenesin/ Codeine Phosphate (Robitussin Ac) 5 ml PRN Q6HRS PRN 04/24/18 12:15 04/27/18 10:42 5 ML Info (Non-Icu Electrolyte Protocol) 1 ea CONT PRN PRN 04/23/18 19:15 Isosorbide Mononitrate (Imdur) 60 mg DAILY 04/24/18 09:00 04/28/18 08:23 60 MG Ketorolac Tromethamine (Toradol 15mg Vial) 15 mg PRN Q8HRS PRN 04/23/18 22:45 04/28/18 22:44 Ketorolac Tromethamine (Toradol 30mg Vial) 30 mg 1X ONCE 04/23/18 23:00 04/23/18 23:01 DC 04/24/18 00:20 30 MG Lactobacillus Rhamnosus (Culturelle) 1 cap BID 04/25/18 21:00 04/28/18 12:14 DC 04/28/18 08:22 1 CAP Lactulose (Lactulose) 20 gm PRN Q12HR PRN 04/23/18 19:00 Levofloxacin/ Dextrose 100 ml @ 100 mls/hr 1X ONCE 04/23/18 18:15 04/23/18 19:14 DC 04/23/18 18:26 100 MLS/HR Lisinopril (Prinivil) 20 mg DAILY 04/28/18 09:00 04/28/18 08:25 20 MG Lorazepam (Ativan) 1 mg PRN Q6HRS PRN 04/24/18 13:30 04/26/18 09:46 1 MG Methylprednisolone Sodium Succinate (SOLU-Medrol 40MG VIAL) 40 mg Q8HRS 04/28/18 14:00 Methylprednisolone Sodium Succinate (SOLU-Medrol 125MG VIAL) 80 mg Q8HRS 04/27/18 14:00 04/28/18 08:22 DC 04/28/18 05:49 80 MG Metoprolol Tartrate (Lopressor) 50 mg BID 04/23/18 21:00 04/28/18 08:23 50 MG Montelukast Sodium (Singulair) 10 mg QHS 04/27/18 21:00 04/27/18 20:58 10 MG Morphine Sulfate (Morphine Sulfate) 1 mg PRN Q1HR PRN 04/23/18 19:00 04/26/18 16:18 1 MG Nicotine (Nicoderm Cq 14mg) 1 patch PRN DAILY PRN 04/23/18 22:30 04/27/18 10:45 1 PATCH Non-Formulary Medication (Albuterol Sulfate (Ventolin Hfa Inhaler)) 2 puff BID 04/23/18 21:00 UNV Non-Formulary Medication (Budesonide (Pulmicort Flexhaler)) 2 puff BID 04/23/18 21:00 UNV Non-Formulary Medication (Fluticasone/ Salmeterol (Advair 250-50 Diskus)) 1 inh BID 04/23/18 21:00 UNV Ondansetron HCl (Zofran) 4 mg PRN Q6HRS PRN 04/23/18 19:00 04/25/18 01:29 4 MG Piperacillin Sod/ Tazobactam Sod 4.5 gm/Sodium Chloride 100 ml @ 200 mls/hr Q6HRS 04/24/18 00:00 04/28/18 12:29 200 MLS/HR Potassium Chloride (Klor-Con) 40 meq 1X ONCE 04/27/18 10:45 04/27/18 10:48 DC 04/27/18 10:53 40 MEQ Sodium Chloride (Normal Saline Flush) 3 ml QSHIFT PRN 04/23/18 19:00 Tamoxifen Citrate (Nolvadex) 20 mg DAILY 04/24/18 09:00 04/28/18 08:25 20 MG Temazepam (Restoril) 15 mg PRN QHS PRN 04/25/18 20:00 04/25/18 20:53 15 MG Tizanidine HCl (Zanaflex) 4 mg PRN Q8HRS PRN 04/23/18 22:30 04/27/18 20:59 4 MG Vancomycin HCl 1.5 gm/Sodium Chloride 500 ml @ 250 mls/hr 1X ONCE 04/23/18 19:00 04/23/18 20:59 DC 04/23/18 19:35 250 MLS/HR Venlafaxine HCl (Effexor Xr) 225 mg DAILY 04/26/18 09:00 04/28/18 08:22 225 MG Venlafaxine HCl (Effexor) 75 mg TID 04/24/18 09:00 04/26/18 02:05 DC 04/25/18 20:54 75 MG DIAGNOSTIC TESTING: Labs reviewed. Na 146. Cr stable ASSESSMENT: 1. Acute on chronic resp failure, likely due to severe COPD. 2. NICM, stable. 3. HTN PLAN: 1. Continue pulm treatment. 2. Will increase lisinopril and add hydralazine prn. Supportive for now. BABAK CALLAHAN MD Apr 28, 2018 12:59
[2018-04-28] MEDS ORDERED: hydrALAZINE 20 MG/ML VIAL. IVP PRN (13:00)
[2018-04-28] MEDS ORDERED: LISINOPRIL 10 MG TABLET PO ONE (13:00)
[2018-04-28] MEDS: methylPREDNISolone SOD SUCC PF 40 MG/ML VIAL. IV SCH ×2 (14:31→21:29)
[2018-04-28] MEDS: PANTOPRAZOLE 40 MG TABLET.DR. PO SCH (15:30)
[2018-04-28] MEDS ORDERED: hydrALAZINE 20 MG/ML VIAL. IVP ONE (17:00)
[2018-04-28] MEDS: CARVEDILOL 12.5 MG TABLET. PO SCH (17:01)
[2018-04-28] MEDS: ATORVASTATIN CALCIUM 20 MG TABLET PO SCH (21:27)
[2018-04-28] MEDS: ENOXAPARIN 40 MG/0.4 ML SYRINGE. SQ SCH (21:28)
[2018-04-28] MEDS: CLOTRIMAZOLE 10 MG TROCHE. MM SCH (21:28)
[2018-04-28] MEDS: MONTELUKAST SODIUM 10 MG TABLET. PO SCH (21:29)
[2018-04-29] MEDS: PIPERACILLIN/TAZOBACTAM 4.5 GM in IV NORMAL SALINE 100ML 100 ML IV SCH ×2 (00:16→06:21)
[2018-04-29 03:00] VITALS: BP 160/83
[2018-04-29] MEDS: IPRATRPIUM/ALBUTEROL 0.5/2.5MG 3 ML NEBU. NEB SCH ×3 (03:52→13:04)
[2018-04-29 04:09] LABS: BASO % 0 % (0-3); EOS % 0 % (0-3); HEMATOCRIT 36.9 % (36.0-47.0); HEMOGLOBIN 12.3 g/dL (12.0-15.5); LYMPH # 0.8 x10^3/uL (1.0-4.8); LYMPH % 11 % (24-48); MEAN CORPUSCULAR HEMOGLOBIN 33 pg (25-35); MEAN CORPUSCULAR HGB CONC 34 g/dL (31-37); MEAN CORPUSCULAR VOLUME 98 fL (79-100); MONO # 0.6 x10^3/uL (0.0-1.1); MONO % 8 % (0-9); NEUT # 6.5 x10^3uL (1.8-7.7); NEUT % 82 % (31-73); PLATELET COUNT 176 x10^3/uL (140-400); RED BLOOD COUNT 3.78 x10^6/uL (3.50-5.40); RED CELL DISTRIBUTION WIDTH 14.2 % (11.5-14.5); WHITE BLOOD COUNT 7.9 x10^3/uL (4.0-11.0)
[2018-04-29 05:00] LABS: ALBUMIN 2.8 g/dL (3.4-5.0); ALBUMIN/GLOBULIN RATIO 0.8 (1.0-1.7); CALCIUM 8.4 mg/dL (8.5-10.1); CREATININE 0.9 mg/dL (0.6-1.0); POTASSIUM 3.2 mmol/L (3.5-5.1); TOTAL BILIRUBIN 0.5 mg/dL (0.2-1.0); TOTAL PROTEIN 6.4 g/dL (6.4-8.2)
[2018-04-29] MEDS: BUDESONIDE 0.5 MG/2 ML NEBU. NEB SCH (06:14)
[2018-04-29] MEDS: PANTOPRAZOLE 40 MG TABLET.DR. PO SCH (06:20)
[2018-04-29] MEDS: methylPREDNISolone SOD SUCC PF 40 MG/ML VIAL. IV SCH (06:20)
[2018-04-29 07:00] VITALS: BP 168/87
[2018-04-29] MEDS: CARVEDILOL 12.5 MG TABLET. PO SCH (08:46)
[2018-04-29] MEDS: ASPIRIN ENTERIC COATED 81 MG TABLET.DR. PO SCH (08:46)
[2018-04-29] MEDS: ISOSORBIDE MONONITRATE ER 30 MG TAB.ER.24H PO SCH (08:46)
[2018-04-29] MEDS: LISINOPRIL 20 MG TABLET PO SCH (08:47)
[2018-04-29] MEDS: VENLAFAXINE XR 37.5 MG CAP.ER.24H. PO SCH (08:47)
[2018-04-29] MEDS: TAMOXIFEN 10 MG TABLET PO SCH (08:49)
[2018-04-29] MEDS: GABAPENTIN 300 MG CAPSULE. PO SCH (08:50)
[2018-04-29] MEDS: CLOTRIMAZOLE 10 MG TROCHE. MM SCH (08:50)
--- NOTE | 2018-04-29 10:58 | PDOC ---
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 Abnormal x-ray compatible with viral pneumonia versus congestive heart failure. NO ANTIBIOTICS OR STEROIDS ON D/C D/W DR LEOS History of Present Illness History of Present Illness Ms. Wood presented to the ED with worsening shortness of breath and nonproductive cough. She has a history of COPD. CXR (04/23) showed increasing bilateral opacity, likely HCAP. Patient seen and examined at bedside. Patient is improving, denies shortness of breath, mild nonproductive cough. Patient O2Sat at 97% on 4L per N/C. Receiving steroids and duoNebs and antibiotics. Pulmonology and Cards following. Vitals Vitals Vital Signs Date Time Temp Pulse Resp B/P (MAP) Pulse Ox O2 Delivery O2 Flow Rate FiO2 04/29/18 08:47 70 168/87 04/29/18 08:00 Room Air 04/29/18 07:00 97.5 16 96 97.5 04/29/18 06:10 1.0 Physical Exam General: Alert, Oriented X3, Cooperative, No acute distress Heart: Regular rate, Normal S1, Normal S2 Lungs: Other (better air movement, a few end exp wheezing) Abdomen: Soft, No tenderness Extremities: No clubbing, No cyanosis, No edema, Normal pulses Skin: No rashes, No significant lesion, Other (mild thrush on tongue) Labs LABS Laboratory Tests Test 04/29/18 03:58 White Blood Count 7.9 x10^3/uL (4.0-11.0) Red Blood Count 3.78 x10^6/uL (3.50-5.40) Hemoglobin 12.3 g/dL (12.0-15.5) Hematocrit 36.9 % (36.0-47.0) Mean Corpuscular Volume 98 fL (79-100) Mean Corpuscular Hemoglobin 33 pg (25-35) Mean Corpuscular Hemoglobin Concent 34 g/dL (31-37) Red Cell Distribution Width 14.2 % (11.5-14.5) Platelet Count 176 x10^3/uL (140-400) Neutrophils (%) (Auto) 82 % (31-73) Lymphocytes (%) (Auto) 11 % (24-48) Monocytes (%) (Auto) 8 % (0-9) Eosinophils (%) (Auto) 0 % (0-3) Basophils (%) (Auto) 0 % (0-3) Neutrophils # (Auto) 6.5 x10^3uL (1.8-7.7) Lymphocytes # (Auto) 0.8 x10^3/uL (1.0-4.8) Monocytes # (Auto) 0.6 x10^3/uL (0.0-1.1) Eosinophils # (Auto) 0.0 x10^3/uL (0.0-0.7) Basophils # (Auto) 0.0 x10^3/uL (0.0-0.2) Sodium Level 142 mmol/L (136-145) Potassium Level 3.2 mmol/L (3.5-5.1) Chloride Level 102 mmol/L (98-107) Carbon Dioxide Level 27 mmol/L (21-32) Anion Gap 13 (6-14) Blood Urea Nitrogen 19 mg/dL (7-20) Creatinine 0.9 mg/dL (0.6-1.0) Estimated GFR (Cockcroft-Gault) 65.0 BUN/Creatinine Ratio 21 (6-20) Glucose Level 116 mg/dL (70-99) Calcium Level 8.4 mg/dL (8.5-10.1) Total Bilirubin 0.5 mg/dL (0.2-1.0) Aspartate Amino Transf (AST/SGOT) 25 U/L (15-37) Alanine Aminotransferase (ALT/SGPT) 57 U/L (14-59) Alkaline Phosphatase 81 U/L (46-116) Total Protein 6.4 g/dL (6.4-8.2) Albumin 2.8 g/dL (3.4-5.0) Albumin/Globulin Ratio 0.8 (1.0-1.7) Assessment and Plan Assessmemt and Plan Problems Medical Problems: (1) Acute respiratory distress Status: Acute (2) Anxiety Status: Acute (3) History of left breast cancer Status: Acute (4) Hypoxia Status: Acute (5) Severe sepsis Status: Acute (6) Tachycardia Status: Acute (7) Tobacco abuse Status: Acute (8) Tobacco abuse counseling Status: Acute Comment Review of Relevant I have reviewed the following items jerrod (where applicable) has been applied. Labs Laboratory Tests Test 04/28/18 05:00 04/29/18 03:58 White Blood Count 6.8 x10^3/uL (4.0-11.0) 7.9 x10^3/uL (4.0-11.0) Red Blood Count 3.45 x10^6/uL (3.50-5.40) 3.78 x10^6/uL (3.50-5.40) Hemoglobin 11.4 g/dL (12.0-15.5) 12.3 g/dL (12.0-15.5) Hematocrit 34.1 % (36.0-47.0) 36.9 % (36.0-47.0) Mean Corpuscular Volume 99 fL (79-100) 98 fL (79-100) Mean Corpuscular Hemoglobin 33 pg (25-35) 33 pg (25-35) Mean Corpuscular Hemoglobin Concent 33 g/dL (31-37) 34 g/dL (31-37) Red Cell Distribution Width 13.9 % (11.5-14.5) 14.2 % (11.5-14.5) Platelet Count 144 x10^3/uL (140-400) 176 x10^3/uL (140-400) Neutrophils (%) (Auto) 81 % (31-73) 82 % (31-73) Lymphocytes (%) (Auto) 12 % (24-48) 11 % (24-48) Monocytes (%) (Auto) 7 % (0-9) 8 % (0-9) Eosinophils (%) (Auto) 0 % (0-3) 0 % (0-3) Basophils (%) (Auto) 0 % (0-3) 0 % (0-3) Neutrophils # (Auto) 5.5 x10^3uL (1.8-7.7) 6.5 x10^3uL (1.8-7.7) Lymphocytes # (Auto) 0.8 x10^3/uL (1.0-4.8) 0.8 x10^3/uL (1.0-4.8) Monocytes # (Auto) 0.4 x10^3/uL (0.0-1.1) 0.6 x10^3/uL (0.0-1.1) Eosinophils # (Auto) 0.0 x10^3/uL (0.0-0.7) 0.0 x10^3/uL (0.0-0.7) Basophils # (Auto) 0.0 x10^3/uL (0.0-0.2) 0.0 x10^3/uL (0.0-0.2) Sodium Level 146 mmol/L (136-145) 142 mmol/L (136-145) Potassium Level 3.6 mmol/L (3.5-5.1) 3.2 mmol/L (3.5-5.1) Chloride Level 105 mmol/L (98-107) 102 mmol/L (98-107) Carbon Dioxide Level 32 mmol/L (21-32) 27 mmol/L (21-32) Anion Gap 9 (6-14) 13 (6-14) Blood Urea Nitrogen 22 mg/dL (7-20) 19 mg/dL (7-20) Creatinine 0.9 mg/dL (0.6-1.0) 0.9 mg/dL (0.6-1.0) Estimated GFR (Cockcroft-Gault) 65.0 65.0 BUN/Creatinine Ratio 24 (6-20) 21 (6-20) Glucose Level 137 mg/dL (70-99) 116 mg/dL (70-99) Calcium Level 8.5 mg/dL (8.5-10.1) 8.4 mg/dL (8.5-10.1) Total Bilirubin 0.4 mg/dL (0.2-1.0) 0.5 mg/dL (0.2-1.0) Aspartate Amino Transf (AST/SGOT) 30 U/L (15-37) 25 U/L (15-37) Alanine Aminotransferase (ALT/SGPT) 65 U/L (14-59) 57 U/L (14-59) Alkaline Phosphatase 67 U/L (46-116) 81 U/L (46-116) Total Protein 6.3 g/dL (6.4-8.2) 6.4 g/dL (6.4-8.2) Albumin 2.9 g/dL (3.4-5.0) 2.8 g/dL (3.4-5.0) Albumin/Globulin Ratio 0.9 (1.0-1.7) 0.8 (1.0-1.7) Laboratory Tests Test 04/29/18 03:58 White Blood Count 7.9 x10^3/uL (4.0-11.0) Red Blood Count 3.78 x10^6/uL (3.50-5.40) Hemoglobin 12.3 g/dL (12.0-15.5) Hematocrit 36.9 % (36.0-47.0) Mean Corpuscular Volume 98 fL (79-100) Mean Corpuscular Hemoglobin 33 pg (25-35) Mean Corpuscular Hemoglobin Concent 34 g/dL (31-37) Red Cell Distribution Width 14.2 % (11.5-14.5) Platelet Count 176 x10^3/uL (140-400) Neutrophils (%) (Auto) 82 % (31-73) Lymphocytes (%) (Auto) 11 % (24-48) Monocytes (%) (Auto) 8 % (0-9) Eosinophils (%) (Auto) 0 % (0-3) Basophils (%) (Auto) 0 % (0-3) Neutrophils # (Auto) 6.5 x10^3uL (1.8-7.7) Lymphocytes # (Auto) 0.8 x10^3/uL (1.0-4.8) Monocytes # (Auto) 0.6 x10^3/uL (0.0-1.1) Eosinophils # (Auto) 0.0 x10^3/uL (0.0-0.7) Basophils # (Auto) 0.0 x10^3/uL (0.0-0.2) Sodium Level 142 mmol/L (136-145) Potassium Level 3.2 mmol/L (3.5-5.1) Chloride Level 102 mmol/L (98-107) Carbon Dioxide Level 27 mmol/L (21-32) Anion Gap 13 (6-14) Blood Urea Nitrogen 19 mg/dL (7-20) Creatinine 0.9 mg/dL (0.6-1.0) Estimated GFR (Cockcroft-Gault) 65.0 BUN/Creatinine Ratio 21 (6-20) Glucose Level 116 mg/dL (70-99) Calcium Level 8.4 mg/dL (8.5-10.1) Total Bilirubin 0.5 mg/dL (0.2-1.0) Aspartate Amino Transf (AST/SGOT) 25 U/L (15-37) Alanine Aminotransferase (ALT/SGPT) 57 U/L (14-59) Alkaline Phosphatase 81 U/L (46-116) Total Protein 6.4 g/dL (6.4-8.2) Albumin 2.8 g/dL (3.4-5.0) Albumin/Globulin Ratio 0.8 (1.0-1.7) Microbiology 04/23/18 Blood Culture - Final, Complete NO GROWTH AFTER 5 DAYS 04/24/18 - Final, Complete 04/24/18 - Final, Complete 04/24/18 - Final, Complete 04/24/18 Gram Stain Evaluation - Final, Complete 04/24/18 Sputum Culture - Final, Complete 04/24/18 Sputum Result 1 - Final, Complete 04/24/18 Sputum Result 2 - Final, Complete Medications Current Medications Albuterol/ Ipratropium (Duoneb) 3 ml 1X ONCE NEB Last administered on at 17:33; Start 04/23/18 at 17:15; Stop 04/23/18 at 17:20; Status DC Methylprednisolone Sodium Succinate (SOLU-Medrol 125MG VIAL) 125 mg 1X ONCE IV Last administered on 04/23/18at 17:38; Start 04/23/18 at 17:15; Stop 04/23/18 at 17:20; Status DC Sodium Chloride 1,000 ml @ 1,000 mls/hr 1X ONCE IV Last administered on at 17:37; Start 04/23/18 at 17:30; Stop 04/23/18 at 18:29; Status DC Ceftriaxone Sodium (Rocephin) 1 gm 1X ONCE IVP Last administered on 04/23/18at 18:26; Start 04/23/18 at 18:15; Stop 04/23/18 at 18:16; Status DC Albuterol/ Ipratropium (Duoneb) 3 ml RTQID NEB Last administered on 3/6/19at 06 :11; Start 04/23/18 at 20:00; Stop 04/24/18 at 09:27; Status DC Piperacillin Sod/ Tazobactam Sod 4.5 gm/Sodium Chloride 100 ml @ 200 mls/hr 1X ONCE IV Last administered on 04/23/18 19:11; Start 04/23/18 at 18:30; Stop 04/23/18 at 18:59; Status DC Vancomycin HCl 1.5 gm/Sodium Chloride 500 ml @ 250 mls/hr 1X ONCE IV Last administered on 04/23/18 19:35; Start 04/23/18 at 19:00; Stop 04/23/18 at 20:59; Status DC Levofloxacin/ Dextrose 100 ml @ 100 mls/hr 1X ONCE IV Last administered on 18:26; Start 04/23/18 at 18:15; Stop 04/23/18 at 19:14; Status DC Acetaminophen (Tylenol) 650 mg PRN Q6HRS PRN PO Headaches, Temp > 101.5' Last administered on 04/27/18 10:39; Start 04/23/18 at 19:00 Lorazepam (Ativan) 0.5 mg PRN Q6HRS PRN IV ANXIETY / AGITATION Last administered on 04/24/18 10:03; Start 04/23/18 at 19:00; Stop 04/24/18 at 13:16; Status DC Ondansetron HCl (Zofran) 4 mg PRN Q6HRS PRN IV NAUSEA/VOMITING Last administered on 04/25/18 01:29; Start 04/23/18 at 19:00 Info (Non-Icu Electrolyte Protocol) 1 ea CONT PRN PRN MC SEE COMMENTS; Start at 19:15 Enoxaparin Sodium (Lovenox 40mg Syringe) 40 mg Q24H SQ Last administered on 21:28; Start 04/23/18 at 21:00 Sodium Chloride (Normal Saline Flush) 3 ml QSHIFT PRN IV AFTER MEDS AND BLOOD DRAWS; Start 04/23/18 at 19:00 Morphine Sulfate (Morphine Sulfate) 1 mg PRN Q1HR PRN IV SEVERE PAIN Last administered on 04/26/18 16:18; Start 04/23/18 at 19:00 Lactulose (Lactulose) 20 gm PRN Q12HR PRN PO CONSTIPATION; Start 04/23/18 at 19: 00 Bisacodyl (Dulcolax Supp) 10 mg PRN DAILY PRN DC CONSTIPATION; Start 04/23/18 at 19:00 Atorvastatin Calcium (Lipitor) 20 mg QHS PO Last administered on 04/28/18 21: 27; Start 04/23/18 at 21:00 Clonazepam (KlonoPIN) 0.25 mg PRN DAILY PRN PO ANXIETY / AGITATION Last administered on 04/25/18 05:45; Start 04/23/18 at 19:00 Gabapentin (Neurontin) 300 mg BID PO Last administered on 04/29/18 08:50; Start 04/23/18 at 21:00 Isosorbide Mononitrate (Imdur) 60 mg DAILY PO Last administered on 04/29/18 08 :46; Start 04/24/18 at 09:00 Metoprolol Tartrate (Lopressor) 50 mg BID PO Last administered on 04/28/18 08: 23; Start 04/23/18 at 21:00; Stop 04/28/18 at 16:52; Status DC Non-Formulary Medication (Albuterol Sulfate (Ventolin Hfa Inhaler)) 2 puff BID INH ; Start 04/23/18 at 21:00; Status UNV Non-Formulary Medication (Budesonide (Pulmicort Flexhaler)) 2 puff BID IH ; Start 04/23/18 at 21:00; Status UNV Buspirone HCl (Buspar) 15 mg BID PO Last administered on 04/25/18 08:59; Start 04/23/18 at 21:00; Stop 04/26/18 at 02:20; Status DC Non-Formulary Medication (Fluticasone/ Salmeterol (Advair 250-50 Diskus)) 1 inh BID IH ; Start 04/23/18 at 21:00; Status UNV Tamoxifen Citrate (Nolvadex) 20 mg DAILY PO Last administered on 04/29/18 08: 49; Start 04/24/18 at 09:00 Venlafaxine HCl (Effexor) 75 mg TID PO Last administered on 04/25/18 20:54; Start 04/24/18 at 09:00; Stop 04/26/18 at 02:05; Status DC Piperacillin Sod/ Tazobactam Sod 4.5 gm/Sodium Chloride 100 ml @ 200 mls/hr Q6HRS IV Last administered on 04/29/18at 06:21; Start 04/24/18 at 00:00 Budesonide (Pulmicort) 0.5 mg RTBID NEB Last administered on 04/29/18at 06:14; Start 04/23/18 at 20:00 Albuterol Sulfate (Ventolin Neb Soln) 2.5 mg RTQID NEB Last administered on 04/23at 21:04; Start 04/23/18 at 20:00; Stop 04/24/18 at 05:58; Status DC Lorazepam (Ativan) 0.5 mg 1X ONCE IV Last administered on 04/23/18at 19:15; Start 04/23/18 at 19:15; Stop 04/23/18 at 19:16; Status DC Methylprednisolone Sodium Succinate (SOLU-Medrol 125MG VIAL) 125 mg Q8HRS IV Last administered on 04/27/18at 06:11; Start 04/23/18 at 22:00; Stop 04/27/18 at 07: 32; Status DC Albuterol/ Ipratropium (Duoneb) 3 ml Q4HRS NEB ; Start 04/23/18 at 20:00; Stop at 05:58; Status DC Nicotine (Nicoderm Cq 14mg) 1 patch PRN DAILY PRN TD SMOKING CESSATION Last administered on 04/27/18at 10:45; Start 04/23/18 at 22:30 Tizanidine HCl (Zanaflex) 4 mg PRN Q8HRS PRN PO MUSCLE SPASMS Last administered on 04/27/18at 20:59; Start 04/23/18 at 22:30 Ketorolac Tromethamine (Toradol 30mg Vial) 30 mg 1X ONCE IV Last administered on 04/24/18at 00:20; Start 04/23/18 at 23:00; Stop 04/23/18 at 23:01; Status DC Ketorolac Tromethamine (Toradol 15mg Vial) 15 mg PRN Q8HRS PRN IV MODERATE PAIN ; Start 04/23/18 at 22:45; Stop 04/28/18 at 22:44; Status DC Albuterol Sulfate (Ventolin Neb Soln) 2.5 mg PRN Q4HRS PRN NEB WHEEZING; Start 04/24/18 at 06:00 Albuterol/ Ipratropium (Duoneb) 3 ml RTQID NEB Last administered on 04/26/18 20 :16; Start 04/24/18 at 08:00; Stop 04/27/18 at 07:32; Status DC Guaifenesin/ Codeine Phosphate (Robitussin Ac) 5 ml PRN Q6HRS PRN PO COUGH Last administered on 04/27/18 10:42; Start 04/24/18 at 12:15 Lorazepam (Ativan) 1 mg PRN Q6HRS PRN IV ANXIETY / AGITATION Last administered on 04/26/18 09:46; Start 04/24/18 at 13:30 Lactobacillus Rhamnosus (Culturelle) 1 cap BID PO Last administered on 08:22; Start 04/25/18 at 21:00; Stop 04/28/18 at 12:14; Status DC Temazepam (Restoril) 15 mg PRN QHS PRN PO INSOMNIA Last administered on 20:53; Start 04/25/18 at 20:00 Venlafaxine HCl (Effexor Xr) 225 mg DAILY PO Last administered on 04/29/18at 08: 47; Start 04/26/18 at 09:00 Furosemide (Lasix) 40 mg 1X ONCE PO Last administered on 04/26/18 17:56; Start 04/26/18 at 17:30; Stop 04/26/18 at 17:31; Status DC Aspirin (Ecotrin) 81 mg DAILYWBKFT PO Last administered on 04/29/18 08:46; Start 04/26/18 at 17:30 Albuterol/ Ipratropium (Duoneb) 3 ml Q4HRS NEB Last administered on 04/29/18at 06:14; Start 04/27/18 at 08:00 Methylprednisolone Sodium Succinate (SOLU-Medrol 125MG VIAL) 80 mg Q8HRS IV Last administered on 04/28/18 05:49; Start 04/27/18 at 14:00; Stop 04/28/18 at 08:22; Status DC Montelukast Sodium (Singulair) 10 mg QHS PO Last administered on 04/28/18 21: 29; Start 04/27/18 at 21:00 Potassium Chloride (Klor-Con) 40 meq 1X ONCE PO Last administered on 04/27/18 10:53; Start 04/27/18 at 10:45; Stop 04/27/18 at 10:48; Status DC Acetaminophen/ Hydrocodone Bitart (Lortab 5/325) 1 tab PRN Q4HRS PRN PO MODERATE PAIN Last administered on 04/27/18 20:59; Start 04/27/18 at 10:45 Lisinopril (Prinivil) 10 mg 1X ONCE PO Last administered on 04/27/18 12:04; Start 04/27/18 at 11:15; Stop 04/27/18 at 11:16; Status DC Lisinopril (Prinivil) 20 mg DAILY PO Last administered on 04/29/18 08:47; Start 04/28/18 at 09:00 Calcium Carbonate/ Glycine (Tums) 500 mg PRN Q4HRS PRN PO INDIGESTION Last administered on 04/27/18 20:58; Start 04/27/18 at 19:45 Methylprednisolone Sodium Succinate (SOLU-Medrol 40MG VIAL) 40 mg Q8HRS IV Last administered on 04/29/18 06:20; Start 04/28/18 at 14:00 Clotrimazole (Mycelex) 10 mg BID MM Last administered on 04/29/18 08:50; Start 04/28/18 at 21:00 Hydralazine HCl (Apresoline Inj) 10 mg PRN Q4HRS PRN IVP ELEVATED BP, SEE COMMENTS Last administered on 04/28/18 14:31; Start 04/28/18 at 13:00 Lisinopril (Prinivil) 10 mg 1X ONCE PO Last administered on 04/28/18 13:22; Start 04/28/18 at 13:00; Stop 04/28/18 at 13:01; Status DC Pantoprazole Sodium (Protonix) 40 mg DAILYAC PO Last administered on 04/29/18 06:20; Start 04/28/18 at 15:30 Carvedilol (Coreg) 12.5 mg BIDWMEALS PO Last administered on 04/29/18at 08:46; Start 04/28/18 at 17:00 Hydralazine HCl (Apresoline Inj) 10 mg 1X ONCE IVP Last administered on at 17:01; Start 04/28/18 at 17:00; Stop 04/28/18 at 17:01; Status DC Active Scripts Active Azithromycin Tablet (Azithromycin) 500 Mg Tablet 500 Mg PO DAILY 5 Days Pulmicort Flexhaler (Budesonide) 180 Mcg Aer.pow.ba 2 Puff IH BID Metoprolol Tartrate 50 Mg Tablet 50 Mg PO BID 30 Days Isosorbide Mononitrate Er (Isosorbide Mononitrate) 30 Mg Tab.er.24h 60 Mg PO DAILY 30 Days Atorvastatin Calcium 20 Mg Tablet 20 Mg PO QHS 30 Days Advair 250-50 Diskus (Fluticasone/Salmeterol) 1 Each Disk.w.dev 1 Inh IH BID 30 Days Reported Prednisone (Prednisone) 10 Mg Tablet 10 Mg PO UD Take 4 tablets (40 mg) by mouth for 2 days, then take 2 tablets (20 mg) by mouth for 2 days, then take 1 tablet (10 mg) by mouth for 2 days, then take 1/2 tablet( 5 mg) by mouth x 1 day, then stop. Venlafaxine Hcl Er (Venlafaxine Hcl) 225 Mg Tab.er.24 225 Mg PO DAILY NICODERM CQ 21mg (Nicotine) 1 Each Patch.td24 1 Patch TP DAILY Do not smoke while wearing the patch Cyanocobalamin Injection (Cyanocobalamin (Vitamin B-12)) 1,000 Mcg/1 Ml Vial 1 Ml IM QMONTH Clonazepam 0.5 Mg Tablet 0.5 Tab PO DAILY PRN Ventolin Hfa Inhaler (Albuterol Sulfate) 18 Gm Hfa.aer.ad 2 Puff INH BID Acetaminophen 500 Mg Tablet 1 Tab PO PRN Q6HRS PRN Gabapentin (Gabapentin) 300 Mg Capsule 300 Mg PO BID Buspirone Hcl 15 Mg Tablet 15 Mg PO BID Aspirin 325 Mg Tablet 1 Tab PO DAILY Tamoxifen Citrate 20 Mg Tablet 20 Mg PO DAILY Vitals/I & O Vital Sign - Last 24 Hours 04/28/18 04/28/18 04/28/18 04/28/18 11:10 12:15 12:19 13:22 Temp 98.3 98.3 Pulse 74 74 Resp 20 B/P (MAP) 173/92 (119) 182/96 (124) 154/81 Pulse Ox 95 95 O2 Delivery Nasal Cannula Nasal Cannula O2 Flow Rate 2.0 2.0 04/28/18 04/28/18 04/28/18 04/28/18 14:31 15:00 15:13 17:01 Temp 97.8 97.8 Pulse 76 76 79 Resp 12 B/P (MAP) 173/91 173/91 (118) 180/96 Pulse Ox 97 97 O2 Delivery Nasal Cannula Nasal Cannula O2 Flow Rate 2.0 2.0 04/28/18 04/28/18 04/28/18 04/28/18 17:01 19:00 20:05 20:33 Temp 98.5 98.5 Pulse 77 72 Resp 18 B/P (MAP) 180/96 154/80 (104) Pulse Ox 98 97 O2 Delivery Nasal Cannula Nasal Cannula Nasal Cannula O2 Flow Rate 2.0 2.0 2.0 04/28/18 04/28/18 04/28/18 04/29/18 21:42 23:07 23:38 03:00 Temp 98.0 97.4 98.0 97.4 Pulse 71 63 Resp 18 18 B/P (MAP) 143/78 (99) 160/83 (108) Pulse Ox 93 95 93 95 O2 Delivery Room Air Room Air Nasal Cannula Nasal Cannula O2 Flow Rate 1.0 1.0 04/29/18 04/29/18 04/29/18 04/29/18 03:53 06:10 07:00 08:00 Temp 97.5 97.5 Pulse 70 Resp 16 B/P (MAP) 168/87 (114) Pulse Ox 95 95 96 O2 Delivery Nasal Cannula Nasal Cannula Room Air Room Air O2 Flow Rate 1.0 1.0 04/29/18 04/29/18 04/29/18 08:46 08:46 08:47 Pulse 70 70 70 B/P (MAP) 168/87 168/87 168/87 Intake and Output 04/28/18 04/28/18 04/29/18 15:00 23:00 07:00 Intake Total 100 ml 180 ml 0 ml Output Total 650 ml Balance 100 ml 180 ml -650 ml GEETA FOSTER MD Apr 29, 2018 10:58
[2018-04-29 11:00] VITALS: BP 158/90
--- NOTE | 2018-04-29 11:41 | PDOC ---
PULMONARY PROGRESS NOTES Subjective sob, cough, better, no pain Vitals Vital Signs Date Time Temp Pulse Resp B/P (MAP) Pulse Ox O2 Delivery O2 Flow Rate FiO2 04/29/18 11:00 98.0 69 16 158/90 (112) 94 Room Air 98.0 04/29/18 06:10 1.0 ROS: No Nausea, No Chest Pain, No Abdominal Pain General: Alert HEENT: Other (nc at perrl nose throat clear) Lungs: Other (better air movement, ) Cardiovascular: S1, S2 Abdomen: Soft, Non-tender Extremities: No Edema Skin: Warm Labs Laboratory Tests Test 04/28/18 05:00 04/29/18 03:58 White Blood Count 6.8 x10^3/uL (4.0-11.0) 7.9 x10^3/uL (4.0-11.0) Red Blood Count 3.45 x10^6/uL (3.50-5.40) 3.78 x10^6/uL (3.50-5.40) Hemoglobin 11.4 g/dL (12.0-15.5) 12.3 g/dL (12.0-15.5) Hematocrit 34.1 % (36.0-47.0) 36.9 % (36.0-47.0) Mean Corpuscular Volume 99 fL (79-100) 98 fL (79-100) Mean Corpuscular Hemoglobin 33 pg (25-35) 33 pg (25-35) Mean Corpuscular Hemoglobin Concent 33 g/dL (31-37) 34 g/dL (31-37) Red Cell Distribution Width 13.9 % (11.5-14.5) 14.2 % (11.5-14.5) Platelet Count 144 x10^3/uL (140-400) 176 x10^3/uL (140-400) Neutrophils (%) (Auto) 81 % (31-73) 82 % (31-73) Lymphocytes (%) (Auto) 12 % (24-48) 11 % (24-48) Monocytes (%) (Auto) 7 % (0-9) 8 % (0-9) Eosinophils (%) (Auto) 0 % (0-3) 0 % (0-3) Basophils (%) (Auto) 0 % (0-3) 0 % (0-3) Neutrophils # (Auto) 5.5 x10^3uL (1.8-7.7) 6.5 x10^3uL (1.8-7.7) Lymphocytes # (Auto) 0.8 x10^3/uL (1.0-4.8) 0.8 x10^3/uL (1.0-4.8) Monocytes # (Auto) 0.4 x10^3/uL (0.0-1.1) 0.6 x10^3/uL (0.0-1.1) Eosinophils # (Auto) 0.0 x10^3/uL (0.0-0.7) 0.0 x10^3/uL (0.0-0.7) Basophils # (Auto) 0.0 x10^3/uL (0.0-0.2) 0.0 x10^3/uL (0.0-0.2) Sodium Level 146 mmol/L (136-145) 142 mmol/L (136-145) Potassium Level 3.6 mmol/L (3.5-5.1) 3.2 mmol/L (3.5-5.1) Chloride Level 105 mmol/L (98-107) 102 mmol/L (98-107) Carbon Dioxide Level 32 mmol/L (21-32) 27 mmol/L (21-32) Anion Gap 9 (6-14) 13 (6-14) Blood Urea Nitrogen 22 mg/dL (7-20) 19 mg/dL (7-20) Creatinine 0.9 mg/dL (0.6-1.0) 0.9 mg/dL (0.6-1.0) Estimated GFR (Cockcroft-Gault) 65.0 65.0 BUN/Creatinine Ratio 24 (6-20) 21 (6-20) Glucose Level 137 mg/dL (70-99) 116 mg/dL (70-99) Calcium Level 8.5 mg/dL (8.5-10.1) 8.4 mg/dL (8.5-10.1) Total Bilirubin 0.4 mg/dL (0.2-1.0) 0.5 mg/dL (0.2-1.0) Aspartate Amino Transf (AST/SGOT) 30 U/L (15-37) 25 U/L (15-37) Alanine Aminotransferase (ALT/SGPT) 65 U/L (14-59) 57 U/L (14-59) Alkaline Phosphatase 67 U/L (46-116) 81 U/L (46-116) Total Protein 6.3 g/dL (6.4-8.2) 6.4 g/dL (6.4-8.2) Albumin 2.9 g/dL (3.4-5.0) 2.8 g/dL (3.4-5.0) Albumin/Globulin Ratio 0.9 (1.0-1.7) 0.8 (1.0-1.7) Laboratory Tests Test 04/29/18 03:58 White Blood Count 7.9 x10^3/uL (4.0-11.0) Red Blood Count 3.78 x10^6/uL (3.50-5.40) Hemoglobin 12.3 g/dL (12.0-15.5) Hematocrit 36.9 % (36.0-47.0) Mean Corpuscular Volume 98 fL (79-100) Mean Corpuscular Hemoglobin 33 pg (25-35) Mean Corpuscular Hemoglobin Concent 34 g/dL (31-37) Red Cell Distribution Width 14.2 % (11.5-14.5) Platelet Count 176 x10^3/uL (140-400) Neutrophils (%) (Auto) 82 % (31-73) Lymphocytes (%) (Auto) 11 % (24-48) Monocytes (%) (Auto) 8 % (0-9) Eosinophils (%) (Auto) 0 % (0-3) Basophils (%) (Auto) 0 % (0-3) Neutrophils # (Auto) 6.5 x10^3uL (1.8-7.7) Lymphocytes # (Auto) 0.8 x10^3/uL (1.0-4.8) Monocytes # (Auto) 0.6 x10^3/uL (0.0-1.1) Eosinophils # (Auto) 0.0 x10^3/uL (0.0-0.7) Basophils # (Auto) 0.0 x10^3/uL (0.0-0.2) Sodium Level 142 mmol/L (136-145) Potassium Level 3.2 mmol/L (3.5-5.1) Chloride Level 102 mmol/L (98-107) Carbon Dioxide Level 27 mmol/L (21-32) Anion Gap 13 (6-14) Blood Urea Nitrogen 19 mg/dL (7-20) Creatinine 0.9 mg/dL (0.6-1.0) Estimated GFR (Cockcroft-Gault) 65.0 BUN/Creatinine Ratio 21 (6-20) Glucose Level 116 mg/dL (70-99) Calcium Level 8.4 mg/dL (8.5-10.1) Total Bilirubin 0.5 mg/dL (0.2-1.0) Aspartate Amino Transf (AST/SGOT) 25 U/L (15-37) Alanine Aminotransferase (ALT/SGPT) 57 U/L (14-59) Alkaline Phosphatase 81 U/L (46-116) Total Protein 6.4 g/dL (6.4-8.2) Albumin 2.8 g/dL (3.4-5.0) Albumin/Globulin Ratio 0.8 (1.0-1.7) Medications Active Scripts Medications Dose Route/Sig Max Daily Dose Days Date Category Dose Instructions Prednisone (Prednisone) 10 Mg Tablet 10 Mg PO UD 01/13/17 Reported Take 4 tablets (40 mg) by mouth for 2 days, then take 2 tablets (20 mg) by mouth for 2 days, then take 1 tablet (10 mg) by mouth for 2 days, then take 1/2 tablet( 5 mg) by mouth x 1 day, then stop. Azithromycin Tablet (Azithromycin) 500 Mg Tablet 500 Mg PO DAILY 5 01/13/17 Rx Pulmicort Flexhaler (Budesonide) 180 Mcg Aer.pow.ba 2 Puff IH BID 01/13/17 Rx Venlafaxine Hcl Er (Venlafaxine Hcl) 225 Mg Tab.er.24 225 Mg PO DAILY 01/10/17 Reported NICODERM CQ 21mg (Nicotine) 1 Each Patch.td24 1 Patch TP DAILY 01/10/17 Reported Do not smoke while wearing the patch Cyanocobalamin Injection (Cyanocobalamin (Vitamin B-12)) 1,000 Mcg/1 Ml Vial 1 Ml IM QMONTH 01/10/17 Reported Clonazepam 0.5 Mg Tablet 0.5 Tab PO DAILY PRN 01/10/17 Reported Ventolin Hfa Inhaler (Albuterol Sulfate) 18 Gm Hfa.aer.ad 2 Puff INH BID 01/10/17 Reported Acetaminophen 500 Mg Tablet 1 Tab PO PRN Q6HRS PRN 01/10/17 Reported Metoprolol Tartrate 50 Mg Tablet 50 Mg PO BID 30 09/23/16 Rx Isosorbide Mononitrate Er (Isosorbide Mononitrate) 30 Mg Tab.er.24h 60 Mg PO DAILY 30 09/23/16 Rx Atorvastatin Calcium 20 Mg Tablet 20 Mg PO QHS 09/23/16 Rx Advair 250-50 Diskus (Fluticasone/Salmeterol) 1 Each Disk.w.dev 1 Inh IH BID 09/23/16 Rx Gabapentin (Gabapentin) 300 Mg Capsule 300 Mg PO BID 09/12/16 Reported Buspirone Hcl 15 Mg Tablet 15 Mg PO BID 09/12/16 Reported Aspirin 325 Mg Tablet 1 Tab PO DAILY 03/16/14 Reported Tamoxifen Citrate 20 Mg Tablet 20 Mg PO DAILY 06/24/13 Reported Comments cxr reviewed, Improving interstitial pulmonary opacities. Impression . IMPRESSION: 1. Acute respiratory failure. 2. Abnormal x-ray compatible with acute on chronic heart failure. 3. Cardiomyopathy, ejection fraction 45% 4. Tobacco dependence. 5. History of breast cancer. 6. Prior admission for respiratory failure. 7. Abnormal x-ray compatible with congestive heart failure. ECHO <Conclusion> Left ventricle systolic function is mildly impaired. The Ejection Fraction is 45 -50%. There is mild global hypokinesis. Plan . 1. DC antibiotics, DC steroid, 2. CXR , reviewed, Resolving interstitial EDEMA 3. lovenox for dvt prophylaxis 4. follow Cardiology recommendations 5. A 6-minute walk prior to discharge. 6. yeast in sputum, suspect brigida, suspect contaminant, no need for tx discussed w PCP. ok with dc home ELSA LEOS MD Apr 29, 2018 11:41
--- NOTE | 2018-04-29 11:48 | PDOC3 ---
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 Abnormal x-ray compatible with viral pneumonia versus congestive heart failure. NO ANTIBIOTICS OR STEROIDS ON D/C D/W DR LEOS History of Present Illness History of Present Illness Ms. Wood presented to the ED with worsening shortness of breath and nonproductive cough. She has a history of COPD. CXR (04/23) showed increasing bilateral opacity, likely HCAP. Patient seen and examined at bedside. Patient is improving, denies shortness of breath, mild nonproductive cough. Patient O2Sat at 97% on 4L per N/C. Receiving steroids and duoNebs and antibiotics. Pulmonology and Cards following. Vitals Vitals Vital Signs Date Time Temp Pulse Resp B/P (MAP) Pulse Ox O2 Delivery O2 Flow Rate FiO2 04/29/18 08:47 70 168/87 04/29/18 08:00 Room Air 04/29/18 07:00 97.5 16 96 97.5 04/29/18 06:10 1.0 Physical Exam General: Alert, Oriented X3, Cooperative, No acute distress Heart: Regular rate, Normal S1, Normal S2 Lungs: Other (better air movement, CTA) NOW ON ROOM AIR Abdomen: Soft, No tenderness Extremities: No clubbing, No cyanosis, No edema, Normal pulses Skin: No rashes, No significant lesion, FINAL DIAGNOSIS Problems Medical Problems: (1) Acute respiratory distress Status: Acute (2) Anxiety Status: Acute (3) History of left breast cancer Status: Acute (4) Hypoxia Status: Acute (5) Severe sepsis Status: Acute (6) Tachycardia Status: Acute (7) Tobacco abuse Status: Acute (8) Tobacco abuse counseling Status: Acute Brief Hospital Course Ms. Wood is a 57 old [sex] who presented with [ CHEST PAIN, RESP FAILURE] CONDITION AT DISCHARGE: Improved Discharge Medications Current Medications Albuterol/ Ipratropium (Duoneb) 3 ml 1X ONCE NEB Last administered on 17:33; Start 04/23/18 at 17:15; Stop 04/23/18 at 17:20; Status DC Methylprednisolone Sodium Succinate (SOLU-Medrol 125MG VIAL) 125 mg 1X ONCE IV Last administered on 04/23/18 17:38; Start 04/23/18 at 17:15; Stop 04/23/18 at 17:20; Status DC Sodium Chloride 1,000 ml @ 1,000 mls/hr 1X ONCE IV Last administered on 17:37; Start 04/23/18 at 17:30; Stop 04/23/18 at 18:29; Status DC Ceftriaxone Sodium (Rocephin) 1 gm 1X ONCE IVP Last administered on 04/23/18 18:26; Start 04/23/18 at 18:15; Stop 04/23/18 at 18:16; Status DC Albuterol/ Ipratropium (Duoneb) 3 ml RTQID NEB Last administered on 04/24/18 06 :11; Start 04/23/18 at 20:00; Stop 04/24/18 at 09:27; Status DC Piperacillin Sod/ Tazobactam Sod 4.5 gm/Sodium Chloride 100 ml @ 200 mls/hr 1X ONCE IV Last administered on 04/23/18 19:11; Start 04/23/18 at 18:30; Stop 04/23/18 at 18:59; Status DC Vancomycin HCl 1.5 gm/Sodium Chloride 500 ml @ 250 mls/hr 1X ONCE IV Last administered on 04/23/18 19:35; Start 04/23/18 at 19:00; Stop 04/23/18 at 20:59; Status DC Levofloxacin/ Dextrose 100 ml @ 100 mls/hr 1X ONCE IV Last administered on 18:26; Start 04/23/18 at 18:15; Stop 04/23/18 at 19:14; Status DC Acetaminophen (Tylenol) 650 mg PRN Q6HRS PRN PO Headaches, Temp > 101.5' Last administered on 04/27/18at 10:39; Start 04/23/18 at 19:00 Lorazepam (Ativan) 0.5 mg PRN Q6HRS PRN IV ANXIETY / AGITATION Last administered on 04/24/18 10:03; Start 04/23/18 at 19:00; Stop 04/24/18 at 13:16; Status DC Ondansetron HCl (Zofran) 4 mg PRN Q6HRS PRN IV NAUSEA/VOMITING Last administered on 04/25/18 01:29; Start 04/23/18 at 19:00 Info (Non-Icu Electrolyte Protocol) 1 ea CONT PRN PRN MC SEE COMMENTS; Start at 19:15 Enoxaparin Sodium (Lovenox 40mg Syringe) 40 mg Q24H SQ Last administered on 21:28; Start 04/23/18 at 21:00 Sodium Chloride (Normal Saline Flush) 3 ml QSHIFT PRN IV AFTER MEDS AND BLOOD DRAWS; Start 04/23/18 at 19:00 Morphine Sulfate (Morphine Sulfate) 1 mg PRN Q1HR PRN IV SEVERE PAIN Last administered on 04/26/18 16:18; Start 04/23/18 at 19:00 Lactulose (Lactulose) 20 gm PRN Q12HR PRN PO CONSTIPATION; Start 04/23/18 at 19: 00 Bisacodyl (Dulcolax Supp) 10 mg PRN DAILY PRN NE CONSTIPATION; Start 04/23/18 at 19:00 Atorvastatin Calcium (Lipitor) 20 mg QHS PO Last administered on 04/28/18 21: 27; Start 04/23/18 at 21:00 Clonazepam (KlonoPIN) 0.25 mg PRN DAILY PRN PO ANXIETY / AGITATION Last administered on 04/25/18 05:45; Start 04/23/18 at 19:00 Gabapentin (Neurontin) 300 mg BID PO Last administered on 04/29/18 08:50; Start 04/23/18 at 21:00 Isosorbide Mononitrate (Imdur) 60 mg DAILY PO Last administered on 04/29/18 08 :46; Start 04/24/18 at 09:00 Metoprolol Tartrate (Lopressor) 50 mg BID PO Last administered on 04/28/18 08: 23; Start 04/23/18 at 21:00; Stop 04/28/18 at 16:52; Status DC Non-Formulary Medication (Albuterol Sulfate (Ventolin Hfa Inhaler)) 2 puff BID INH ; Start 04/23/18 at 21:00; Status UNV Non-Formulary Medication (Budesonide (Pulmicort Flexhaler)) 2 puff BID IH ; Start 04/23/18 at 21:00; Status UNV Buspirone HCl (Buspar) 15 mg BID PO Last administered on 04/25/18 08:59; Start 04/23/18 at 21:00; Stop 04/26/18 at 02:20; Status DC Non-Formulary Medication (Fluticasone/ Salmeterol (Advair 250-50 Diskus)) 1 inh BID IH ; Start 04/23/18 at 21:00; Status UNV Tamoxifen Citrate (Nolvadex) 20 mg DAILY PO Last administered on 04/29/18at 08: 49; Start 04/24/18 at 09:00 Venlafaxine HCl (Effexor) 75 mg TID PO Last administered on 04/25/18at 20:54; Start 04/24/18 at 09:00; Stop 04/26/18 at 02:05; Status DC Piperacillin Sod/ Tazobactam Sod 4.5 gm/Sodium Chloride 100 ml @ 200 mls/hr Q6HRS IV Last administered on 04/29/18at 06:21; Start 04/24/18 at 00:00 Budesonide (Pulmicort) 0.5 mg RTBID NEB Last administered on 04/29/18at 06:14; Start 04/23/18 at 20:00 Albuterol Sulfate (Ventolin Neb Soln) 2.5 mg RTQID NEB Last administered on 04/23at 21:04; Start 04/23/18 at 20:00; Stop 04/24/18 at 05:58; Status DC Lorazepam (Ativan) 0.5 mg 1X ONCE IV Last administered on 04/23/18at 19:15; Start 04/23/18 at 19:15; Stop 04/23/18 at 19:16; Status DC Methylprednisolone Sodium Succinate (SOLU-Medrol 125MG VIAL) 125 mg Q8HRS IV Last administered on 04/27/18at 06:11; Start 04/23/18 at 22:00; Stop 04/27/18 at 07: 32; Status DC Albuterol/ Ipratropium (Duoneb) 3 ml Q4HRS NEB ; Start 04/23/18 at 20:00; Stop at 05:58; Status DC Nicotine (Nicoderm Cq 14mg) 1 patch PRN DAILY PRN TD SMOKING CESSATION Last administered on 04/27/18 10:45; Start 04/23/18 at 22:30 Tizanidine HCl (Zanaflex) 4 mg PRN Q8HRS PRN PO MUSCLE SPASMS Last administered on 04/27/18 20:59; Start 04/23/18 at 22:30 Ketorolac Tromethamine (Toradol 30mg Vial) 30 mg 1X ONCE IV Last administered on 04/24/18 00:20; Start 04/23/18 at 23:00; Stop 04/23/18 at 23:01; Status DC Ketorolac Tromethamine (Toradol 15mg Vial) 15 mg PRN Q8HRS PRN IV MODERATE PAIN ; Start 04/23/18 at 22:45; Stop 04/28/18 at 22:44; Status DC Albuterol Sulfate (Ventolin Neb Soln) 2.5 mg PRN Q4HRS PRN NEB WHEEZING; Start 04/24/18 at 06:00 Albuterol/ Ipratropium (Duoneb) 3 ml RTQID NEB Last administered on 04/26/18 20 :16; Start 04/24/18 at 08:00; Stop 04/27/18 at 07:32; Status DC Guaifenesin/ Codeine Phosphate (Robitussin Ac) 5 ml PRN Q6HRS PRN PO COUGH Last administered on 04/27/18 10:42; Start 04/24/18 at 12:15 Lorazepam (Ativan) 1 mg PRN Q6HRS PRN IV ANXIETY / AGITATION Last administered on 04/26/18 09:46; Start 04/24/18 at 13:30 Lactobacillus Rhamnosus (Culturelle) 1 cap BID PO Last administered on 08:22; Start 04/25/18 at 21:00; Stop 04/28/18 at 12:14; Status DC Temazepam (Restoril) 15 mg PRN QHS PRN PO INSOMNIA Last administered on 20:53; Start 04/25/18 at 20:00 Venlafaxine HCl (Effexor Xr) 225 mg DAILY PO Last administered on 04/29/18 08: 47; Start 04/26/18 at 09:00 Furosemide (Lasix) 40 mg 1X ONCE PO Last administered on 04/26/18 17:56; Start 04/26/18 at 17:30; Stop 04/26/18 at 17:31; Status DC Aspirin (Ecotrin) 81 mg DAILYWBKFT PO Last administered on 04/29/18 08:46; Start 04/26/18 at 17:30 Albuterol/ Ipratropium (Duoneb) 3 ml Q4HRS NEB Last administered on 04/29/18 06:14; Start 04/27/18 at 08:00 Methylprednisolone Sodium Succinate (SOLU-Medrol 125MG VIAL) 80 mg Q8HRS IV Last administered on 04/28/18 05:49; Start 04/27/18 at 14:00; Stop 04/28/18 at 08:22; Status DC Montelukast Sodium (Singulair) 10 mg QHS PO Last administered on 04/28/18 21: 29; Start 04/27/18 at 21:00 Potassium Chloride (Klor-Con) 40 meq 1X ONCE PO Last administered on 04/27/18 10:53; Start 04/27/18 at 10:45; Stop 04/27/18 at 10:48; Status DC Acetaminophen/ Hydrocodone Bitart (Lortab 5/325) 1 tab PRN Q4HRS PRN PO MODERATE PAIN Last administered on 04/27/18 20:59; Start 04/27/18 at 10:45 Lisinopril (Prinivil) 10 mg 1X ONCE PO Last administered on 04/27/18 12:04; Start 04/27/18 at 11:15; Stop 04/27/18 at 11:16; Status DC Lisinopril (Prinivil) 20 mg DAILY PO Last administered on 04/29/18 08:47; Start 04/28/18 at 09:00 Calcium Carbonate/ Glycine (Tums) 500 mg PRN Q4HRS PRN PO INDIGESTION Last administered on 04/27/18 20:58; Start 04/27/18 at 19:45 Methylprednisolone Sodium Succinate (SOLU-Medrol 40MG VIAL) 40 mg Q8HRS IV Last administered on 04/29/18at 06:20; Start 04/28/18 at 14:00 Clotrimazole (Mycelex) 10 mg BID MM Last administered on 04/29/18at 08:50; Start 04/28/18 at 21:00 Hydralazine HCl (Apresoline Inj) 10 mg PRN Q4HRS PRN IVP ELEVATED BP, SEE COMMENTS Last administered on 04/28/18at 14:31; Start 04/28/18 at 13:00 Lisinopril (Prinivil) 10 mg 1X ONCE PO Last administered on 04/28/18 13:22; Start 04/28/18 at 13:00; Stop 04/28/18 at 13:01; Status DC Pantoprazole Sodium (Protonix) 40 mg DAILYAC PO Last administered on 04/29/18 06:20; Start 04/28/18 at 15:30 Carvedilol (Coreg) 12.5 mg BIDWMEALS PO Last administered on 04/29/18at 08:46; Start 04/28/18 at 17:00 Hydralazine HCl (Apresoline Inj) 10 mg 1X ONCE IVP Last administered on at 17:01; Start 04/28/18 at 17:00; Stop 04/28/18 at 17:01; Status DC Active Scripts Active Azithromycin Tablet (Azithromycin) 500 Mg Tablet 500 Mg PO DAILY 5 Days Pulmicort Flexhaler (Budesonide) 180 Mcg Aer.pow.ba 2 Puff IH BID Metoprolol Tartrate 50 Mg Tablet 50 Mg PO BID 30 Days Isosorbide Mononitrate Er (Isosorbide Mononitrate) 30 Mg Tab.er.24h 60 Mg PO DAILY 30 Days Atorvastatin Calcium 20 Mg Tablet 20 Mg PO QHS 30 Days Advair 250-50 Diskus (Fluticasone/Salmeterol) 1 Each Disk.w.dev 1 Inh IH BID 30 Days Reported Prednisone (Prednisone) 10 Mg Tablet 10 Mg PO UD Take 4 tablets (40 mg) by mouth for 2 days, then take 2 tablets (20 mg) by mouth for 2 days, then take 1 tablet (10 mg) by mouth for 2 days, then take 1/2 tablet( 5 mg) by mouth x 1 day, then stop. Venlafaxine Hcl Er (Venlafaxine Hcl) 225 Mg Tab.er.24 225 Mg PO DAILY NICODERM CQ 21mg (Nicotine) 1 Each Patch.td24 1 Patch TP DAILY Do not smoke while wearing the patch Cyanocobalamin Injection (Cyanocobalamin (Vitamin B-12)) 1,000 Mcg/1 Ml Vial 1 Ml IM QMONTH Clonazepam 0.5 Mg Tablet 0.5 Tab PO DAILY PRN Ventolin Hfa Inhaler (Albuterol Sulfate) 18 Gm Hfa.aer.ad 2 Puff INH BID Acetaminophen 500 Mg Tablet 1 Tab PO PRN Q6HRS PRN Gabapentin (Gabapentin) 300 Mg Capsule 300 Mg PO BID Buspirone Hcl 15 Mg Tablet 15 Mg PO BID Aspirin 325 Mg Tablet 1 Tab PO DAILY Tamoxifen Citrate 20 Mg Tablet 20 Mg PO DAILY Vital Signs Vital Signs Date Time Temp Pulse Resp B/P (MAP) Pulse Ox O2 Delivery O2 Flow Rate FiO2 04/29/18 11:00 98.0 69 16 158/90 (112) 94 Room Air 98.0 04/29/18 06:10 1.0 Labs Laboratory Tests Test 04/28/18 05:00 04/29/18 03:58 White Blood Count 6.8 x10^3/uL (4.0-11.0) 7.9 x10^3/uL (4.0-11.0) Red Blood Count 3.45 x10^6/uL (3.50-5.40) 3.78 x10^6/uL (3.50-5.40) Hemoglobin 11.4 g/dL (12.0-15.5) 12.3 g/dL (12.0-15.5) Hematocrit 34.1 % (36.0-47.0) 36.9 % (36.0-47.0) Mean Corpuscular Volume 99 fL (79-100) 98 fL (79-100) Mean Corpuscular Hemoglobin 33 pg (25-35) 33 pg (25-35) Mean Corpuscular Hemoglobin Concent 33 g/dL (31-37) 34 g/dL (31-37) Red Cell Distribution Width 13.9 % (11.5-14.5) 14.2 % (11.5-14.5) Platelet Count 144 x10^3/uL (140-400) 176 x10^3/uL (140-400) Neutrophils (%) (Auto) 81 % (31-73) 82 % (31-73) Lymphocytes (%) (Auto) 12 % (24-48) 11 % (24-48) Monocytes (%) (Auto) 7 % (0-9) 8 % (0-9) Eosinophils (%) (Auto) 0 % (0-3) 0 % (0-3) Basophils (%) (Auto) 0 % (0-3) 0 % (0-3) Neutrophils # (Auto) 5.5 x10^3uL (1.8-7.7) 6.5 x10^3uL (1.8-7.7) Lymphocytes # (Auto) 0.8 x10^3/uL (1.0-4.8) 0.8 x10^3/uL (1.0-4.8) Monocytes # (Auto) 0.4 x10^3/uL (0.0-1.1) 0.6 x10^3/uL (0.0-1.1) Eosinophils # (Auto) 0.0 x10^3/uL (0.0-0.7) 0.0 x10^3/uL (0.0-0.7) Basophils # (Auto) 0.0 x10^3/uL (0.0-0.2) 0.0 x10^3/uL (0.0-0.2) Sodium Level 146 mmol/L (136-145) 142 mmol/L (136-145) Potassium Level 3.6 mmol/L (3.5-5.1) 3.2 mmol/L (3.5-5.1) Chloride Level 105 mmol/L (98-107) 102 mmol/L (98-107) Carbon Dioxide Level 32 mmol/L (21-32) 27 mmol/L (21-32) Anion Gap 9 (6-14) 13 (6-14) Blood Urea Nitrogen 22 mg/dL (7-20) 19 mg/dL (7-20) Creatinine 0.9 mg/dL (0.6-1.0) 0.9 mg/dL (0.6-1.0) Estimated GFR (Cockcroft-Gault) 65.0 65.0 BUN/Creatinine Ratio 24 (6-20) 21 (6-20) Glucose Level 137 mg/dL (70-99) 116 mg/dL (70-99) Calcium Level 8.5 mg/dL (8.5-10.1) 8.4 mg/dL (8.5-10.1) Total Bilirubin 0.4 mg/dL (0.2-1.0) 0.5 mg/dL (0.2-1.0) Aspartate Amino Transf (AST/SGOT) 30 U/L (15-37) 25 U/L (15-37) Alanine Aminotransferase (ALT/SGPT) 65 U/L (14-59) 57 U/L (14-59) Alkaline Phosphatase 67 U/L (46-116) 81 U/L (46-116) Total Protein 6.3 g/dL (6.4-8.2) 6.4 g/dL (6.4-8.2) Albumin 2.9 g/dL (3.4-5.0) 2.8 g/dL (3.4-5.0) Albumin/Globulin Ratio 0.9 (1.0-1.7) 0.8 (1.0-1.7) Laboratory Tests Test 04/29/18 03:58 White Blood Count 7.9 x10^3/uL (4.0-11.0) Red Blood Count 3.78 x10^6/uL (3.50-5.40) Hemoglobin 12.3 g/dL (12.0-15.5) Hematocrit 36.9 % (36.0-47.0) Mean Corpuscular Volume 98 fL (79-100) Mean Corpuscular Hemoglobin 33 pg (25-35) Mean Corpuscular Hemoglobin Concent 34 g/dL (31-37) Red Cell Distribution Width 14.2 % (11.5-14.5) Platelet Count 176 x10^3/uL (140-400) Neutrophils (%) (Auto) 82 % (31-73) Lymphocytes (%) (Auto) 11 % (24-48) Monocytes (%) (Auto) 8 % (0-9) Eosinophils (%) (Auto) 0 % (0-3) Basophils (%) (Auto) 0 % (0-3) Neutrophils # (Auto) 6.5 x10^3uL (1.8-7.7) Lymphocytes # (Auto) 0.8 x10^3/uL (1.0-4.8) Monocytes # (Auto) 0.6 x10^3/uL (0.0-1.1) Eosinophils # (Auto) 0.0 x10^3/uL (0.0-0.7) Basophils # (Auto) 0.0 x10^3/uL (0.0-0.2) Sodium Level 142 mmol/L (136-145) Potassium Level 3.2 mmol/L (3.5-5.1) Chloride Level 102 mmol/L (98-107) Carbon Dioxide Level 27 mmol/L (21-32) Anion Gap 13 (6-14) Blood Urea Nitrogen 19 mg/dL (7-20) Creatinine 0.9 mg/dL (0.6-1.0) Estimated GFR (Cockcroft-Gault) 65.0 BUN/Creatinine Ratio 21 (6-20) Glucose Level 116 mg/dL (70-99) Calcium Level 8.4 mg/dL (8.5-10.1) Total Bilirubin 0.5 mg/dL (0.2-1.0) Aspartate Amino Transf (AST/SGOT) 25 U/L (15-37) Alanine Aminotransferase (ALT/SGPT) 57 U/L (14-59) Alkaline Phosphatase 81 U/L (46-116) Total Protein 6.4 g/dL (6.4-8.2) Albumin 2.8 g/dL (3.4-5.0) Albumin/Globulin Ratio 0.8 (1.0-1.7) Allergies Allergies Coded Allergies Type Severity Reaction Last Updated Verified No Known Drug Allergies 03/16/14 No Disposition/Orders: D/C to Home Patient Instructions D/C PLANNING 33 MIN GEETA FOSTER MD Apr 29, 2018 11:48
[2018-04-29] MEDS ORDERED: LISI-130 PO (11:54)
[2018-04-29] MEDS ORDERED: Pantoprazole PO (11:54)
[2018-04-29] MEDS ORDERED: IPRA3AMP29 NEB (11:54)
[2018-04-29] MEDS ORDERED: CARV12.511 PO (11:54)
[2018-04-29] MEDS ORDERED: CALC200T23 PO (11:54)
[2018-04-29] MEDS ORDERED: MONT10TA9 PO (11:54)
[2018-04-29] MEDS ORDERED: CLOT10TR MM (11:54)
[2018-04-29] MEDS ORDERED: LACT20SO PO (11:54)
--- NOTE | 2018-04-29 11:56 | DISCH ---
DISCHARGE INSTRUCTIONS Condition on Discharge Condition on Discharge: Stable Activity After Discharge Activity Instructions for Disc: No restrictions Exercise Instruction after Dis: Walk 10 min, 3 x per day Driving Instructions after Dis: Do not drive today Diet after Discharge Diet after Discharge: Cardiac, Regular Wound Incision Care Wound/Incision Care: Other, see below Checks after Discharge Checks after discharge: Check blood press - daily Contacting the [facility] after DC Call your doctor for: If your condition worsens Treatment/Equipment after DC Adaptive Equipment Issued: None Discharge Respiratory Equipmen: Nebulizer GEETA FOSTER MD Apr 29, 2018 11:56
[2018-04-29] MEDS ORDERED: POTASSIUM CHLORIDE 20 MEQ TABLET.ER. PO ONE (12:15)
[2018-04-29 13:18] VITALS: BP 156/87
--- NOTE | 2018-04-29 13:27 | NUR ---
Patient refuses 6 min [facility] prior to discharge stating that she doesn't need it and won't be able to pay out of pocket for home oxygen
--- NOTE | 2018-04-29 13:46 | PDOC ---
MARISELA PLASCENCIA FORENSIC AUDIT EXPERT 04/29/18 1346: CARDIO Progress Notes Date and Time Date of Service 04/29/18 Time of Evaluation 1340 Subjective Subjective: No Chest Pain, No shortness of breath, No Palpitations Vitals Vitals Vital Signs Date Time Temp Pulse Resp B/P (MAP) Pulse Ox O2 Delivery O2 Flow Rate FiO2 04/29/18 13:18 156/87 (110) 04/29/18 13:05 97 Room Air 04/29/18 11:00 98.0 69 16 98.0 04/29/18 06:10 1.0 Weight Weight [ ] Input and Output Intake and Output Intake and Output 04/29/18 07:00 Intake Total 280 ml Output Total 650 ml Balance -370 ml Intake Oral 80 ml IV Total 200 ml Output Urine Total 650 ml # Bowel Movements 5 Laboratory Labs Laboratory Tests Test 04/29/18 03:58 White Blood Count 7.9 x10^3/uL (4.0-11.0) Red Blood Count 3.78 x10^6/uL (3.50-5.40) Hemoglobin 12.3 g/dL (12.0-15.5) Hematocrit 36.9 % (36.0-47.0) Mean Corpuscular Volume 98 fL (79-100) Mean Corpuscular Hemoglobin 33 pg (25-35) Mean Corpuscular Hemoglobin Concent 34 g/dL (31-37) Red Cell Distribution Width 14.2 % (11.5-14.5) Platelet Count 176 x10^3/uL (140-400) Neutrophils (%) (Auto) 82 % (31-73) Lymphocytes (%) (Auto) 11 % (24-48) Monocytes (%) (Auto) 8 % (0-9) Eosinophils (%) (Auto) 0 % (0-3) Basophils (%) (Auto) 0 % (0-3) Neutrophils # (Auto) 6.5 x10^3uL (1.8-7.7) Lymphocytes # (Auto) 0.8 x10^3/uL (1.0-4.8) Monocytes # (Auto) 0.6 x10^3/uL (0.0-1.1) Eosinophils # (Auto) 0.0 x10^3/uL (0.0-0.7) Basophils # (Auto) 0.0 x10^3/uL (0.0-0.2) Sodium Level 142 mmol/L (136-145) Potassium Level 3.2 mmol/L (3.5-5.1) Chloride Level 102 mmol/L (98-107) Carbon Dioxide Level 27 mmol/L (21-32) Anion Gap 13 (6-14) Blood Urea Nitrogen 19 mg/dL (7-20) Creatinine 0.9 mg/dL (0.6-1.0) Estimated GFR (Cockcroft-Gault) 65.0 BUN/Creatinine Ratio 21 (6-20) Glucose Level 116 mg/dL (70-99) Calcium Level 8.4 mg/dL (8.5-10.1) Total Bilirubin 0.5 mg/dL (0.2-1.0) Aspartate Amino Transf (AST/SGOT) 25 U/L (15-37) Alanine Aminotransferase (ALT/SGPT) 57 U/L (14-59) Alkaline Phosphatase 81 U/L (46-116) Total Protein 6.4 g/dL (6.4-8.2) Albumin 2.8 g/dL (3.4-5.0) Albumin/Globulin Ratio 0.8 (1.0-1.7) Microbiology Micro Microbiology 04/23/18 Blood Culture - Final, Complete NO GROWTH AFTER 5 DAYS 04/24/18 - Final, Complete 04/24/18 - Final, Complete 04/24/18 - Final, Complete 04/24/18 Gram Stain Evaluation - Final, Complete 04/24/18 Sputum Culture - Final, Complete 04/24/18 Sputum Result 1 - Final, Complete 04/24/18 Sputum Result 2 - Final, Complete Physical Exam HEENT: Neck Supple W Full Motion Chest: Symmetric LUNGS: Clear to Auscultation Heart: S1S2, RRR Abdomen: Soft N/T Extremities: No Edema Neurology: alert, oriented, follow commands Assessment Assessment 1. Acute respiratory failure; multifactorial in the setting of AE COPD, and a/ c HF 2. Acute on chronic systolic HF; improved with diuresis 3. H/o NICM; LVEF previously 25%. LV recovery to 50-55%. Repeat echo shows LVEF 45-50% 4. Hypertension; mildly elevated 5. Hyperlipidemia; statin 6. H/o CVA 7. Tobaccoism; discussed/encouraged cessation Recommendations Increase lisinopril to 40mg Continue ASA, statin, BB, and Imdur Consider outpatient stress test Supportive care May discharge from a CV standpoint and f/u in our office with Dr Faustin in 4 weeks ERNST FAUSTIN MD 04/30/18 0840: CARDIO Progress Notes Assessment Assessment Patient seen and examined 04/29/18. Agree with ASSISTANT SPA MANAGER's assessment and plan. Acute on chronic systolic heart failure better compensated Continue current medical regimen Plan for outpatient ischemic evaluation MARISELA PLASCENCIA APRN Apr 29, 2018 13:46 ERNST FAUSTIN MD Apr 30, 2018 08:40
--- NOTE | 2018-04-29 15:09 | NUR ---
Discharge Note: NADIR ZAMARRIPA [place] Discharge instructions and discharge home medications reviewed with Patient and a copy given. All questions have been answered and understanding verbalized. The following instructions and handouts were given: Medications, COPD, CHF. Handwritten scripts for Coreg and Lisinopril. Called other scripts to Pharmacy. Discontinued lines and drains: Peripheral IV intact.
[2018-04-30] MEDS ORDERED: LISINOPRIL 20 MG TABLET PO SCH (09:00)
== END 2018-04-29 14:50 | disposition home or self-care (01) | DRG 871 ==
LOC: ER 17:06 → UNDOADMIN 17:58 → 6 SOUTH 17:58 → 2 NORTH 17:58
PROVIDERS: ADMIT Internal Medicine; ATTEND Internal Medicine
DX: A41.9 Sepsis, unspecified organism (principal); J12.9 Viral pneumonia, unspecified; J96.21 Acute and chronic respiratory failure with hypoxia; I50.43 Acute on chronic combined systolic (congestive) and diastolic (congestive) heart failure; J44.1 Chronic obstructive pulmonary disease with (acute) exacerbation; J44.0 Chronic obstructive pulmonary disease with (acute) lower respiratory infection; I42.9 Cardiomyopathy, unspecified; E87.2 Acidosis; R65.20 Severe sepsis without septic shock; I11.0 Hypertensive heart disease with heart failure; H54.8 Legal blindness, as defined in USA; F17.210 Nicotine dependence, cigarettes, uncomplicated; F41.9 Anxiety disorder, unspecified; E78.5 Hyperlipidemia, unspecified; B37.9 Candidiasis, unspecified; Y95 Nosocomial condition; M19.90 Unspecified osteoarthritis, unspecified site; F12.90 Cannabis use, unspecified, uncomplicated; Z92.21 Personal history of antineoplastic chemotherapy; Z86.73 Personal history of transient ischemic attack (TIA), and cerebral infarction without residual deficits; Z86.74 Personal history of sudden cardiac arrest; Z85.3 Personal history of malignant neoplasm of breast; Z79.899 Other long term (current) drug therapy; Z80.3 Family history of malignant neoplasm of breast; Z82.49 Family history of ischemic heart disease and other diseases of the circulatory system
CPT/HCPCS: 36415; 36600; 71045; 80048; 80053; 80307; 81001; 82553; 83605; 83735; 83880; 84484; 85007; 85025; 87040; 87070; 87205; 93005; 93308; 94640; 94760; 96361; 96365; 96366; 96375; 99406; J0360; J0696; J1650; J1885; J1956; J2060; J2270; J2405; J2543; J2920; J2930; J3370; J7030; J7040; J7613; J7620; J7626; 99285-25

== ENCOUNTER 2018-07-29 21:32 | Inpatient (IN) | payer SELFPAY ==
[~2018-07-29] VITALS: Ht 162.6 cm; Wt 72.3 kg
[~2018-07-29 21:32] MED LIST changes: +CALC200T23 PO; +CARV12.511 PO; +CLOT10TR MM; +IPRA3AMP29 NEB; +LACT20SO PO; +LISI-130 PO; +MONT10TA49 PO; +Pantoprazole PO
--- NOTE | 2018-07-29 22:19 | RAD ---
CT HEAD WO CONTRAST History: Right leg weakness and numbness Comparison: September 16, 2016 Technique: Noncontrast CT imaging was performed of the head. Exposure: One or more of the following individualized dose reduction techniques were utilized for this examination: 1. Automated exposure control 2. Adjustment of the mA and/or kV according to patient size 3. Use of iterative reconstruction technique. Findings: No acute extra-axial or parenchymal hemorrhage is identified. There is no significant intra-axial mass effect, midline shift, or extra-axial fluid collection. The escoto-white differentiation of the major vascular territories is preserved. There is now more defined small 0.5 cm focus of low density at the lateral margin of the thalamus/posterior limb of right internal capsule. The ventricles, sulci, and cisterns are within normal limits in size and configuration. The mastoid air cells and the visualized paranasal sinuses are aerated. No acute calvarial abnormality is identified. Impression: 1. There is no evidence of acute intracranial hemorrhage. There is now focus of more defined low-density of the lateral aspect of the right thalamus/margin of the posterior limb of right internal capsule likely sequela of older lacunar infarct. Electronically signed by: Chu Dawkins MD (07/29/2018 10:16 PM) [facility]
[2018-07-29] MEDS ORDERED: IV NORMAL SALINE 1000ML BAG 1,000 ML IV SCH (22:30)
[2018-07-29 22:56] LABS: BASO # 0.1 x10^3/uL (0.0-0.2); BASO % 1 % (0-3); EOS # 0.3 x10^3/uL (0.0-0.7); EOS % 2 % (0-3); HEMATOCRIT 36.2 % (36.0-47.0); HEMOGLOBIN 12.5 g/dL (12.0-15.5); LYMPH # 2.4 x10^3/uL (1.0-4.8); LYMPH % 21 % (24-48); MEAN CORPUSCULAR HEMOGLOBIN 33 pg (25-35); MEAN CORPUSCULAR HGB CONC 35 g/dL (31-37); MEAN CORPUSCULAR VOLUME 96 fL (79-100); MONO % 9 % (0-9); NEUT % 68 % (31-73); PLATELET COUNT 138 x10^3/uL (140-400); RED BLOOD COUNT 3.77 x10^6/uL (3.50-5.40); RED CELL DISTRIBUTION WIDTH 14.4 % (11.5-14.5); WHITE BLOOD COUNT 11.8 x10^3/uL (4.0-11.0)
[2018-07-29 23:05] LABS: CALCIUM 9.1 mg/dL (8.5-10.1); CREATININE 1.1 mg/dL (0.6-1.0); GFR 51.4; PROTHROMBIN TIME PATIENT 12.4 SEC (11.7-14.0)
[2018-07-29 23:10] LABS: ALBUMIN 3.3 g/dL (3.4-5.0); MAGNESIUM 2.3 mg/dL (1.8-2.4); TOTAL BILIRUBIN 0.1 mg/dL (0.2-1.0); TOTAL PROTEIN 6.6 g/dL (6.4-8.2)
[2018-07-29] MEDS ORDERED: fentaNYL PF VIAL 100 MCG/2 ML VIAL IV ONE (23:45)
[2018-07-29] MEDS ORDERED: ONDANSETRON PF 4 MG/2 ML VIAL. IV ONE (23:45)
[2018-07-29] MEDS ORDERED: ASPIRIN 325 MG TABLET PO ONE (23:45)
[2018-07-29] MEDS ORDERED: ONDANSETRON PF 4 MG/2 ML VIAL. IV PRN (23:45)
[2018-07-30] MEDS: IV NORMAL SALINE 1000ML BAG 1,000 ML IV SCH ×3 (02:12→21:45)
[2018-07-30 02:20] VITALS: BP 112/76
--- NOTE | 2018-07-30 02:52 | PHYS DOC ---
Past Medical History Past Medical History: Asthma, Cancer, COPD, CVA, Hypertension, Pneumonia, Other Additional Past Medical Histor: LT EYE BLINDNESS,BREAST CA,cardiac arrest Additional Past Surgical Histo: LT BREAST LUMPECTOMY, PORT W/REMOVAL, LT EYE Alcohol Use: Occasionally Drug Use: Marijuana Adult General Chief Complaint Chief Complaint: NEURO SYMPTOMS/DEFICITS [facility] HPI Patient is a 58-year-old female who presents with complaint of acute onset of numbness of her lower extremities bilaterally. Patient states the numbness started at about 4:30 this afternoon. She indicates that she has had a recent history of neurological deficits indicating that she recently had an MRI of the brain due to having ataxia. Patient has history of cancer and her provider was concerned that cancer may have metastasized to the brain. She reports that she was told MRI was normal. Patient's sister also indicates that she noticed that patient had a facial droop and was slurring her speech somewhat this afternoon which is new. Patient states that initially she was having difficulty with ambulating on her legs but she has had improvement in the strength of her legs since onset of the numbness. She does indicate that she has a history of peripheral neuropathy due to diabetes. She states that this is worse than her typical neuropathy. She also indicates that she has radiation of pain down into her right thigh which she states is new. She rates that pain at an 8 out of 10.[] Review of Systems Review of Systems Constitutional: Denies fever or chills [] Eyes: Denies change in visual acuity, redness, or eye pain [] Respiratory: Denies cough or shortness of breath [] Cardiovascular: No additional information not addressed in HPI [] GI: Denies abdominal pain, nausea, vomiting or diarrhea [] Musculoskeletal: Positive right upper leg pain [] Integument: Denies rash or skin lesions [] Neurologic: Positive bilateral lower extremity numbness. Positive facial droop[] All other systems were reviewed and found to be within normal limits, except as documented in this note. Current Medications Current Medications Current Medications Medications (Trade) Dose Ordered Sig/Lanette Start Time Stop Time Status Last Admin Dose Admin Sodium Chloride 1,000 ml @ 1,000 mls/hr Q1H 07/29/18 22:30 07/29/18 23:29 DC 07/29/18 22:54 1,000 MLS/HR Allergies Allergies Allergies Coded Allergies Type Severity Reaction Last Updated Verified No Known Drug Allergies 03/16/14 No Physical Exam Physical Exam Constitutional: Well developed, well nourished, no acute distress, non-toxic appearance. [] HENT: Normocephalic, atraumatic, bilateral external ears normal, oropharynx moist, no oral exudates, nose normal. [] Eyes: PERRLA, EOMI, conjunctiva normal, no discharge. [] Neck: Normal range of motion, no tenderness, supple. [] Cardiovascular: Regular rate and rhythm[] Lungs & Thorax: Bilateral breath sounds clear to auscultation [] Abdomen: Bowel sounds normal, soft, no tenderness. [] Skin: Warm, dry, no erythema, no rash. [] Extremities: No tenderness, no cyanosis, no clubbing, ROM intact. [] Neurologic: Alert and oriented X 3, cranial nerve testing demonstrates deficit to the right facial nerve. There is mild weakness to the right medical economics consultant strength at 4 out of 5. [] Current Patient Data Vital Signs Vital Signs Date Time Temp Pulse Resp B/P (MAP) Pulse Ox O2 Delivery O2 Flow Rate FiO2 07/29/18 23:29 85 16 97 07/29/18 21:44 99.0 187/84 (118) Room Air 99.0 Lab Values Laboratory Tests Test 07/29/18 22:45 White Blood Count 11.8 x10^3/uL (4.0-11.0) H Red Blood Count 3.77 x10^6/uL (3.50-5.40) Hemoglobin 12.5 g/dL (12.0-15.5) Hematocrit 36.2 % (36.0-47.0) Mean Corpuscular Volume 96 fL (79-100) Mean Corpuscular Hemoglobin 33 pg (25-35) Mean Corpuscular Hemoglobin Concent 35 g/dL (31-37) Red Cell Distribution Width 14.4 % (11.5-14.5) Platelet Count 138 x10^3/uL (140-400) L Neutrophils (%) (Auto) 68 % (31-73) Lymphocytes (%) (Auto) 21 % (24-48) L Monocytes (%) (Auto) 9 % (0-9) Eosinophils (%) (Auto) 2 % (0-3) Basophils (%) (Auto) 1 % (0-3) Neutrophils # (Auto) 8.0 x10^3uL (1.8-7.7) H Lymphocytes # (Auto) 2.4 x10^3/uL (1.0-4.8) Monocytes # (Auto) 1.0 x10^3/uL (0.0-1.1) Eosinophils # (Auto) 0.3 x10^3/uL (0.0-0.7) Basophils # (Auto) 0.1 x10^3/uL (0.0-0.2) Prothrombin Time 12.4 SEC (11.7-14.0) Prothrombin Time INR 1.0 (0.8-1.1) PTT 20 SEC (24-38) L Sodium Level 140 mmol/L (136-145) Potassium Level 4.0 mmol/L (3.5-5.1) Chloride Level 105 mmol/L (98-107) Carbon Dioxide Level 25 mmol/L (21-32) Anion Gap 10 (6-14) Blood Urea Nitrogen 12 mg/dL (7-20) Creatinine 1.1 mg/dL (0.6-1.0) H Estimated GFR (Cockcroft-Gault) 51.4 BUN/Creatinine Ratio 11 (6-20) Glucose Level 109 mg/dL (70-99) H Calcium Level 9.1 mg/dL (8.5-10.1) Magnesium Level 2.3 mg/dL (1.8-2.4) Total Bilirubin 0.1 mg/dL (0.2-1.0) L Aspartate Amino Transferase (AST) 20 U/L (15-37) Alanine Aminotransferase (ALT) 25 U/L (14-59) Alkaline Phosphatase 88 U/L (46-116) Total Protein 6.6 g/dL (6.4-8.2) Albumin 3.3 g/dL (3.4-5.0) L Albumin/Globulin Ratio 1.0 (1.0-1.7) Laboratory Tests 07/29/18 22:45 Laboratory Tests 07/29/18 22:45 EKG EKG [] Interpretation Time: EKG demonstrates normal sinus rhythm with rate of 87. Radiology/Procedures Radiology/Procedures [] Impressions: PROCEDURE: CT HEAD WO CONTRAST CT HEAD WO CONTRAST History: Right leg weakness and numbness Comparison: September 16, 2016 Technique: Noncontrast CT imaging was performed of the head. Exposure: One or more of the following individualized dose reduction techniques were utilized for this examination: 1. Automated exposure control 2. Adjustment of the mA and/or kV according to patient size 3. Use of iterative reconstruction technique. Findings: No acute extra-axial or parenchymal hemorrhage is identified. There is no significant intra-axial mass effect, midline shift, or extra-axial fluid collection. The escoto-white differentiation of the major vascular territories is preserved. There is now more defined small 0.5 cm focus of low density at the lateral margin of the thalamus/posterior limb of right internal capsule. The ventricles, sulci, and cisterns are within normal limits in size and configuration. The mastoid air cells and the visualized paranasal sinuses are aerated. No acute calvarial abnormality is identified. Impression: 1. There is no evidence of acute intracranial hemorrhage. There is now focus of more defined low-density of the lateral aspect of the right thalamus/margin of the posterior limb of right internal capsule likely sequela of older lacunar infarct. Electronically signed by: Chu Dawkins MD (07/29/2018 10:16 PM) [facility] Course & Med Decision Making Course & Med Decision Making Pertinent Labs and Imaging studies reviewed. (See chart for details) [] Dragon Disclaimer Dragon Disclaimer This electronic medical record was generated, in whole or in part, using a voice recognition dictation system. Departure Departure Impression: Primary Impression: Right sided weakness Additional Impression: Lower extremity numbness Disposition: ADMITTED INPATIENT Admitting Physician: HIMTina Condition: IMPROVED Referrals: LARRY [place] DO (PCP) Problem Qualifiers JENNIFER MONROE Jr., DO Jul 30, 2018 02:52
[2018-07-30] MEDS ORDERED: RISP0.5T24 PO (03:58)
[2018-07-30] MEDS ORDERED: LISI40TA2 PO (03:58)
[2018-07-30] MEDS ORDERED: AMLO5TAB10 PO (03:58)
[2018-07-30] MEDS ORDERED: ALBU2.5V14 NEB (03:58)
[2018-07-30] MEDS ORDERED: CYAN10005 PO (03:58)
[2018-07-30] MEDS ORDERED: TAMO20TA PO (03:58)
[2018-07-30] MEDS ORDERED: ASPI325T8 PO (03:58)
[2018-07-30] MEDS ORDERED: CLON0.5T11 PO (03:58)
[2018-07-30] MEDS ORDERED: ACET325T9 PO (03:58)
[2018-07-30] MEDS ORDERED: ATOR20TA PO (03:58)
[2018-07-30] MEDS ORDERED: SACU1TAB7 PO (03:58)
[2018-07-30] MEDS ORDERED: MUPI22OI2 TOP (03:58)
[2018-07-30] MEDS ORDERED: BUPR150T11 PO (03:58)
[2018-07-30] MEDS ORDERED: CARV12.53 PO (03:58)
[2018-07-30] MEDS ORDERED: SIME80TA14 PO (03:58)
[2018-07-30] MEDS ORDERED: ALBU2.5V8 IH (03:58)
[2018-07-30] MEDS ORDERED: VENL150C PO (03:58)
[2018-07-30] MEDS ORDERED: GABA300C9 PO (03:58)
[2018-07-30] MEDS ORDERED: METO50TA6 PO (03:58)
[2018-07-30] MEDS ORDERED: OMEP20CA10 PO (03:58)
[2018-07-30] MEDS: fentaNYL PF VIAL 100 MCG/2 ML VIAL IV PRN ×3 (05:05→21:34)
--- NOTE | 2018-07-30 05:39 | EKG ---
[facility] [address] [place] [address] Test Date: 2018-07-29 Test Time: 22:45:26 Pat Name: NADIR ZAMARRIPA Department: Room: Gender: F Drier Feeder: : 1960 Requested By: JENNIFER MONROE Order Number: [id number] Reading MD: Measurements Intervals [place] Rate: 87 P: 67 [place]: 162 QRS: 61 QRSD: 78 T: 57 QT: 392 QTc: 478 Interpretive Statements SINUS RHYTHM QRS(T) CONTOUR ABNORMALITY CONSIDER ANTEROSEPTAL MYOCARDIAL DAMAGE PROLONGED QT POSSIBLY ABNORMAL ECG RI6.01 No previous ECG available for comparison
[2018-07-30 07:00] VITALS: BP 152/73
[2018-07-30] MEDS ORDERED: IPRATRPIUM/ALBUTEROL 0.5/2.5MG 3 ML NEBU. NEB SCH (08:00)
[2018-07-30] MEDS ORDERED: ACETAMINOPHEN 500 MG TABLET PO PRN ×2 (08:30→09:13)
[2018-07-30] MEDS ORDERED: ALBUTEROL SULFATE 2.5 MG/3 ML NEBU. INH PRN ×2 (08:45→09:15)
[2018-07-30] MEDS ORDERED: ACETAMINOPHEN 325 MG TABLET. PO PRN (08:45)
[2018-07-30] MEDS ORDERED: NON FORMULARY ITEM (Albuterol Sulfate (Albuterol Sulfate Conc Neb Soln) 1 VIAL) NEB PRN (08:45)
[2018-07-30] MEDS ORDERED: CALCIUM CARBONATE 500 MG TAB.CHEW PO PRN (08:45)
[2018-07-30] MEDS ORDERED: clonazePAM 0.5 MG TABLET PO PRN (08:45)
[2018-07-30] MEDS ORDERED: SIMETHICONE 80 MG TAB.CHEW PO PRN (08:45)
[2018-07-30] MEDS ORDERED: ONDANSETRON PF 4 MG/2 ML VIAL. IV PRN (08:45)
[2018-07-30] MEDS ORDERED: LACTULOSE 20 GM/30 ML SOLUTION. PO PRN (08:45)
[2018-07-30] MEDS ORDERED: NON FORMULARY ITEM (Fluticasone/Salmeterol (Advair 250-50 Diskus) 1 INH) IH SCH (09:00)
[2018-07-30] MEDS ORDERED: NON FORMULARY ITEM (Budesonide (Pulmicort Flexhaler) 2 PUFF) IH SCH (09:00)
[2018-07-30] MEDS ORDERED: MUPIROCIN 2 % NASAL OINTMENT 22GM TUBE. NS SCH (09:00)
[2018-07-30] MEDS: NICOTINE 21MG PATCH. TD SCH (09:30)
[2018-07-30] MEDS: VENLAFAXINE 75 MG TABLET. PO SCH ×3 (09:38→21:37)
[2018-07-30] MEDS: busPIRone 5 MG TABLET. PO SCH ×2 (09:38→21:37)
[2018-07-30] MEDS: buPROPion SR 150 MG TABLET.SA PO SCH ×2 (09:39→21:37)
[2018-07-30] MEDS: ASPIRIN 325 MG TABLET PO SCH (09:39)
[2018-07-30] MEDS: PANTOPRAZOLE 40 MG TABLET.DR. PO SCH (09:39)
[2018-07-30] MEDS: ISOSORBIDE MONONITRATE ER 30 MG TAB.ER.24H PO SCH (09:40)
[2018-07-30] MEDS: CYANOCOBALAMIN (VITAMIN B-12) 1,000 MCG TABLET. PO SCH (09:40)
[2018-07-30] MEDS: LISINOPRIL 20 MG TABLET PO SCH (09:40)
[2018-07-30] MEDS: CARVEDILOL 12.5 MG TABLET. PO SCH ×2 (09:40→18:06)
[2018-07-30] MEDS: amLODIPine BESYLATE 5 MG TABLET PO SCH (09:41)
[2018-07-30] MEDS: GABAPENTIN 300 MG CAPSULE. PO SCH ×2 (09:41→21:38)
[2018-07-30 11:00] VITALS: BP 130/77
[2018-07-30] MEDS: BUDESONIDE 0.5 MG/2 ML NEBU. NEB SCH ×2 (11:32→20:34)
[2018-07-30] MEDS: IPRATRPIUM/ALBUTEROL 0.5/2.5MG 3 ML NEBU. NEB SCH ×3 (11:32→23:34)
--- NOTE | 2018-07-30 12:03 | PDOC1 ---
History and Physical Date of Admission Date of Admission DATE: 07/30/18 TIME: 11:57 Identification/Chief Complaint Chief Complaint Bilateral legs weak, since yesterday Source Source: Caregiver, Chart review, Patient History of Present Illness History of Present Illness 68-year-old white female, ex-smoker, acute onset bilateral leg weakness since yesterday. Over the weekend, she was fine. She claims decreased sensation from the waist down. POsitive reflexes though She denies any URI symptoms, fatigue, fevers or any other constitutional symptoms. No recent travel or sick contacts. Admitted because of weakness lower extremity and numbness. echo ordered by ER Got aspirin 325. She has polypharmacy and I have reconciled at least 35 meds. She is a known. Patient of Dr. Morton, on year 5 of tamoxifen to complete 10 years. I'm unsure if neuropathy is a known side effect of tamoxifen. But she was advised by heme oncology office to come to the ER when she called the service with those symptoms Past Medical History Cardiovascular: HTN, Hyperlipidemia Pulmonary: COPD CENTRAL NERVOUS SYSTEM: CVA Heme/Onc: Anemia NOS, Cancer, Other Hepatobiliary: No pertinent hx Psych: Anxiety Musculoskeletal: Osteoarthritis Infectious disease: No pertinent hx Renal/: No pertinent hx Endocrine: No pertinent hx Past Surgical History Past Surgical History: Other Family History Family History: Cancer, Coronary Artery Disease, Hypertension Social History Smoke: Quit ALCOHOL: occassional Drugs: None Current Medications Current Medications Current Medications Sodium Chloride 1,000 ml @ 1,000 mls/hr Q1H IV Last administered on 07/29/18at 22:54; Start 07/29/18 at 22:30; Stop 07/29/18 at 23:29; Status DC Fentanyl Citrate (Fentanyl 2ml Vial) 50 mcg 1X ONCE IV Last administered on 07/29/18at 23:27; Start 07/29/18 at 23:45; Stop 07/29/18 at 23:46; Status DC Ondansetron HCl (Zofran) 4 mg 1X ONCE IV Last administered on 07/29/18at 23:26; Start 07/29/18 at 23:45; Stop 07/29/18 at 23:46; Status DC Aspirin (Renae Aspirin) 325 mg 1X ONCE PO Last administered on 07/29/18at 23:50; Start 07/29/18 at 23:45; Stop 07/29/18 at 23:46; Status DC Ondansetron HCl (Zofran) 4 mg PRN Q8HRS PRN IV NAUSEA/VOMITING 1ST CHOICE; Start 07/29/18 at 23:45; Stop 07/30/18 at 08:31; Status DC Fentanyl Citrate (Fentanyl 2ml Vial) 50 mcg PRN Q1HR PRN IV SEVERE PAIN Last administered on 07/30/18at 08:55; Start 07/29/18 at 23:45; Stop 07/30/18 at 23:44 Sodium Chloride 1,000 ml @ 125 mls/hr Q8H IV Last administered on 07/30/18at 02:12; Start 07/29/18 at 23:45; Stop 07/30/18 at 23:44 Albuterol/ Ipratropium (Duoneb) 3 ml RTQID NEB Last administered on 07/30/18at 07:58; Start 07/30/18 at 08:00; Stop 07/30/18 at 09:16; Status DC Ondansetron HCl (Zofran) 4 mg PRN Q6HRS PRN IV NAUSEA/VOMITING 1ST CHOICE; Start 07/30/18 at 08:45 Acetaminophen/ Codeine Phosphate (Tylenol #3) 1 tab PRN Q6HRS PRN PO PAIN; S tart 07/30/18 at 08:30 Acetaminophen (Tylenol) 500 mg PRN Q6HRS PRN PO MILD PAIN / TEMP; Start 07/30/18 at 08:30; Stop 07/30/18 at 09:13; Status DC Acetaminophen (Tylenol) 500 mg PRN Q6HRS PRN PO MILD PAIN 1-3; Start 07/30/18 at 08:45; Stop 07/30/18 at 09:13; Status DC Albuterol Sulfate (Ventolin Neb Soln) 2.5 mg PRN BID PRN INH FOR ASTHMA; Start 07/30/18 at 08:45; Stop 07/30/18 at 09:04; Status DC Amlodipine Besylate (Norvasc) 5 mg DAILY PO Last administered on 07/30/18at 09:41; Start 07/30/18 at 09:00 Aspirin (Renae Aspirin) 325 mg DAILY PO Last administered on 07/30/18at 09:39; Start 07/30/18 at 09:00 Atorvastatin Calcium (Lipitor) 20 mg QHS PO ; Start 07/30/18 at 21:00 Bupropion HCl (Wellbutrin Sr) 150 mg BID PO Last administered on 07/30/18at 09:39; Start 07/30/18 at 09:00 Calcium Carbonate/ Glycine (Tums) 500 mg PRN Q4HRS PRN PO INDIGESTION; Start 07/30/18 at 08:45 Carvedilol (Coreg) 12.5 mg BIDWMEALS PO Last administered on 07/30/18at 09:40; Start 07/30/18 at 09:00 Clonazepam (KlonoPIN) 0.25 mg PRN BID PRN PO ANXIETY / AGITATION; Start 07/30/18 at 08:45 Cyanocobalamin (Vitamin B-12) 1,000 mcg DAILY PO Last administered on 07/30/18at 09:40; Start 07/30/18 at 09:00 Gabapentin (Neurontin) 300 mg BID PO Last administered on 07/30/18at 09:41; Start 07/30/18 at 09:00 Albuterol/ Ipratropium (Duoneb) 3 ml Q4HRS NEB Last administered on 07/30/18at 11:32; Start 07/30/18 at 12:00 Isosorbide Mononitrate (Imdur) 60 mg DAILY PO Last administered on 07/30/18at 09:40; Start 07/30/18 at 09:00 Lactulose (Lactulose) 20 gm PRN Q12HR PRN PO CONSTIPATION; Start 07/30/18 at 08:45 Lisinopril (Prinivil) 20 mg DAILY PO Last administered on 07/30/18at 09:40; Start 07/30/18 at 09:00 Mupirocin (Bactroban) 1 leno BID NS ; Start 07/30/18 at 09:00; Stop 07/30/18 at 09:02; Status DC Simethicone (Gas-X) 80 mg PRN Q6HRS PRN PO GAS / BLOATING; Start 07/30/18 at 08:45 Non-Formulary Medication (Albuterol Sulfate (Albuterol Sulfate Conc Neb Soln)) 1 vial Q4HRS PRN NEB WHEEZING; Start 07/30/18 at 08:45; Status UNV Non-Formulary Medication (Budesonide (Pulmicort Flexhaler)) 2 puff BID IH ; Start 07/30/18 at 09:00; Status UNV Buspirone HCl (Buspar) 15 mg BID PO Last administered on 07/30/18at 09:38; Start 07/30/18 at 09:30 Non-Formulary Medication (Fluticasone/ Salmeterol (Advair 250-50 Diskus)) 1 inh BID IH ; Start 07/30/18 at 09:00; Status UNV Montelukast Sodium (Singulair) 10 mg QHS PO ; Start 07/30/18 at 21:00 Nicotine (Nicoderm Cq 21mg) 1 patch DAILY TD ; Start 07/30/18 at 09:30 Venlafaxine HCl (Effexor) 75 mg TID PO Last administered on 07/30/18at 09:38; Start 07/30/18 at 09:30 Pantoprazole Sodium (Protonix) 40 mg DAILYAC PO Last administered on 07/30/18at 09:39; Start 07/30/18 at 09:30 Mupirocin (Bactroban) 1 leno TID TP ; Start 07/30/18 at 14:00 Albuterol Sulfate (Ventolin Neb Soln) 2.5 mg PRN Q4HRS PRN INH FOR ASTHMA; Start 07/30/18 at 09:15 Acetaminophen (Tylenol) 500 mg PRN Q6HRS PRN PO MILD PAIN 1-3; Start 07/30/18 at 09:13 Budesonide (Pulmicort) 0.5 mg RTBID NEB Last administered on 07/30/18at 11:32; Start 07/30/18 at 09:30 Active Scripts Active Calcium Carbonate 200 Mg Tab.chew 500 Mg PO PRN Q4HRS PRN 14 Days Clotrimazole 10 Mg Sherry 10 Mg MM BID 14 Days [Pantoprazole] 40 MG Tablet.dr 40 Mg PO DAILYAC 14 Days Montelukast Sodium Tablet (Montelukast Sodium) 10 Mg Tablet 10 Mg PO QHS 30 Days Lactulose 20 Gm/30 Ml Solution 20 Gm PO PRN Q12HR PRN 14 Days Lisinopril 40 Mg Tablet 20 Mg PO DAILY 30 Days Carvedilol (Carvedilol) 12.5 Mg Tablet 12.5 Mg PO BIDWMEALS 30 Days Duoneb 0.5-3(2.5) Mg/3 Ml (Albuterol/Ipratropium) 3 Ml Ampul.neb 3 Ml NEB Q4HRS 30 Days Pulmicort Flexhaler (Budesonide) 180 Mcg Aer.pow.ba 2 Puff IH BID Isosorbide Mononitrate Er (Isosorbide Mononitrate) 30 Mg Tab.er.24h 60 Mg PO DAILY 30 Days Atorvastatin Calcium 20 Mg Tablet 20 Mg PO QHS 30 Days Advair 250-50 Diskus (Fluticasone/Salmeterol) 1 Each Disk.w.dev 1 Inh IH BID 30 Days Reported Effexor Xr (Venlafaxine Hcl) 150 Mg Cap.er.24h 225 Mg PO DAILY Tamoxifen Citrate 20 Mg Tablet 1 Tab PO DAILY Simethicone 80 Mg Tab.chew 80 Mg PO PRN Q6HRS PRN Risperdal (Risperidone) 0.5 Mg Tablet 0.5 Mg PO BID Entresto 49 mg-51 mg Tablet (Sacubitril/Valsartan) 1 Each Tablet 1 Each PO BID Vitamin B-12 (Cyanocobalamin (Vitamin B-12)) 1,000 Mcg Tablet 1 Tab PO DAILY Clonazepam 0.5 Mg Tablet 0.25 Mg PO BID PRN Lipitor (Atorvastatin Calcium) 20 Mg Tablet 20 Mg PO HS Aspirin 325 Mg Tablet 1 Tab PO DAILY Tylenol (Acetaminophen) 325 Mg Tablet 500 Mg PO PRN Q6HRS PRN Albuterol Sulfate Conc Neb Soln (Albuterol Sulfate) 2.5 Mg/0.5 Ml Vial.neb 1 Vial NEB Q4HRS PRN Proventil Hfa Inhaler (Albuterol Sulfate) 6.7 Gm Hfa.aer.ad 2 Puff IH BID PRN Mupirocin Ointment (Mupirocin) 22 Gm Oint...g. 1 Applic TOP BID Amlodipine Besylate 5 Mg Tablet 1 Tab PO DAILY Bupropion Hcl Sr (Bupropion Hcl) 150 Mg Tablet.er 1 Tab PO BID Omeprazole 20 Mg Capsule.dr 1 Tab PO DAILY Carvedilol 12.5 Mg Tablet 12.5 Mg PO BID Gabapentin 300 Mg Capsule 1 Tab PO BID Lisinopril 40 Mg Tablet 40 Mg PO DAILY Venlafaxine Hcl Er (Venlafaxine Hcl) 225 Mg Tab.er.24 225 Mg PO DAILY NICODERM CQ 21mg (Nicotine) 1 Each Patch.td24 1 Patch TP DAILY Do not smoke while wearing the patch Cyanocobalamin Injection (Cyanocobalamin (Vitamin B-12)) 1,000 Mcg/1 Ml Vial 1 Ml IM QMONTH Clonazepam 0.5 Mg Tablet 0.5 Tab PO DAILY PRN Ventolin Hfa Inhaler (Albuterol Sulfate) 18 Gm Hfa.aer.ad 2 Puff INH BID Acetaminophen 500 Mg Tablet 1 Tab PO PRN Q6HRS PRN Gabapentin (Gabapentin) 300 Mg Capsule 300 Mg PO BID Buspirone Hcl 15 Mg Tablet 15 Mg PO BID Aspirin 325 Mg Tablet 1 Tab PO DAILY Tamoxifen Citrate 20 Mg Tablet 20 Mg PO DAILY Allergies Allergies: Coded Allergies: No Known Drug Allergies (Unverified , 03/16/14) ROS Review of System As per history of present illness, the rest of ROS 14 point negative Physical Exam General: Alert, Oriented X3, Cooperative, No acute distress HEENT: Atraumatic, PERRLA, EOMI Lungs: Clear to auscultation, Normal air movement Heart: S1S2, RRR, no thrills, no rubs, no gallops, no murmurs Cardiovascular: S1, S2 Breasts: Normal, Rt breast nml w/o mass, Lt breast nml w/o mass, Nipples normal Abdomen: Normal bowel sounds, Soft, No tenderness, No hepatosplenomegaly, No masses Rectal Exam: not examined PELVIC: Nml ext genitalia Extremities: Other (out of 5 muscle manual testing on bilateral lower extremityThe rest of the neuro exam is unremarkableDTRs +2, claims decreased sensation) Skin: No rashes, No breakdown, No significant lesion Neuro: Normal gait, Normal speech, Strength at 5/5 X4 ext, Normal tone, Sensation intact, Cranial nerves 3-12 NL, Reflexes 2+ Psych/Mental Status: Mental status NL, Mood NL Vitals Vitals Vital Signs Date Time Temp Pulse Resp B/P (MAP) Pulse Ox O2 Delivery O2 Flow Rate FiO2 07/30/18 11:34 92 Room Air 07/30/18 11:00 98.1 94 16 130/77 (94) 98.1 Labs Labs Laboratory Tests Test 07/29/18 22:45 White Blood Count 11.8 x10^3/uL (4.0-11.0) Red Blood Count 3.77 x10^6/uL (3.50-5.40) Hemoglobin 12.5 g/dL (12.0-15.5) Hematocrit 36.2 % (36.0-47.0) Mean Corpuscular Volume 96 fL (79-100) Mean Corpuscular Hemoglobin 33 pg (25-35) Mean Corpuscular Hemoglobin Concent 35 g/dL (31-37) Red Cell Distribution Width 14.4 % (11.5-14.5) Platelet Count 138 x10^3/uL (140-400) Neutrophils (%) (Auto) 68 % (31-73) Lymphocytes (%) (Auto) 21 % (24-48) Monocytes (%) (Auto) 9 % (0-9) Eosinophils (%) (Auto) 2 % (0-3) Basophils (%) (Auto) 1 % (0-3) Neutrophils # (Auto) 8.0 x10^3uL (1.8-7.7) Lymphocytes # (Auto) 2.4 x10^3/uL (1.0-4.8) Monocytes # (Auto) 1.0 x10^3/uL (0.0-1.1) Eosinophils # (Auto) 0.3 x10^3/uL (0.0-0.7) Basophils # (Auto) 0.1 x10^3/uL (0.0-0.2) Prothrombin Time 12.4 SEC (11.7-14.0) Prothromb Time International Ratio 1.0 (0.8-1.1) Activated Partial Thromboplast Time 20 SEC (24-38) Sodium Level 140 mmol/L (136-145) Potassium Level 4.0 mmol/L (3.5-5.1) Chloride Level 105 mmol/L (98-107) Carbon Dioxide Level 25 mmol/L (21-32) Anion Gap 10 (6-14) Blood Urea Nitrogen 12 mg/dL (7-20) Creatinine 1.1 mg/dL (0.6-1.0) Estimated GFR (Cockcroft-Gault) 51.4 BUN/Creatinine Ratio 11 (6-20) Glucose Level 109 mg/dL (70-99) Calcium Level 9.1 mg/dL (8.5-10.1) Magnesium Level 2.3 mg/dL (1.8-2.4) Total Bilirubin 0.1 mg/dL (0.2-1.0) Aspartate Amino Transf (AST/SGOT) 20 U/L (15-37) Alanine Aminotransferase (ALT/SGPT) 25 U/L (14-59) Alkaline Phosphatase 88 U/L (46-116) Total Protein 6.6 g/dL (6.4-8.2) Albumin 3.3 g/dL (3.4-5.0) Albumin/Globulin Ratio 1.0 (1.0-1.7) Laboratory Tests Test 07/29/18 22:45 White Blood Count 11.8 x10^3/uL (4.0-11.0) Red Blood Count 3.77 x10^6/uL (3.50-5.40) Hemoglobin 12.5 g/dL (12.0-15.5) Hematocrit 36.2 % (36.0-47.0) Mean Corpuscular Volume 96 fL (79-100) Mean Corpuscular Hemoglobin 33 pg (25-35) Mean Corpuscular Hemoglobin Concent 35 g/dL (31-37) Red Cell Distribution Width 14.4 % (11.5-14.5) Platelet Count 138 x10^3/uL (140-400) Neutrophils (%) (Auto) 68 % (31-73) Lymphocytes (%) (Auto) 21 % (24-48) Monocytes (%) (Auto) 9 % (0-9) Eosinophils (%) (Auto) 2 % (0-3) Basophils (%) (Auto) 1 % (0-3) Neutrophils # (Auto) 8.0 x10^3uL (1.8-7.7) Lymphocytes # (Auto) 2.4 x10^3/uL (1.0-4.8) Monocytes # (Auto) 1.0 x10^3/uL (0.0-1.1) Eosinophils # (Auto) 0.3 x10^3/uL (0.0-0.7) Basophils # (Auto) 0.1 x10^3/uL (0.0-0.2) Prothrombin Time 12.4 SEC (11.7-14.0) Prothromb Time International Ratio 1.0 (0.8-1.1) Activated Partial Thromboplast Time 20 SEC (24-38) Sodium Level 140 mmol/L (136-145) Potassium Level 4.0 mmol/L (3.5-5.1) Chloride Level 105 mmol/L (98-107) Carbon Dioxide Level 25 mmol/L (21-32) Anion Gap 10 (6-14) Blood Urea Nitrogen 12 mg/dL (7-20) Creatinine 1.1 mg/dL (0.6-1.0) Estimated GFR (Cockcroft-Gault) 51.4 BUN/Creatinine Ratio 11 (6-20) Glucose Level 109 mg/dL (70-99) Calcium Level 9.1 mg/dL (8.5-10.1) Magnesium Level 2.3 mg/dL (1.8-2.4) Total Bilirubin 0.1 mg/dL (0.2-1.0) Aspartate Amino Transf (AST/SGOT) 20 U/L (15-37) Alanine Aminotransferase (ALT/SGPT) 25 U/L (14-59) Alkaline Phosphatase 88 U/L (46-116) Total Protein 6.6 g/dL (6.4-8.2) Albumin 3.3 g/dL (3.4-5.0) Albumin/Globulin Ratio 1.0 (1.0-1.7) VTE Prophylaxis Ordered VTE Prophylaxis Devices: Yes VTE Pharmacological Prophylaxi: Yes Assessment/Plan Assessment/Plan Acute onset bilateral lower extremity weakness 1 day prior to admission, differentials include transverse myelitis or something of the like - neuro consulted, distribution of symptoms is unlikely CVA in etiology Decreased sensation bilateral lower ext, acute History of breast cancer on year 5 of tamoxifen HER 2 positive breast CA Polypharmacy with 41 meds AK I, VMN Reactive leukocytosis SIRS with no sepsis PLAN: I Did opt to check MRI thoracic spine and to do lumbar puncture -s he gives verbal consent to me Neurology consult is pending Continue aspirin, I have reconciled some of her polypharmacy but not all Continue tamoxifen Monitor that AK I and leukocytosis Discussed with sister at bedside M DM complex COurtesy consult heme onc - tamoxifen can cause neuropathy?? im unsure THU FRANCO MD Jul 30, 2018 12:03
--- NOTE | 2018-07-30 12:57 | PDOC2 ---
NEUROLOGY CONSULT Date of Admission Date of Admission DATE: 07/30/18 TIME: 12:42 Reason for Consult Reason for Consult: IMPRESSION: LE numbness and weakness x 1 day before admission, R>L. Breast cancer. HTN. HLD. COPD. Old lacunar infarct likely. Left eye vision problems. Former smoker. RECOMMENDATIONS/PLAN: L-spine MRI w/o contrast. Lab: see orders. Treat medical diseases. OT/PT. History of Present Illness This is a 58-year-old white female with history of smoking and breast cancer has been having symptoms of LE numbness and weakness and unable to walk since after moving her years yesterday on 06/28/18. She stated she felt numbness and decreased feeling from her lower abdomen down to bilateral LE but more obvious in her right LE. She stated she is still able to urinating and had bowel movements on 06/28/18. Her cranial nerves and UE are not affected. She did not remember hurt her back. Past Medical History Cardiovascular: HTN, Hyperlipidemia Pulmonary: COPD CENTRAL NERVOUS SYSTEM: CVA Heme/Onc: Anemia NOS, Cancer, Other Hepatobiliary: No pertinent hx Psych: Anxiety Musculoskeletal: Osteoarthritis Infectious disease: No pertinent hx Renal/: No pertinent hx Endocrine: No pertinent hx Past Surgical History No major surgery recently. Family History Cancer, Coronary Artery Disease, Hypertension Social History Smoke: Quit in 04/2018. ALCOHOL: occasional Drugs: Denied. ALLERGY: NKDA MEDICATIONS: Refer to [facility] REVIEW OF SYSTEMS: Constitutional: Over weight.. Head: No traumatic brain or head injury. Skin: No edema, or rash. Ear: No infection, tinnitus. Eyes: No vision loss or color blindness. Nose: No bleeding or purulent discharges. Hearing: No hearing decrease. Neck: No injury. Breast: Cancer. Cardiac: HTN, HLD. Pulmonary: COPD. GI: No GI ulcer, GI bleeding. Urinary/genital: UTI. Endocrinologic: No cousin face, craniofacial dysmorphism, polydactyly. Skeletomuscular: No muscular atrophy, deformity. Neurological: see HP. Psychiatric: Denies drug use/abuse. Otherwise, not [id number] review of systems. PHYSICAL EXAMINATION: General appearance is in subacute distress. HEENT: Normocephalic and nontraumatic. Eyes, nose, ears, and throat are unremarkable. Neck is supple. No lymphadenopathy. No crepitus. Cardiovascular: S1, S2, regular rate and rhythm. Pulmonary: Clear to auscultation bilaterally. Abdomen: Bowel sounds are positive. Extremities: No rash or edema. No restriction of range of motion in UE. NEUROLOGICAL EXAMINATION: Alert Oriented to time, place and person. PERRL. EOMI. CN: chronic right VII palsy? Muscle tone: within normal in UE. Decreased in LE? Muscle strength: 5 UE, 2 right LE, 3+ left LE. DTR: 2 UE, 1- at knee. Plantar reflex: Neutral response bilaterally Gait: not able to walk. Sensory exam: Decreased to light tough, vibration sense, temperature and pain sensation in right LE. No cerebellar signs elicited. F-T-N test fine. Current Medications Current Medications Current Medications Sodium Chloride 1,000 ml @ 1,000 mls/hr Q1H IV Last administered on 07/29/18at 22:54; Start 07/29/18 at 22:30; Stop 07/29/18 at 23:29; Status DC Fentanyl Citrate (Fentanyl 2ml Vial) 50 mcg 1X ONCE IV Last administered on 07/29/18at 23:27; Start 07/29/18 at 23:45; Stop 07/29/18 at 23:46; Status DC Ondansetron HCl (Zofran) 4 mg 1X ONCE IV Last administered on 07/29/18at 23:26; Start 07/29/18 at 23:45; Stop 07/29/18 at 23:46; Status DC Aspirin (Renae Aspirin) 325 mg 1X ONCE PO Last administered on 07/29/18at 23:50; Start 07/29/18 at 23:45; Stop 07/29/18 at 23:46; Status DC Ondansetron HCl (Zofran) 4 mg PRN Q8HRS PRN IV NAUSEA/VOMITING 1ST CHOICE; Start 07/29/18 at 23:45; Stop 07/30/18 at 08:31; Status DC Fentanyl Citrate (Fentanyl 2ml Vial) 50 mcg PRN Q1HR PRN IV SEVERE PAIN Last administered on 07/30/18at 08:55; Start 07/29/18 at 23:45; Stop 07/30/18 at 23:44 Sodium Chloride 1,000 ml @ 125 mls/hr Q8H IV Last administered on 07/30/18at 02:12; Start 07/29/18 at 23:45; Stop 07/30/18 at 23:44 Albuterol/ Ipratropium (Duoneb) 3 ml RTQID NEB Last administered on 07/30/18at 07:58; Start 07/30/18 at 08:00; Stop 07/30/18 at 09:16; Status DC Ondansetron HCl (Zofran) 4 mg PRN Q6HRS PRN IV NAUSEA/VOMITING 1ST CHOICE; Start 07/30/18 at 08:45 Acetaminophen/ Codeine Phosphate (Tylenol #3) 1 tab PRN Q6HRS PRN PO PAIN; Start 07/30/18 at 08:30 Acetaminophen (Tylenol) 500 mg PRN Q6HRS PRN PO MILD PAIN / TEMP; Start 07/30/18 at 08:30; Stop 07/30/18 at 09:13; Status DC Acetaminophen (Tylenol) 500 mg PRN Q6HRS PRN PO MILD PAIN 1-3; Start 07/30/18 at 08:45; Stop 07/30/18 at 09:13; Status DC Albuterol Sulfate (Ventolin Neb Soln) 2.5 mg PRN BID PRN INH FOR ASTHMA; Start 07/30/18 at 08:45; Stop 07/30/18 at 09:04; Status DC Amlodipine Besylate (Norvasc) 5 mg DAILY PO Last administered on 07/30/18at 09:41; Start 07/30/18 at 09:00 Aspirin (Renae Aspirin) 325 mg DAILY PO Last administered on 07/30/18at 09:39; Start 07/30/18 at 09:00 Atorvastatin Calcium (Lipitor) 20 mg QHS PO ; Start 07/30/18 at 21:00 Bupropion HCl (Wellbutrin Sr) 150 mg BID PO Last administered on 07/30/18at 09:39; Start 07/30/18 at 09:00 Calcium Carbonate/ Glycine (Tums) 500 mg PRN Q4HRS PRN PO INDIGESTION; Start 07/30/18 at 08:45 Carvedilol (Coreg) 12.5 mg BIDWMEALS PO Last administered on 07/30/18at 09:40; Start 07/30/18 at 09:00 Clonazepam (KlonoPIN) 0.25 mg PRN BID PRN PO ANXIETY / AGITATION; Start 07/30/18 at 08:45 Cyanocobalamin (Vitamin B-12) 1,000 mcg DAILY PO Last administered on 07/30/18at 09:40; Start 07/30/18 at 09:00 Gabapentin (Neurontin) 300 mg BID PO Last administered on 07/30/18at 09:41; Start 07/30/18 at 09:00 Albuterol/ Ipratropium (Duoneb) 3 ml Q4HRS NEB Last administered on 07/30/18at 11:32; Start 07/30/18 at 12:00 Isosorbide Mononitrate (Imdur) 60 mg DAILY PO Last administered on 07/30/18at 09:40; Start 07/30/18 at 09:00 Lactulose (Lactulose) 20 gm PRN Q12HR PRN PO CONSTIPATION; Start 07/30/18 at 08:45 Lisinopril (Prinivil) 20 mg DAILY PO Last administered on 07/30/18at 09:40; Start 07/30/18 at 09:00 Mupirocin (Bactroban) 1 leno BID NS ; Start 07/30/18 at 09:00; Stop 07/30/18 at 09:02; Status DC Simethicone (Gas-X) 80 mg PRN Q6HRS PRN PO GAS / BLOATING; Start 07/30/18 at 08:45 Non-Formulary Medication (Albuterol Sulfate (Albuterol Sulfate Conc Neb Soln)) 1 vial Q4HRS PRN NEB WHEEZING; Start 07/30/18 at 08:45; Status UNV Non-Formulary Medication (Budesonide (Pulmicort Flexhaler)) 2 puff BID IH ; Start 07/30/18 at 09:00; Status UNV Buspirone HCl (Buspar) 15 mg BID PO Last administered on 07/30/18at 09:38; Start 07/30/18 at 09:30 Non-Formulary Medication (Fluticasone/ Salmeterol (Advair 250-50 Diskus)) 1 inh BID IH ; Start 07/30/18 at 09:00; Status UNV Montelukast Sodium (Singulair) 10 mg QHS PO ; Start 07/30/18 at 21:00 Nicotine (Nicoderm Cq 21mg) 1 patch DAILY TD ; Start 07/30/18 at 09:30 Venlafaxine HCl (Effexor) 75 mg TID PO Last administered on 07/30/18at 09:38; Start 07/30/18 at 09:30 Pantoprazole Sodium (Protonix) 40 mg DAILYAC PO Last administered on 07/30/18at 09:39; Start 07/30/18 at 09:30 Mupirocin (Bactroban) 1 leno TID TP ; Start 07/30/18 at 14:00 Albuterol Sulfate (Ventolin Neb Soln) 2.5 mg PRN Q4HRS PRN INH FOR ASTHMA; Start 07/30/18 at 09:15 Acetaminophen (Tylenol) 500 mg PRN Q6HRS PRN PO MILD PAIN 1-3; Start 07/30/18 at 09:13 Budesonide (Pulmicort) 0.5 mg RTBID NEB Last administered on 07/30/18at 11:32; Start 07/30/18 at 09:30 Tamoxifen Citrate (Nolvadex) 20 mg DAILY PO ; Start 07/31/18 at 09:00 Active Scripts Active Calcium Carbonate 200 Mg Tab.chew 500 Mg PO PRN Q4HRS PRN 14 Days Clotrimazole 10 Mg Sherry 10 Mg MM BID 14 Days [Pantoprazole] 40 MG Tablet.dr 40 Mg PO DAILYAC 14 Days Montelukast Sodium Tablet (Montelukast Sodium) 10 Mg Tablet 10 Mg PO QHS 30 Days Lactulose 20 Gm/30 Ml Solution 20 Gm PO PRN Q12HR PRN 14 Days Lisinopril 40 Mg Tablet 20 Mg PO DAILY 30 Days Carvedilol (Carvedilol) 12.5 Mg Tablet 12.5 Mg PO BIDWMEALS 30 Days Duoneb 0.5-3(2.5) Mg/3 Ml (Albuterol/Ipratropium) 3 Ml Ampul.neb 3 Ml NEB Q4HRS 30 Days Pulmicort Flexhaler (Budesonide) 180 Mcg Aer.pow.ba 2 Puff IH BID Isosorbide Mononitrate Er (Isosorbide Mononitrate) 30 Mg Tab.er.24h 60 Mg PO DAILY 30 Days Atorvastatin Calcium 20 Mg Tablet 20 Mg PO QHS 30 Days Advair 250-50 Diskus (Fluticasone/Salmeterol) 1 Each Disk.w.dev 1 Inh IH BID 30 Days Reported Effexor Xr (Venlafaxine Hcl) 150 Mg Cap.er.24h 225 Mg PO DAILY Tamoxifen Citrate 20 Mg Tablet 1 Tab PO DAILY Simethicone 80 Mg Tab.chew 80 Mg PO PRN Q6HRS PRN Risperdal (Risperidone) 0.5 Mg Tablet 0.5 Mg PO BID Entresto 49 mg-51 mg Tablet (Sacubitril/Valsartan) 1 Each Tablet 1 Each PO BID Vitamin B-12 (Cyanocobalamin (Vitamin B-12)) 1,000 Mcg Tablet 1 Tab PO DAILY Clonazepam 0.5 Mg Tablet 0.25 Mg PO BID PRN Lipitor (Atorvastatin Calcium) 20 Mg Tablet 20 Mg PO HS Aspirin 325 Mg Tablet 1 Tab PO DAILY Tylenol (Acetaminophen) 325 Mg Tablet 500 Mg PO PRN Q6HRS PRN Albuterol Sulfate Conc Neb Soln (Albuterol Sulfate) 2.5 Mg/0.5 Ml Vial.neb 1 Vial NEB Q4HRS PRN Proventil Hfa Inhaler (Albuterol Sulfate) 6.7 Gm Hfa.aer.ad 2 Puff IH BID PRN Mupirocin Ointment (Mupirocin) 22 Gm Oint...g. 1 Applic TOP BID Amlodipine Besylate 5 Mg Tablet 1 Tab PO DAILY Bupropion Hcl Sr (Bupropion Hcl) 150 Mg Tablet.er 1 Tab PO BID Omeprazole 20 Mg Capsule.dr 1 Tab PO DAILY Carvedilol 12.5 Mg Tablet 12.5 Mg PO BID Gabapentin 300 Mg Capsule 1 Tab PO BID Lisinopril 40 Mg Tablet 40 Mg PO DAILY Venlafaxine Hcl Er (Venlafaxine Hcl) 225 Mg Tab.er.24 225 Mg PO DAILY NICODERM CQ 21mg (Nicotine) 1 Each Patch.td24 1 Patch TP DAILY Do not smoke while wearing the patch Cyanocobalamin Injection (Cyanocobalamin (Vitamin B-12)) 1,000 Mcg/1 Ml Vial 1 Ml IM QMONTH Clonazepam 0.5 Mg Tablet 0.5 Tab PO DAILY PRN Ventolin Hfa Inhaler (Albuterol Sulfate) 18 Gm Hfa.aer.ad 2 Puff INH BID Acetaminophen 500 Mg Tablet 1 Tab PO PRN Q6HRS PRN Gabapentin (Gabapentin) 300 Mg Capsule 300 Mg PO BID Buspirone Hcl 15 Mg Tablet 15 Mg PO BID Aspirin 325 Mg Tablet 1 Tab PO DAILY Tamoxifen Citrate 20 Mg Tablet 20 Mg PO DAILY Allergies Allergies: Allergies Coded Allergies Type Severity Reaction Last Updated Verified No Known Drug Allergies 03/16/14 No ROS Review of System The patient denies any associated fevers, chills, headache, ear pain, rhinorrhea, sore throat, stiff neck, productive cough, chest pain, shortness of breath, back or flank pain, abdominal pain, nausea, vomiting, diarrhea, constipation, dysuria, rash, numbness, weakness, tingling, incontinence, difficulty ambulating, or diaphoresis. Physical Exam Physical Exam General: Well developed, well nourished, no acute distress, well appearing HEENT: Pupils equally round and reactive to light, EOMI, no discharge, normal conjunctiva Neck: Supple, no nuchal rigidity, no JVD, trachea midline, no tenderness Cardiac: RRR, no murmurs, no gallops, no rubs Chest/Lungs: CTAB, no wheeze, no rhonchi, no crackles Abdomen: soft, non-distended, no guarding, no peritoneal signs, non-tender Back: No tenderness Extremities: no edema, pulses intact, non-tender,capillary refill <3 sec bilateral upper and lower extremities, Neuro: Alert and oriented x 4, no focal deficits, normal speech Vitals Vitals: Vital Signs Date Time Temp Pulse Resp B/P (MAP) Pulse Ox O2 Delivery O2 Flow Rate FiO2 07/30/18 11:34 92 Room Air 07/30/18 11:00 98.1 94 16 130/77 (94) 98.1 Labs Labs Laboratory Tests Test 07/29/18 22:45 07/30/18 12:15 White Blood Count 11.8 x10^3/uL (4.0-11.0) Red Blood Count 3.77 x10^6/uL (3.50-5.40) Hemoglobin 12.5 g/dL (12.0-15.5) Hematocrit 36.2 % (36.0-47.0) Mean Corpuscular Volume 96 fL (79-100) Mean Corpuscular Hemoglobin 33 pg (25-35) Mean Corpuscular Hemoglobin Concent 35 g/dL (31-37) Red Cell Distribution Width 14.4 % (11.5-14.5) Platelet Count 138 x10^3/uL (140-400) Neutrophils (%) (Auto) 68 % (31-73) Lymphocytes (%) (Auto) 21 % (24-48) Monocytes (%) (Auto) 9 % (0-9) Eosinophils (%) (Auto) 2 % (0-3) Basophils (%) (Auto) 1 % (0-3) Neutrophils # (Auto) 8.0 x10^3uL (1.8-7.7) Lymphocytes # (Auto) 2.4 x10^3/uL (1.0-4.8) Monocytes # (Auto) 1.0 x10^3/uL (0.0-1.1) Eosinophils # (Auto) 0.3 x10^3/uL (0.0-0.7) Basophils # (Auto) 0.1 x10^3/uL (0.0-0.2) Prothrombin Time 12.4 SEC (11.7-14.0) Prothromb Time International Ratio 1.0 (0.8-1.1) Activated Partial Thromboplast Time 20 SEC (24-38) Sodium Level 140 mmol/L (136-145) Potassium Level 4.0 mmol/L (3.5-5.1) Chloride Level 105 mmol/L (98-107) Carbon Dioxide Level 25 mmol/L (21-32) Anion Gap 10 (6-14) Blood Urea Nitrogen 12 mg/dL (7-20) Creatinine 1.1 mg/dL (0.6-1.0) Estimated GFR (Cockcroft-Gault) 51.4 BUN/Creatinine Ratio 11 (6-20) Glucose Level 109 mg/dL (70-99) Calcium Level 9.1 mg/dL (8.5-10.1) Magnesium Level 2.3 mg/dL (1.8-2.4) Total Bilirubin 0.1 mg/dL (0.2-1.0) Aspartate Amino Transf (AST/SGOT) 20 U/L (15-37) Alanine Aminotransferase (ALT/SGPT) 25 U/L (14-59) Alkaline Phosphatase 88 U/L (46-116) Total Protein 6.6 g/dL (6.4-8.2) Albumin 3.3 g/dL (3.4-5.0) Albumin/Globulin Ratio 1.0 (1.0-1.7) Creatine Kinase 97 U/L (26-192) Laboratory Tests Test 07/29/18 22:45 07/30/18 12:15 White Blood Count 11.8 x10^3/uL (4.0-11.0) Red Blood Count 3.77 x10^6/uL (3.50-5.40) Hemoglobin 12.5 g/dL (12.0-15.5) Hematocrit 36.2 % (36.0-47.0) Mean Corpuscular Volume 96 fL (79-100) Mean Corpuscular Hemoglobin 33 pg (25-35) Mean Corpuscular Hemoglobin Concent 35 g/dL (31-37) Red Cell Distribution Width 14.4 % (11.5-14.5) Platelet Count 138 x10^3/uL (140-400) Neutrophils (%) (Auto) 68 % (31-73) Lymphocytes (%) (Auto) 21 % (24-48) Monocytes (%) (Auto) 9 % (0-9) Eosinophils (%) (Auto) 2 % (0-3) Basophils (%) (Auto) 1 % (0-3) Neutrophils # (Auto) 8.0 x10^3uL (1.8-7.7) Lymphocytes # (Auto) 2.4 x10^3/uL (1.0-4.8) Monocytes # (Auto) 1.0 x10^3/uL (0.0-1.1) Eosinophils # (Auto) 0.3 x10^3/uL (0.0-0.7) Basophils # (Auto) 0.1 x10^3/uL (0.0-0.2) Prothrombin Time 12.4 SEC (11.7-14.0) Prothromb Time International Ratio 1.0 (0.8-1.1) Activated Partial Thromboplast Time 20 SEC (24-38) Sodium Level 140 mmol/L (136-145) Potassium Level 4.0 mmol/L (3.5-5.1) Chloride Level 105 mmol/L (98-107) Carbon Dioxide Level 25 mmol/L (21-32) Anion Gap 10 (6-14) Blood Urea Nitrogen 12 mg/dL (7-20) Creatinine 1.1 mg/dL (0.6-1.0) Estimated GFR (Cockcroft-Gault) 51.4 BUN/Creatinine Ratio 11 (6-20) Glucose Level 109 mg/dL (70-99) Calcium Level 9.1 mg/dL (8.5-10.1) Magnesium Level 2.3 mg/dL (1.8-2.4) Total Bilirubin 0.1 mg/dL (0.2-1.0) Aspartate Amino Transf (AST/SGOT) 20 U/L (15-37) Alanine Aminotransferase (ALT/SGPT) 25 U/L (14-59) Alkaline Phosphatase 88 U/L (46-116) Total Protein 6.6 g/dL (6.4-8.2) Albumin 3.3 g/dL (3.4-5.0) Albumin/Globulin Ratio 1.0 (1.0-1.7) Creatine Kinase 97 U/L (26-192) JAMILA CHAUDHARY MD Jul 30, 2018 12:56
[2018-07-30] MEDS ORDERED: GADOTERATE 7.5 MMOL/15ML VIAL. IVP ONE (14:15)
[2018-07-30 15:20] LABS: BARBITURATES NEG (NEG); BENZODIAZEPINES NEG (NEG); CANNABINOIDS POS (NEG); COCAINE NEG (NEG); METHADONE NEG (NEG); OPIATES NEG (NEG); PHENCYCLIDINE NEG (NEG)
[2018-07-30 15:22] LABS: AMPHETAMINE/METHAMPHETAMINE NEG (NEG)
--- NOTE | 2018-07-30 16:04 | PDOC ---
Provider Note Provider Note The fluoro guided LP was performed utilizing a 20g spinal needle without difficulty. 9cc of clear CSF was removed and sent to the lab. The patient was returned to the floor in good condition. SHELLY CERVANTES MD Jul 30, 2018 16:04
--- NOTE | 2018-07-30 16:22 | RAD ---
MRI of the thoracic spine without and with contrast 07/30/2018 CLINICAL HISTORY: Acute weakness from the waist down. TECHNIQUE: Unenhanced T1-weighted, T2-weighted and inversion recovery sagittal and T1-weighted and T2-weighted axial images of the thoracic spine were obtained. After the intravenous administration of 14 cc of Dotarem, enhanced T1-weighted sagittal and axial images of the thoracic spine were obtained. FINDINGS: Images from the study are degraded by patient motion. Minimal S-shaped curvature of the thoracolumbar spine is seen. Degenerative signal changes are seen involving all of the disks of the thoracic spine. A 1 cm hemangioma is seen involving the T3 vertebral body. Evaluation of the thoracic spinal cord is limited due to significant patient motion particularly on the axial images. No definite area of abnormal signal intensity is seen involving the thoracic spinal cord. No area of abnormal contrast enhancement is noted. Relatively mild degenerative changes are seen involving the thoracic disc spaces consisting of minimal generalized disc bulges and degenerative changes involving the facet joints. These findings do not result in significant central spinal canal or neural foraminal stenosis. IMPRESSION: 1. Images from the study are degraded by patient motion which limits evaluation of the thoracic spinal cord. No definite area of abnormal signal intensity or contrast enhancement is seen involving the thoracic spinal cord. 2. Mild degenerative changes are seen involving the thoracic spine. These findings do not result in significant central spinal canal or neural foraminal stenosis. Electronically signed by: Sudheer Preston MD (07/30/2018 4:19 PM) [email or web address]
--- NOTE | 2018-07-30 16:27 | RAD ---
MRI of the lumbar spine without contrast 07/30/2018 CLINICAL HISTORY: Low back pain with leg weakness and numbness for one day, right greater than left. TECHNIQUE: Unenhanced T1-weighted and T2-weighted sagittal and axial and inversion recovery sagittal images of the lumbar spine were obtained. FINDINGS: Some of these images are degraded by patient motion. Mild S-shaped curvature of the thoracolumbar spine is seen. Degenerative signal changes are seen involving all of the disks of the lumbar spine. Degenerative signal changes are seen within the marrow surrounding these discs. The conus medullaris is normal morphology, position, and signal characteristics. At the L1-2, L2-3 and L3-4 disc spaces there are minimal generalized disc bulges. Degenerative changes are seen involving the facet joints bilaterally. There is mild ligamentum flavum hypertrophy bilaterally. These findings do not result in significant central spinal canal or neural foraminal stenosis. At the L4-5 disc space there is a moderate generalized disc bulge. Degenerative changes are seen involving the facet joints bilaterally. There are moderate to large sized facet joint effusions bilaterally. Synovial cysts are seen projecting anteriorly and laterally from the facet joints. These measure 5 mm in size. These findings when combined result in severe central spinal canal stenosis. Mild bilateral neural foraminal stenosis is seen. At the L5-S1 disc space there is minimal generalized disc bulge. Degenerative changes are seen involving the facet joints bilaterally. These findings do not result in significant central spinal canal or neural foraminal stenosis. IMPRESSION: The changes of degenerative disc disease are seen involving the lumbar spine. These findings results in severe central spinal canal stenosis with mild bilateral neural foraminal stenosis at L4-5. Electronically signed by: Sudheer Preston MD (07/30/2018 4:24 PM) [email or web address]
[2018-07-30 16:32] LABS: CSF PROTEIN 47.2 mg/dL (15.0-45.0)
[2018-07-30 16:45] VITALS: BP 141/70
[2018-07-30 16:48] LABS: CSF CLARITY CLEAR; CSF COLOR COLORLESS
[2018-07-30 16:49] LABS: CSF RBC COUNT 1 /cmm (Not Established); CSF WBC COUNT 1 /cmm (Not Established)
--- NOTE | 2018-07-30 16:58 | RAD ---
Fluoroscopically guided lumbar puncture, 07/30/2018: History: Acute weakness Under local anesthesia, aseptic conditions and fluoroscopic guidance a lumbar puncture was performed at the L2-3 level utilizing a 20-gauge spinal needle. Good clear CSF flow was obtained. The opening pressure was 14 cm of water. 9 cc of clear CSF was obtained and sent to lab for appropriate studies. The closing pressure was 12 cm of water. The spinal needle was then removed and hemostasis obtained. The patient tolerated the procedure well and was returned to the floor in good condition.
[2018-07-30] MEDS: MUPIROCIN 2 % TOPICAL CREAM 30GM TUBE. TP SCH ×2 (18:06→21:39)
[2018-07-30 19:32] VITALS: BP 143/74
[2018-07-30 21:36] LABS: BILIRUBIN,URINE NEGATIVE (NEG); CLARITY,URINE CLEAR; COLOR,URINE YELLOW; NITRITE,URINE NEGATIVE (NEG); PROTEIN,URINE NEGATIVE (NEG-TRACE); UROBILINOGEN,URINE 0.2 mg/dL (0.2 mg/dL)
[2018-07-30] MEDS: MONTELUKAST SODIUM 10 MG TABLET. PO SCH (21:37)
[2018-07-30] MEDS: ATORVASTATIN CALCIUM 20 MG TABLET PO SCH (21:37)
[2018-07-30] MEDS: ENOXAPARIN 40 MG/0.4 ML SYRINGE. SQ SCH (21:38)
[2018-07-30 21:45] LABS: BACTERIA,URINE 0 /HPF (0-FEW); RBC,URINE OCC /HPF (0-2); SQUAMOUS EPITHELIAL CELL,UR FEW /LPF; WBC,URINE OCC /HPF (0-4)
--- NOTE | 2018-07-30 22:24 | RAD ---
Bilateral lower extremity venous doppler ultrasound History: Right lower leg pain Comparison: None Findings: Multiple grayscale, color, and duplex spectral analysis sonographic images were acquired of the bilateral lower extremity veins to evaluate for the presence of DVT. There is normal phasicity. Normal compression, color-flow, and augmentation is demonstrated from the bilateral common femoral to the popliteal veins. There is normal color flow of the proximal greater saphenous and profunda femoris veins. There is normal color flow of segments of the calf veins. Impression: 1. There is no evidence of deep venous thrombosis from the bilateral common femoral to the popliteal veins. Electronically signed by: Chu Dawkins MD (07/30/2018 10:21 PM) [facility]
[2018-07-30 23:25] VITALS: BP 150/72
[2018-07-31] MEDS: ACETAMINOPHEN/CODEINE 300/30MG TABLET. PO PRN ×3 (02:49→18:05)
[2018-07-31 03:23] VITALS: BP 161/75
[2018-07-31] MEDS: IPRATRPIUM/ALBUTEROL 0.5/2.5MG 3 ML NEBU. NEB SCH ×6 (03:23→23:42)
[2018-07-31 07:00] VITALS: BP 165/82
[2018-07-31] MEDS: BUDESONIDE 0.5 MG/2 ML NEBU. NEB SCH ×2 (07:57→20:07)
[2018-07-31] MEDS: NICOTINE 21MG PATCH. TD SCH (09:00)
[2018-07-31] MEDS ORDERED: TAMOXIFEN 10 MG TABLET PO SCH (09:00)
[2018-07-31] MEDS: busPIRone 5 MG TABLET. PO SCH ×2 (09:18→20:42)
[2018-07-31] MEDS: buPROPion SR 150 MG TABLET.SA PO SCH ×2 (09:18→20:42)
[2018-07-31] MEDS: ASPIRIN 325 MG TABLET PO SCH (09:18)
--- NOTE | 2018-07-31 09:18 | PDOC2 ---
CONSULT Date of Consult Date of Consult DATE: 07/31/18 TIME: 09:05 Reason for consultation: Back Pain and weakness and neuropathy on tamoxifen Consult: Hematology oncology, Dr. Amilcar Barrios History of present illness: She is a 58 year old female with a history of stage I left breast invasive ductal carcinoma triple positive in October 2012 treated with breast conservation therapy as well as chemotherapy including AC followed by , and tamoxifen since May 2013. She also has a history of stroke in 2004 with resultant left eye blindness, factor V Leiden heterozygosity on a full dose aspirin, and has been on tamoxifen, no other h/o thrombosis. She was admitted for back pain, acute, moderate, worsened after mowing the lawn, associated with lower extremity weakness, legs were giving out on her, she could not walk, as well as numbness from her waist down, over time and with massage the numbness has improved on the left side but persisted on the right side, and she had recently been started on gabapentin for peripheral neuropathy symptoms. Peripheral neuropathy was initially related to taxane chemotherapy. Past medical history: Hypertension Hyperlipidemia Left invasive ductal carcinoma triple + 11/01 T1b N0 M0 stage Ia Stroke in 2004 with left eye blindness, (old lacunar infarct seen on imaging) Factor 5 Leiden heterozygosity on full dose aspirin Osteoarthritis Emphysema Peripheral neuropathy secondary to chemotherapy Lymphedema Nonmelanoma skin cancers Depression and anxiety Coronary artery disease Back pain Colon polyps GERD Tobacco abuse quit April 2018 menopausal Past surgical history: Cataract Lumpectomy Breast biopsy Port placement Skin cancer excision Allergies: No known drug allergies Medications: See attached list, tamoxifen on hold Social history: Quit tobacco April 2018 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 Family history: Mother with breast cancer Review of systems: Back pain, numbness and tingling, weakness, left eye blindne ss, dyspnea, reflux, joint pains, otherwise 10 pt ROS neg Physical exam: Vitals reviewed Gen.: Well-nourished in no acute distress, resting in bed HEENT: mucous membranes moist, head normocephalic atraumatic Neck: Supple, no lymphadenopathy Lymph nodes: No palpable lymphadenopathy neck or axilla Lungs: Breathing comfortably, no evidence of respiratory distress Abdomen: Soft, nontender, nondistended Extremities: No cyanosis or significant edema Skin: No obvious rashes or skin breakdown, bruising with tattoos Neuro: Alert and oriented 3 Psych: Pleasant mood and affect Lab reviewed: White count 11.8, hemoglobin 12.5, platelets 138 CSF protein 47 CSF glucose 62 Urine drug screen positive for cannabis Creatinine 1.1 B12 387 TSH 1.9 Rads reviewed: Bilateral lower extremity ultrasound negative for DVT MRI T and L-spine shows degenerative changes, severe central canal stenosis L4- L5 Case discussed with: Patient, records reviewed in [facility] and [facility] including labs and radiology, please see note for summary details. Assessment and Plan: Ms Wood is 58-year-old female followed by Dr. Morton for history of stage I breast cancer on tamoxifen, admitted with back pain and weakn ess and worsening neuropathy symptoms. Breast Cancer: Will stop tamoxifen at this time, doubt it is contributing to neuropathy but can increase risk of thrombosis, she does have heterozygosity for factor V Leiden, and old lacunar infarct, and cataract hx and is on full dose aspirin, but is menopausal and may consider AI versus other in follow-up with Dr. Morton after dc slight thrombocytopenia: We'll check CBC in a.m. Back pain with weakness: Spinal stenosis L4-5, Neurology is involved, appreciate their assistance, may benefit from physical therapy or pain clinic eval versus surgery eval vs other? Peripheral neuropathy symptoms, has been started on gabapentin recently, can titrate as needed per primary History of tobacco abuse: She quit in April 2018 Prophylaxis: She is on Lovenox 40 mg daily (and ASA 325) Disposition: After clinical improvement, we will arrange for follow-up with Dr. Morton after discharge Thank you kindly for this consultation, and please don't hesitate to call with further questions. Past Medical History Cardiovascular: HTN, Hyperlipidemia Pulmonary: COPD CENTRAL NERVOUS SYSTEM: CVA Heme/Onc: Anemia NOS, Cancer, Other Hepatobiliary: No pertinent hx Psych: Anxiety Musculoskeletal: Osteoarthritis Infectious disease: No pertinent hx Renal/: No pertinent hx Endocrine: No pertinent hx Past Surgical History Past Surgical History: Other Family History Family History: Cancer, Coronary Artery Disease, Hypertension Social History Quit ALCOHOL: occassional Drugs: None Lives: with Family Current Medications Current Medications Current Medications Sodium Chloride 1,000 ml @ 1,000 mls/hr Q1H IV Last administered on 07/29/18at 22:54; Start 07/29/18 at 22:30; Stop 07/29/18 at 23:29; Status DC Fentanyl Citrate (Fentanyl 2ml Vial) 50 mcg 1X ONCE IV Last administered on 07/29/18at 23:27; Start 07/29/18 at 23:45; Stop 07/29/18 at 23:46; Status DC Ondansetron HCl (Zofran) 4 mg 1X ONCE IV Last administered on 07/29/18at 23:26; Start 07/29/18 at 23:45; Stop 07/29/18 at 23:46; Status DC Aspirin (Renae Aspirin) 325 mg 1X ONCE PO Last administered on 07/29/18at 23:50 ; Start 07/29/18 at 23:45; Stop 07/29/18 at 23:46; Status DC Ondansetron HCl (Zofran) 4 mg PRN Q8HRS PRN IV NAUSEA/VOMITING 1ST CHOICE; Start 07/29/18 at 23:45; Stop 07/30/18 at 08:31; Status DC Fentanyl Citrate (Fentanyl 2ml Vial) 50 mcg PRN Q1HR PRN IV SEVERE PAIN Last administered on 07/30/18at 21:34; Start 07/29/18 at 23:45; Stop 07/30/18 at 23:44; Status DC Sodium Chloride 1,000 ml @ 125 mls/hr Q8H IV Last administered on 07/30/18at 21:45; Start 07/29/18 at 23:45; Stop 07/30/18 at 23:44; Status DC Albuterol/ Ipratropium (Duoneb) 3 ml RTQID NEB Last administered on 07/30/18at 07:58; Start 07/30/18 at 08:00; Stop 07/30/18 at 09:16; Status DC Ondansetron HCl (Zofran) 4 mg PRN Q6HRS PRN IV NAUSEA/VOMITING 1ST CHOICE; Start 07/30/18 at 08:45 Acetaminophen/ Codeine Phosphate (Tylenol #3) 1 tab PRN Q6HRS PRN PO MODERATE PAIN Last administered on 07/31/18at 02:49; Start 07/30/18 at 08:30 Acetaminophen (Tylenol) 500 mg PRN Q6HRS PRN PO MILD PAIN / TEMP; Start 07/30/18 at 08:30; Stop 07/30/18 at 09:13; Status DC Acetaminophen (Tylenol) 500 mg PRN Q6HRS PRN PO MILD PAIN 1-3; Start 07/30/18 at 08:45; Stop 07/30/18 at 09:13; Status DC Albuterol Sulfate (Ventolin Neb Soln) 2.5 mg PRN BID PRN INH FOR ASTHMA; Start 07/30/18 at 08:45; Stop 07/30/18 at 09:04; Status DC Amlodipine Besylate (Norvasc) 5 mg DAILY PO Last administered on 07/30/18 09:41; Start 07/30/18 at 09:00 Aspirin (Renae Aspirin) 325 mg DAILY PO Last administered on 07/30/18 09:39; Start 07/30/18 at 09:00 Atorvastatin Calcium (Lipitor) 20 mg QHS PO Last administered on 07/30/18 21:37; Start 07/30/18 at 21:00 Bupropion HCl (Wellbutrin Sr) 150 mg BID PO Last administered on 07/30/18 21:37; Start 07/30/18 at 09:00 Calcium Carbonate/ Glycine (Tums) 500 mg PRN Q4HRS PRN PO INDIGESTION; Start 07/30/18 at 08:45 Carvedilol (Coreg) 12.5 mg BIDWMEALS PO Last administered on 07/30/18 18:06; Start 07/30/18 at 09:00 Clonazepam (KlonoPIN) 0.25 mg PRN BID PRN PO ANXIETY / AGITATION; Start 07/30/18 at 08:45 Cyanocobalamin (Vitamin B-12) 1,000 mcg DAILY PO Last administered on 07/30/18 09:40; Start 07/30/18 at 09:00 Gabapentin (Neurontin) 300 mg BID PO Last administered on 07/30/18 21:38; Start 07/30/18 at 09:00 Albuterol/ Ipratropium (Duoneb) 3 ml Q4HRS NEB Last administered on 07/31/18 07:57; Start 07/30/18 at 12:00 Isosorbide Mononitrate (Imdur) 60 mg DAILY PO Last administered on 07/30/18 09:40; Start 07/30/18 at 09:00 Lactulose (Lactulose) 20 gm PRN Q12HR PRN PO CONSTIPATION; Start 07/30/18 at 08:45 Lisinopril (Prinivil) 20 mg DAILY PO Last administered on 07/30/18at 09:40; Start 07/30/18 at 09:00 Mupirocin (Bactroban) 1 leno BID NS ; Start 07/30/18 at 09:00; Stop 07/30/18 at 09:02; Status DC Simethicone (Gas-X) 80 mg PRN Q6HRS PRN PO GAS / BLOATING; Start 07/30/18 at 08:45 Non-Formulary Medication (Albuterol Sulfate (Albuterol Sulfate Conc Neb Soln)) 1 vial Q4HRS PRN NEB WHEEZING; Start 07/30/18 at 08:45; Status UNV Non-Formulary Medication (Budesonide (Pulmicort Flexhaler)) 2 puff BID IH ; Start 07/30/18 at 09:00; Status UNV Buspirone HCl (Buspar) 15 mg BID PO Last administered on 07/30/18at 21:37; Start 07/30/18 at 09:30 Non-Formulary Medication (Fluticasone/ Salmeterol (Advair 250-50 Diskus)) 1 inh BID IH ; Start 07/30/18 at 09:00; Status UNV Montelukast Sodium (Singulair) 10 mg QHS PO Last administered on 07/30/18at 21:37; Start 07/30/18 at 21:00 Nicotine (Nicoderm Cq 21mg) 1 patch DAILY TD ; Start 07/30/18 at 09:30 Venlafaxine HCl (Effexor) 75 mg TID PO Last administered on 07/30/18at 21:37; Start 07/30/18 at 09:30 Pantoprazole Sodium (Protonix) 40 mg DAILYAC PO Last administered on 07/30/18at 09:39; Start 07/30/18 at 09:30 Mupirocin (Bactroban) 1 leno TID TP Last administered on 07/30/18at 21:39; Start 07/30/18 at 14:00 Albuterol Sulfate (Ventolin Neb Soln) 2.5 mg PRN Q4HRS PRN INH FOR ASTHMA; Start 07/30/18 at 09:15 Acetaminophen (Tylenol) 500 mg PRN Q6HRS PRN PO MILD PAIN 1-3; Start 07/30/18 at 09:13 Budesonide (Pulmicort) 0.5 mg RTBID NEB Last administered on 07/31/18at 07:57; Start 07/30/18 at 09:30 Tamoxifen Citrate (Nolvadex) 20 mg DAILY PO ; Start 07/31/18 at 09:00; Stop 07/31/18 at 09:00; Status DC Gadoterate Meglumine (Dotarem) 14 ml 1X ONCE IVP Last administered on 07/30/18at 15:09; Start 07/30/18 at 14:15; Stop 07/30/18 at 14:16; Status DC Enoxaparin Sodium (Lovenox 40mg Syringe) 40 mg Q24H SQ Last administered on 07/30/18at 21:38; Start 07/30/18 at 21:00 Active Scripts Active Calcium Carbonate 200 Mg Tab.chew 500 Mg PO PRN Q4HRS PRN 14 Days Clotrimazole 10 Mg Sherry 10 Mg MM BID 14 Days [Pantoprazole] 40 MG Tablet.dr 40 Mg PO DAILYAC 14 Days Montelukast Sodium Tablet (Montelukast Sodium) 10 Mg Tablet 10 Mg PO QHS 30 Days Lactulose 20 Gm/30 Ml Solution 20 Gm PO PRN Q12HR PRN 14 Days Lisinopril 40 Mg Tablet 20 Mg PO DAILY 30 Days Carvedilol (Carvedilol) 12.5 Mg Tablet 12.5 Mg PO BIDWMEALS 30 Days Duoneb 0.5-3(2.5) Mg/3 Ml (Albuterol/Ipratropium) 3 Ml Ampul.neb 3 Ml NEB Q4HRS 30 Days Pulmicort Flexhaler (Budesonide) 180 Mcg Aer.pow.ba 2 Puff IH BID Isosorbide Mononitrate Er (Isosorbide Mononitrate) 30 Mg Tab.er.24h 60 Mg PO DAILY 30 Days Atorvastatin Calcium 20 Mg Tablet 20 Mg PO QHS 30 Days Advair 250-50 Diskus (Fluticasone/Salmeterol) 1 Each Disk.w.dev 1 Inh IH BID 30 Days Reported Effexor Xr (Venlafaxine Hcl) 150 Mg Cap.er.24h 225 Mg PO DAILY Tamoxifen Citrate 20 Mg Tablet 1 Tab PO DAILY Simethicone 80 Mg Tab.chew 80 Mg PO PRN Q6HRS PRN Risperdal (Risperidone) 0.5 Mg Tablet 0.5 Mg PO BID Entresto 49 mg-51 mg Tablet (Sacubitril/Valsartan) 1 Each Tablet 1 Each PO BID Vitamin B-12 (Cyanocobalamin (Vitamin B-12)) 1,000 Mcg Tablet 1 Tab PO DAILY Clonazepam 0.5 Mg Tablet 0.25 Mg PO BID PRN Lipitor (Atorvastatin Calcium) 20 Mg Tablet 20 Mg PO HS Aspirin 325 Mg Tablet 1 Tab PO DAILY Tylenol (Acetaminophen) 325 Mg Tablet 500 Mg PO PRN Q6HRS PRN Albuterol Sulfate Conc Neb Soln (Albuterol Sulfate) 2.5 Mg/0.5 Ml Vial.neb 1 Vial NEB Q4HRS PRN Proventil Hfa Inhaler (Albuterol Sulfate) 6.7 Gm Hfa.aer.ad 2 Puff IH BID PRN Mupirocin Ointment (Mupirocin) 22 Gm Oint...g. 1 Applic TOP BID Amlodipine Besylate 5 Mg Tablet 1 Tab PO DAILY Bupropion Hcl Sr (Bupropion Hcl) 150 Mg Tablet.er 1 Tab PO BID Omeprazole 20 Mg Capsule.dr 1 Tab PO DAILY Carvedilol 12.5 Mg Tablet 12.5 Mg PO BID Gabapentin 300 Mg Capsule 1 Tab PO BID Lisinopril 40 Mg Tablet 40 Mg PO DAILY Venlafaxine Hcl Er (Venlafaxine Hcl) 225 Mg Tab.er.24 225 Mg PO DAILY NICODERM CQ 21mg (Nicotine) 1 Each Patch.td24 1 Patch TP DAILY Do not smoke while wearing the patch Cyanocobalamin Injection (Cyanocobalamin (Vitamin B-12)) 1,000 Mcg/1 Ml Vial 1 Ml IM QMONTH Clonazepam 0.5 Mg Tablet 0.5 Tab PO DAILY PRN Ventolin Hfa Inhaler (Albuterol Sulfate) 18 Gm Hfa.aer.ad 2 Puff INH BID Acetaminophen 500 Mg Tablet 1 Tab PO PRN Q6HRS PRN Gabapentin (Gabapentin) 300 Mg Capsule 300 Mg PO BID Buspirone Hcl 15 Mg Tablet 15 Mg PO BID Aspirin 325 Mg Tablet 1 Tab PO DAILY Tamoxifen Citrate 20 Mg Tablet 20 Mg PO DAILY Allergies Allergies: Coded Allergies: No Known Drug Allergies (Unverified , 03/16/14) Vitals VITALS Vital Signs Date Time Temp Pulse Resp B/P (MAP) Pulse Ox O2 Delivery O2 Flow Rate FiO2 07/31/18 08:00 90 Room Air 07/31/18 07:00 98.1 81 18 165/82 (109) 98.1 Labs Labs Laboratory Tests Test 07/29/18 22:45 07/30/18 12:15 07/30/18 14:50 07/30/18 16:00 White Blood Count 11.8 x10^3/uL (4.0-11.0) Red Blood Count 3.77 x10^6/uL (3.50-5.40) Hemoglobin 12.5 g/dL (12.0-15.5) Hematocrit 36.2 % (36.0-47.0) Mean Corpuscular Volume 96 fL (79-100) Mean Corpuscular Hemoglobin 33 pg (25-35) Mean Corpuscular Hemoglobin Concent 35 g/dL (31-37) Red Cell Distribution Width 14.4 % (11.5-14.5) Platelet Count 138 x10^3/uL (140-400) Neutrophils (%) (Auto) 68 % (31-73) Lymphocytes (%) (Auto) 21 % (24-48) Monocytes (%) (Auto) 9 % (0-9) Eosinophils (%) (Auto) 2 % (0-3) Basophils (%) (Auto) 1 % (0-3) Neutrophils # (Auto) 8.0 x10^3uL (1.8-7.7) Lymphocytes # (Auto) 2.4 x10^3/uL (1.0-4.8) Monocytes # (Auto) 1.0 x10^3/uL (0.0-1.1) Eosinophils # (Auto) 0.3 x10^3/uL (0.0-0.7) Basophils # (Auto) 0.1 x10^3/uL (0.0-0.2) Prothrombin Time 12.4 SEC (11.7-14.0) Prothromb Time International Ratio 1.0 (0.8-1.1) Activated Partial Thromboplast Time 20 SEC (24-38) Sodium Level 140 mmol/L (136-145) Potassium Level 4.0 mmol/L (3.5-5.1) Chloride Level 105 mmol/L (98-107) Carbon Dioxide Level 25 mmol/L (21-32) Anion Gap 10 (6-14) Blood Urea Nitrogen 12 mg/dL (7-20) Creatinine 1.1 mg/dL (0.6-1.0) Estimated GFR (Cockcroft-Gault) 51.4 BUN/Creatinine Ratio 11 (6-20) Glucose Level 109 mg/dL (70-99) Calcium Level 9.1 mg/dL (8.5-10.1) Magnesium Level 2.3 mg/dL (1.8-2.4) Total Bilirubin 0.1 mg/dL (0.2-1.0) Aspartate Amino Transf (AST/SGOT) 20 U/L (15-37) Alanine Aminotransferase (ALT/SGPT) 25 U/L (14-59) Alkaline Phosphatase 88 U/L (46-116) Total Protein 6.6 g/dL (6.4-8.2) Albumin 3.3 g/dL (3.4-5.0) Albumin/Globulin Ratio 1.0 (1.0-1.7) Creatine Kinase 97 U/L (26-192) Vitamin B12 Level 387 pg/mL (247-911) Thyroid Stimulating Hormone (TSH) 1.924 uIU/mL (0.358-3.74) Urine Collection Type Unknown Urine Color Yellow Urine Clarity Clear Urine pH 6.0 Urine Specific Freeman 1.010 Urine Protein Negative mg/dL (NEG-TRACE) Urine Glucose (UA) Negative mg/dL (NEG) Urine Ketones (Stick) Negative mg/dL (NEG) Urine Blood Negative (NEG) Urine Nitrite Negative (NEG) Urine Bilirubin Negative (NEG) Urine Urobilinogen Dipstick 0.2 mg/dL (0.2 mg/dL) Urine Leukocyte Esterase Negative (NEG) Urine RBC Occ /HPF (0-2) Urine WBC Occ /HPF (0-4) Urine Squamous Epithelial Cells Few /LPF Urine Bacteria 0 /HPF (0-FEW) Urine Opiates Screen Neg (NEG) Urine Methadone Screen Neg (NEG) Urine Barbiturates Neg (NEG) Urine Phencyclidine Screen Neg (NEG) Urine Amphetamine/Methamphetamine Neg (NEG) Urine Benzodiazepines Screen Neg (NEG) Urine Cocaine Screen Neg (NEG) Urine Cannabinoids Screen Pos (NEG) Urine Ethyl Alcohol Neg (NEG) CSF Color Colorless CSF Clarity Clear CSF WBC 1 /cmm (Not Established) CSF RBC 1 /cmm (Not Established) CSF Glucose 62 mg/dL (37-70) CSF Total Protein 47.2 mg/dL (15.0-45.0) Laboratory Tests Test 07/30/18 12:15 07/30/18 14:50 07/30/18 16:00 Creatine Kinase 97 U/L (26-192) Vitamin B12 Level 387 pg/mL (247-911) Thyroid Stimulating Hormone (TSH) 1.924 uIU/mL (0.358-3.74) Urine Collection Type Unknown Urine Color Yellow Urine Clarity Clear Urine pH 6.0 Urine Specific Freeman 1.010 Urine Protein Negative mg/dL (NEG-TRACE) Urine Glucose (UA) Negative mg/dL (NEG) Urine Ketones (Stick) Negative mg/dL (NEG) Urine Blood Negative (NEG) Urine Nitrite Negative (NEG) Urine Bilirubin Negative (NEG) Urine Urobilinogen Dipstick 0.2 mg/dL (0.2 mg/dL) Urine Leukocyte Esterase Negative (NEG) Urine RBC Occ /HPF (0-2) Urine WBC Occ /HPF (0-4) Urine Squamous Epithelial Cells Few /LPF Urine Bacteria 0 /HPF (0-FEW) Urine Opiates Screen Neg (NEG) Urine Methadone Screen Neg (NEG) Urine Barbiturates Neg (NEG) Urine Phencyclidine Screen Neg (NEG) Urine Amphetamine/Methamphetamine Neg (NEG) Urine Benzodiazepines Screen Neg (NEG) Urine Cocaine Screen Neg (NEG) Urine Cannabinoids Screen Pos (NEG) Urine Ethyl Alcohol Neg (NEG) CSF Color Colorless CSF Clarity Clear CSF WBC 1 /cmm (Not Established) CSF RBC 1 /cmm (Not Established) CSF Glucose 62 mg/dL (37-70) CSF Total Protein 47.2 mg/dL (15.0-45.0) AMILCAR BARRIOS MD Jul 31, 2018 09:18
[2018-07-31] MEDS: GABAPENTIN 300 MG CAPSULE. PO SCH ×2 (09:19→20:43)
[2018-07-31] MEDS: CYANOCOBALAMIN (VITAMIN B-12) 1,000 MCG TABLET. PO SCH (09:19)
[2018-07-31] MEDS: amLODIPine BESYLATE 5 MG TABLET PO SCH (09:19)
[2018-07-31] MEDS: VENLAFAXINE 75 MG TABLET. PO SCH ×3 (09:19→20:43)
[2018-07-31] MEDS: LISINOPRIL 20 MG TABLET PO SCH (09:20)
[2018-07-31] MEDS: CARVEDILOL 12.5 MG TABLET. PO SCH ×2 (09:20→18:05)
[2018-07-31] MEDS: ISOSORBIDE MONONITRATE ER 30 MG TAB.ER.24H PO SCH (09:20)
[2018-07-31] MEDS: MUPIROCIN 2 % TOPICAL CREAM 30GM TUBE. TP SCH ×3 (09:21→20:46)
[2018-07-31] MEDS: PANTOPRAZOLE 40 MG TABLET.DR. PO SCH (09:21)
[2018-07-31 11:00] VITALS: BP 161/82
--- NOTE | 2018-07-31 12:27 | PDOC ---
PROGRESS NOTES Chief Complaint Chief Complaint 1. Acute onset bilateral lower extremity weakness 1 day prior to admission, negative LP, MRI findings do not explain her symptoms -distribution of symptoms is unlikely CVA in etiology 2. Decreased sensation bilateral lower ext, acute 3. History of breast cancer on year 5 of tamoxifen 4. HER 2 positive breast CA 5. Polypharmacy with 41 meds 6. AK I, VMN 7. Reactive leukocytosis 8. SIRS with no sepsis History of Present Illness History of Present Illness SHe can somehow elevate the right leg against gravity helping with her upper body but the left leg is way much better Otherwise no symptoms Did discuss her MRI findings which showed L1-L5 disc bulges changes, mild canal stenosis but nothing in the spinal cord inflammation that with explain her acute onset bilateral lower ext weakness. Neuro has consulted surgery and she is for MRI C-spine and x-rays flexion views of the lumbar spine She denies any headache, Uri symptoms, or constitutional symptoms She has quit smoking LP is also negative PLAN: MRI C-spine Flexion views of the lumbar spine PT OT today Vitals Vitals Vital Signs Date Time Temp Pulse Resp B/P (MAP) Pulse Ox O2 Delivery O2 Flow Rate FiO2 07/31/18 11:43 94 Room Air 07/31/18 11:00 99.4 90 18 161/82 (108) 99.4 Physical Exam General: Alert, Oriented X3, Cooperative, No acute distress Lungs: Other Abdomen: Normal bowel sounds, Soft, No tenderness, No hepatosplenomegaly, No masses Extremities: Other (out of 5 muscle manual testing on bilateral lower extremityThe rest of the neuro exam is unremarkableDTRs +2, claims decreased sensation) Skin: No rashes, No breakdown, No significant lesion Labs LABS Laboratory Tests Test 07/30/18 14:50 07/30/18 16:00 Urine Collection Type Unknown Urine Color Yellow Urine Clarity Clear Urine pH 6.0 Urine Specific [place] 1.010 Urine Protein Negative mg/dL (NEG-TRACE) Urine Glucose (UA) Negative mg/dL (NEG) Urine Ketones (Stick) Negative mg/dL (NEG) Urine Blood Negative (NEG) Urine Nitrite Negative (NEG) Urine Bilirubin Negative (NEG) Urine Urobilinogen Dipstick 0.2 mg/dL (0.2 mg/dL) Urine Leukocyte Esterase Negative (NEG) Urine RBC Occ /HPF (0-2) Urine WBC Occ /HPF (0-4) Urine Squamous Epithelial Cells Few /LPF Urine Bacteria 0 /HPF (0-FEW) Urine Opiates Screen Neg (NEG) Urine Methadone Screen Neg (NEG) Urine Barbiturates Neg (NEG) Urine Phencyclidine Screen Neg (NEG) Urine Amphetamine/Methamphetamine Neg (NEG) Urine Benzodiazepines Screen Neg (NEG) Urine Cocaine Screen Neg (NEG) Urine Cannabinoids Screen Pos (NEG) Urine Ethyl Alcohol Neg (NEG) CSF Color Colorless CSF Clarity Clear CSF WBC 1 /cmm (Not Established) CSF RBC 1 /cmm (Not Established) CSF Glucose 62 mg/dL (37-70) CSF Total Protein 47.2 mg/dL (15.0-45.0) Review of Systems Review of Systems Right lower extremity weakness otherwise rest of ROS 14 point negative Comment Review of Relevant I have reviewed the following items jerrod (where applicable) has been applied. Labs Laboratory Tests Test 07/29/18 22:45 07/30/18 12:15 07/30/18 14:50 07/30/18 16:00 White Blood Count 11.8 x10^3/uL (4.0-11.0) Red Blood Count 3.77 x10^6/uL (3.50-5.40) Hemoglobin 12.5 g/dL (12.0-15.5) Hematocrit 36.2 % (36.0-47.0) Mean Corpuscular Volume 96 fL (79-100) Mean Corpuscular Hemoglobin 33 pg (25-35) Mean Corpuscular Hemoglobin Concent 35 g/dL (31-37) Red Cell Distribution Width 14.4 % (11.5-14.5) Platelet Count 138 x10^3/uL (140-400) Neutrophils (%) (Auto) 68 % (31-73) Lymphocytes (%) (Auto) 21 % (24-48) Monocytes (%) (Auto) 9 % (0-9) Eosinophils (%) (Auto) 2 % (0-3) Basophils (%) (Auto) 1 % (0-3) Neutrophils # (Auto) 8.0 x10^3uL (1.8-7.7) Lymphocytes # (Auto) 2.4 x10^3/uL (1.0-4.8) Monocytes # (Auto) 1.0 x10^3/uL (0.0-1.1) Eosinophils # (Auto) 0.3 x10^3/uL (0.0-0.7) Basophils # (Auto) 0.1 x10^3/uL (0.0-0.2) Prothrombin Time 12.4 SEC (11.7-14.0) Prothromb Time International Ratio 1.0 (0.8-1.1) Activated Partial Thromboplast Time 20 SEC (24-38) Sodium Level 140 mmol/L (136-145) Potassium Level 4.0 mmol/L (3.5-5.1) Chloride Level 105 mmol/L (98-107) Carbon Dioxide Level 25 mmol/L (21-32) Anion Gap 10 (6-14) Blood Urea Nitrogen 12 mg/dL (7-20) Creatinine 1.1 mg/dL (0.6-1.0) Estimated GFR (Cockcroft-Gault) 51.4 BUN/Creatinine Ratio 11 (6-20) Glucose Level 109 mg/dL (70-99) Calcium Level 9.1 mg/dL (8.5-10.1) Magnesium Level 2.3 mg/dL (1.8-2.4) Total Bilirubin 0.1 mg/dL (0.2-1.0) Aspartate Amino Transf (AST/SGOT) 20 U/L (15-37) Alanine Aminotransferase (ALT/SGPT) 25 U/L (14-59) Alkaline Phosphatase 88 U/L (46-116) Total Protein 6.6 g/dL (6.4-8.2) Albumin 3.3 g/dL (3.4-5.0) Albumin/Globulin Ratio 1.0 (1.0-1.7) Creatine Kinase 97 U/L (26-192) Vitamin B12 Level 387 pg/mL (247-911) Thyroid Stimulating Hormone (TSH) 1.924 uIU/mL (0.358-3.74) Urine Collection Type Unknown Urine Color Yellow Urine Clarity Clear Urine pH 6.0 Urine Specific [place] 1.010 Urine Protein Negative mg/dL (NEG-TRACE) Urine Glucose (UA) Negative mg/dL (NEG) Urine Ketones (Stick) Negative mg/dL (NEG) Urine Blood Negative (NEG) Urine Nitrite Negative (NEG) Urine Bilirubin Negative (NEG) Urine Urobilinogen Dipstick 0.2 mg/dL (0.2 mg/dL) Urine Leukocyte Esterase Negative (NEG) Urine RBC Occ /HPF (0-2) Urine WBC Occ /HPF (0-4) Urine Squamous Epithelial Cells Few /LPF Urine Bacteria 0 /HPF (0-FEW) Urine Opiates Screen Neg (NEG) Urine Methadone Screen Neg (NEG) Urine Barbiturates Neg (NEG) Urine Phencyclidine Screen Neg (NEG) Urine Amphetamine/Methamphetamine Neg (NEG) Urine Benzodiazepines Screen Neg (NEG) Urine Cocaine Screen Neg (NEG) Urine Cannabinoids Screen Pos (NEG) Urine Ethyl Alcohol Neg (NEG) CSF Color Colorless CSF Clarity Clear CSF WBC 1 /cmm (Not Established) CSF RBC 1 /cmm (Not Established) CSF Glucose 62 mg/dL (37-70) CSF Total Protein 47.2 mg/dL (15.0-45.0) Laboratory Tests Test 07/30/18 14:50 07/30/18 16:00 Urine Collection Type Unknown Urine Color Yellow Urine Clarity Clear Urine pH 6.0 Urine Specific [place] 1.010 Urine Protein Negative mg/dL (NEG-TRACE) Urine Glucose (UA) Negative mg/dL (NEG) Urine Ketones (Stick) Negative mg/dL (NEG) Urine Blood Negative (NEG) Urine Nitrite Negative (NEG) Urine Bilirubin Negative (NEG) Urine Urobilinogen Dipstick 0.2 mg/dL (0.2 mg/dL) Urine Leukocyte Esterase Negative (NEG) Urine RBC Occ /HPF (0-2) Urine WBC Occ /HPF (0-4) Urine Squamous Epithelial Cells Few /LPF Urine Bacteria 0 /HPF (0-FEW) Urine Opiates Screen Neg (NEG) Urine Methadone Screen Neg (NEG) Urine Barbiturates Neg (NEG) Urine Phencyclidine Screen Neg (NEG) Urine Amphetamine/Methamphetamine Neg (NEG) Urine Benzodiazepines Screen Neg (NEG) Urine Cocaine Screen Neg (NEG) Urine Cannabinoids Screen Pos (NEG) Urine Ethyl Alcohol Neg (NEG) CSF Color Colorless CSF Clarity Clear CSF WBC 1 /cmm (Not Established) CSF RBC 1 /cmm (Not Established) CSF Glucose 62 mg/dL (37-70) CSF Total Protein 47.2 mg/dL (15.0-45.0) Medications Current Medications Sodium Chloride 1,000 ml @ 1,000 mls/hr Q1H IV Last administered on 07/29/18at 22:54; Start 07/29/18 at 22:30; Stop 07/29/18 at 23:29; Status DC Fentanyl Citrate (Fentanyl 2ml Vial) 50 mcg 1X ONCE IV Last administered on 07/29/18at 23:27; Start 07/29/18 at 23:45; Stop 07/29/18 at 23:46; Status DC Ondansetron HCl (Zofran) 4 mg 1X ONCE IV Last administered on 07/29/18at 23:26; Start 07/29/18 at 23:45; Stop 07/29/18 at 23:46; Status DC Aspirin (Renae Aspirin) 325 mg 1X ONCE PO Last administered on 07/29/18at 23:50; Start 07/29/18 at 23:45; Stop 07/29/18 at 23:46; Status DC Ondansetron HCl (Zofran) 4 mg PRN Q8HRS PRN IV NAUSEA/VOMITING 1ST CHOICE; Sta rt 07/29/18 at 23:45; Stop 07/30/18 at 08:31; Status DC Fentanyl Citrate (Fentanyl 2ml Vial) 50 mcg PRN Q1HR PRN IV SEVERE PAIN Last administered on 07/30/18at 21:34; Start 07/29/18 at 23:45; Stop 07/30/18 at 23:44; Status DC Sodium Chloride 1,000 ml @ 125 mls/hr Q8H IV Last administered on 07/30/18at 21:45; Start 07/29/18 at 23:45; Stop 07/30/18 at 23:44; Status DC Albuterol/ Ipratropium (Duoneb) 3 ml RTQID NEB Last administered on 07/30/18at 07:58; Start 07/30/18 at 08:00; Stop 07/30/18 at 09:16; Status DC Ondansetron HCl (Zofran) 4 mg PRN Q6HRS PRN IV NAUSEA/VOMITING 1ST CHOICE; Start 07/30/18 at 08:45 Acetaminophen/ Codeine Phosphate (Tylenol #3) 1 tab PRN Q6HRS PRN PO MODERATE PAIN Last administered on 07/31/18at 09:29; Start 07/30/18 at 08:30 Acetaminophen (Tylenol) 500 mg PRN Q6HRS PRN PO MILD PAIN / TEMP; Start 07/30/18 at 08:30; Stop 07/30/18 at 09:13; Status DC Acetaminophen (Tylenol) 500 mg PRN Q6HRS PRN PO MILD PAIN 1-3; Start 07/30/18 at 08:45; Stop 07/30/18 at 09:13; Status DC Albuterol Sulfate (Ventolin Neb Soln) 2.5 mg PRN BID PRN INH FOR ASTHMA; Start 07/30/18 at 08:45; Stop 07/30/18 at 09:04; Status DC Amlodipine Besylate (Norvasc) 5 mg DAILY PO Last administered on 07/31/18 09:19; Start 07/30/18 at 09:00 Aspirin (Renae Aspirin) 325 mg DAILY PO Last administered on 07/31/18 09:18; Start 07/30/18 at 09:00 Atorvastatin Calcium (Lipitor) 20 mg QHS PO Last administered on 07/30/18 21:37; Start 07/30/18 at 21:00 Bupropion HCl (Wellbutrin Sr) 150 mg BID PO Last administered on 07/31/18 09:18; Start 07/30/18 at 09:00 Calcium Carbonate/ Glycine (Tums) 500 mg PRN Q4HRS PRN PO INDIGESTION; Start 07/30/18 at 08:45 Carvedilol (Coreg) 12.5 mg BIDWMEALS PO Last administered on 07/31/18 09:20; Start 07/30/18 at 09:00 Clonazepam (KlonoPIN) 0.25 mg PRN BID PRN PO ANXIETY / AGITATION; Start 07/30/18 at 08:45 Cyanocobalamin (Vitamin B-12) 1,000 mcg DAILY PO Last administered on 07/31/18 09:19; Start 07/30/18 at 09:00 Gabapentin (Neurontin) 300 mg BID PO Last administered on 07/31/18 09:19; Start 07/30/18 at 09:00 Albuterol/ Ipratropium (Duoneb) 3 ml Q4HRS NEB Last administered on 07/31/18 11:42; Start 07/30/18 at 12:00 Isosorbide Mononitrate (Imdur) 60 mg DAILY PO Last administered on 07/31/18 09:20; Start 07/30/18 at 09:00 Lactulose (Lactulose) 20 gm PRN Q12HR PRN PO CONSTIPATION; Start 07/30/18 at 08:45 Lisinopril (Prinivil) 20 mg DAILY PO Last administered on 07/31/18at 09:20; Start 07/30/18 at 09:00 Mupirocin (Bactroban) 1 leno BID NS ; Start 07/30/18 at 09:00; Stop 07/30/18 at 09:02; Status DC Simethicone (Gas-X) 80 mg PRN Q6HRS PRN PO GAS / BLOATING; Start 07/30/18 at 08:45 Non-Formulary Medication (Albuterol Sulfate (Albuterol Sulfate Conc Neb Soln)) 1 vial Q4HRS PRN NEB WHEEZING; Start 07/30/18 at 08:45; Status UNV Non-Formulary Medication (Budesonide (Pulmicort Flexhaler)) 2 puff BID IH ; Start 07/30/18 at 09:00; Status UNV Buspirone HCl (Buspar) 15 mg BID PO Last administered on 07/31/18at 09:18; Start 07/30/18 at 09:30 Non-Formulary Medication (Fluticasone/ Salmeterol (Advair 250-50 Diskus)) 1 inh BID IH ; Start 07/30/18 at 09:00; Status UNV Montelukast Sodium (Singulair) 10 mg QHS PO Last administered on 07/30/18at 21:37; Start 07/30/18 at 21:00 Nicotine (Nicoderm Cq 21mg) 1 patch DAILY TD ; Start 07/30/18 at 09:30 Venlafaxine HCl (Effexor) 75 mg TID PO Last administered on 07/31/18at 09:19; Start 07/30/18 at 09:30 Pantoprazole Sodium (Protonix) 40 mg DAILYAC PO Last administered on 07/31/18at 09:21; Start 07/30/18 at 09:30 Mupirocin (Bactroban) 1 leno TID TP Last administered on 07/31/18at 09:21; Start 07/30/18 at 14:00 Albuterol Sulfate (Ventolin Neb Soln) 2.5 mg PRN Q4HRS PRN INH FOR ASTHMA; S tart 07/30/18 at 09:15 Acetaminophen (Tylenol) 500 mg PRN Q6HRS PRN PO MILD PAIN 1-3; Start 07/30/18 at 09:13 Budesonide (Pulmicort) 0.5 mg RTBID NEB Last administered on 07/31/18at 07:57; Start 07/30/18 at 09:30 Tamoxifen Citrate (Nolvadex) 20 mg DAILY PO ; Start 07/31/18 at 09:00; Stop 07/31/18 at 09:00; Status DC Gadoterate Meglumine (Dotarem) 14 ml 1X ONCE IVP Last administered on 07/30/18at 15:09; Start 07/30/18 at 14:15; Stop 07/30/18 at 14:16; Status DC Enoxaparin Sodium (Lovenox 40mg Syringe) 40 mg Q24H SQ Last administered on 07/30/18at 21:38; Start 07/30/18 at 21:00 Active Scripts Active Calcium Carbonate 200 Mg Tab.chew 500 Mg PO PRN Q4HRS PRN 14 Days Clotrimazole 10 Mg Sherry 10 Mg MM BID 14 Days [Pantoprazole] 40 MG Tablet.dr 40 Mg PO DAILYAC 14 Days Montelukast Sodium Tablet (Montelukast Sodium) 10 Mg Tablet 10 Mg PO QHS 30 Days Lactulose 20 Gm/30 Ml Solution 20 Gm PO PRN Q12HR PRN 14 Days Lisinopril 40 Mg Tablet 20 Mg PO DAILY 30 Days Carvedilol (Carvedilol) 12.5 Mg Tablet 12.5 Mg PO BIDWMEALS 30 Days Duoneb 0.5-3(2.5) Mg/3 Ml (Albuterol/Ipratropium) 3 Ml Ampul.neb 3 Ml NEB Q4HRS 30 Days Pulmicort Flexhaler (Budesonide) 180 Mcg Aer.pow.ba 2 Puff IH BID Isosorbide Mononitrate Er (Isosorbide Mononitrate) 30 Mg Tab.er.24h 60 Mg PO DAILY 30 Days Atorvastatin Calcium 20 Mg Tablet 20 Mg PO QHS 30 Days Advair 250-50 Diskus (Fluticasone/Salmeterol) 1 Each Disk.w.dev 1 Inh IH BID 30 Days Reported Effexor Xr (Venlafaxine Hcl) 150 Mg Cap.er.24h 225 Mg PO DAILY Tamoxifen Citrate 20 Mg Tablet 1 Tab PO DAILY Simethicone 80 Mg Tab.chew 80 Mg PO PRN Q6HRS PRN Risperdal (Risperidone) 0.5 Mg Tablet 0.5 Mg PO BID Entresto 49 mg-51 mg Tablet (Sacubitril/Valsartan) 1 Each Tablet 1 Each PO BID Vitamin B-12 (Cyanocobalamin (Vitamin B-12)) 1,000 Mcg Tablet 1 Tab PO DAILY Clonazepam 0.5 Mg Tablet 0.25 Mg PO BID PRN Lipitor (Atorvastatin Calcium) 20 Mg Tablet 20 Mg PO HS Aspirin 325 Mg Tablet 1 Tab PO DAILY Tylenol (Acetaminophen) 325 Mg Tablet 500 Mg PO PRN Q6HRS PRN Albuterol Sulfate Conc Neb Soln (Albuterol Sulfate) 2.5 Mg/0.5 Ml Vial.neb 1 Vial NEB Q4HRS PRN Proventil Hfa Inhaler (Albuterol Sulfate) 6.7 Gm Hfa.aer.ad 2 Puff IH BID PRN Mupirocin Ointment (Mupirocin) 22 Gm Oint...g. 1 Applic TOP BID Amlodipine Besylate 5 Mg Tablet 1 Tab PO DAILY Bupropion Hcl Sr (Bupropion Hcl) 150 Mg Tablet.er 1 Tab PO BID Omeprazole 20 Mg Capsule.dr 1 Tab PO DAILY Carvedilol 12.5 Mg Tablet 12.5 Mg PO BID Gabapentin 300 Mg Capsule 1 Tab PO BID Lisinopril 40 Mg Tablet 40 Mg PO DAILY Venlafaxine Hcl Er (Venlafaxine Hcl) 225 Mg Tab.er.24 225 Mg PO DAILY NICODERM CQ 21mg (Nicotine) 1 Each Patch.td24 1 Patch TP DAILY Do not smoke while wearing the patch Cyanocobalamin Injection (Cyanocobalamin (Vitamin B-12)) 1,000 Mcg/1 Ml Vial 1 Ml IM QMONTH Clonazepam 0.5 Mg Tablet 0.5 Tab PO DAILY PRN Ventolin Hfa Inhaler (Albuterol Sulfate) 18 Gm Hfa.aer.ad 2 Puff INH BID Acetaminophen 500 Mg Tablet 1 Tab PO PRN Q6HRS PRN Gabapentin (Gabapentin) 300 Mg Capsule 300 Mg PO BID Buspirone Hcl 15 Mg Tablet 15 Mg PO BID Aspirin 325 Mg Tablet 1 Tab PO DAILY Tamoxifen Citrate 20 Mg Tablet 20 Mg PO DAILY Vitals/I & O Vital Sign - Last 24 Hours 07/30/18 07/30/18 07/30/18 07/30/18 16:45 18:06 19:32 20:00 Temp 91.0 99.6 91.0 99.6 Pulse 86 86 80 Resp 16 18 B/P (MAP) 141/70 (93) 141/70 143/74 (97) Pulse Ox 91 93 O2 Delivery Room Air Room Air Room Air 07/30/18 07/30/18 07/30/18 07/30/18 20:36 21:34 22:37 23:25 Temp 99.5 99.5 Pulse 86 Resp 18 B/P (MAP) 150/72 (98) Pulse Ox 93 91 O2 Delivery Room Air Room Air Room Air Room Air 07/30/18 07/31/18 07/31/18 07/31/18 23:34 02:49 03:23 03:23 Temp 98.3 98.3 Pulse 88 Resp 18 B/P (MAP) 161/75 (103) Pulse Ox 93 O2 Delivery Room Air Room Air Room Air Room Air 07/31/18 07/31/18 07/31/18 07/31/18 07:00 08:00 09:19 09:20 Temp 98.1 98.1 Pulse 81 81 81 Resp 18 B/P (MAP) 165/82 (109) 165/82 165/82 Pulse Ox 90 90 O2 Delivery Room Air Room Air 07/31/18 07/31/18 07/31/18 07/31/18 09:20 09:20 09:29 10:29 Pulse 81 81 Resp 18 17 B/P (MAP) 165/82 165/82 O2 Delivery Room Air Room Air 07/31/18 07/31/18 11:00 11:43 Temp 99.4 99.4 Pulse 90 Resp 18 B/P (MAP) 161/82 (108) Pulse Ox 92 94 O2 Delivery Room Air Room Air Intake and Output 07/30/18 07/30/18 07/31/18 15:00 23:00 07:00 Intake Total 350 ml 250 ml 340 ml Balance 350 ml 250 ml 340 ml THU FRANCO MD Jul 31, 2018 12:27
--- NOTE | 2018-07-31 13:10 | RAD ---
Lumbar spine-lateral flexion and extension views, 07/31/2018: HISTORY: Back pain, spinal stenosis And upright lateral views of the lumbar spine were obtained in flexion and extension as requested. There are mild scattered marginal spurs. There is moderate facet joint arthropathy in the mid and lower lumbar spine. There is grade 1 anterolisthesis at L4-5 consisting of approximately 5-6 mm of anterior subluxation of L4 relative to L5. The degree of anterior subluxation is similar on both the flexion and extension views, however, this anterolisthesis was not evident on on yesterday's supine MR lumbar images. Moderate aortoiliac calcific plaquing is present. IMPRESSION: Degenerative change with grade 1 anterolisthesis at L4-5 in the upright position, not present in the supine position. Electronically signed by: Mitch Brenner MD (07/31/2018 1:07 PM) [facility]
--- NOTE | 2018-07-31 13:22 | PDOC ---
Provider Note Provider Note patient seen and examined at 1150 admitted with complaints of leg weakness, improving since hospitalization lumbar stenosis at L4-5 on MRI will order lumbar f/ex/ ext x rays and a cervical MRI will follow ALAINA JOHNSON MD Jul 31, 2018 13:22
[2018-07-31 15:00] VITALS: BP 154/82
--- NOTE | 2018-07-31 16:53 | RAD ---
MRI of the cervical spine without contrast 07/31/2018 CLINICAL HISTORY: Neck pain. Cervical stenosis. TECHNIQUE: Unenhanced T1-weighted, T2-weighted and inversion recovery sagittal and gradient echo and T2-weighted axial images of the cervical spine were obtained. FINDINGS: Images from the study are degraded by patient motion. Minimal lateral curvature of the cervical spine is seen convex to the left. There is mild straightening of the normal cervical lordosis. Degenerative signal changes are seen involving all of the disks of the cervical spine. Loss of height of the C4-5 and C6-7 discs is noted. Degenerative signal changes are seen within the marrow surrounding these discs. Mild anterolisthesis of C3 in relation to C4 is seen. No area of abnormal signal intensity is seen involving the cervical spinal cord. At the C2-3 disc space there is a minimal generalized disc bulge. Degenerative changes are seen involving the uncovertebral and facet joints bilaterally. These findings do not result in significant central spinal canal or neural foraminal stenosis. At the C3-4 disc space is a mild generalized disc bulge. Degenerative changes are seen involving the uncovertebral and facet joints, left greater than right. These findings when combined do not result in significant central spinal canal stenosis. Mild left neural foraminal stenosis is seen. The right neural foramen is patent. At the C4-5 disc space there is a mild to moderate generalized disc bulge. Degenerative changes are seen involving the uncovertebral and facet joints bilaterally. These findings efface the anterior and posterior CSF resulting in mild central spinal canal stenosis with minimal cord impingement. Mild bilateral neural foraminal stenosis is seen. At the C5-6 disc space there is a mild generalized disc bulge. This is eccentric to the left. Degenerative changes are seen involving the uncovertebral and facet joints bilaterally. These findings do not result in significant central spinal canal or neural foraminal stenosis. At the C6-7 disc space there is a mild generalized disc bulge. Degenerative changes are seen involving the uncovertebral and facet joints, left greater than right. These findings do not result in significant central spinal canal stenosis. Mild to moderate left greater than right neural foraminal stenosis is seen. At the C7-T1 disc space there is a minimal generalized disc bulge. Degenerative changes are seen involving the facet joints bilaterally. These findings do not result in significant central spinal canal or neural foraminal stenosis. IMPRESSION: Degenerative changes are seen throughout the cervical spine. These findings result in mild central spinal canal stenosis with minimal cord impingement at C4-5. Mild left neural foraminal stenosis is seen at C3-4. Mild bilateral neural foraminal stenosis is seen at C4-5. Mild to moderate left greater than right neural foraminal stenosis is seen at C6-7. Electronically signed by: Sudheer Preston MD (07/31/2018 4:50 PM) [id number]
[2018-07-31 19:52] VITALS: BP 179/89
--- NOTE | 2018-07-31 20:11 | PDOC ---
PROGRESS NOTES Assessment Assessment LE numbness and weakness x 1 day before admission, R>L. L-spine stenosis. Breast cancer. HTN. HLD. COPD. Old lacunar infarct likely. Left eye vision problems. Former smoker. Depression. RECOMMENDATIONS/PLAN: Treat medical diseases. Consulted NS. C-spine MRI. OT/PT. History of Present Illness This is a 58-year-old white female with history of smoking and breast cancer has been having symptoms of LE numbness and weakness and unable to walk since after moving her years yesterday on 06/28/18. She stated she felt numbness and decreased feeling from her lower abdomen down to bilateral LE but more obvious in her right LE. She stated she is still able to urinating and had bowel movements on 06/28/18. Her cranial nerves and UE are not affected. She did not remember hurt her back. Past Medical History Cardiovascular: HTN, Hyperlipidemia Pulmonary: COPD CENTRAL NERVOUS SYSTEM: CVA Heme/Onc: Anemia NOS, Cancer, Other Hepatobiliary: No pertinent hx Psych: Anxiety Musculoskeletal: Osteoarthritis Infectious disease: No pertinent hx Renal/: No pertinent hx Endocrine: No pertinent hx Past Surgical History No major surgery recently. Family History Cancer, Coronary Artery Disease, Hypertension Social History Smoke: Quit in 04/2018. ALCOHOL: occasional Drugs: Denied. ALLERGY: NKDA MEDICATIONS: Refer to MAR REVIEW OF SYSTEMS: Constitutional: Over weight.. Head: No traumatic brain or head injury. Skin: No edema, or rash. Ear: No infection, tinnitus. Eyes: No vision loss or color blindness. Nose: No bleeding or purulent discharges. Hearing: No hearing decrease. Neck: No injury. Breast: Cancer. Cardiac: HTN, HLD. Pulmonary: COPD. GI: No GI ulcer, GI bleeding. Urinary/genital: UTI. Endocrinologic: No cousin face, craniofacial dysmorphism, polydactyly. Skeletomuscular: No muscular atrophy, deformity. Neurological: see HP. Psychiatric: Denies drug use/abuse. Otherwise, not [id number] review of systems. PHYSICAL EXAMINATION: General appearance is in subacute distress. HEENT: Normocephalic and nontraumatic. Eyes, nose, ears, and throat are unremarkable. Neck is supple. No lymphadenopathy. No crepitus. Cardiovascular: S1, S2, regular rate and rhythm. Pulmonary: Clear to auscultation bilaterally. Abdomen: Bowel sounds are positive. Extremities: No rash or edema. No restriction of range of motion in UE. NEUROLOGICAL EXAMINATION: Alert Oriented to time, place and person. PERRL. EOMI. CN: chronic right VII palsy? Muscle tone: within normal in UE. Decreased in LE? Muscle strength: 5 UE, 3+ right LE, 4+ left LE. DTR: 2 UE, 1 at knee. Plantar reflex: Neutral response bilaterally Gait: not able to walk. Sensory exam: Decreased to light tough, vibration sense, temperature and pain sensation in right LE. No cerebellar signs elicited. F-T-N test fine. Objective Objective Vital Signs Date Time Temp Pulse Resp B/P (MAP) Pulse Ox O2 Delivery O2 Flow Rate FiO2 07/31/18 19:52 99.7 90 16 179/89 (119) 94 Room Air 99.7 Intake and Output 07/31/18 07:00 Intake Total 940 ml Balance 940 ml Intake Oral 940 ml # Voids 4 Vitals Signs Vitals VS - Last 72 Hours, by Label Date Time Temp Pulse Resp B/P (MAP) Pulse Ox O2 Delivery O2 Flow Rate FiO2 07/31/18 19:52 99.7 90 16 179/89 (119) 94 Room Air 99.7 07/31/18 18:05 88 154/82 07/31/18 18:05 18 Room Air 07/31/18 15:54 Room Air 07/31/18 15:00 99.0 88 18 154/82 (106) 90 Room Air 99.0 07/31/18 11:43 94 Room Air 07/31/18 11:00 99.4 90 18 161/82 (108) 92 Room Air 99.4 07/31/18 10:29 17 Room Air 07/31/18 09:29 18 Room Air 07/31/18 09:20 81 165/82 07/31/18 09:20 81 165/82 07/31/18 09:20 81 165/82 07/31/18 09:19 81 165/82 07/31/18 08:00 Room Air 07/31/18 08:00 90 Room Air 07/31/18 07:00 98.1 81 18 165/82 (109) 90 Room Air 98.1 07/31/18 03:23 98.3 88 18 161/75 (103) 93 Room Air 98.3 07/31/18 03:23 Room Air 07/31/18 02:49 Room Air 07/30/18 23:34 Room Air 07/30/18 23:25 99.5 86 18 150/72 (98) 91 Room Air 99.5 07/30/18 22:37 Room Air 07/30/18 21:34 Room Air 07/30/18 20:36 93 Room Air 07/30/18 20:00 Room Air 07/30/18 19:32 99.6 80 18 143/74 (97) 93 Room Air 99.6 07/30/18 18:06 86 141/70 07/30/18 16:45 91.0 86 16 141/70 (93) 91 Room Air 91.0 07/30/18 11:34 92 Room Air 07/30/18 11:00 98.1 94 16 130/77 (94) 92 Room Air 98.1 07/30/18 09:41 84 152/73 07/30/18 09:40 84 152/73 07/30/18 09:40 84 152/73 07/30/18 09:40 84 152/73 07/30/18 09:25 16 07/30/18 08:00 Room Air 07/30/18 07:59 94 Room Air 07/30/18 07:00 98.7 84 18 152/73 (99) 91 Room Air 98.7 Medication Medications Current Medications Atorvastatin Calcium (Lipitor) 20 mg QHS PO Last administered on 07/30/18at 21:37; Start 07/30/18 at 21:00 Enoxaparin Sodium (Lovenox 40mg Syringe) 40 mg Q24H SQ Last administered on 07/30/18at 21:38; Start 07/30/18 at 21:00 Montelukast Sodium (Singulair) 10 mg QHS PO Last administered on 07/30/18at 21:37; Start 07/30/18 at 21:00 Tamoxifen Citrate (Nolvadex) 20 mg DAILY PO ; Start 07/31/18 at 09:00; Stop 07/31/18 at 09:00; Status DC Comment Review of Relevant I have reviewed the following items jerrod (where applicable) has been applied. JAMILA CHAUDHARY MD Jul 31, 2018 20:11
[2018-07-31] MEDS: ATORVASTATIN CALCIUM 20 MG TABLET PO SCH (20:42)
[2018-07-31] MEDS: MONTELUKAST SODIUM 10 MG TABLET. PO SCH (20:43)
[2018-07-31] MEDS: CELECOXIB 100 MG CAPSULE. PO PRN (20:43)
[2018-07-31] MEDS: ENOXAPARIN 40 MG/0.4 ML SYRINGE. SQ SCH (20:45)
[2018-07-31 23:57] VITALS: BP 138/78
[2018-08-01] VITALS (9 sets, daily range): BP systolic 115–185; BP diastolic 61–97
[2018-08-01] MEDS: ACETAMINOPHEN/CODEINE 300/30MG TABLET. PO PRN ×2 (02:50→15:23)
[2018-08-01] MEDS: IPRATRPIUM/ALBUTEROL 0.5/2.5MG 3 ML NEBU. NEB SCH ×5 (04:00→21:53)
[2018-08-01] MEDS: BUDESONIDE 0.5 MG/2 ML NEBU. NEB SCH ×2 (07:43→21:53)
[2018-08-01 08:25] LABS: BASO % 0 % (0-3); EOS # 0.3 x10^3/uL (0.0-0.7); EOS % 4 % (0-3); HEMATOCRIT 36.8 % (36.0-47.0); HEMOGLOBIN 12.6 g/dL (12.0-15.5); LYMPH # 1.6 x10^3/uL (1.0-4.8); LYMPH % 24 % (24-48); MEAN CORPUSCULAR HEMOGLOBIN 33 pg (25-35); MEAN CORPUSCULAR HGB CONC 34 g/dL (31-37); MEAN CORPUSCULAR VOLUME 96 fL (79-100); MONO # 0.6 x10^3/uL (0.0-1.1); MONO % 9 % (0-9); NEUT # 4.2 x10^3uL (1.8-7.7); NEUT % 63 % (31-73); PLATELET COUNT 137 x10^3/uL (140-400); RED BLOOD COUNT 3.85 x10^6/uL (3.50-5.40); RED CELL DISTRIBUTION WIDTH 14.1 % (11.5-14.5); WHITE BLOOD COUNT 6.7 x10^3/uL (4.0-11.0)
[2018-08-01] MEDS ORDERED: cloNIDine HCL 0.1 MG TABLET PO PRN (08:30)
[2018-08-01] MEDS: ASPIRIN 325 MG TABLET PO SCH (08:38)
[2018-08-01] MEDS: GABAPENTIN 300 MG CAPSULE. PO SCH ×2 (08:39→21:10)
[2018-08-01] MEDS: amLODIPine BESYLATE 5 MG TABLET PO SCH (08:39)
[2018-08-01] MEDS: ISOSORBIDE MONONITRATE ER 30 MG TAB.ER.24H PO SCH (08:40)
[2018-08-01] MEDS: busPIRone 5 MG TABLET. PO SCH ×2 (08:40→21:10)
[2018-08-01] MEDS: buPROPion SR 150 MG TABLET.SA PO SCH ×2 (08:40→21:10)
[2018-08-01] MEDS: CYANOCOBALAMIN (VITAMIN B-12) 1,000 MCG TABLET. PO SCH (08:41)
[2018-08-01] MEDS: PANTOPRAZOLE 40 MG TABLET.DR. PO SCH (08:41)
[2018-08-01] MEDS: VENLAFAXINE 75 MG TABLET. PO SCH ×3 (08:41→21:10)
[2018-08-01] MEDS: LISINOPRIL 20 MG TABLET PO SCH (08:42)
[2018-08-01] MEDS: NICOTINE 21MG PATCH. TD SCH (09:00)
--- NOTE | 2018-08-01 09:07 | NUR ---
SW following pt for anticipated dc needs. Chart reviewed. Pt is from home and is self pay. PT/OT pending. SW will continue to follow.
[2018-08-01] MEDS: MUPIROCIN 2 % TOPICAL CREAM 30GM TUBE. TP SCH ×3 (10:50→21:14)
[2018-08-01] MEDS: CELECOXIB 100 MG CAPSULE. PO PRN (10:53)
--- NOTE | 2018-08-01 11:14 | PDOC ---
PROGRESS NOTES Chief Complaint Chief Complaint 1. Acute onset bilateral lower extremity weakness 1 day prior to admission, negative LP, MRI findings do not explain her symptoms -distribution of symptoms is unlikely CVA in etiology 2. Decreased sensation bilateral lower ext, acute 3. History of breast cancer on year 5 of tamoxifen 4. HER 2 positive breast CA 5. Polypharmacy with 41 meds 6. AK I, VMN 7. Reactive leukocytosis 8. SIRS with no sepsis History of Present Illness History of Present Illness left Leg she can elevate fine Right leg she can elevate against gravity with much difficulty MRI of the brain and spine shows some DJD, disc bulges, mild central stenosis Neurosurgery on board I provided copies of her MRI results and dw her the findings LP is negative MRI cervical IMPRESSION: Degenerative changes are seen throughout the cervical spine. These findings result in mild central spinal canal stenosis with minimal cord impingement at C4-5. Mild left neural foraminal stenosis is seen at C3-4. Mild bilateral neural foraminal stenosis is seen at C4-5. Mild to moderate left greater than right neural foraminal stenosis is seen at C6-7. LUmbar flexion films: IMPRESSION: Degenerative change with grade 1 anterolisthesis at L4-5 in the upright position, not present in the supine position PLAn: Await neurosurgery opinion She has not worked with PT OT yet because MRI of the thoracic lumbar and cervical spines were pending-we'll see how she does with PT today She is not smoking cigarettes anymore Appreciate subspecs Vitals Vitals Vital Signs Date Time Temp Pulse Resp B/P (MAP) Pulse Ox O2 Delivery O2 Flow Rate FiO2 08/01/18 11:10 96 Room Air 08/01/18 10:48 88 159/94 (115) 08/01/18 07:00 98.5 18 98.5 Physical Exam General: Alert, Oriented X3, Cooperative, No acute distress Lungs: Other Abdomen: Normal bowel sounds, Soft, No tenderness, No hepatosplenomegaly, No masses Extremities: Other (out of 5 muscle manual testing on bilateral lower extremityThe rest of the neuro exam is unremarkableDTRs +2, claims decreased sensation) Skin: No rashes, No breakdown, No significant lesion Labs LABS Laboratory Tests Test 08/01/18 07:43 White Blood Count 6.7 x10^3/uL (4.0-11.0) Red Blood Count 3.85 x10^6/uL (3.50-5.40) Hemoglobin 12.6 g/dL (12.0-15.5) Hematocrit 36.8 % (36.0-47.0) Mean Corpuscular Volume 96 fL (79-100) Mean Corpuscular Hemoglobin 33 pg (25-35) Mean Corpuscular Hemoglobin Concent 34 g/dL (31-37) Red Cell Distribution Width 14.1 % (11.5-14.5) Platelet Count 137 x10^3/uL (140-400) Neutrophils (%) (Auto) 63 % (31-73) Lymphocytes (%) (Auto) 24 % (24-48) Monocytes (%) (Auto) 9 % (0-9) Eosinophils (%) (Auto) 4 % (0-3) Basophils (%) (Auto) 0 % (0-3) Neutrophils # (Auto) 4.2 x10^3uL (1.8-7.7) Lymphocytes # (Auto) 1.6 x10^3/uL (1.0-4.8) Monocytes # (Auto) 0.6 x10^3/uL (0.0-1.1) Eosinophils # (Auto) 0.3 x10^3/uL (0.0-0.7) Basophils # (Auto) 0.0 x10^3/uL (0.0-0.2) Review of Systems Review of Systems Right leg weakness otherwise the rest of ROS 14 point negative Comment Review of Relevant I have reviewed the following items jerrod (where applicable) has been applied. Labs Laboratory Tests Test 07/30/18 12:15 07/30/18 14:50 07/30/18 16:00 08/01/18 07:43 Creatine Kinase 97 U/L (26-192) Vitamin B12 Level 387 pg/mL (247-911) Thyroid Stimulating Hormone (TSH) 1.924 uIU/mL (0.358-3.74) Urine Collection Type Unknown Urine Color Yellow Urine Clarity Clear Urine pH 6.0 Urine Specific Victor 1.010 Urine Protein Negative mg/dL (NEG-TRACE) Urine Glucose (UA) Negative mg/dL (NEG) Urine Ketones (Stick) Negative mg/dL (NEG) Urine Blood Negative (NEG) Urine Nitrite Negative (NEG) Urine Bilirubin Negative (NEG) Urine Urobilinogen Dipstick 0.2 mg/dL (0.2 mg/dL) Urine Leukocyte Esterase Negative (NEG) Urine RBC Occ /HPF (0-2) Urine WBC Occ /HPF (0-4) Urine Squamous Epithelial Cells Few /LPF Urine Bacteria 0 /HPF (0-FEW) Urine Opiates Screen Neg (NEG) Urine Methadone Screen Neg (NEG) Urine Barbiturates Neg (NEG) Urine Phencyclidine Screen Neg (NEG) Urine Amphetamine/Methamphetamine Neg (NEG) Urine Benzodiazepines Screen Neg (NEG) Urine Cocaine Screen Neg (NEG) Urine Cannabinoids Screen Pos (NEG) Urine Ethyl Alcohol Neg (NEG) CSF Color Colorless CSF Clarity Clear CSF WBC 1 /cmm (Not Established) CSF RBC 1 /cmm (Not Established) CSF Glucose 62 mg/dL (37-70) CSF Total Protein 47.2 mg/dL (15.0-45.0) White Blood Count 6.7 x10^3/uL (4.0-11.0) Red Blood Count 3.85 x10^6/uL (3.50-5.40) Hemoglobin 12.6 g/dL (12.0-15.5) Hematocrit 36.8 % (36.0-47.0) Mean Corpuscular Volume 96 fL (79-100) Mean Corpuscular Hemoglobin 33 pg (25-35) Mean Corpuscular Hemoglobin Concent 34 g/dL (31-37) Red Cell Distribution Width 14.1 % (11.5-14.5) Platelet Count 137 x10^3/uL (140-400) Neutrophils (%) (Auto) 63 % (31-73) Lymphocytes (%) (Auto) 24 % (24-48) Monocytes (%) (Auto) 9 % (0-9) Eosinophils (%) (Auto) 4 % (0-3) Basophils (%) (Auto) 0 % (0-3) Neutrophils # (Auto) 4.2 x10^3uL (1.8-7.7) Lymphocytes # (Auto) 1.6 x10^3/uL (1.0-4.8) Monocytes # (Auto) 0.6 x10^3/uL (0.0-1.1) Eosinophils # (Auto) 0.3 x10^3/uL (0.0-0.7) Basophils # (Auto) 0.0 x10^3/uL (0.0-0.2) Laboratory Tests Test 08/01/18 07:43 White Blood Count 6.7 x10^3/uL (4.0-11.0) Red Blood Count 3.85 x10^6/uL (3.50-5.40) Hemoglobin 12.6 g/dL (12.0-15.5) Hematocrit 36.8 % (36.0-47.0) Mean Corpuscular Volume 96 fL (79-100) Mean Corpuscular Hemoglobin 33 pg (25-35) Mean Corpuscular Hemoglobin Concent 34 g/dL (31-37) Red Cell Distribution Width 14.1 % (11.5-14.5) Platelet Count 137 x10^3/uL (140-400) Neutrophils (%) (Auto) 63 % (31-73) Lymphocytes (%) (Auto) 24 % (24-48) Monocytes (%) (Auto) 9 % (0-9) Eosinophils (%) (Auto) 4 % (0-3) Basophils (%) (Auto) 0 % (0-3) Neutrophils # (Auto) 4.2 x10^3uL (1.8-7.7) Lymphocytes # (Auto) 1.6 x10^3/uL (1.0-4.8) Monocytes # (Auto) 0.6 x10^3/uL (0.0-1.1) Eosinophils # (Auto) 0.3 x10^3/uL (0.0-0.7) Basophils # (Auto) 0.0 x10^3/uL (0.0-0.2) Medications Current Medications Sodium Chloride 1,000 ml @ 1,000 mls/hr Q1H IV Last administered on 07/29/18at 22:54; Start 07/29/18 at 22:30; Stop 07/29/18 at 23:29; Status DC Fentanyl Citrate (Fentanyl 2ml Vial) 50 mcg 1X ONCE IV Last administered on 07/29/18at 23:27; Start 07/29/18 at 23:45; Stop 07/29/18 at 23:46; Status DC Ondansetron HCl (Zofran) 4 mg 1X ONCE IV Last administered on 07/29/18at 23:26; Start 07/29/18 at 23:45; Stop 07/29/18 at 23:46; Status DC Aspirin (Renae Aspirin) 325 mg 1X ONCE PO Last administered on 07/29/18at 23:50; Start 07/29/18 at 23:45; Stop 07/29/18 at 23:46; Status DC Ondansetron HCl (Zofran) 4 mg PRN Q8HRS PRN IV NAUSEA/VOMITING 1ST CHOICE; Start 07/29/18 at 23:45; Stop 07/30/18 at 08:31; Status DC Fentanyl Citrate (Fentanyl 2ml Vial) 50 mcg PRN Q1HR PRN IV SEVERE PAIN Last administered on 07/30/18at 21:34; Start 07/29/18 at 23:45; Stop 07/30/18 at 23:44; Status DC Sodium Chloride 1,000 ml @ 125 mls/hr Q8H IV Last administered on 07/30/18at 21:45; Start 07/29/18 at 23:45; Stop 07/30/18 at 23:44; Status DC Albuterol/ Ipratropium (Duoneb) 3 ml RTQID NEB Last administered on 07/30/18at 07:58; Start 07/30/18 at 08:00; Stop 07/30/18 at 09:16; Status DC Ondansetron HCl (Zofran) 4 mg PRN Q6HRS PRN IV NAUSEA/VOMITING 1ST CHOICE; Start 07/30/18 at 08:45 Acetaminophen/ Codeine Phosphate (Tylenol #3) 1 tab PRN Q6HRS PRN PO MODERATE PAIN Last administered on 08/01/18at 02:50; Start 07/30/18 at 08:30 Acetaminophen (Tylenol) 500 mg PRN Q6HRS PRN PO MILD PAIN / TEMP; Start 07/30/18 at 08:30; Stop 07/30/18 at 09:13; Status DC Acetaminophen (Tylenol) 500 mg PRN Q6HRS PRN PO MILD PAIN 1-3; Start 07/30/18 at 08:45; Stop 07/30/18 at 09:13; Status DC Albuterol Sulfate (Ventolin Neb Soln) 2.5 mg PRN BID PRN INH FOR ASTHMA; Start 07/30/18 at 08:45; Stop 07/30/18 at 09:04; Status DC Amlodipine Besylate (Norvasc) 5 mg DAILY PO Last administered on 08/01/18 08:39; Start 07/30/18 at 09:00 Aspirin (Renae Aspirin) 325 mg DAILY PO Last administered on 08/01/18 08:38; Start 07/30/18 at 09:00 Atorvastatin Calcium (Lipitor) 20 mg QHS PO Last administered on 07/31/18 20:42; Start 07/30/18 at 21:00 Bupropion HCl (Wellbutrin Sr) 150 mg BID PO Last administered on 08/01/18 08:40; Start 07/30/18 at 09:00 Calcium Carbonate/ Glycine (Tums) 500 mg PRN Q4HRS PRN PO INDIGESTION; Start 07/30/18 at 08:45 Carvedilol (Coreg) 12.5 mg BIDWMEALS PO Last administered on 07/31/18 18:05; Start 07/30/18 at 09:00; Stop 08/01/18 at 08:18; Status DC Clonazepam (KlonoPIN) 0.25 mg PRN BID PRN PO ANXIETY / AGITATION Last administered on 08/01/18 08:44; Start 07/30/18 at 08:45 Cyanocobalamin (Vitamin B-12) 1,000 mcg DAILY PO Last administered on 08/01/18 08:41; Start 07/30/18 at 09:00 Gabapentin (Neurontin) 300 mg BID PO Last administered on 08/01/18 08:39; Start 07/30/18 at 09:00 Albuterol/ Ipratropium (Duoneb) 3 ml Q4HRS NEB Last administered on 08/01/18 11:09; Start 07/30/18 at 12:00 Isosorbide Mononitrate (Imdur) 60 mg DAILY PO Last administered on 08/01/18 08:40; Start 07/30/18 at 09:00 Lactulose (Lactulose) 20 gm PRN Q12HR PRN PO CONSTIPATION; Start 07/30/18 at 08:45 Lisinopril (Prinivil) 20 mg DAILY PO Last administered on 08/01/18 08:42; Start 07/30/18 at 09:00 Mupirocin (Bactroban) 1 leno BID NS ; Start 07/30/18 at 09:00; Stop 07/30/18 at 09:02; Status DC Simethicone (Gas-X) 80 mg PRN Q6HRS PRN PO GAS / BLOATING; Start 07/30/18 at 08:45 Non-Formulary Medication (Albuterol Sulfate (Albuterol Sulfate Conc Neb Soln)) 1 vial Q4HRS PRN NEB WHEEZING; Start 07/30/18 at 08:45; Status UNV Non-Formulary Medication (Budesonide (Pulmicort Flexhaler)) 2 puff BID IH ; Start 07/30/18 at 09:00; Status UNV Buspirone HCl (Buspar) 15 mg BID PO Last administered on 08/01/18at 08:40; Start 07/30/18 at 09:30 Non-Formulary Medication (Fluticasone/ Salmeterol (Advair 250-50 Diskus)) 1 inh BID IH ; Start 07/30/18 at 09:00; Status UNV Montelukast Sodium (Singulair) 10 mg QHS PO Last administered on 07/31/18at 20:43; Start 07/30/18 at 21:00 Nicotine (Nicoderm Cq 21mg) 1 patch DAILY TD ; Start 07/30/18 at 09:30 Venlafaxine HCl (Effexor) 75 mg TID PO Last administered on 08/01/18at 08:41; Start 07/30/18 at 09:30 Pantoprazole Sodium (Protonix) 40 mg DAILYAC PO Last administered on 08/01/18at 08:41; Start 07/30/18 at 09:30 Mupirocin (Bactroban) 1 leno TID TP Last administered on 08/01/18at 10:50; Start 07/30/18 at 14:00 Albuterol Sulfate (Ventolin Neb Soln) 2.5 mg PRN Q4HRS PRN INH FOR ASTHMA; Start 07/30/18 at 09:15 Acetaminophen (Tylenol) 500 mg PRN Q6HRS PRN PO MILD PAIN 1-3; Start 07/30/18 at 09:13 Budesonide (Pulmicort) 0.5 mg RTBID NEB Last administered on 08/01/18at 07:43; Start 07/30/18 at 09:30 Tamoxifen Citrate (Nolvadex) 20 mg DAILY PO ; Start 07/31/18 at 09:00; Stop 07/31/18 at 09:00; Status DC Gadoterate Meglumine (Dotarem) 14 ml 1X ONCE IVP Last administered on 07/30/18at 15:09; Start 07/30/18 at 14:15; Stop 07/30/18 at 14:16; Status DC Enoxaparin Sodium (Lovenox 40mg Syringe) 40 mg Q24H SQ Last administered on 07/31/18at 20:45; Start 07/30/18 at 21:00 Celecoxib (CeleBREX) 100 mg PRN BID PRN PO PAIN Last administered on 08/01/18at 10:53; Start 07/31/18 at 20:30 Carvedilol (Coreg) 25 mg BIDWMEALS PO ; Start 08/01/18 at 17:00 Clonidine HCl (Catapres) 0.1 mg PRN Q1HR PRN PO HYPERTENSION; Start 08/01/18 at 08:30 Active Scripts Active Calcium Carbonate 200 Mg Tab.chew 500 Mg PO PRN Q4HRS PRN 14 Days Clotrimazole 10 Mg Sherry 10 Mg MM BID 14 Days [Pantoprazole] 40 MG Tablet.dr 40 Mg PO DAILYAC 14 Days Montelukast Sodium Tablet (Montelukast Sodium) 10 Mg Tablet 10 Mg PO QHS 30 Days Lactulose 20 Gm/30 Ml Solution 20 Gm PO PRN Q12HR PRN 14 Days Lisinopril 40 Mg Tablet 20 Mg PO DAILY 30 Days Carvedilol (Carvedilol) 12.5 Mg Tablet 12.5 Mg PO BIDWMEALS 30 Days Duoneb 0.5-3(2.5) Mg/3 Ml (Albuterol/Ipratropium) 3 Ml Ampul.neb 3 Ml NEB Q4HRS 30 Days Pulmicort Flexhaler (Budesonide) 180 Mcg Aer.pow.ba 2 Puff IH BID Isosorbide Mononitrate Er (Isosorbide Mononitrate) 30 Mg Tab.er.24h 60 Mg PO DAILY 30 Days Atorvastatin Calcium 20 Mg Tablet 20 Mg PO QHS 30 Days Advair 250-50 Diskus (Fluticasone/Salmeterol) 1 Each Disk.w.dev 1 Inh IH BID 30 Days Reported Effexor Xr (Venlafaxine Hcl) 150 Mg Cap.er.24h 225 Mg PO DAILY Tamoxifen Citrate 20 Mg Tablet 1 Tab PO DAILY Simethicone 80 Mg Tab.chew 80 Mg PO PRN Q6HRS PRN Risperdal (Risperidone) 0.5 Mg Tablet 0.5 Mg PO BID Entresto 49 mg-51 mg Tablet (Sacubitril/Valsartan) 1 Each Tablet 1 Each PO BID Vitamin B-12 (Cyanocobalamin (Vitamin B-12)) 1,000 Mcg Tablet 1 Tab PO DAILY Clonazepam 0.5 Mg Tablet 0.25 Mg PO BID PRN Lipitor (Atorvastatin Calcium) 20 Mg Tablet 20 Mg PO HS Aspirin 325 Mg Tablet 1 Tab PO DAILY Tylenol (Acetaminophen) 325 Mg Tablet 500 Mg PO PRN Q6HRS PRN Albuterol Sulfate Conc Neb Soln (Albuterol Sulfate) 2.5 Mg/0.5 Ml Vial.neb 1 Vial NEB Q4HRS PRN Proventil Hfa Inhaler (Albuterol Sulfate) 6.7 Gm Hfa.aer.ad 2 Puff IH BID PRN Mupirocin Ointment (Mupirocin) 22 Gm Oint...g. 1 Applic TOP BID Amlodipine Besylate 5 Mg Tablet 1 Tab PO DAILY Bupropion Hcl Sr (Bupropion Hcl) 150 Mg Tablet.er 1 Tab PO BID Omeprazole 20 Mg Capsule.dr 1 Tab PO DAILY Carvedilol 12.5 Mg Tablet 12.5 Mg PO BID Gabapentin 300 Mg Capsule 1 Tab PO BID Lisinopril 40 Mg Tablet 40 Mg PO DAILY Venlafaxine Hcl Er (Venlafaxine Hcl) 225 Mg Tab.er.24 225 Mg PO DAILY NICODERM CQ 21mg (Nicotine) 1 Each Patch.td24 1 Patch TP DAILY Do not smoke while wearing the patch Cyanocobalamin Injection (Cyanocobalamin (Vitamin B-12)) 1,000 Mcg/1 Ml Vial 1 Ml IM QMONTH Clonazepam 0.5 Mg Tablet 0.5 Tab PO DAILY PRN Ventolin Hfa Inhaler (Albuterol Sulfate) 18 Gm Hfa.aer.ad 2 Puff INH BID Acetaminophen 500 Mg Tablet 1 Tab PO PRN Q6HRS PRN Gabapentin (Gabapentin) 300 Mg Capsule 300 Mg PO BID Buspirone Hcl 15 Mg Tablet 15 Mg PO BID Aspirin 325 Mg Tablet 1 Tab PO DAILY Tamoxifen Citrate 20 Mg Tablet 20 Mg PO DAILY Vitals/I & O Vital Sign - Last 24 Hours 07/31/18 07/31/18 07/31/18 07/31/18 11:43 15:00 15:54 18:05 Temp 99.0 99.0 Pulse 88 Resp 18 18 B/P (MAP) 154/82 (106) Pulse Ox 94 90 O2 Delivery Room Air Room Air Room Air Room Air 07/31/18 07/31/18 07/31/18 07/31/18 18:05 19:52 20:00 20:09 Temp 99.7 99.7 Pulse 88 90 Resp 16 B/P (MAP) 154/82 179/89 (119) Pulse Ox 94 94 O2 Delivery Room Air Room Air Room Air 07/31/18 07/31/18 07/31/18 08/01/18 20:11 23:42 23:57 02:50 Temp 98.5 98.5 Pulse 92 Resp 16 B/P (MAP) 138/78 (98) Pulse Ox 94 94 90 O2 Delivery Room Air Room Air Room Air Room Air 08/01/18 08/01/18 08/01/18 08/01/18 03:45 03:50 04:01 07:00 Temp 98.7 98.5 98.7 98.5 Pulse 89 91 Resp 16 18 B/P (MAP) 176/97 (123) 185/95 (125) Pulse Ox 93 94 95 O2 Delivery Room Air Room Air Room Air Room Air 08/01/18 08/01/18 08/01/18 08/01/18 07:45 08:39 08:40 08:42 Pulse 91 91 91 B/P (MAP) 185/95 185/95 185/95 Pulse Ox 96 O2 Delivery Room Air 08/01/18 08/01/18 10:48 11:10 Pulse 88 B/P (MAP) 159/94 (115) Pulse Ox 96 O2 Delivery Room Air Intake and Output 07/31/18 07/31/18 08/01/18 15:00 23:00 07:00 Intake Total 350 ml 400 ml 500 ml Balance 350 ml 400 ml 500 ml THU FRANCO MD Aug 01, 2018 11:14
[2018-08-01] MEDS ORDERED: LOPERAMIDE 2 MG CAPSULE PO PRN (11:30)
[2018-08-01] MEDS ORDERED: CETIRIZINE HCL 10 MG TABLET. PO SCH (11:30)
[2018-08-01] MEDS ORDERED: fentaNYL PF VIAL 100 MCG/2 ML VIAL IV ONE (11:30)
[2018-08-01] MEDS: FLUTICASONE 50MCG/NASAL SPRAY 16GM BOTTLE. NS SCH (12:00)
[2018-08-01 13:19] LABS: WEST NILE IGG CSF Negative (Negative); WEST NILE IGM CSF Negative (Negative)
--- NOTE | 2018-08-01 13:58 | PDOC ---
PROGRESS NOTES Subjective Subjective patient seen and examined at 1300 less pain leg strength improving Objective Objective Vital Signs Date Time Temp Pulse Resp B/P (MAP) Pulse Ox O2 Delivery O2 Flow Rate FiO2 08/01/18 12:45 106 157/91 (113) 08/01/18 11:10 96 Room Air 08/01/18 11:00 98.6 18 98.6 Intake and Output 08/01/18 07:00 Intake Total 1250 ml Balance 1250 ml Intake Oral 1250 ml # Voids 7 Physical Exam General: Alert, Oriented X3, Cooperative Neuro: Other (improved right foot dorsiflexion, antigravity in right leg, left leg strength is normal) Plan Plan of Care lumbar stenosis at L4-5 gradually improving LE exam recommend continuing Physical therapy and have her f/u with me as an OP Comment Review of Relevant I have reviewed the following items jerrod (where applicable) has been applied. Labs Laboratory Tests Test 07/30/18 14:50 07/30/18 16:00 08/01/18 07:43 Urine Collection Type Unknown Urine Color Yellow Urine Clarity Clear Urine pH 6.0 Urine Specific [place] 1.010 Urine Protein Negative mg/dL (NEG-TRACE) Urine Glucose (UA) Negative mg/dL (NEG) Urine Ketones (Stick) Negative mg/dL (NEG) Urine Blood Negative (NEG) Urine Nitrite Negative (NEG) Urine Bilirubin Negative (NEG) Urine Urobilinogen Dipstick 0.2 mg/dL (0.2 mg/dL) Urine Leukocyte Esterase Negative (NEG) Urine RBC Occ /HPF (0-2) Urine WBC Occ /HPF (0-4) Urine Squamous Epithelial Cells Few /LPF Urine Bacteria 0 /HPF (0-FEW) Urine Opiates Screen Neg (NEG) Urine Methadone Screen Neg (NEG) Urine Barbiturates Neg (NEG) Urine Phencyclidine Screen Neg (NEG) Urine Amphetamine/Methamphetamine Neg (NEG) Urine Benzodiazepines Screen Neg (NEG) Urine Cocaine Screen Neg (NEG) Urine Cannabinoids Screen Pos (NEG) Urine Ethyl Alcohol Neg (NEG) CSF Color Colorless CSF Clarity Clear CSF WBC 1 /cmm (Not Established) CSF RBC 1 /cmm (Not Established) CSF Glucose 62 mg/dL (37-70) CSF Total Protein 47.2 mg/dL (15.0-45.0) CSF West Nile Virus IgG Antibody Negative (Negative) CSF West Nile Virus IgM Antibody Negative (Negative) White Blood Count 6.7 x10^3/uL (4.0-11.0) Red Blood Count 3.85 x10^6/uL (3.50-5.40) Hemoglobin 12.6 g/dL (12.0-15.5) Hematocrit 36.8 % (36.0-47.0) Mean Corpuscular Volume 96 fL (79-100) Mean Corpuscular Hemoglobin 33 pg (25-35) Mean Corpuscular Hemoglobin Concent 34 g/dL (31-37) Red Cell Distribution Width 14.1 % (11.5-14.5) Platelet Count 137 x10^3/uL (140-400) Neutrophils (%) (Auto) 63 % (31-73) Lymphocytes (%) (Auto) 24 % (24-48) Monocytes (%) (Auto) 9 % (0-9) Eosinophils (%) (Auto) 4 % (0-3) Basophils (%) (Auto) 0 % (0-3) Neutrophils # (Auto) 4.2 x10^3uL (1.8-7.7) Lymphocytes # (Auto) 1.6 x10^3/uL (1.0-4.8) Monocytes # (Auto) 0.6 x10^3/uL (0.0-1.1) Eosinophils # (Auto) 0.3 x10^3/uL (0.0-0.7) Basophils # (Auto) 0.0 x10^3/uL (0.0-0.2) Laboratory Tests Test 08/01/18 07:43 White Blood Count 6.7 x10^3/uL (4.0-11.0) Red Blood Count 3.85 x10^6/uL (3.50-5.40) Hemoglobin 12.6 g/dL (12.0-15.5) Hematocrit 36.8 % (36.0-47.0) Mean Corpuscular Volume 96 fL (79-100) Mean Corpuscular Hemoglobin 33 pg (25-35) Mean Corpuscular Hemoglobin Concent 34 g/dL (31-37) Red Cell Distribution Width 14.1 % (11.5-14.5) Platelet Count 137 x10^3/uL (140-400) Neutrophils (%) (Auto) 63 % (31-73) Lymphocytes (%) (Auto) 24 % (24-48) Monocytes (%) (Auto) 9 % (0-9) Eosinophils (%) (Auto) 4 % (0-3) Basophils (%) (Auto) 0 % (0-3) Neutrophils # (Auto) 4.2 x10^3uL (1.8-7.7) Lymphocytes # (Auto) 1.6 x10^3/uL (1.0-4.8) Monocytes # (Auto) 0.6 x10^3/uL (0.0-1.1) Eosinophils # (Auto) 0.3 x10^3/uL (0.0-0.7) Basophils # (Auto) 0.0 x10^3/uL (0.0-0.2) Microbiology 07/30/18 CSF Gram Stain - Final, Complete Medications Current Medications Sodium Chloride 1,000 ml @ 1,000 mls/hr Q1H IV Last administered on 07/29/18at 22:54; Start 07/29/18 at 22:30; Stop 07/29/18 at 23:29; Status DC Fentanyl Citrate (Fentanyl 2ml Vial) 50 mcg 1X ONCE IV Last administered on 07/29/18at 23:27; Start 07/29/18 at 23:45; Stop 07/29/18 at 23:46; Status DC Ondansetron HCl (Zofran) 4 mg 1X ONCE IV Last administered on 07/29/18at 23:26; Start 07/29/18 at 23:45; Stop 07/29/18 at 23:46; Status DC Aspirin (Renae Aspirin) 325 mg 1X ONCE PO Last administered on 07/29/18at 23:50; Start 07/29/18 at 23:45; Stop 07/29/18 at 23:46; Status DC Ondansetron HCl (Zofran) 4 mg PRN Q8HRS PRN IV NAUSEA/VOMITING 1ST CHOICE; Start 07/29/18 at 23:45; Stop 07/30/18 at 08:31; Status DC Fentanyl Citrate (Fentanyl 2ml Vial) 50 mcg PRN Q1HR PRN IV SEVERE PAIN Last administered on 07/30/18at 21:34; Start 07/29/18 at 23:45; Stop 07/30/18 at 23:44; Status DC Sodium Chloride 1,000 ml @ 125 mls/hr Q8H IV Last administered on 07/30/18at 21:45; Start 07/29/18 at 23:45; Stop 07/30/18 at 23:44; Status DC Albuterol/ Ipratropium (Duoneb) 3 ml RTQID NEB Last administered on 07/30/18at 07:58; Start 07/30/18 at 08:00; Stop 07/30/18 at 09:16; Status DC Ondansetron HCl (Zofran) 4 mg PRN Q6HRS PRN IV NAUSEA/VOMITING 1ST CHOICE; Start 07/30/18 at 08:45 Acetaminophen/ Codeine Phosphate (Tylenol #3) 1 tab PRN Q6HRS PRN PO MODERATE PAIN Last administered on 08/01/18at 02:50; Start 07/30/18 at 08:30 Acetaminophen (Tylenol) 500 mg PRN Q6HRS PRN PO MILD PAIN / TEMP; Start 07/30/18 at 08:30; Stop 07/30/18 at 09:13; Status DC Acetaminophen (Tylenol) 500 mg PRN Q6HRS PRN PO MILD PAIN 1-3; Start 07/30/18 at 08:45; Stop 07/30/18 at 09:13; Status DC Albuterol Sulfate (Ventolin Neb Soln) 2.5 mg PRN BID PRN INH FOR ASTHMA; Start 07/30/18 at 08:45; Stop 07/30/18 at 09:04; Status DC Amlodipine Besylate (Norvasc) 5 mg DAILY PO Last administered on 08/01/18at 08:39; Start 07/30/18 at 09:00 Aspirin (Renae Aspirin) 325 mg DAILY PO Last administered on 08/01/18at 08:38; Start 07/30/18 at 09:00 Atorvastatin Calcium (Lipitor) 20 mg QHS PO Last administered on 07/31/18at 20:42; Start 07/30/18 at 21:00 Bupropion HCl (Wellbutrin Sr) 150 mg BID PO Last administered on 08/01/18at 08:40; Start 07/30/18 at 09:00 Calcium Carbonate/ Glycine (Tums) 500 mg PRN Q4HRS PRN PO INDIGESTION; Start 07/30/18 at 08:45 Carvedilol (Coreg) 12.5 mg BIDWMEALS PO Last administered on 07/31/18 18:05; Start 07/30/18 at 09:00; Stop 08/01/18 at 08:18; Status DC Clonazepam (KlonoPIN) 0.25 mg PRN BID PRN PO ANXIETY / AGITATION Last administe red on 08/01/18 08:44; Start 07/30/18 at 08:45 Cyanocobalamin (Vitamin B-12) 1,000 mcg DAILY PO Last administered on 08/01/18 08:41; Start 07/30/18 at 09:00 Gabapentin (Neurontin) 300 mg BID PO Last administered on 08/01/18 08:39; Start 07/30/18 at 09:00 Albuterol/ Ipratropium (Duoneb) 3 ml Q4HRS NEB Last administered on 08/01/18 11:09; Start 07/30/18 at 12:00 Isosorbide Mononitrate (Imdur) 60 mg DAILY PO Last administered on 08/01/18 08:40; Start 07/30/18 at 09:00 Lactulose (Lactulose) 20 gm PRN Q12HR PRN PO CONSTIPATION; Start 07/30/18 at 08:45 Lisinopril (Prinivil) 20 mg DAILY PO Last administered on 08/01/18 08:42; Start 07/30/18 at 09:00 Mupirocin (Bactroban) 1 leno BID NS ; Start 07/30/18 at 09:00; Stop 07/30/18 at 09:02; Status DC Simethicone (Gas-X) 80 mg PRN Q6HRS PRN PO GAS / BLOATING; Start 07/30/18 at 08:45 Non-Formulary Medication (Albuterol Sulfate (Albuterol Sulfate Conc Neb Soln)) 1 vial Q4HRS PRN NEB WHEEZING; Start 07/30/18 at 08:45; Status UNV Non-Formulary Medication (Budesonide (Pulmicort Flexhaler)) 2 puff BID IH ; Start 07/30/18 at 09:00; Status UNV Buspirone HCl (Buspar) 15 mg BID PO Last administered on 08/01/18at 08:40; Start 07/30/18 at 09:30 Non-Formulary Medication (Fluticasone/ Salmeterol (Advair 250-50 Diskus)) 1 inh BID IH ; Start 07/30/18 at 09:00; Status UNV Montelukast Sodium (Singulair) 10 mg QHS PO Last administered on 07/31/18at 20 :43; Start 07/30/18 at 21:00 Nicotine (Nicoderm Cq 21mg) 1 patch DAILY TD ; Start 07/30/18 at 09:30 Venlafaxine HCl (Effexor) 75 mg TID PO Last administered on 08/01/18at 08:41; Start 07/30/18 at 09:30 Pantoprazole Sodium (Protonix) 40 mg DAILYAC PO Last administered on 08/01/18at 08:41; Start 07/30/18 at 09:30 Mupirocin (Bactroban) 1 leno TID TP Last administered on 08/01/18at 10:50; Start 07/30/18 at 14:00 Albuterol Sulfate (Ventolin Neb Soln) 2.5 mg PRN Q4HRS PRN INH FOR ASTHMA; Start 07/30/18 at 09:15 Acetaminophen (Tylenol) 500 mg PRN Q6HRS PRN PO MILD PAIN 1-3; Start 07/30/18 at 09:13 Budesonide (Pulmicort) 0.5 mg RTBID NEB Last administered on 08/01/18at 07:43; Start 07/30/18 at 09:30 Tamoxifen Citrate (Nolvadex) 20 mg DAILY PO ; Start 07/31/18 at 09:00; Stop 07/31/18 at 09:00; Status DC Gadoterate Meglumine (Dotarem) 14 ml 1X ONCE IVP Last administered on 07/30/18at 15:09; Start 07/30/18 at 14:15; Stop 07/30/18 at 14:16; Status DC Enoxaparin Sodium (Lovenox 40mg Syringe) 40 mg Q24H SQ Last administered on 07/31/18at 20:45; Start 07/30/18 at 21:00; Stop 08/01/18 at 11:21; Status DC Celecoxib (CeleBREX) 100 mg PRN BID PRN PO PAIN Last administered on 08/01/18at 10:53; Start 07/31/18 at 20:30; Stop 08/01/18 at 11:21; Status DC Carvedilol (Coreg) 25 mg BIDWMEALS PO ; Start 08/01/18 at 17:00 Clonidine HCl (Catapres) 0.1 mg PRN Q1HR PRN PO HYPERTENSION; Start 08/01/18 at 08:30 Celecoxib (CeleBREX) 200 mg BID PO ; Start 08/01/18 at 21:00; Stop 08/01/18 at 21:00; Status DC Fluticasone Propionate (Flonase) 2 spray DAILY NS ; Start 08/01/18 at 12:00 Cetirizine HCl (ZyrTEC) 10 mg DAILY PO ; Start 08/01/18 at 11:30; Stop 08/01/18 at 11:30; Status DC Loperamide HCl (Imodium) 2 mg PRN Q15MIN PRN PO DIARRHEA; Start 08/01/18 at 11:30; Stop 08/01/18 at 11:30; Status DC Fentanyl Citrate (Fentanyl 2ml Vial) 50 mcg 1X ONCE IV ; Start 08/01/18 at 11:30; Stop 08/01/18 at 11:30; Status DC Active Scripts Active Calcium Carbonate 200 Mg Tab.chew 500 Mg PO PRN Q4HRS PRN 14 Days Clotrimazole 10 Mg Sherry 10 Mg MM BID 14 Days [Pantoprazole] 40 MG Tablet.dr 40 Mg PO DAILYAC 14 Days Montelukast Sodium Tablet (Montelukast Sodium) 10 Mg Tablet 10 Mg PO QHS 30 Days Lactulose 20 Gm/30 Ml Solution 20 Gm PO PRN Q12HR PRN 14 Days Lisinopril 40 Mg Tablet 20 Mg PO DAILY 30 Days Carvedilol (Carvedilol) 12.5 Mg Tablet 12.5 Mg PO BIDWMEALS 30 Days Duoneb 0.5-3(2.5) Mg/3 Ml (Albuterol/Ipratropium) 3 Ml Ampul.neb 3 Ml NEB Q4HRS 30 Days Pulmicort Flexhaler (Budesonide) 180 Mcg Aer.pow.ba 2 Puff IH BID Isosorbide Mononitrate Er (Isosorbide Mononitrate) 30 Mg Tab.er.24h 60 Mg PO DAILY 30 Days Atorvastatin Calcium 20 Mg Tablet 20 Mg PO QHS 30 Days Advair 250-50 Diskus (Fluticasone/Salmeterol) 1 Each Disk.w.dev 1 Inh IH BID 30 Days Reported Effexor Xr (Venlafaxine Hcl) 150 Mg Cap.er.24h 225 Mg PO DAILY Tamoxifen Citrate 20 Mg Tablet 1 Tab PO DAILY Simethicone 80 Mg Tab.chew 80 Mg PO PRN Q6HRS PRN Risperdal (Risperidone) 0.5 Mg Tablet 0.5 Mg PO BID Entresto 49 mg-51 mg Tablet (Sacubitril/Valsartan) 1 Each Tablet 1 Each PO BID Vitamin B-12 (Cyanocobalamin (Vitamin B-12)) 1,000 Mcg Tablet 1 Tab PO DAILY Clonazepam 0.5 Mg Tablet 0.25 Mg PO BID PRN Lipitor (Atorvastatin Calcium) 20 Mg Tablet 20 Mg PO HS Aspirin 325 Mg Tablet 1 Tab PO DAILY Tylenol (Acetaminophen) 325 Mg Tablet 500 Mg PO PRN Q6HRS PRN Albuterol Sulfate Conc Neb Soln (Albuterol Sulfate) 2.5 Mg/0.5 Ml Vial.neb 1 Vial NEB Q4HRS PRN Proventil Hfa Inhaler (Albuterol Sulfate) 6.7 Gm Hfa.aer.ad 2 Puff IH BID PRN Mupirocin Ointment (Mupirocin) 22 Gm Oint...g. 1 Applic TOP BID Amlodipine Besylate 5 Mg Tablet 1 Tab PO DAILY Bupropion Hcl Sr (Bupropion Hcl) 150 Mg Tablet.er 1 Tab PO BID Omeprazole 20 Mg Capsule.dr 1 Tab PO DAILY Carvedilol 12.5 Mg Tablet 12.5 Mg PO BID Gabapentin 300 Mg Capsule 1 Tab PO BID Lisinopril 40 Mg Tablet 40 Mg PO DAILY Venlafaxine Hcl Er (Venlafaxine Hcl) 225 Mg Tab.er.24 225 Mg PO DAILY NICODERM CQ 21mg (Nicotine) 1 Each Patch.td24 1 Patch TP DAILY Do not smoke while wearing the patch Cyanocobalamin Injection (Cyanocobalamin (Vitamin B-12)) 1,000 Mcg/1 Ml Vial 1 Ml IM QMONTH Clonazepam 0.5 Mg Tablet 0.5 Tab PO DAILY PRN Ventolin Hfa Inhaler (Albuterol Sulfate) 18 Gm Hfa.aer.ad 2 Puff INH BID Acetaminophen 500 Mg Tablet 1 Tab PO PRN Q6HRS PRN Gabapentin (Gabapentin) 300 Mg Capsule 300 Mg PO BID Buspirone Hcl 15 Mg Tablet 15 Mg PO BID Aspirin 325 Mg Tablet 1 Tab PO DAILY Tamoxifen Citrate 20 Mg Tablet 20 Mg PO DAILY Vitals/I & O Vital Sign - Last 24 Hours 07/31/18 07/31/18 07/31/18 07/31/18 15:00 15:54 18:05 18:05 Temp 99.0 99.0 Pulse 88 88 Resp 18 18 B/P (MAP) 154/82 (106) 154/82 Pulse Ox 90 O2 Delivery Room Air Room Air Room Air 07/31/18 07/31/18 07/31/18 07/31/18 19:52 20:00 20:09 20:11 Temp 99.7 99.7 Pulse 90 Resp 16 B/P (MAP) 179/89 (119) Pulse Ox 94 94 94 O2 Delivery Room Air Room Air Room Air Room Air 07/31/18 07/31/18 08/01/18 08/01/18 23:42 23:57 02:50 03:45 Temp 98.5 98.7 98.5 98.7 Pulse 92 89 Resp 16 16 B/P (MAP) 138/78 (98) 176/97 (123) Pulse Ox 94 90 93 O2 Delivery Room Air Room Air Room Air Room Air 08/01/18 08/01/18 08/01/18 08/01/18 03:50 04:01 07:00 07:45 Temp 98.5 98.5 Pulse 91 Resp 18 B/P (MAP) 185/95 (125) Pulse Ox 94 95 96 O2 Delivery Room Air Room Air Room Air Room Air 08/01/18 08/01/18 08/01/18 08/01/18 08:00 08:39 08:40 08:42 Pulse 91 91 91 B/P (MAP) 185/95 185/95 185/95 O2 Delivery Room Air 08/01/18 08/01/18 08/01/18 08/01/18 10:48 11:00 11:10 12:45 Temp 98.6 98.6 Pulse 88 88 106 Resp 18 B/P (MAP) 159/94 (115) 160/85 (110) 157/91 (113) Pulse Ox 92 96 O2 Delivery Room Air Room Air Intake and Output 07/31/18 07/31/18 08/01/18 15:00 23:00 07:00 Intake Total 350 ml 400 ml 500 ml Balance 350 ml 400 ml 500 ml ALAINA JOHNSON MD Aug 01, 2018 13:58
--- NOTE | 2018-08-01 14:00 | NUR ---
Spoke with Dr. Mejia, patient to work with rehab med and continue with therapy. Ok to be discharged once patient is tolerating more activity; to follow up with him as out patient.
--- NOTE | 2018-08-01 16:47 | NUR ---
Patient arrived via wheelchair by Martita CAPPS. Oriented to the room. Will continue to monitor.
[2018-08-01] MEDS: CARVEDILOL 12.5 MG TABLET. PO SCH (17:30)
--- NOTE | 2018-08-01 18:25 | PDOC ---
PROGRESS NOTES Assessment Assessment LE numbness and weakness x 1 day before admission, R>L. L-spine stenosis. Mild C4 cord impingement. Breast cancer. HTN. HLD. COPD. Old lacunar infarct likely. Left eye vision problems. Former smoker. Depression. RECOMMENDATIONS/PLAN: Treat medical diseases. Consulted NS. C-spine MRI performed. OT/PT. History of Present Illness This is a 58-year-old white female with history of smoking and breast cancer has been having symptoms of LE numbness and weakness and unable to walk since after moving her years yesterday on 06/28/18. She stated she felt numbness and decreased feeling from her lower abdomen down to bilateral LE but more obvious in her right LE. She stated she is still able to urinating and had bowel movements on 06/28/18. Her cranial nerves and UE are not affected. She did not remember hurt her back. Past Medical History Cardiovascular: HTN, Hyperlipidemia Pulmonary: COPD CENTRAL NERVOUS SYSTEM: CVA Heme/Onc: Anemia NOS, Cancer, Other Hepatobiliary: No pertinent hx Psych: Anxiety Musculoskeletal: Osteoarthritis Infectious disease: No pertinent hx Renal/: No pertinent hx Endocrine: No pertinent hx Past Surgical History No major surgery recently. Family History Cancer, Coronary Artery Disease, Hypertension Social History Smoke: Quit in 04/2018. ALCOHOL: occasional Drugs: Denied. ALLERGY: NKDA MEDICATIONS: Refer to MAR REVIEW OF SYSTEMS: Constitutional: Over weight.. Head: No traumatic brain or head injury. Skin: No edema, or rash. Ear: No infection, tinnitus. Eyes: No vision loss or color blindness. Nose: No bleeding or purulent discharges. Hearing: No hearing decrease. Neck: No injury. Breast: Cancer. Cardiac: HTN, HLD. Pulmonary: COPD. GI: No GI ulcer, GI bleeding. Urinary/genital: UTI. Endocrinologic: No cousin face, craniofacial dysmorphism, polydactyly. Skeletomuscular: No muscular atrophy, deformity. Neurological: see HP. Psychiatric: Denies drug use/abuse. Otherwise, not [id number] review of systems. PHYSICAL EXAMINATION: General appearance is in subacute distress. HEENT: Normocephalic and nontraumatic. Eyes, nose, ears, and throat are u nremarkable. Neck is supple. No lymphadenopathy. No crepitus. Cardiovascular: S1, S2, regular rate and rhythm. Pulmonary: Clear to auscultation bilaterally. Abdomen: Bowel sounds are positive. Extremities: No rash or edema. No restriction of range of motion in UE. NEUROLOGICAL EXAMINATION: Alert Oriented to time, place and person. PERRL. EOMI. CN: chronic right VII palsy? Muscle tone: within normal in UE. Decreased in LE? Muscle strength: 5 UE, 3+ right LE, 4+ left LE. DTR: 2 UE, 1 at knee. Plantar reflex: Neutral response bilaterally Gait: not able to walk. Sensory exam: Decreased to light tough, vibration sense, temperature and pain sensation in right LE. No cerebellar signs elicited. F-T-N test fine. Objective Objective Vital Signs Date Time Temp Pulse Resp B/P (MAP) Pulse Ox O2 Delivery O2 Flow Rate FiO2 08/01/18 17:30 107 175/81 08/01/18 16:25 19 Room Air 08/01/18 16:03 96 08/01/18 15:00 98.7 98.7 Intake and Output 08/01/18 07:00 Intake Total 1250 ml Balance 1250 ml Intake Oral 1250 ml # Voids 7 Vitals Signs Vitals VS - Last 72 Hours, by Label Date Time Temp Pulse Resp B/P (MAP) Pulse Ox O2 Delivery O2 Flow Rate FiO2 08/01/18 17:30 107 175/81 08/01/18 16:25 19 Room Air 08/01/18 16:03 96 Room Air 08/01/18 16:00 106 145/64 (91) 08/01/18 15:37 111 185/94 08/01/18 15:23 18 96 Room Air 08/01/18 15:00 98.7 111 22 185/94 (124) 94 Room Air 98.7 08/01/18 12:45 106 157/91 (113) 08/01/18 11:10 96 Room Air 08/01/18 11:00 98.6 88 18 160/85 (110) 92 Room Air 98.6 08/01/18 10:48 88 159/94 (115) 08/01/18 08:42 91 185/95 08/01/18 08:40 91 185/95 08/01/18 08:39 91 185/95 08/01/18 08:00 Room Air 08/01/18 07:45 96 Room Air 08/01/18 07:00 98.5 91 18 185/95 (125) 95 Room Air 98.5 08/01/18 04:01 94 Room Air 08/01/18 03:45 98.7 89 16 176/97 (123) 93 Room Air 98.7 08/01/18 02:50 Room Air 07/31/18 23:57 98.5 92 16 138/78 (98) 90 Room Air 98.5 07/31/18 23:42 94 Room Air 07/31/18 20:11 94 Room Air 07/31/18 20:09 94 Room Air 07/31/18 20:00 Room Air 07/31/18 19:52 99.7 90 16 179/89 (119) 94 Room Air 99.7 07/31/18 18:05 88 154/82 07/31/18 18:05 18 Room Air 07/31/18 15:54 Room Air 07/31/18 15:00 99.0 88 18 154/82 (106) 90 Room Air 99.0 07/31/18 11:43 94 Room Air 07/31/18 11:00 99.4 90 18 161/82 (108) 92 Room Air 99.4 07/31/18 09:29 18 Room Air 07/31/18 09:20 81 165/82 07/31/18 09:20 81 165/82 07/31/18 09:20 81 165/82 07/31/18 09:19 81 165/82 07/31/18 08:00 Room Air 07/31/18 08:00 90 Room Air 07/31/18 07:00 98.1 81 18 165/82 (109) 90 Room Air 98.1 Laboratory Laboratory Laboratory Tests Test 08/01/18 07:43 White Blood Count 6.7 x10^3/uL (4.0-11.0) Red Blood Count 3.85 x10^6/uL (3.50-5.40) Hemoglobin 12.6 g/dL (12.0-15.5) Hematocrit 36.8 % (36.0-47.0) Mean Corpuscular Volume 96 fL (79-100) Mean Corpuscular Hemoglobin 33 pg (25-35) Mean Corpuscular Hemoglobin Concent 34 g/dL (31-37) Red Cell Distribution Width 14.1 % (11.5-14.5) Platelet Count 137 x10^3/uL (140-400) Neutrophils (%) (Auto) 63 % (31-73) Lymphocytes (%) (Auto) 24 % (24-48) Monocytes (%) (Auto) 9 % (0-9) Eosinophils (%) (Auto) 4 % (0-3) Basophils (%) (Auto) 0 % (0-3) Neutrophils # (Auto) 4.2 x10^3uL (1.8-7.7) Lymphocytes # (Auto) 1.6 x10^3/uL (1.0-4.8) Monocytes # (Auto) 0.6 x10^3/uL (0.0-1.1) Eosinophils # (Auto) 0.3 x10^3/uL (0.0-0.7) Basophils # (Auto) 0.0 x10^3/uL (0.0-0.2) Microbiology 07/30/18 CSF Gram Stain - Final, Complete Medication Medications Current Medications Carvedilol (Coreg) 25 mg BIDWMEALS PO Last administered on 08/01/18at 17:30; Start 08/01/18 at 17:00 Celecoxib (CeleBREX) 100 mg PRN BID PRN PO PAIN Last administered on 08/01/18at 10:53; Start 07/31/18 at 20:30; Stop 08/01/18 at 11:21; Status DC Celecoxib (CeleBREX) 200 mg BID PO ; Start 08/01/18 at 21:00; Stop 08/01/18 at 21:00; Status DC Cetirizine HCl (ZyrTEC) 10 mg DAILY PO ; Start 08/01/18 at 11:30; Stop 08/01/18 at 11:30; Status DC Clonidine HCl (Catapres) 0.1 mg PRN Q1HR PRN PO HYPERTENSION Last administered on 08/01/18at 15:37; Start 08/01/18 at 08:30 Fentanyl Citrate (Fentanyl 2ml Vial) 50 mcg 1X ONCE IV ; Start 08/01/18 at 11:30; Stop 08/01/18 at 11:30; Status DC Fluticasone Propionate (Flonase) 2 spray DAILY NS ; Start 08/01/18 at 12:00 Loperamide HCl (Imodium) 2 mg PRN Q15MIN PRN PO DIARRHEA; Start 08/01/18 at 11:30; Stop 08/01/18 at 11:30; Status DC Comment Review of Relevant I have reviewed the following items jerrod (where applicable) has been applied. JAMILA CHAUDHARY MD Aug 01, 2018 18:25
[2018-08-01 19:10] LABS: ALBUMIN,SERUM 3.4 g/dL (3.5-5.5); CSF IGG INDEX 0.6 (0.0-0.7)
[2018-08-01] MEDS ORDERED: CELECOXIB 100 MG CAPSULE. PO SCH (21:00)
[2018-08-01] MEDS: MONTELUKAST SODIUM 10 MG TABLET. PO SCH (21:10)
[2018-08-01] MEDS: ATORVASTATIN CALCIUM 20 MG TABLET PO SCH (21:10)
[2018-08-01] MEDS: clonazePAM 0.5 MG TABLET PO PRN (22:07)
[2018-08-02 03:00] VITALS: BP 136/75
[2018-08-02] MEDS: IPRATRPIUM/ALBUTEROL 0.5/2.5MG 3 ML NEBU. NEB SCH ×8 (03:36→22:49)
[2018-08-02] MEDS: PANTOPRAZOLE 40 MG TABLET.DR. PO SCH (06:25)
[2018-08-02 07:00] VITALS: BP 132/80
[2018-08-02] MEDS: BUDESONIDE 0.5 MG/2 ML NEBU. NEB SCH ×2 (07:30→18:40)
[2018-08-02] MEDS: NICOTINE 21MG PATCH. TD SCH (09:00)
--- NOTE | 2018-08-02 09:39 | PDOC ---
SUBJECTIVE Subjective S: getting better, has started physical therapy O: Physical exam: Gen.: Well-nourished 50s female, resting in bed Lungs: Breathing comfortably Psychiatric: Pleasant mood and affect Labs: White count 6.7, hemoglobin 12.6, platelets 137 Assessment and Plan: Ms Wood is 58-year-old female followed by Dr. Morton for history of stage I breast cancer on tamoxifen prior to admission, admitted with back pain and weakness and worsening neuropathy symptoms, improving with conservative therapy. Thrombocytopenia: Intermittent, mild, baseline is usually in the 130 to normal range, do not need further workup at the moment as this appears to be chronic and mild Breast Cancer: Tamoxifen has been stopped on admission, doubt it is contributing to neuropathy but can increase risk of thrombosis, she does have heterozygosity for factor V Leiden, and old lacunar infarct, and cataract hx and is on full dose aspirin, but is menopausal and may consider AI versus other in follow-up with Dr. Morton after dc Back pain with weakness: Spinal stenosis L4-5, Neurology is involved, and NSG, and PT, appreciate their assistance Peripheral neuropathy symptoms: per others History of tobacco abuse: She quit in April 2018 Prophylaxis: She is on ASA, lovenox stopped but fine w/ me to readd prophylactically Disposition: After clinical improvement, we will arrange for follow-up with Dr. Morton after discharge and she will f/u w/ NSG as well Thank you kindly and please do not hesitate to call with questions. OBJECTIVE Vital Signs Vital Signs Date Time Temp Pulse Resp B/P (MAP) Pulse Ox O2 Delivery O2 Flow Rate FiO2 08/02/18 07:31 95 Nasal Cannula 2.0 08/02/18 07:00 98.4 95 18 132/80 (97) 98 Room Air 98.4 08/02/18 03:37 98 Nasal Cannula 1.0 08/02/18 03:00 98.4 78 18 136/75 (95) 93 Room Air 98.4 08/01/18 23:00 98.4 88 16 115/61 (79) 93 Room Air 98.4 08/01/18 21:57 90 Room Air 08/01/18 21:56 90 Room Air 08/01/18 20:00 Room Air 08/01/18 19:00 98.9 89 18 122/74 (90) 92 Room Air 98.9 08/01/18 17:30 107 175/81 08/01/18 16:25 19 Room Air 08/01/18 16:03 96 Room Air 08/01/18 16:00 106 145/64 (91) 08/01/18 15:37 111 185/94 08/01/18 15:23 18 96 Room Air 08/01/18 15:00 98.7 111 22 185/94 (124) 94 Room Air 98.7 08/01/18 12:45 106 157/91 (113) 08/01/18 11:10 96 Room Air 08/01/18 11:00 98.6 88 18 160/85 (110) 92 Room Air 98.6 08/01/18 10:48 88 159/94 (115) I & O Intake and Output 08/02/18 07:00 Intake Total 1080 ml Balance 1080 ml Intake Oral 1080 ml # Voids 5 AMILCAR ANDERSON MD Aug 02, 2018 09:39
[2018-08-02] MEDS: VENLAFAXINE 75 MG TABLET. PO SCH ×3 (10:19→20:21)
[2018-08-02] MEDS: CYANOCOBALAMIN (VITAMIN B-12) 1,000 MCG TABLET. PO SCH (10:19)
[2018-08-02] MEDS: busPIRone 5 MG TABLET. PO SCH ×2 (10:20→20:21)
[2018-08-02] MEDS: ASPIRIN 325 MG TABLET PO SCH (10:21)
[2018-08-02] MEDS: CARVEDILOL 12.5 MG TABLET. PO SCH ×2 (10:22→17:54)
[2018-08-02] MEDS: GABAPENTIN 300 MG CAPSULE. PO SCH (10:23)
[2018-08-02] MEDS: ISOSORBIDE MONONITRATE ER 30 MG TAB.ER.24H PO SCH (10:23)
[2018-08-02] MEDS: amLODIPine BESYLATE 5 MG TABLET PO SCH (10:24)
[2018-08-02] MEDS: clonazePAM 0.5 MG TABLET PO PRN ×2 (10:24→20:22)
[2018-08-02] MEDS: buPROPion SR 150 MG TABLET.SA PO SCH ×2 (10:25→20:21)
[2018-08-02] MEDS: LISINOPRIL 20 MG TABLET PO SCH (10:25)
[2018-08-02] MEDS: FLUTICASONE 50MCG/NASAL SPRAY 16GM BOTTLE. NS SCH (10:28)
[2018-08-02] MEDS: MUPIROCIN 2 % TOPICAL CREAM 30GM TUBE. TP SCH ×3 (10:28→20:23)
--- NOTE | 2018-08-02 10:52 | PDOC ---
[employer] PROGRESS NOTE Chief Complaint Chief Complaint 1. Acute onset bilateral lower extremity weakness 1 day prior to admission, negative LP, MRI findings do not explain her symptoms -distribution of symptoms is unlikely CVA in etiology 2. Decreased sensation bilateral lower ext, acute 3. History of breast cancer on year 5 of tamoxifen 4. HER 2 positive breast CA 5. Polypharmacy with 41 meds 6. AK I, VMN 7. Reactive leukocytosis 8. SIRS with no sepsis 9. COPD History of Present Illness History of Present Illness [id number] Patient seen and examined this morning She is on oxygen per nasal cannula I don't think she wears oxygen at home She still little hypoxic I discussed with case management We'll consult pulmonary left Leg she can elevate fine Right leg she can elevate against gravity with much difficulty MRI of the brain and spine shows some DJD, disc bulges, mild central stenosis Neurosurgery on board I provided copies of her MRI results and dw her the findings LP is negative MRI cervical IMPRESSION: Degenerative changes are seen throughout the cervical spine. These findings result in mild central spinal canal stenosis with minimal cord impingement at C4-5. Mild left neural foraminal stenosis is seen at C3-4. Mild bilateral neural foraminal stenosis is seen at C4-5. Mild to moderate left greater than right neural foraminal stenosis is seen at C6-7. LUmbar flexion films: IMPRESSION: Degenerative change with grade 1 anterolisthesis at L4-5 in the upright position, not present in the supine position PLAn: Await neurosurgery opinion She has not worked with PT OT yet because MRI of the thoracic lumbar and cervical spines were pending-we'll see how she does with PT today She is not smoking cigarettes anymore Appreciate subspecs Vitals Vitals Vital Signs Date Time Temp Pulse Resp B/P (MAP) Pulse Ox O2 Delivery O2 Flow Rate FiO2 08/02/18 10:25 95 132/80 08/02/18 07:31 95 Nasal Cannula 2.0 08/02/18 07:00 98.4 18 98.4 Physical Exam General: Alert, Oriented X3, Cooperative Lungs: Other (diminished breath sounds slight crackles) Abdomen: Normal bowel sounds, Soft, No tenderness, No hepatosplenomegaly, No masses Extremities: Other (out of 5 muscle manual testing on bilateral lower extremityThe rest of the neuro exam is unremarkableDTRs +2, claims decreased sensation) Skin: No rashes, No breakdown, No significant lesion Assessment and Plan Assessmemt and Plan 1. Acute onset bilateral lower extremity weakness 1 day prior to admission, negative LP, MRI findings do not explain her symptoms -distribution of symptoms is unlikely CVA in etiology 2. Decreased sensation bilateral lower ext, acute 3. History of breast cancer on year 5 of tamoxifen 4. HER 2 positive breast CA 5. Polypharmacy with 41 meds 6. AK I, VMN 7. Reactive leukocytosis 8. SIRS with no sepsis 9. COPD Plan Consult pulmonary Appreciate subspecialist input PT OT Duo nebs O2 per nasal cannula Home meds DVT prophylaxis Full code I discussed the case with her nurse and her daughter's well Comment Review of Relevant I have reviewed the following items jerrod (where applicable) has been applied. Labs Laboratory Tests Test 08/01/18 07:43 White Blood Count 6.7 x10^3/uL (4.0-11.0) Red Blood Count 3.85 x10^6/uL (3.50-5.40) Hemoglobin 12.6 g/dL (12.0-15.5) Hematocrit 36.8 % (36.0-47.0) Mean Corpuscular Volume 96 fL (79-100) Mean Corpuscular Hemoglobin 33 pg (25-35) Mean Corpuscular Hemoglobin Concent 34 g/dL (31-37) Red Cell Distribution Width 14.1 % (11.5-14.5) Platelet Count 137 x10^3/uL (140-400) Neutrophils (%) (Auto) 63 % (31-73) Lymphocytes (%) (Auto) 24 % (24-48) Monocytes (%) (Auto) 9 % (0-9) Eosinophils (%) (Auto) 4 % (0-3) Basophils (%) (Auto) 0 % (0-3) Neutrophils # (Auto) 4.2 x10^3uL (1.8-7.7) Lymphocytes # (Auto) 1.6 x10^3/uL (1.0-4.8) Monocytes # (Auto) 0.6 x10^3/uL (0.0-1.1) Eosinophils # (Auto) 0.3 x10^3/uL (0.0-0.7) Basophils # (Auto) 0.0 x10^3/uL (0.0-0.2) Microbiology 07/30/18 CSF Gram Stain - Final, Complete Medications Current Medications Sodium Chloride 1,000 ml @ 1,000 mls/hr Q1H IV Last administered on 07/29/18at 22:54; Start 07/29/18 at 22:30; Stop 07/29/18 at 23:29; Status DC Fentanyl Citrate (Fentanyl 2ml Vial) 50 mcg 1X ONCE IV Last administered on 07/29/18at 23:27; Start 07/29/18 at 23:45; Stop 07/29/18 at 23:46; Status DC Ondansetron HCl (Zofran) 4 mg 1X ONCE IV Last administered on 07/29/18at 23:26; Start 07/29/18 at 23:45; Stop 07/29/18 at 23:46; Status DC Aspirin (Renae Aspirin) 325 mg 1X ONCE PO Last administered on 07/29/18at 23:50; Start 07/29/18 at 23:45; Stop 07/29/18 at 23:46; Status DC Ondansetron HCl (Zofran) 4 mg PRN Q8HRS PRN IV NAUSEA/VOMITING 1ST CHOICE; Start 07/29/18 at 23:45; Stop 07/30/18 at 08:31; Status DC Fentanyl Citrate (Fentanyl 2ml Vial) 50 mcg PRN Q1HR PRN IV SEVERE PAIN Last administered on 07/30/18at 21:34; Start 07/29/18 at 23:45; Stop 07/30/18 at 23:44; Status DC Sodium Chloride 1,000 ml @ 125 mls/hr Q8H IV Last administered on 07/30/18at 21:45; Start 07/29/18 at 23:45; Stop 07/30/18 at 23:44; Status DC Albuterol/ Ipratropium (Duoneb) 3 ml RTQID NEB Last administered on 07/30/18at 07:58; Start 07/30/18 at 08:00; Stop 07/30/18 at 09:16; Status DC Ondansetron HCl (Zofran) 4 mg PRN Q6HRS PRN IV NAUSEA/VOMITING 1ST CHOICE; Start 07/30/18 at 08:45 Acetaminophen/ Codeine Phosphate (Tylenol #3) 1 tab PRN Q6HRS PRN PO MODERATE PAIN Last administered on 08/01/18at 15:23; Start 07/30/18 at 08:30 Acetaminophen (Tylenol) 500 mg PRN Q6HRS PRN PO MILD PAIN / TEMP; Start 07/30/18 at 08:30; Stop 07/30/18 at 09:13; Status DC Acetaminophen (Tylenol) 500 mg PRN Q6HRS PRN PO MILD PAIN 1-3; Start 07/30/18 at 08:45; Stop 07/30/18 at 09:13; Status DC Albuterol Sulfate (Ventolin Neb Soln) 2.5 mg PRN BID PRN INH FOR ASTHMA; Start 07/30/18 at 08:45; Stop 07/30/18 at 09:04; Status DC Amlodipine Besylate (Norvasc) 5 mg DAILY PO Last administered on 08/02/18at 10:24; Start 07/30/18 at 09:00 Aspirin (Renae Aspirin) 325 mg DAILY PO Last administered on 08/02/18 10:21; Start 07/30/18 at 09:00 Atorvastatin Calcium (Lipitor) 20 mg QHS PO Last administered on 08/01/18at 21:10; Start 07/30/18 at 21:00 Bupropion HCl (Wellbutrin Sr) 150 mg BID PO Last administered on 08/02/18 10:25; Start 07/30/18 at 09:00 Calcium Carbonate/ Glycine (Tums) 500 mg PRN Q4HRS PRN PO INDIGESTION; Start 07/30/18 at 08:45 Carvedilol (Coreg) 12.5 mg BIDWMEALS PO Last administered on 07/31/18at 18:05; Start 07/30/18 at 09:00; Stop 08/01/18 at 08:18; Status DC Clonazepam (KlonoPIN) 0.25 mg PRN BID PRN PO ANXIETY / AGITATION Last administered on 08/01/18at 08:44; Start 07/30/18 at 08:45; Stop 08/01/18 at 21:09; Status DC Cyanocobalamin (Vitamin B-12) 1,000 mcg DAILY PO Last administered on 08/02/18 10:19; Start 07/30/18 at 09:00 Gabapentin (Neurontin) 300 mg BID PO Last administered on 08/02/18 10:23; Sta rt 07/30/18 at 09:00 Albuterol/ Ipratropium (Duoneb) 3 ml Q4HRS NEB Last administered on 08/02/18at 07:30; Start 07/30/18 at 12:00 Isosorbide Mononitrate (Imdur) 60 mg DAILY PO Last administered on 08/02/18at 10:23; Start 07/30/18 at 09:00 Lactulose (Lactulose) 20 gm PRN Q12HR PRN PO CONSTIPATION; Start 07/30/18 at 08:45 Lisinopril (Prinivil) 20 mg DAILY PO Last administered on 08/02/18at 10:25; Start 07/30/18 at 09:00 Mupirocin (Bactroban) 1 leno BID NS ; Start 07/30/18 at 09:00; Stop 07/30/18 at 09:02; Status DC Simethicone (Gas-X) 80 mg PRN Q6HRS PRN PO GAS / BLOATING; Start 07/30/18 at 08:45 Non-Formulary Medication (Albuterol Sulfate (Albuterol Sulfate Conc Neb Soln)) 1 vial Q4HRS PRN NEB WHEEZING; Start 07/30/18 at 08:45; Status UNV Non-Formulary Medication (Budesonide (Pulmicort Flexhaler)) 2 puff BID IH ; Start 07/30/18 at 09:00; Status UNV Buspirone HCl (Buspar) 15 mg BID PO Last administered on 08/02/18at 10:20; Start 07/30/18 at 09:30 Non-Formulary Medication (Fluticasone/ Salmeterol (Advair 250-50 Diskus)) 1 inh BID IH ; Start 07/30/18 at 09:00; Status UNV Montelukast Sodium (Singulair) 10 mg QHS PO Last administered on 08/01/18at 21:10; Start 07/30/18 at 21:00 Nicotine (Nicoderm Cq 21mg) 1 patch DAILY TD ; Start 07/30/18 at 09:30 Venlafaxine HCl (Effexor) 75 mg TID PO Last administered on 08/02/18at 10:19; Start 07/30/18 at 09:30 Pantoprazole Sodium (Protonix) 40 mg DAILYAC PO Last administered on 08/02/18at 06:25; Start 07/30/18 at 09:30 Mupirocin (Bactroban) 1 leno TID TP Last administered on 08/02/18at 10:28; Start 07/30/18 at 14:00 Albuterol Sulfate (Ventolin Neb Soln) 2.5 mg PRN Q4HRS PRN INH FOR ASTHMA; Start 07/30/18 at 09:15 Acetaminophen (Tylenol) 500 mg PRN Q6HRS PRN PO MILD PAIN 1-3; Start 07/30/18 at 09:13 Budesonide (Pulmicort) 0.5 mg RTBID NEB Last administered on 08/02/18at 07:30; Start 07/30/18 at 09:30 Tamoxifen Citrate (Nolvadex) 20 mg DAILY PO ; Start 07/31/18 at 09:00; Stop 07/31/18 at 09:00; Status DC Gadoterate Meglumine (Dotarem) 14 ml 1X ONCE IVP Last administered on 07/30/18at 15:09; Start 07/30/18 at 14:15; Stop 07/30/18 at 14:16; Status DC Enoxaparin Sodium (Lovenox 40mg Syringe) 40 mg Q24H SQ Last administered on 07/31/18at 20:45; Start 07/30/18 at 21:00; Stop 08/01/18 at 11:21; Status DC Celecoxib (CeleBREX) 100 mg PRN BID PRN PO PAIN Last administered on 08/01/18at 10:53; Start 07/31/18 at 20:30; Stop 08/01/18 at 11:21; Status DC Carvedilol (Coreg) 25 mg BIDWMEALS PO Last administered on 08/02/18at 10:22; Start 08/01/18 at 17:00 Clonidine HCl (Catapres) 0.1 mg PRN Q1HR PRN PO HYPERTENSION Last administered on 08/01/18at 15:37; Start 08/01/18 at 08:30 Celecoxib (CeleBREX) 200 mg BID PO ; Start 08/01/18 at 21:00; Stop 08/01/18 at 21:00; Status DC Fluticasone Propionate (Flonase) 2 spray DAILY NS Last administered on 08/02/18at 10:28; Start 08/01/18 at 12:00 Cetirizine HCl (ZyrTEC) 10 mg DAILY PO ; Start 08/01/18 at 11:30; Stop 08/01/18 at 11:30; Status DC Loperamide HCl (Imodium) 2 mg PRN Q15MIN PRN PO DIARRHEA; Start 08/01/18 at 11:30; Stop 08/01/18 at 11:30; Status DC Fentanyl Citrate (Fentanyl 2ml Vial) 50 mcg 1X ONCE IV ; Start 08/01/18 at 11:30; Stop 08/01/18 at 11:30; Status DC Clonazepam (KlonoPIN) 0.5 mg PRN BID PRN PO ANXIETY / AGITATION Last administered on 08/02/18at 10:24; Start 08/01/18 at 21:15 Active Scripts Active Calcium Carbonate 200 Mg Tab.chew 500 Mg PO PRN Q4HRS PRN 14 Days Clotrimazole 10 Mg Sherry 10 Mg MM BID 14 Days [Pantoprazole] 40 MG Tablet.dr 40 Mg PO DAILYAC 14 Days Montelukast Sodium Tablet (Montelukast Sodium) 10 Mg Tablet 10 Mg PO QHS 30 Days Lactulose 20 Gm/30 Ml Solution 20 Gm PO PRN Q12HR PRN 14 Days Lisinopril 40 Mg Tablet 20 Mg PO DAILY 30 Days Carvedilol (Carvedilol) 12.5 Mg Tablet 12.5 Mg PO BIDWMEALS 30 Days Duoneb 0.5-3(2.5) Mg/3 Ml (Albuterol/Ipratropium) 3 Ml Ampul.neb 3 Ml NEB Q4HRS 30 Days Pulmicort Flexhaler (Budesonide) 180 Mcg Aer.pow.ba 2 Puff IH BID Isosorbide Mononitrate Er (Isosorbide Mononitrate) 30 Mg Tab.er.24h 60 Mg PO DAILY 30 Days Atorvastatin Calcium 20 Mg Tablet 20 Mg PO QHS 30 Days Advair 250-50 Diskus (Fluticasone/Salmeterol) 1 Each Disk.w.dev 1 Inh IH BID 30 Days Reported Effexor Xr (Venlafaxine Hcl) 150 Mg Cap.er.24h 225 Mg PO DAILY Tamoxifen Citrate 20 Mg Tablet 1 Tab PO DAILY Simethicone 80 Mg Tab.chew 80 Mg PO PRN Q6HRS PRN Risperdal (Risperidone) 0.5 Mg Tablet 0.5 Mg PO BID Entresto 49 mg-51 mg Tablet (Sacubitril/Valsartan) 1 Each Tablet 1 Each PO BID Vitamin B-12 (Cyanocobalamin (Vitamin B-12)) 1,000 Mcg Tablet 1 Tab PO DAILY Clonazepam 0.5 Mg Tablet 0.25 Mg PO BID PRN Lipitor (Atorvastatin Calcium) 20 Mg Tablet 20 Mg PO HS Aspirin 325 Mg Tablet 1 Tab PO DAILY Tylenol (Acetaminophen) 325 Mg Tablet 500 Mg PO PRN Q6HRS PRN Albuterol Sulfate Conc Neb Soln (Albuterol Sulfate) 2.5 Mg/0.5 Ml Vial.neb 1 Vial NEB Q4HRS PRN Proventil Hfa Inhaler (Albuterol Sulfate) 6.7 Gm Hfa.aer.ad 2 Puff IH BID PRN Mupirocin Ointment (Mupirocin) 22 Gm Oint...g. 1 Applic TOP BID Amlodipine Besylate 5 Mg Tablet 1 Tab PO DAILY Bupropion Hcl Sr (Bupropion Hcl) 150 Mg Tablet.er 1 Tab PO BID Omeprazole 20 Mg Capsule.dr 1 Tab PO DAILY Carvedilol 12.5 Mg Tablet 12.5 Mg PO BID Gabapentin 300 Mg Capsule 1 Tab PO BID Lisinopril 40 Mg Tablet 40 Mg PO DAILY Venlafaxine Hcl Er (Venlafaxine Hcl) 225 Mg Tab.er.24 225 Mg PO DAILY NICODERM CQ 21mg (Nicotine) 1 Each Patch.td24 1 Patch TP DAILY Do not smoke while wearing the patch Cyanocobalamin Injection (Cyanocobalamin (Vitamin B-12)) 1,000 Mcg/1 Ml Vial 1 Ml IM QMONTH Clonazepam 0.5 Mg Tablet 0.5 Tab PO DAILY PRN Ventolin Hfa Inhaler (Albuterol Sulfate) 18 Gm Hfa.aer.ad 2 Puff INH BID Acetaminophen 500 Mg Tablet 1 Tab PO PRN Q6HRS PRN Gabapentin (Gabapentin) 300 Mg Capsule 300 Mg PO BID Buspirone Hcl 15 Mg Tablet 15 Mg PO BID Aspirin 325 Mg Tablet 1 Tab PO DAILY Tamoxifen Citrate 20 Mg Tablet 20 Mg PO DAILY Vitals/I & O Vital Sign - Last 24 Hours 08/01/18 08/01/18 08/01/18 08/01/18 11:00 11:10 12:45 15:00 Temp 98.6 98.7 98.6 98.7 Pulse 88 106 111 Resp 18 22 B/P (MAP) 160/85 (110) 157/91 (113) 185/94 (124) Pulse Ox 92 96 94 O2 Delivery Room Air Room Air Room Air 08/01/18 08/01/18 08/01/18 08/01/18 15:23 15:37 16:00 16:03 Pulse 111 106 Resp 18 B/P (MAP) 185/94 145/64 (91) Pulse Ox 96 96 O2 Delivery Room Air Room Air 08/01/18 08/01/18 08/01/18 08/01/18 16:25 17:30 19:00 20:00 Temp 98.9 98.9 Pulse 107 89 Resp 19 18 B/P (MAP) 175/81 122/74 (90) Pulse Ox 92 O2 Delivery Room Air Room Air Room Air 08/01/18 08/01/18 08/01/18 08/02/18 21:56 21:57 23:00 03:00 Temp 98.4 98.4 98.4 98.4 Pulse 88 78 Resp 16 18 B/P (MAP) 115/61 (79) 136/75 (95) Pulse Ox 90 90 93 93 O2 Delivery Room Air Room Air Room Air Room Air 08/02/18 08/02/18 08/02/18 08/02/18 03:37 07:00 07:31 10:22 Temp 98.4 98.4 Pulse 95 95 Resp 18 B/P (MAP) 132/80 (97) 132/80 Pulse Ox 98 98 95 O2 Delivery Nasal Cannula Room Air Nasal Cannula O2 Flow Rate 1.0 2.0 08/02/18 08/02/18 08/02/18 10:23 10:24 10:25 Pulse 95 95 95 B/P (MAP) 132/80 132/80 132/80 Intake and Output 08/01/18 08/01/18 08/02/18 14:59 22:59 06:59 Intake Total 540 ml 120 ml 420 ml Balance 540 ml 120 ml 420 ml MELA FITZGERALD III DO Aug 02, 2018 10:52
[2018-08-02 11:00] VITALS: BP 127/77
--- NOTE | 2018-08-02 12:12 | RAD ---
Portable chest, 08/02/2018: HISTORY: Hypoxia Comparison is made to a study from 04/26/2018. The heart size and pulmonary vascularity are normal. No pulmonary infiltrate is seen. There is no evidence of pleural fluid. IMPRESSION: No acute cardiopulmonary abnormality is detected. Electronically signed by: Mitch Brenner MD (08/02/2018 12:08 PM) [facility]
[2018-08-02] MEDS: ACETAMINOPHEN/CODEINE 300/30MG TABLET. PO PRN ×2 (13:58→20:23)
--- NOTE | 2018-08-02 14:13 | NUR ---
SW following for discharge planning. Discussed with RN, pt is from home. PT/OT recommending rehab, however, pt does not have health insurance. Dr. Mcfarlane has been consulted. SW will continue to follow for discharge planning needs.
--- NOTE | 2018-08-02 14:30 | PDOC ---
PULMONARY PROGRESS NOTES Vitals Vital Signs Date Time Temp Pulse Resp B/P (MAP) Pulse Ox O2 Delivery O2 Flow Rate FiO2 08/02/18 13:58 95 Room Air 2.0 08/02/18 11:00 98.3 99 18 127/77 (94) 98.3 General: Alert HEENT: Other Lungs: Other (diminished breath sounds slight crackles) Cardiovascular: S1, S2 Abdomen: Soft, Non-tender Extremities: No Edema Labs Laboratory Tests Test 08/01/18 07:43 White Blood Count 6.7 x10^3/uL (4.0-11.0) Red Blood Count 3.85 x10^6/uL (3.50-5.40) Hemoglobin 12.6 g/dL (12.0-15.5) Hematocrit 36.8 % (36.0-47.0) Mean Corpuscular Volume 96 fL (79-100) Mean Corpuscular Hemoglobin 33 pg (25-35) Mean Corpuscular Hemoglobin Concent 34 g/dL (31-37) Red Cell Distribution Width 14.1 % (11.5-14.5) Platelet Count 137 x10^3/uL (140-400) Neutrophils (%) (Auto) 63 % (31-73) Lymphocytes (%) (Auto) 24 % (24-48) Monocytes (%) (Auto) 9 % (0-9) Eosinophils (%) (Auto) 4 % (0-3) Basophils (%) (Auto) 0 % (0-3) Neutrophils # (Auto) 4.2 x10^3uL (1.8-7.7) Lymphocytes # (Auto) 1.6 x10^3/uL (1.0-4.8) Monocytes # (Auto) 0.6 x10^3/uL (0.0-1.1) Eosinophils # (Auto) 0.3 x10^3/uL (0.0-0.7) Basophils # (Auto) 0.0 x10^3/uL (0.0-0.2) Medications Active Scripts Medications Dose Route/Sig Max Daily Dose Days Date Category Dose Instructions Effexor Xr (Venlafaxine Hcl) 150 Mg Cap.er.24h 225 Mg PO DAILY 07/30/18 Reported Tamoxifen Citrate 20 Mg Tablet 1 Tab PO DAILY 07/30/18 Reported Simethicone 80 Mg Tab.chew 80 Mg PO PRN Q6HRS PRN 07/30/18 Reported Risperdal (Risperidone) 0.5 Mg Tablet 0.5 Mg PO BID 07/30/18 Reported Entresto 49 mg-51 mg Tablet (Sacubitril/Valsartan) 1 Each Tablet 1 Each PO BID 07/30/18 Reported Vitamin B-12 (Cyanocobalamin (Vitamin B-12)) 1,000 Mcg Tablet 1 Tab PO DAILY 07/30/18 Reported Clonazepam 0.5 Mg Tablet 0.25 Mg PO BID PRN 07/30/18 Reported Lipitor (Atorvastatin Calcium) 20 Mg Tablet 20 Mg PO HS 07/30/18 Reported Aspirin 325 Mg Tablet 1 Tab PO DAILY 07/30/18 Reported Tylenol (Acetaminophen) 325 Mg Tablet 500 Mg PO PRN Q6HRS PRN 07/30/18 Reported Albuterol Sulfate Conc Neb Soln (Albuterol Sulfate) 2.5 Mg/0.5 Ml Vial.neb 1 Vial NEB Q4HRS PRN 07/30/18 Reported Proventil Hfa Inhaler (Albuterol Sulfate) 6.7 Gm Hfa.aer.ad 2 Puff IH BID PRN 07/30/18 Reported Mupirocin Ointment (Mupirocin) 22 Gm Oint...g. 1 Applic TOP BID 07/30/18 Reported Amlodipine Besylate 5 Mg Tablet 1 Tab PO DAILY 07/30/18 Reported Bupropion Hcl Sr (Bupropion Hcl) 150 Mg Tablet.er 1 Tab PO BID 07/30/18 Reported Omeprazole 20 Mg Capsule.dr 1 Tab PO DAILY 07/30/18 Reported Carvedilol 12.5 Mg Tablet 12.5 Mg PO BID 07/30/18 Reported Gabapentin 300 Mg Capsule 1 Tab PO BID 07/30/18 Reported Lisinopril 40 Mg Tablet 40 Mg PO DAILY 07/30/18 Reported Calcium Carbonate 200 Mg Tab.chew 500 Mg PO PRN Q4HRS PRN 14 04/29/18 Rx Clotrimazole 10 Mg Sherry 10 Mg MM BID 14 04/29/18 Rx [Pantoprazole] 40 MG Tablet.dr 40 Mg PO DAILYAC 14 04/29/18 Rx Montelukast Sodium Tablet (Montelukast Sodium) 10 Mg Tablet 10 Mg PO QHS 30 04/29/18 Rx Lactulose 20 Gm/30 Ml Solution 20 Gm PO PRN Q12HR PRN 14 04/29/18 Rx Lisinopril 40 Mg Tablet 20 Mg PO DAILY 30 04/29/18 Rx Carvedilol (Carvedilol) 12.5 Mg Tablet 12.5 Mg PO BIDWMEALS 30 04/29/18 Rx Duoneb 0.5-3(2.5) Mg/3 Ml (Albuterol/Ipratropium) 3 Ml Ampul.neb 3 Ml NEB Q4HRS 30 04/29/18 Rx Pulmicort Flexhaler (Budesonide) 180 Mcg Aer.pow.ba 2 Puff IH BID 01/13/17 Rx Venlafaxine Hcl Er (Venlafaxine Hcl) 225 Mg Tab.er.24 225 Mg PO DAILY 01/10/17 Reported NICODERM CQ 21mg (Nicotine) 1 Each Patch.td24 1 Patch TP DAILY 01/10/17 Reported Do not smoke while wearing the patch Cyanocobalamin Injection (Cyanocobalamin (Vitamin B-12)) 1,000 Mcg/1 Ml Vial 1 Ml IM QMONTH 01/10/17 Reported Clonazepam 0.5 Mg Tablet 0.5 Tab PO DAILY PRN 01/10/17 Reported Ventolin Hfa Inhaler (Albuterol Sulfate) 18 Gm Hfa.aer.ad 2 Puff INH BID 01/10/17 Reported Acetaminophen 500 Mg Tablet 1 Tab PO PRN Q6HRS PRN 01/10/17 Reported Isosorbide Mononitrate Er (Isosorbide Mononitrate) 30 Mg Tab.er.24h 60 Mg PO DAILY 30 09/23/16 Rx Atorvastatin Calcium 20 Mg Tablet 20 Mg PO QHS 30 09/23/16 Rx Advair 250-50 Diskus (Fluticasone/Salmeterol) 1 Each Disk.w.dev 1 Inh IH BID 30 09/23/16 Rx Gabapentin (Gabapentin) 300 Mg Capsule 300 Mg PO BID 09/12/16 Reported Buspirone Hcl 15 Mg Tablet 15 Mg PO BID 09/12/16 Reported Aspirin 325 Mg Tablet 1 Tab PO DAILY 03/16/14 Reported Tamoxifen Citrate 20 Mg Tablet 20 Mg PO DAILY 06/24/13 Reported Impression . COPD/ HYPOXEMIA OK TO D/C 6 MIN WALK MAURY LOMELI MD Aug 02, 2018 14:30
[2018-08-02 15:00] VITALS: BP 122/80
--- NOTE | 2018-08-02 15:41 | PDOC ---
PROGRESS NOTES Assessment Assessment LE numbness and weakness x 1 day before admission, R>L. L-spine stenosis. Mild C4 cord impingement. Breast cancer. HTN. HLD. COPD. Old lacunar infarct likely. Left eye vision problems. Former smoker. Depression. RECOMMENDATIONS/PLAN: Treat medical diseases. Consulted NS. Neurontin 100 mg tid. OT/PT. History of Present Illness This is a 58-year-old white female with history of smoking and breast cancer has been having symptoms of LE numbness and weakness and unable to walk since after moving her years yesterday on 06/28/18. She stated she felt numbness and decreased feeling from her lower abdomen down to bilateral LE but more obvious in her right LE. She stated she is still able to urinating and had bowel movements on 06/28/18. Her cranial nerves and UE are not affected. She did not remember hurt her back. Past Medical History Cardiovascular: HTN, Hyperlipidemia Pulmonary: COPD CENTRAL NERVOUS SYSTEM: CVA Heme/Onc: Anemia NOS, Cancer, Other Hepatobiliary: No pertinent hx Psych: Anxiety Musculoskeletal: Osteoarthritis Infectious disease: No pertinent hx Renal/: No pertinent hx Endocrine: No pertinent hx Past Surgical History No major surgery recently. Family History Cancer, Coronary Artery Disease, Hypertension Social History Smoke: Quit in 04/2018. ALCOHOL: occasional Drugs: Denied. ALLERGY: NKDA MEDICATIONS: Refer to [facility] REVIEW OF SYSTEMS: Constitutional: Over weight.. Head: No traumatic brain or head injury. Skin: No edema, or rash. Ear: No infection, tinnitus. Eyes: No vision loss or color blindness. Nose: No bleeding or purulent discharges. Hearing: No hearing decrease. Neck: No injury. Breast: Cancer. Cardiac: HTN, HLD. Pulmonary: COPD. GI: No GI ulcer, GI bleeding. Urinary/genital: UTI. Endocrinologic: No cousin face, craniofacial dysmorphism, polydactyly. Skeletomuscular: No muscular atrophy, deformity. Neurological: see HP. Psychiatric: Denies drug use/abuse. Otherwise, not [id number] review of systems. PHYSICAL EXAMINATION: General appearance is in subacute distress. HEENT: Normocephalic and nontraumatic. Eyes, nose, ears, and throat are un remarkable. Neck is supple. No lymphadenopathy. No crepitus. Cardiovascular: S1, S2, regular rate and rhythm. Pulmonary: Clear to auscultation bilaterally. Abdomen: Bowel sounds are positive. Extremities: No rash or edema. No restriction of range of motion in UE. NEUROLOGICAL EXAMINATION: Alert Oriented to time, place and person. PERRL. EOMI. CN: chronic right VII palsy? Muscle tone: within normal in UE. Decreased in LE? Muscle strength: 5 UE, 4 right LE, 5- left LE. DTR: 2 UE, 1 at knee. Plantar reflex: Neutral response bilaterally Gait: Able to stand. Sensory exam: Decreased to light tough, vibration sense, temperature and pain sensation in right LE. No cerebellar signs elicited. F-T-N test fine. Objective Objective Vital Signs Date Time Temp Pulse Resp B/P (MAP) Pulse Ox O2 Delivery O2 Flow Rate FiO2 08/02/18 15:34 98 Nasal Cannula 2.0 08/02/18 11:00 98.3 99 18 127/77 (94) 98.3 Intake and Output 08/02/18 07:00 Intake Total 1080 ml Balance 1080 ml Intake Oral 1080 ml # Voids 5 Vitals Signs Vitals VS - Last 72 Hours, by Label Date Time Temp Pulse Resp B/P (MAP) Pulse Ox O2 Delivery O2 Flow Rate FiO2 08/02/18 15:34 98 Nasal Cannula 2.0 08/02/18 13:58 95 Room Air 2.0 08/02/18 12:25 Nasal Cannula 2.0 08/02/18 11:00 98.3 99 18 127/77 (94) 98 Room Air 98.3 08/02/18 10:25 95 132/80 08/02/18 10:24 95 132/80 08/02/18 10:23 95 132/80 08/02/18 10:22 95 132/80 08/02/18 07:40 Room Air 2.0 08/02/18 07:31 95 Nasal Cannula 2.0 08/02/18 07:00 98.4 95 18 132/80 (97) 98 Room Air 98.4 08/02/18 03:37 98 Nasal Cannula 1.0 08/02/18 03:00 98.4 78 18 136/75 (95) 93 Room Air 98.4 08/01/18 23:00 98.4 88 16 115/61 (79) 93 Room Air 98.4 08/01/18 21:57 90 Room Air 08/01/18 21:56 90 Room Air 08/01/18 20:00 Room Air 08/01/18 19:00 98.9 89 18 122/74 (90) 92 Room Air 98.9 08/01/18 17:30 107 175/81 08/01/18 16:25 19 Room Air 08/01/18 16:03 96 Room Air 08/01/18 16:00 106 145/64 (91) 08/01/18 15:37 111 185/94 08/01/18 15:23 18 96 Room Air 08/01/18 15:00 98.7 111 22 185/94 (124) 94 Room Air 98.7 08/01/18 12:45 106 157/91 (113) 08/01/18 11:10 96 Room Air 08/01/18 11:00 98.6 88 18 160/85 (110) 92 Room Air 98.6 08/01/18 10:48 88 159/94 (115) 08/01/18 08:42 91 185/95 08/01/18 08:40 91 185/95 08/01/18 08:39 91 185/95 08/01/18 08:00 Room Air 08/01/18 07:45 96 Room Air 08/01/18 07:00 98.5 91 18 185/95 (125) 95 Room Air 98.5 Laboratory Laboratory Microbiology 07/30/18 CSF Gram Stain - Final, Complete Medication Medications Current Medications Carvedilol (Coreg) 25 mg BIDWMEALS PO Last administered on 08/02/18at 10:22; Start 08/01/18 at 17:00 Celecoxib (CeleBREX) 200 mg BID PO ; Start 08/01/18 at 21:00; Stop 08/01/18 at 21:00; Status DC Clonazepam (KlonoPIN) 0.5 mg PRN BID PRN PO ANXIETY / AGITATION Last administered on 08/02/18at 10:24; Start 08/01/18 at 21:15 Comment Review of Relevant I have reviewed the following items jerrod (where applicable) has been applied. JAMILA CHAUDHARY MD Aug 02, 2018 15:41
[2018-08-02 19:00] VITALS: BP 136/74
[2018-08-02] MEDS: GABAPENTIN 100 MG CAPSULE. PO SCH (20:22)
[2018-08-02] MEDS: MONTELUKAST SODIUM 10 MG TABLET. PO SCH (20:22)
[2018-08-02] MEDS: ATORVASTATIN CALCIUM 20 MG TABLET PO SCH (20:22)
--- NOTE | 2018-08-02 22:45 | CONS ---
DATE OF CONSULTATION: 08/02/2018 ATTENDING PHYSICIAN: Pat Jimenez M.D. REASON FOR CONSULTATION: The patient seen in Pulmonary consultation at the request of Dr. Feng for hypoxemia. HISTORY OF PRESENT ILLNESS: The patient is a 58-year-old with underlying history of previous respiratory failure, COPD, previous pneumonia. She also has cardiomyopathy, ejection fraction 15%, who presented because of lower extremity weakness. She has been evaluated now, has been recuperating from L4-L5 stenosis. Dr. Mejia has recommended PT and followup with him in his office. Today, it was noted that she was short of air. She is an ex-smoker. She at home utilizes metered-dose inhalers. I was asked to see her in consultation. PAST MEDICAL HISTORY: Remarkable for COPD, tobacco dependence, quit last time. She was seen back in April. She has a history of breast cancer, status post chemo, has been in remission since 2013, hypertension, previous CVA with no residual hemiparesis, protein C resistance and blindness in the left eye, previous respiratory failure, dating back to 10/08/2016. At that time, she was intubated and eventually extubated. She has a history of severe systolic heart failure, cardiomyopathy, ejection fraction of 25%. PAST SURGICAL HISTORY: Status post previous Port-A-Cath placement, has been removed; lumpectomy and bilateral eye surgery. FAMILY HISTORY: Heart disease. SOCIAL HISTORY: Socially, she is currently not smoking. REVIEW OF SYSTEMS: As indicated above, otherwise, a 10-point system was reviewed and negative. PHYSICAL EXAMINATION: VITAL SIGNS: Stable. O2 saturation was greater than 92%, currently on 2 liters. HEENT: Eyes, the sclerae were nonicteric. NECK: Jugular venous distention was not elevated. No lymphadenopathy. CHEST: Full expansion. LUNGS: Poor airway flow with no wheezes. CARDIOVASCULAR: Regular rate and rhythm with S1 and S2. No S3. ABDOMEN: Soft, nontender and nondistended. EXTREMITIES: No clubbing, cyanosis or edema. LABORATORY DATA: Labs were reviewed. White count was normal. Hemoglobin and hematocrit were noted. Toxicology screen was noted. RADIOLOGICAL DATA: Chest x-ray revealed no acute infiltrates. IMPRESSION: 1. Chronic obstructive pulmonary disease. 2. Hypoxemia secondary to above. 3. Tobacco dependence, in remission. 4. L4-L5 stenosis. 5. Multiple other comorbidities including hypertension, hyperlipidemia, previous cerebrovascular accident. 6. Cough, multifactorial, mostly related to reflux. PLAN: From a pulmonary standpoint of view, the patient is okay to discharge home. We will obtain 6-minute walk. Continue bronchodilators. No need for antibiotics or prolonged steroid taper. The patient instructed on discontinuing all caffeinated beverages to avoid reflux and mitigate some of her cough. I do appreciate the privilege in sharing in the patient's care. MAURY LOMELI MD DR: SALO/gentry JOB#: [id number] / [id number]
[2018-08-02 23:00] VITALS: BP 120/69
[2018-08-03] MEDS ORDERED: ONDANSETRON ODT 4 MG TAB.RAPDIS. PO PRN
[2018-08-03 03:00] VITALS: BP 126/76
[2018-08-03] MEDS: IPRATRPIUM/ALBUTEROL 0.5/2.5MG 3 ML NEBU. NEB SCH ×3 (03:27→12:19)
--- NOTE | 2018-08-03 04:03 | NUR ---
Assumed care at start of shift pt c/o headache and Tylenol #3 po given pt requested to take shower, pt assisted with shower chair in placed , continue to c/o of right leg numbness, ambulated with walker well. iv accidently pulled iv out after shower, Dr Amaya notified and order received to leave iv out , due to pt request to keep iv out. pt rested well throughout hourly rounds, will continue with current plan of care and will report changes.
[2018-08-03 07:00] VITALS: BP 137/71
--- NOTE | 2018-08-03 07:27 | PDOC ---
PULMONARY PROGRESS NOTES Subjective sob better, has cough, slight back pain Vitals Vital Signs Date Time Temp Pulse Resp B/P (MAP) Pulse Ox O2 Delivery O2 Flow Rate FiO2 08/03/18 03:27 Nasal Cannula 2.0 08/03/18 03:00 98.4 74 18 126/76 (93) 97 98.4 ROS: No Nausea General: Alert HEENT: Other (nc at perrl nose throat clear) Lungs: Other (diminished breath sounds ) Cardiovascular: S1, S2 Abdomen: Soft, Non-tender Neuro Exam: Alert Extremities: No Edema Skin: Warm Labs Laboratory Tests Test 08/01/18 07:43 White Blood Count 6.7 x10^3/uL (4.0-11.0) Red Blood Count 3.85 x10^6/uL (3.50-5.40) Hemoglobin 12.6 g/dL (12.0-15.5) Hematocrit 36.8 % (36.0-47.0) Mean Corpuscular Volume 96 fL (79-100) Mean Corpuscular Hemoglobin 33 pg (25-35) Mean Corpuscular Hemoglobin Concent 34 g/dL (31-37) Red Cell Distribution Width 14.1 % (11.5-14.5) Platelet Count 137 x10^3/uL (140-400) Neutrophils (%) (Auto) 63 % (31-73) Lymphocytes (%) (Auto) 24 % (24-48) Monocytes (%) (Auto) 9 % (0-9) Eosinophils (%) (Auto) 4 % (0-3) Basophils (%) (Auto) 0 % (0-3) Neutrophils # (Auto) 4.2 x10^3uL (1.8-7.7) Lymphocytes # (Auto) 1.6 x10^3/uL (1.0-4.8) Monocytes # (Auto) 0.6 x10^3/uL (0.0-1.1) Eosinophils # (Auto) 0.3 x10^3/uL (0.0-0.7) Basophils # (Auto) 0.0 x10^3/uL (0.0-0.2) Medications Active Scripts Medications Dose Route/Sig Max Daily Dose Days Date Category Dose Instructions Effexor Xr (Venlafaxine Hcl) 150 Mg Cap.er.24h 225 Mg PO DAILY 07/30/18 Reported Tamoxifen Citrate 20 Mg Tablet 1 Tab PO DAILY 07/30/18 Reported Simethicone 80 Mg Tab.chew 80 Mg PO PRN Q6HRS PRN 07/30/18 Reported Risperdal (Risperidone) 0.5 Mg Tablet 0.5 Mg PO BID 07/30/18 Reported Entresto 49 mg-51 mg Tablet (Sacubitril/Valsartan) 1 Each Tablet 1 Each PO BID 07/30/18 Reported Vitamin B-12 (Cyanocobalamin (Vitamin B-12)) 1,000 Mcg Tablet 1 Tab PO DAILY 07/30/18 Reported Clonazepam 0.5 Mg Tablet 0.25 Mg PO BID PRN 07/30/18 Reported Lipitor (Atorvastatin Calcium) 20 Mg Tablet 20 Mg PO HS 07/30/18 Reported Aspirin 325 Mg Tablet 1 Tab PO DAILY 07/30/18 Reported Tylenol (Acetaminophen) 325 Mg Tablet 500 Mg PO PRN Q6HRS PRN 07/30/18 Reported Albuterol Sulfate Conc Neb Soln (Albuterol Sulfate) 2.5 Mg/0.5 Ml Vial.neb 1 Vial NEB Q4HRS PRN 07/30/18 Reported Proventil Hfa Inhaler (Albuterol Sulfate) 6.7 Gm Hfa.aer.ad 2 Puff IH BID PRN 07/30/18 Reported Mupirocin Ointment (Mupirocin) 22 Gm Oint...g. 1 Applic TOP BID 07/30/18 Reported Amlodipine Besylate 5 Mg Tablet 1 Tab PO DAILY 07/30/18 Reported Bupropion Hcl Sr (Bupropion Hcl) 150 Mg Tablet.er 1 Tab PO BID 07/30/18 Reported Omeprazole 20 Mg Capsule.dr 1 Tab PO DAILY 07/30/18 Reported Carvedilol 12.5 Mg Tablet 12.5 Mg PO BID 07/30/18 Reported Gabapentin 300 Mg Capsule 1 Tab PO BID 07/30/18 Reported Lisinopril 40 Mg Tablet 40 Mg PO DAILY 07/30/18 Reported Calcium Carbonate 200 Mg Tab.chew 500 Mg PO PRN Q4HRS PRN 14 04/29/18 Rx Clotrimazole 10 Mg Sherry 10 Mg MM BID 14 04/29/18 Rx [Pantoprazole] 40 MG Tablet.dr 40 Mg PO DAILYAC 14 04/29/18 Rx Montelukast Sodium Tablet (Montelukast Sodium) 10 Mg Tablet 10 Mg PO QHS 30 04/29/18 Rx Lactulose 20 Gm/30 Ml Solution 20 Gm PO PRN Q12HR PRN 14 04/29/18 Rx Lisinopril 40 Mg Tablet 20 Mg PO DAILY 30 04/29/18 Rx Carvedilol (Carvedilol) 12.5 Mg Tablet 12.5 Mg PO BIDWMEALS 30 04/29/18 Rx Duoneb 0.5-3(2.5) Mg/3 Ml (Albuterol/Ipratropium) 3 Ml Ampul.neb 3 Ml NEB Q4HRS 30 04/29/18 Rx Pulmicort Flexhaler (Budesonide) 180 Mcg Aer.pow.ba 2 Puff IH BID 01/13/17 Rx Venlafaxine Hcl Er (Venlafaxine Hcl) 225 Mg Tab.er.24 225 Mg PO DAILY 01/10/17 Reported NICODERM CQ 21mg (Nicotine) 1 Each Patch.td24 1 Patch TP DAILY 01/10/17 Reported Do not smoke while wearing the patch Cyanocobalamin Injection (Cyanocobalamin (Vitamin B-12)) 1,000 Mcg/1 Ml Vial 1 Ml IM QMONTH 01/10/17 Reported Clonazepam 0.5 Mg Tablet 0.5 Tab PO DAILY PRN 01/10/17 Reported Ventolin Hfa Inhaler (Albuterol Sulfate) 18 Gm Hfa.aer.ad 2 Puff INH BID 01/10/17 Reported Acetaminophen 500 Mg Tablet 1 Tab PO PRN Q6HRS PRN 01/10/17 Reported Isosorbide Mononitrate Er (Isosorbide Mononitrate) 30 Mg Tab.er.24h 60 Mg PO DAILY 30 09/23/16 Rx Atorvastatin Calcium 20 Mg Tablet 20 Mg PO QHS 30 09/23/16 Rx Advair 250-50 Diskus (Fluticasone/Salmeterol) 1 Each Disk.w.dev 1 Inh IH BID 30 09/23/16 Rx Gabapentin (Gabapentin) 300 Mg Capsule 300 Mg PO BID 09/12/16 Reported Buspirone Hcl 15 Mg Tablet 15 Mg PO BID 09/12/16 Reported Aspirin 325 Mg Tablet 1 Tab PO DAILY 03/16/14 Reported Tamoxifen Citrate 20 Mg Tablet 20 Mg PO DAILY 06/24/13 Reported Impression . IMPRESSION: 1. Chronic obstructive pulmonary disease. 2. Hypoxemia secondary to above. 3. Tobacco dependence, in remission. 4. L4-L5 stenosis. 5. Multiple other comorbidities including hypertension, hyperlipidemia, previous cerebrovascular accident. 6. Cough, multifactorial, mostly related to reflux. Plan . PLAN: From a pulmonary standpoint of view, the patient is okay to discharge home. 6-minute walk at [place] Continue bronchodilators, ICS No need for antibiotics or prolonged steroid taper. The patient instructed on discontinuing all caffeinated beverages to avoid reflux and mitigate some of her cough. cont protonix discussed w pt ABBIE GAYTAN MD Aug 03, 2018 07:27
[2018-08-03] MEDS: BUDESONIDE 0.5 MG/2 ML NEBU. NEB SCH (08:33)
[2018-08-03] MEDS: MUPIROCIN 2 % TOPICAL CREAM 30GM TUBE. TP SCH (08:55)
[2018-08-03] MEDS: FLUTICASONE 50MCG/NASAL SPRAY 16GM BOTTLE. NS SCH (08:57)
[2018-08-03] MEDS: LISINOPRIL 20 MG TABLET PO SCH (08:57)
[2018-08-03] MEDS: clonazePAM 0.5 MG TABLET PO PRN (08:58)
[2018-08-03] MEDS: ASPIRIN 325 MG TABLET PO SCH (08:58)
[2018-08-03] MEDS: busPIRone 5 MG TABLET. PO SCH (08:58)
[2018-08-03] MEDS: GABAPENTIN 100 MG CAPSULE. PO SCH (08:58)
[2018-08-03] MEDS: VENLAFAXINE 75 MG TABLET. PO SCH (08:58)
[2018-08-03] MEDS: CARVEDILOL 12.5 MG TABLET. PO SCH (08:59)
[2018-08-03] MEDS: buPROPion SR 150 MG TABLET.SA PO SCH (08:59)
[2018-08-03] MEDS: CYANOCOBALAMIN (VITAMIN B-12) 1,000 MCG TABLET. PO SCH (08:59)
[2018-08-03] MEDS: amLODIPine BESYLATE 5 MG TABLET PO SCH (08:59)
[2018-08-03] MEDS: ISOSORBIDE MONONITRATE ER 30 MG TAB.ER.24H PO SCH (08:59)
[2018-08-03] MEDS: PANTOPRAZOLE 40 MG TABLET.DR. PO SCH (08:59)
[2018-08-03] MEDS: NICOTINE 21MG PATCH. TD SCH (09:04)
--- NOTE | 2018-08-03 10:24 | PDOC ---
[facility] PROGRESS NOTE Chief Complaint Chief Complaint 1. Acute onset bilateral lower extremity weakness 1 day prior to admission, negative LP, MRI findings do not explain her symptoms -distribution of symptoms is unlikely CVA in etiology 2. Decreased sensation bilateral lower ext, acute 3. History of breast cancer on year 5 of tamoxifen 4. HER 2 positive breast CA 5. Polypharmacy with 41 meds 6. AK I, VMN 7. Reactive leukocytosis 8. SIRS with no sepsis 9. COPD History of Present Illness History of Present Illness [id number] Patient seen and examined this morning she seems to be at her baseline wants to go home [id number] Patient seen and examined this morning She is on oxygen per nasal cannula I don't think she wears oxygen at home She still little hypoxic I discussed with case management We'll consult pulmonary left Leg she can elevate fine Right leg she can elevate against gravity with much difficulty MRI of the brain and spine shows some DJD, disc bulges, mild central stenosis Neurosurgery on board I provided copies of her MRI results and dw her the findings LP is negative MRI cervical IMPRESSION: Degenerative changes are seen throughout the cervical spine. These findings result in mild central spinal canal stenosis with minimal cord impingement at C4-5. Mild left neural foraminal stenosis is seen at C3-4. Mild bilateral neural foraminal stenosis is seen at C4-5. Mild to moderate left greater than right neural foraminal stenosis is seen at C6-7. LUmbar flexion films: IMPRESSION: Degenerative change with grade 1 anterolisthesis at L4-5 in the upright position, not present in the supine position PLAn: Await neurosurgery opinion She has not worked with PT OT yet because MRI of the thoracic lumbar and cervical spines were pending-we'll see how she does with PT today She is not smoking cigarettes anymore Appreciate subspecs Vitals Vitals Vital Signs Date Time Temp Pulse Resp B/P (MAP) Pulse Ox O2 Delivery O2 Flow Rate FiO2 08/03/18 08:59 85 137/71 08/03/18 08:35 98 Nasal Cannula 2.0 08/03/18 07:00 98.0 17 98.0 Physical Exam General: Alert, Oriented X3, Cooperative Lungs: Other (diminished breath sounds slight crackles) Abdomen: Normal bowel sounds, Soft, No tenderness, No hepatosplenomegaly, No masses Extremities: Other (out of 5 muscle manual testing on bilateral lower extremityThe rest of the neuro exam is unremarkableDTRs +2, claims decreased sensation) Skin: No rashes, No breakdown, No significant lesion Assessment and Plan Assessmemt and Plan 1. Acute onset bilateral lower extremity weakness 1 day prior to admission, negative LP, MRI findings do not explain her symptoms -distribution of symptoms is unlikely CVA in etiology 2. Decreased sensation bilateral lower ext, acute 3. History of breast cancer on year 5 of tamoxifen 4. HER 2 positive breast CA 5. Polypharmacy with 41 meds 6. AK I, VMN 7. Reactive leukocytosis 8. SIRS with no sepsis 9. COPD Plan Discharge home if okay with consultants Comment Review of Relevant I have reviewed the following items jerrod (where applicable) has been applied. Labs Microbiology 07/30/18 CSF Gram Stain - Final, Complete Medications Current Medications Sodium Chloride 1,000 ml @ 1,000 mls/hr Q1H IV Last administered on 07/29/18at 22:54; Start 07/29/18 at 22:30; Stop 07/29/18 at 23:29; Status DC Fentanyl Citrate (Fentanyl 2ml Vial) 50 mcg 1X ONCE IV Last administered on 07/29/18at 23:27; Start 07/29/18 at 23:45; Stop 07/29/18 at 23:46; Status DC Ondansetron HCl (Zofran) 4 mg 1X ONCE IV Last administered on 07/29/18at 23:26; Start 07/29/18 at 23:45; Stop 07/29/18 at 23:46; Status DC Aspirin (Renae Aspirin) 325 mg 1X ONCE PO Last administered on 07/29/18at 23:50; Start 07/29/18 at 23:45; Stop 07/29/18 at 23:46; Status DC Ondansetron HCl (Zofran) 4 mg PRN Q8HRS PRN IV NAUSEA/VOMITING 1ST CHOICE; Start 07/29/18 at 23:45; Stop 07/30/18 at 08:31; Status DC Fentanyl Citrate (Fentanyl 2ml Vial) 50 mcg PRN Q1HR PRN IV SEVERE PAIN Last administered on 07/30/18at 21:34; Start 07/29/18 at 23:45; Stop 07/30/18 at 23:44; Status DC Sodium Chloride 1,000 ml @ 125 mls/hr Q8H IV Last administered on 07/30/18at 21:45; Start 07/29/18 at 23:45; Stop 07/30/18 at 23:44; Status DC Albuterol/ Ipratropium (Duoneb) 3 ml RTQID NEB Last administered on 07/30/18at 07:58; Start 07/30/18 at 08:00; Stop 07/30/18 at 09:16; Status DC Ondansetron HCl (Zofran) 4 mg PRN Q6HRS PRN IV NAUSEA/VOMITING 1ST CHOICE; Start 07/30/18 at 08:45 Acetaminophen/ Codeine Phosphate (Tylenol #3) 1 tab PRN Q6HRS PRN PO MODERATE PAIN Last administered on 08/02/18at 20:23; Start 07/30/18 at 08:30 Acetaminophen (Tylenol) 500 mg PRN Q6HRS PRN PO MILD PAIN / TEMP; Start 07/30/18 at 08:30; Stop 07/30/18 at 09:13; Status DC Acetaminophen (Tylenol) 500 mg PRN Q6HRS PRN PO MILD PAIN 1-3; Start 07/30/18 at 08:45; Stop 07/30/18 at 09:13; Status DC Albuterol Sulfate (Ventolin Neb Soln) 2.5 mg PRN BID PRN INH FOR ASTHMA; Start 07/30/18 at 08:45; Stop 07/30/18 at 09:04; Status DC Amlodipine Besylate (Norvasc) 5 mg DAILY PO Last administered on 08/03/18at 08:59; Start 07/30/18 at 09:00 Aspirin (Renae Aspirin) 325 mg DAILY PO Last administered on 08/03/18at 08:58; Start 07/30/18 at 09:00 Atorvastatin Calcium (Lipitor) 20 mg QHS PO Last administered on 08/02/18at 20:22; Start 07/30/18 at 21:00 Bupropion HCl (Wellbutrin Sr) 150 mg BID PO Last administered on 08/03/18at 08:59; Start 07/30/18 at 09:00 Calcium Carbonate/ Glycine (Tums) 500 mg PRN Q4HRS PRN PO INDIGESTION; Start 07/30/18 at 08:45 Carvedilol (Coreg) 12.5 mg BIDWMEALS PO Last administered on 07/31/18at 18:05; Start 07/30/18 at 09:00; Stop 08/01/18 at 08:18; Status DC Clonazepam (KlonoPIN) 0.25 mg PRN BID PRN PO ANXIETY / AGITATION Last administered on 08/01/18at 08:44; Start 07/30/18 at 08:45; Stop 08/01/18 at 21:09; Status DC Cyanocobalamin (Vitamin B-12) 1,000 mcg DAILY PO Last administered on 08/03/18at 08:59; Start 07/30/18 at 09:00 Gabapentin (Neurontin) 300 mg BID PO Last administered on 08/02/18at 10:23; Start 07/30/18 at 09:00; Stop 08/02/18 at 15:43; Status DC Albuterol/ Ipratropium (Duoneb) 3 ml Q4HRS NEB Last administered on 08/03/18at 08:32; Start 07/30/18 at 12:00 Isosorbide Mononitrate (Imdur) 60 mg DAILY PO Last administered on 08/03/18at 0 8:59; Start 07/30/18 at 09:00 Lactulose (Lactulose) 20 gm PRN Q12HR PRN PO CONSTIPATION; Start 07/30/18 at 08:45 Lisinopril (Prinivil) 20 mg DAILY PO Last administered on 08/03/18at 08:57; Start 07/30/18 at 09:00 Mupirocin (Bactroban) 1 leno BID NS ; Start 07/30/18 at 09:00; Stop 07/30/18 at 09:02; Status DC Simethicone (Gas-X) 80 mg PRN Q6HRS PRN PO GAS / BLOATING; Start 07/30/18 at 08:45 Non-Formulary Medication (Albuterol Sulfate (Albuterol Sulfate Conc Neb Soln)) 1 vial Q4HRS PRN NEB WHEEZING; Start 07/30/18 at 08:45; Status UNV Non-Formulary Medication (Budesonide (Pulmicort Flexhaler)) 2 puff BID IH ; Start 07/30/18 at 09:00; Status UNV Buspirone HCl (Buspar) 15 mg BID PO Last administered on 08/03/18 08:58; Start 07/30/18 at 09:30 Non-Formulary Medication (Fluticasone/ Salmeterol (Advair 250-50 Diskus)) 1 inh BID IH ; Start 07/30/18 at 09:00; Status UNV Montelukast Sodium (Singulair) 10 mg QHS PO Last administered on 08/02/18at 20:22; Start 07/30/18 at 21:00 Nicotine (Nicoderm Cq 21mg) 1 patch DAILY TD ; Start 07/30/18 at 09:30 Venlafaxine HCl (Effexor) 75 mg TID PO Last administered on 08/03/18 08:58; Start 07/30/18 at 09:30 Pantoprazole Sodium (Protonix) 40 mg DAILYAC PO Last administered on 08/03/18 08:59; Start 07/30/18 at 09:30 Mupirocin (Bactroban) 1 leno TID TP Last administered on 08/03/18 08:55; Start 07/30/18 at 14:00 Albuterol Sulfate (Ventolin Neb Soln) 2.5 mg PRN Q4HRS PRN INH FOR ASTHMA; Start 07/30/18 at 09:15 Acetaminophen (Tylenol) 500 mg PRN Q6HRS PRN PO MILD PAIN 1-3; Start 07/30/18 at 09:13 Budesonide (Pulmicort) 0.5 mg RTBID NEB Last administered on 08/03/18at 08:33; Start 07/30/18 at 09:30 Tamoxifen Citrate (Nolvadex) 20 mg DAILY PO ; Start 07/31/18 at 09:00; Stop 07/31/18 at 09:00; Status DC Gadoterate Meglumine (Dotarem) 14 ml 1X ONCE IVP Last administered on 07/30/18at 15:09; Start 07/30/18 at 14:15; Stop 07/30/18 at 14:16; Status DC Enoxaparin Sodium (Lovenox 40mg Syringe) 40 mg Q24H SQ Last administered on 07/31/18at 20:45; Start 07/30/18 at 21:00; Stop 08/01/18 at 11:21; Status DC Celecoxib (CeleBREX) 100 mg PRN BID PRN PO PAIN Last administered on 08/01/18 10:53; Start 07/31/18 at 20:30; Stop 08/01/18 at 11:21; Status DC Carvedilol (Coreg) 25 mg BIDWMEALS PO Last administered on 08/03/18at 08:59; Start 08/01/18 at 17:00 Clonidine HCl (Catapres) 0.1 mg PRN Q1HR PRN PO HYPERTENSION Last administered on 08/01/18at 15:37; Start 08/01/18 at 08:30 Celecoxib (CeleBREX) 200 mg BID PO ; Start 08/01/18 at 21:00; Stop 08/01/18 at 21:00; Status DC Fluticasone Propionate (Flonase) 2 spray DAILY NS Last administered on 08/03/18 08:57; Start 08/01/18 at 12:00 Cetirizine HCl (ZyrTEC) 10 mg DAILY PO ; Start 08/01/18 at 11:30; Stop 08/01/18 at 11:30; Status DC Loperamide HCl (Imodium) 2 mg PRN Q15MIN PRN PO DIARRHEA; Start 08/01/18 at 11:30; Stop 08/01/18 at 11:30; Status DC Fentanyl Citrate (Fentanyl 2ml Vial) 50 mcg 1X ONCE IV ; Start 08/01/18 at 11:30; Stop 08/01/18 at 11:30; Status DC Clonazepam (KlonoPIN) 0.5 mg PRN BID PRN PO ANXIETY / AGITATION Last administered on 08/03/18at 08:58; Start 08/01/18 at 21:15 Gabapentin (Neurontin) 100 mg TID PO Last administered on 08/03/18at 08:58; Start 08/02/18 at 21:00 Ondansetron HCl (Zofran Odt) 4 mg PRN Q6HRS PRN PO NAUSEA/VOMITING; Start 08/03/18 at 00:00 Active Scripts Active Calcium Carbonate 200 Mg Tab.chew 500 Mg PO PRN Q4HRS PRN 14 Days Clotrimazole 10 Mg Sherry 10 Mg MM BID 14 Days [Pantoprazole] 40 MG Tablet.dr 40 Mg PO DAILYAC 14 Days Montelukast Sodium Tablet (Montelukast Sodium) 10 Mg Tablet 10 Mg PO QHS 30 Days Lactulose 20 Gm/30 Ml Solution 20 Gm PO PRN Q12HR PRN 14 Days Lisinopril 40 Mg Tablet 20 Mg PO DAILY 30 Days Carvedilol (Carvedilol) 12.5 Mg Tablet 12.5 Mg PO BIDWMEALS 30 Days Duoneb 0.5-3(2.5) Mg/3 Ml (Albuterol/Ipratropium) 3 Ml Ampul.neb 3 Ml NEB Q4HRS 30 Days Pulmicort Flexhaler (Budesonide) 180 Mcg Aer.pow.ba 2 Puff IH BID Isosorbide Mononitrate Er (Isosorbide Mononitrate) 30 Mg Tab.er.24h 60 Mg PO DAILY 30 Days Atorvastatin Calcium 20 Mg Tablet 20 Mg PO QHS 30 Days Advair 250-50 Diskus (Fluticasone/Salmeterol) 1 Each Disk.w.dev 1 Inh IH BID 30 Days Reported Effexor Xr (Venlafaxine Hcl) 150 Mg Cap.er.24h 225 Mg PO DAILY Tamoxifen Citrate 20 Mg Tablet 1 Tab PO DAILY Simethicone 80 Mg Tab.chew 80 Mg PO PRN Q6HRS PRN Risperdal (Risperidone) 0.5 Mg Tablet 0.5 Mg PO BID Entresto 49 mg-51 mg Tablet (Sacubitril/Valsartan) 1 Each Tablet 1 Each PO BID Vitamin B-12 (Cyanocobalamin (Vitamin B-12)) 1,000 Mcg Tablet 1 Tab PO DAILY Clonazepam 0.5 Mg Tablet 0.25 Mg PO BID PRN Lipitor (Atorvastatin Calcium) 20 Mg Tablet 20 Mg PO HS Aspirin 325 Mg Tablet 1 Tab PO DAILY Tylenol (Acetaminophen) 325 Mg Tablet 500 Mg PO PRN Q6HRS PRN Albuterol Sulfate Conc Neb Soln (Albuterol Sulfate) 2.5 Mg/0.5 Ml Vial.neb 1 Vial NEB Q4HRS PRN Proventil Hfa Inhaler (Albuterol Sulfate) 6.7 Gm Hfa.aer.ad 2 Puff IH BID PRN Mupirocin Ointment (Mupirocin) 22 Gm Oint...g. 1 Applic TOP BID Amlodipine Besylate 5 Mg Tablet 1 Tab PO DAILY Bupropion Hcl Sr (Bupropion Hcl) 150 Mg Tablet.er 1 Tab PO BID Omeprazole 20 Mg Capsule.dr 1 Tab PO DAILY Carvedilol 12.5 Mg Tablet 12.5 Mg PO BID Gabapentin 300 Mg Capsule 1 Tab PO BID Lisinopril 40 Mg Tablet 40 Mg PO DAILY Venlafaxine Hcl Er (Venlafaxine Hcl) 225 Mg Tab.er.24 225 Mg PO DAILY NICODERM CQ 21mg (Nicotine) 1 Each Patch.td24 1 Patch TP DAILY Do not smoke while wearing the patch Cyanocobalamin Injection (Cyanocobalamin (Vitamin B-12)) 1,000 Mcg/1 Ml Vial 1 Ml IM QMONTH Clonazepam 0.5 Mg Tablet 0.5 Tab PO DAILY PRN Ventolin Hfa Inhaler (Albuterol Sulfate) 18 Gm Hfa.aer.ad 2 Puff INH BID Acetaminophen 500 Mg Tablet 1 Tab PO PRN Q6HRS PRN Gabapentin (Gabapentin) 300 Mg Capsule 300 Mg PO BID Buspirone Hcl 15 Mg Tablet 15 Mg PO BID Aspirin 325 Mg Tablet 1 Tab PO DAILY Tamoxifen Citrate 20 Mg Tablet 20 Mg PO DAILY Vitals/I & O Vital Sign - Last 24 Hours 08/02/18 08/02/18 08/02/18 08/02/18 10:23 10:24 10:25 11:00 Temp 98.3 98.3 Pulse 95 95 95 99 Resp 18 B/P (MAP) 132/80 132/80 132/80 127/77 (94) Pulse Ox 98 O2 Delivery Room Air 08/02/18 08/02/18 08/02/18 08/02/18 12:25 13:58 15:00 15:34 Temp 98.7 98.7 Pulse 82 Resp 18 B/P (MAP) 122/80 (94) Pulse Ox 95 96 98 O2 Delivery Nasal Cannula Room Air Room Air Nasal Cannula O2 Flow Rate 2.0 2.0 2.0 08/02/18 08/02/18 08/02/18 08/02/18 17:54 18:41 19:00 20:00 Temp 98.7 98.7 Pulse 99 89 Resp 18 B/P (MAP) 127/77 136/74 (94) Pulse Ox 94 O2 Delivery Nasal Cannula Room Air Room Air O2 Flow Rate 2.0 2.0 08/02/18 08/02/18 08/02/18 08/02/18 20:23 21:23 22:49 23:00 Temp 98.3 98.3 Pulse 88 Resp 18 18 B/P (MAP) 120/69 (86) Pulse Ox 98 95 95 O2 Delivery Room Air Room Air Nasal Cannula Room Air O2 Flow Rate 2.0 2.0 2.0 08/03/18 08/03/18 08/03/18 08/03/18 03:00 03:27 07:00 08:35 Temp 98.4 98.0 98.4 98.0 Pulse 74 85 Resp 18 17 B/P (MAP) 126/76 (93) 137/71 (93) Pulse Ox 97 97 98 O2 Delivery Room Air Nasal Cannula Room Air Nasal Cannula O2 Flow Rate 2.0 2.0 08/03/18 08/03/18 08/03/18 08/03/18 08:57 08:59 08:59 08:59 Pulse 85 85 85 85 B/P (MAP) 137/71 137/71 137/71 137/71 Intake and Output 08/02/18 08/02/18 08/03/18 15:00 23:00 07:00 Intake Total 120 ml Balance 120 ml MELA FITZGERALD III DO Aug 03, 2018 10:24
--- NOTE | 2018-08-03 10:25 | PDOC3 ---
[facility]-Dis[facility] Summary Date of Admission: Date of Admission: Jul 29, 2018 Date of Discharge: Date of Discharge: Aug 03, 2018 Admission Diagnosis: Admitting Diagnosis: Left-sided weakness Problems: (1) Breast cancer (2) COPD exacerbation (3) Shortness of breath (4) Respiratory failure (5) Lower extremity numbness (6) Right sided weakness Discharge Diagnosis: Discharge Diagnosis: Resolving left-sided weakness 1. Acute onset bilateral lower extremity weakness 1 day prior to admission, negative LP, MRI findings do not explain her symptoms -distribution of symptoms is unlikely CVA in etiology 2. Decreased sensation bilateral lower ext, acute 3. History of breast cancer on year 5 of tamoxifen 4. HER 2 positive breast CA 5. Polypharmacy with 41 meds 6. AK I, VMN 7. Reactive leukocytosis 8. SIRS with no sepsis 9. COPD Consults: Consults: Neurology Pulmonary Oncology Procedures: Procedures: None Hospital Course: Hospital Course: Patient is a pleasant middle-aged white female who has near end-stage COPD and also has breast cancer She presented with left-sided weakness She was admitted We did aggressive physical therapy occupational therapy consult neurology oncology and pulmonary With past few days she is returned her baseline once to go home I saw and examined her this morning her heart tones were normal her lungs were clear but diminished I plan to discharge if okay with consultants Disposition: Disposition/Orders: D/C to Home Activity: Activity: Resume previous activity Diet: Diet: Regular Medications: Home Meds Active Scripts Calcium Carbonate (CALCIUM CARBONATE) 200 Mg Tab.chew, 500 MG PO PRN Q4HRS PRN for INDIGESTION for 14 Days, #90 TAB.CHEW Prov:GEETA FOSTER MD 04/29/18 Clotrimazole (CLOTRIMAZOLE) 10 Mg Sherry, 10 MG MM BID for THRUSH for 14 Days, #28 LOZENGE Prov:GEETA FOSTER MD 04/29/18 [Pantoprazole] [address].DR Wright Conflict Check, 40 MG PO DAILYAC for GI PROTECTION for 14 Days, #14 Prov:GEETA FOSTER MD 04/29/18 Montelukast Sodium (MONTELUKAST SODIUM TABLET) 10 Mg Tablet, 10 MG PO QHS for COPD/ ALLERGIES for 30 Days, #30 TAB Prov:GEETA FOSTER MD 04/29/18 Lactulose (LACTULOSE) 20 Gm/30 Ml Solution, 20 GM PO PRN Q12HR PRN for CONSTIPATION for 14 Days, #120 MISC Prov:GEETA FOSTER MD 04/29/18 Lisinopril (LISINOPRIL) 40 Mg Tablet, 20 MG PO DAILY for BLOOD PRESSURE for 30 Days, #15 TAB Prov:GEETA FOSTER MD 04/29/18 Carvedilol (CARVEDILOL ) 12.5 Mg Tablet, 12.5 MG PO BIDWMEALS for HEART for 30 Days, #60 TAB Prov:GEETA FOSTER MD 04/29/18 Ipratropium/Albuterol Sulfate (DUONEB 0.5-3(2.5) MG/3 ML) 3 Ml Ampul.neb, 3 ML NEB Q4HRS for COPD for 30 Days, #180 EACH Prov:GEETA FOSTER MD 04/29/18 Budesonide (PULMICORT FLEXHALER) 180 Mcg Aer.pow.ba, 2 PUFF IH BID, #1 INHALER 6 Refills Prov:THU FRANCO MD 01/13/17 Isosorbide Mononitrate (ISOSORBIDE MONONITRATE ER) 30 Mg Tab.er.24h, 60 MG PO DAILY for 30 Days, #60 TAB.SR Prov:GARY OLIVAS MD 09/23/16 Atorvastatin Calcium (ATORVASTATIN CALCIUM) 20 Mg Tablet, 20 MG PO QHS for 30 Days, #30 TAB Prov:GARY OLIVAS MD 09/23/16 Fluticasone/Salmeterol (ADVAIR 250-50 DISKUS) 1 Each Disk.w.dev, 1 INH IH BID for 30 Days, #1 INHALER Prov:GARY OLIVAS MD 09/23/16 Reported Medications Venlafaxine Hcl (EFFEXOR XR) 150 Mg Cap.er.24h, 225 MG PO DAILY for depression, CAP.SR 07/30/18 Tamoxifen Citrate (TAMOXIFEN CITRATE) 20 Mg Tablet, 1 TAB PO DAILY for cancer hx, #30 TAB 5 Refills 07/30/18 Simethicone (SIMETHICONE) 80 Mg Tab.chew, 80 MG PO PRN Q6HRS PRN for GAS / BLOATING, TAB.CHEW 07/30/18 Risperidone (RISPERDAL) 0.5 Mg Tablet, 0.5 MG PO BID for MOOD STABILIZER, TAB 07/30/18 Sacubitril/Valsartan (Entresto 49 mg-51 mg Tablet) 1 Each Tablet, 1 EACH PO BID for cad, TAB 07/30/18 Cyanocobalamin (Vitamin B-12) (VITAMIN B-12) 1,000 Mcg Tablet, 1 TAB PO DAILY for supplement, #30 TAB 2 Refills 07/30/18 Clonazepam (CLONAZEPAM) 0.5 Mg Tablet, 0.25 MG PO BID PRN for ANXIETY / AGITAT ION, TAB 07/30/18 Atorvastatin Calcium (LIPITOR) 20 Mg Tablet, 20 MG PO HS for FOR CHOLESTEROL, #30 TAB 0 Refills 07/30/18 Aspirin (ASPIRIN) 325 Mg Tablet, 1 TAB PO DAILY for cad, #30 TAB 5 Refills 07/30/18 Acetaminophen (TYLENOL) 325 Mg Tablet, 500 MG PO PRN Q6HRS PRN for PAIN, TAB 07/30/18 Albuterol Sulfate (ALBUTEROL SULFATE CONC NEB SOLN) 2.5 Mg/0.5 Ml Vial.neb, 1 VIAL NEB Q4HRS PRN for WHEEZING, #60 VIAL 1 Refill 07/30/18 Albuterol Sulfate (PROVENTIL HFA INHALER) 6.7 Gm Hfa.aer.ad, 2 PUFF IH BID PRN for FOR ASTHMA, INHALER 0 Refills 07/30/18 Mupirocin (MUPIROCIN OINTMENT) 22 Gm Oint...g., 1 APPLIC TOP BID for skin 07/30/18 Amlodipine Besylate (AMLODIPINE BESYLATE) 5 Mg Tablet, 1 TAB PO DAILY for htn 07/30/18 Bupropion Hcl (BUPROPION HCL SR) 150 Mg Tablet.er, 1 TAB PO BID for depressiom 07/30/18 Omeprazole (OMEPRAZOLE) 20 Mg Capsule.dr, 1 TAB PO DAILY for gerd 07/30/18 Carvedilol (Carvedilol) 12.5 Mg Tablet, 12.5 MG PO BID for htn 07/30/18 Gabapentin (Gabapentin) 300 Mg Capsule, 1 TAB PO BID for pain 07/30/18 Lisinopril (Lisinopril) 40 Mg Tablet, 40 MG PO DAILY for htn 07/30/18 Venlafaxine Hcl (VENLAFAXINE HCL ER) 225 Mg Tab.er.24, 225 MG PO DAILY, CAP.SR 01/10/17 Nicotine (NICODERM CQ 21mg) 1 Each Patch.td24, 1 PATCH TP DAILY, #28 PATCH 1 Refill Do not smoke while wearing the patch 01/10/17 Cyanocobalamin (Vitamin B-12) (CYANOCOBALAMIN INJECTION) 1,000 Mcg/1 Ml Vial, 1 ML IM QMONTH, #1 VIAL 3 Refills 01/10/17 Clonazepam (CLONAZEPAM) 0.5 Mg Tablet, 0.5 TAB PO DAILY PRN for ANXIETY / AGITATION, #30 TAB 01/10/17 Albuterol Sulfate (VENTOLIN HFA INHALER) 18 Gm Hfa.aer.ad, 2 PUFF INH BID for FOR ASTHMA, INHALER 0 Refills 01/10/17 Acetaminophen (ACETAMINOPHEN) 500 Mg Tablet, 1 TAB PO PRN Q6HRS PRN for PAIN, #60 TAB 01/10/17 Gabapentin (GABAPENTIN ) 300 Mg Capsule, 300 MG PO BID, CAP 09/12/16 Buspirone Hcl (BUSPIRONE HCL) 15 Mg Tablet, 15 MG PO BID, TAB 09/12/16 Aspirin (ASPIRIN) 325 Mg Tablet, 1 TAB PO DAILY 03/16/14 Tamoxifen Citrate (TAMOXIFEN CITRATE) 20 Mg Tablet, 20 MG PO DAILY 06/24/13 Discontinued Reported Medications Metoprolol Tartrate (METOPROLOL TARTRATE) 50 Mg Tablet, 50 MG PO BID for heart rate 07/30/18 Scheduled Albuterol Sulfate (Ventolin Hfa Inhaler), 2 PUFF INH BID, (Reported) Amlodipine Besylate (Amlodipine Besylate), 1 TAB PO DAILY, (Reported) Aspirin (Aspirin), 1 TAB PO DAILY, (Reported) Aspirin (Aspirin), 1 TAB PO DAILY, (Reported) Atorvastatin Calcium (Atorvastatin Calcium), 20 MG PO QHS Atorvastatin Calcium (Lipitor), 20 MG PO HS, (Reported) Budesonide (Pulmicort Flexhaler), 2 PUFF IH BID Bupropion Hcl (Bupropion Hcl Sr), 1 TAB PO BID, (Reported) Buspirone Hcl (Buspirone Hcl), 15 MG PO BID, (Reported) Carvedilol (Carvedilol ), 12.5 MG PO BIDWMEALS Carvedilol (Carvedilol), 12.5 MG PO BID, (Reported) Clotrimazole (Clotrimazole), 10 MG MM BID Cyanocobalamin (Vitamin B-12) (Cyanocobalamin Injection), 1 ML IM QMONTH, (Reported) Cyanocobalamin (Vitamin B-12) (Vitamin B-12), 1 TAB PO DAILY, (Reported) Fluticasone/Salmeterol (Advair 250-50 Diskus), 1 INH IH BID Gabapentin (Gabapentin ), 300 MG PO BID, (Reported) Gabapentin (Gabapentin), 1 TAB PO BID, (Reported) Ipratropium/Albuterol Sulfate (Duoneb 0.5-3(2.5) Mg/3 Ml), 3 ML NEB Q4HRS Isosorbide Mononitrate (Isosorbide Mononitrate Er), 60 MG PO DAILY Lisinopril (Lisinopril), 20 MG PO DAILY Lisinopril (Lisinopril), 40 MG PO DAILY, (Reported) Montelukast Sodium (Montelukast Sodium Tablet), 10 MG PO QHS Mupirocin (Mupirocin Ointment), 1 APPLIC TOP BID, (Reported) Nicotine (NICODERM CQ 21mg), 1 PATCH TP DAILY, (Reported) Omeprazole (Omeprazole), 1 TAB PO DAILY, (Reported) Risperidone (Risperdal), 0.5 MG PO BID, (Reported) Sacubitril/Valsartan (Entresto 49 mg-51 mg Tablet), 1 EACH PO BID, (Reported) Tamoxifen Citrate (Tamoxifen Citrate), 20 MG PO DAILY, (Reported) Tamoxifen Citrate (Tamoxifen Citrate), 1 TAB PO DAILY, (Reported) Venlafaxine Hcl (Venlafaxine Hcl Er), 225 MG PO DAILY, (Reported) Venlafaxine Hcl (Effexor Xr), 225 MG PO DAILY, (Reported) [Pantoprazole], 40 MG PO DAILYAC Scheduled PRN Acetaminophen (Acetaminophen), 1 TAB PO PRN Q6HRS PRN for PAIN, (Reported) Acetaminophen (Tylenol), 500 MG PO PRN Q6HRS PRN for PAIN, (Reported) Albuterol Sulfate (Proventil Hfa Inhaler), 2 PUFF IH BID PRN for FOR ASTHMA, (Reported) Albuterol Sulfate (Albuterol Sulfate Conc Neb Soln), 1 VIAL NEB Q4HRS PRN for WHEEZING, (Reported) Calcium Carbonate (Calcium Carbonate), 500 MG PO PRN Q4HRS PRN for INDIGESTION Clonazepam (Clonazepam), 0.5 TAB PO DAILY PRN for ANXIETY / AGITATION, (Reported) Clonazepam (Clonazepam), 0.25 MG PO BID PRN for ANXIETY / AGITATION, (Reported) Lactulose (Lactulose), 20 GM PO PRN Q12HR PRN for CONSTIPATION Simethicone (Simethicone), 80 MG PO PRN Q6HRS PRN for GAS / BLOATING, (Reported) Discontinued Medications Metoprolol Tartrate (Metoprolol Tartrate), 50 MG PO BID, (Reported) Total Time: Total Time: 32 minutes MELA FITZGERALD III, DO Aug 03, 2018 10:25
[2018-08-03 11:00] VITALS: BP 134/71
--- NOTE | 2018-08-03 14:25 | NUR ---
Discharge instructions given to pt. Answered questions and concerns, receipt for purchase of a roller walker and walker given to pt upon dc. Belongings with pt at dc. Pt dc home accompanied by sister.
== END 2018-08-03 14:25 | disposition home or self-care (01) | DRG 551 ==
LOC: ER 21:32 → 6 SOUTH 23:37 → 4 NORTH 08-01 16:44
PROVIDERS: ADMIT Internal Medicine; ATTEND Internal Medicine
PROC: 009U3ZX Drainage of Spinal Canal, Percutaneous Approach, Diagnostic (ICD-10-PCS; principal; 2018-07-30)
PROC: B01B1ZZ Fluoroscopy of Spinal Cord using Low Osmolar Contrast (ICD-10-PCS; 2018-07-30)
DX: M48.061 Spinal stenosis, lumbar region without neurogenic claudication (principal); N17.0 Acute kidney failure with tubular necrosis; R65.10 Systemic inflammatory response syndrome (SIRS) of non-infectious origin without acute organ dysfunction; D68.51 Activated protein C resistance; I42.9 Cardiomyopathy, unspecified; I50.22 Chronic systolic (congestive) heart failure; H54.62 Unqualified visual loss, left eye, normal vision right eye; E11.42 Type 2 diabetes mellitus with diabetic polyneuropathy; E78.5 Hyperlipidemia, unspecified; F41.9 Anxiety disorder, unspecified; M19.90 Unspecified osteoarthritis, unspecified site; D72.828 Other elevated white blood cell count; I11.0 Hypertensive heart disease with heart failure; J43.9 Emphysema, unspecified; F32.9 Major depressive disorder, single episode, unspecified; I25.10 Atherosclerotic heart disease of native coronary artery without angina pectoris; K21.9 Gastro-esophageal reflux disease without esophagitis; M48.02 Spinal stenosis, cervical region; D69.6 Thrombocytopenia, unspecified; F17.201 Nicotine dependence, unspecified, in remission; C50.919 Malignant neoplasm of unspecified site of unspecified female breast; M47.9 Spondylosis, unspecified; Z85.3 Personal history of malignant neoplasm of breast; Z86.74 Personal history of sudden cardiac arrest; Z86.73 Personal history of transient ischemic attack (TIA), and cerebral infarction without residual deficits; Z87.01 Personal history of pneumonia (recurrent); Z82.49 Family history of ischemic heart disease and other diseases of the circulatory system; Z79.899 Other long term (current) drug therapy; Z79.82 Long term (current) use of aspirin; Z85.828 Personal history of other malignant neoplasm of skin; Z86.010 Personal history of colon polyps; Z80.3 Family history of malignant neoplasm of breast; Z92.21 Personal history of antineoplastic chemotherapy; Z15.01 Genetic susceptibility to malignant neoplasm of breast; Z99.81 Dependence on supplemental oxygen; Z79.01 Long term (current) use of anticoagulants; Z79.810 Long term (current) use of selective estrogen receptor modulators (SERMs)
CPT/HCPCS: 36415; 62270; 70450; 71045; 72120; 72141; 72148; 72157; 80053; 80307; 81001; 82550; 82607; 82787; 82945; 83735; 84157; 84443; 85025; 85610; 85730; 86788; 86789; 87070; 89051; 93005; 93970; 94618; 94640; 94760; 96361; 96374; 96375; A9575; J1650; J2405; J3010; J7030; J7620; J7626; 97110; 97116; 97530; 97535; 99285-25